=== PATIENT | female | born 1940 | race Caucasian/White ===

== ENCOUNTER 2020-10-09 11:19 | Inpatient (IN) | payer MEDICARE, OTHER, SELFPAY ==
[2020-10-09] VITALS (7 sets, daily range): BP systolic 102–141; BP diastolic 47–71; PULSE 70–104; RESP 16–19; TEMP 36.4–36.9; O2SAT 96–99; BMI 18.3
--- NOTE | ~2020-10-09 | CT_ITS ---
EXAMINATION: CT BRAIN AND CHEST X-RAY. CLINICAL INFORMATION: AMS. COMPARISON: Chest 01/24/2016 TECHNIQUE: Chest one view. 5 mm thin axial and reformatted 2 mm thin sagittal and coronal images of brain were obtained. DLP [id number] FINDINGS: Chest: The lungs are hyperinflated but clear of acute process. Heart size and pulmonary vascularity is normal. Is mild dextroscoliosis upper/mid dorsal spine. No lytic process. Brain: There is no acute intra-axial, extra-axial bleed, masses or midline shift. There is no acute infarct in evolution. The lateral ventricles are symmetrical in size and configuration with moderate enlargement. There is diffuse periventricular hypodensity in both cerebral hemispheres suggestive of chronic small vessel ischemic changes. Windows reveal no calvarial abnormality. Bilateral paranasal sinuses and mastoid air cells are well-aerated CT/CT head/brain wo con IMPRESSION: Unremarkable chest exam except for hyperinflation. No acute intracranial process seen. Age-related cerebral volume loss with diffuse chronic small vessel ischemic changes.
--- NOTE | ~2020-10-09 | CT_ITS ---
EXAMINATION: CT ABDOMEN AND PELVIS WITHOUT CONTRAST CLINICAL INFORMATION: 79-year-old female with abdominal pain COMPARISON: None TECHNIQUE: Multidetector volumetric imaging was performed from the superior aspect of the liver through the pubic symphysis. Sagittal and coronal reformatted images were obtained on the technologist's workstation. Evaluation of solid organs is limited given lack of IV contrast. This CT examination was performed using dose optimization techniques as appropriate, variously including the following: *Automated exposure control *Adjustment of mA and/or kV according to patient size (this includes techniques or standardized protocols for targeted exams where dose is matched to indication/reason for exam; i.e. extremities or head) *Use of iterative reconstruction technique DLP: 209 mGy-cm FINDINGS: Visualized lung bases demonstrate mild lingular atelectasis. The liver demonstrates normal size, contour and attenuation. The gallbladder is surgically absent. The pancreas and spleen are unremarkable. The adrenal glands are hypertrophied bilaterally, left greater than right. No renal calculi or hydronephrosis of either kidney. A few small parapelvic cysts are present. The stomach is decompressed. Normal caliber loops of small and large bowel. Mild to moderate colonic diverticulosis without CT evidence to suggest active diverticulitis. There is a mild stool burden throughout the colon. Nonaneurysmal abdominal aorta which demonstrates moderate atherosclerotic disease. The bladder is normal in appearance. The uterus is either atrophic or surgically absent. No gross free pelvic fluid. No inguinal lymphadenopathy. Diffuse osteopenia. Scoliotic and degenerative changes of the spine. CT/CT abdomen pelvis wo con IMPRESSION: -No CT evidence for acute abnormality within the abdomen or pelvis. -[id number] colonic diverticulosis without CT evidence to suggest active diverticulitis. -Mild stool burden throughout the colon.
--- NOTE | 2020-10-09 12:34 | PC.NURSE ---
pt is a/o x 2, pt did not know the year. pt states i am feeling so confusion . pt is aware of plan of care.
[2020-10-09 12:49] LABS: MANUAL DIFF FLAG NO
[2020-10-09 12:59] LABS: Basophils Absolute Auto 0.1 X10*3/uL (0.0-0.2); Basophils Percent Auto 0.7 % (0-2); Eosinophils Percent Auto 0.4 % (0-4); Hematocrit 40.9 % (37-47); Hemoglobin 13.5 g/dl (12.0-16.0); Imm Gran Abs Auto 0.02 X10*3/uL (0.00-0.03); Imm Gran Pct Auto 0.3 % (0.0-0.4); Lymphocytes Absolute Auto 1.6 X10*3/uL (1.2-4.9); Lymphocytes Percent Auto 22.8 % (20-40); Mean Corpuscular Hemoglobin 30.1 pg (27.0-33.0); Mean Corpuscular Volume 91.1 fL (80-98); Mean Platelet Volume 9.8 fL (9.4-12.3); Monocytes Absolute Auto 0.5 X10*3/uL (0.1-1.2); Monocytes Percent Auto 6.4 % (2-11); Neutrophils Absolute Auto 4.9 X10*3/uL (2.0-8.3); Neutrophils Percent Auto 69.4 % (45-73); Platelet Count 354 X10*3/uL (160-400); Red Blood Count 4.49 X10*6/uL (4.20-5.50); Red Cell Distribution Width 12.3 % (11.0-16.0); White Blood Count 7.1 X10*3/uL (4.8-10.8)
--- NOTE | 2020-10-09 13:07 | ED.GENADULT ---
HPI - General Adult General Chief complaint: General Medical <JESSY Valenzuela - Last Filed: 10/09/20 17:45> Stated complaint: AGITATION & CONFUSION PER ASSISTED LIVING STAFF <JESSY Valenzuela - Last Filed: 10/09/20 17:45> Time Seen by Provider: 10/09/20 12:04 <JESSY Valenzuela - Last Filed: 10/09/20 17:45> Source: patient and EMS <JESSY Valenzuela - Last Filed: 10/09/20 17:45> Mode of arrival: EMS <JESSY Valenzuela - Last Filed: 10/09/20 17:45> Limitations: other (dementia, poor historian, confused) <JESSY Valenzuela - Last Filed: 10/09/20 17:45> History of Present Illness HPI narrative: 79 y/o female with history of dementia, generalized anxiety disorder, depression who presents to the ED from Assisted Living with increased agitation and combative behavior. She was reportedly throwing items and destroying property at the facilty prompting ER evaluation. According to fruit pitter at the facility over the last 2 weeks patient has been increasing anxious, agitated and irritated. She was seen by her Psych [employer]CH[employer]IC and plan was to start Zyprexa, but unclear if this was started yet. Family reports a UTI 1 month ago that presented with similar behavioral changes. Her initial UA was negative at the time of behaviro onset and then a few days later was positive and she was treated. On arrival patient is confused and anxious. She states she is not having a good day. She does not know why she is here. She does admit to some abdominal discomfort over the last few days and burning on urination for the last 2 days. She currently denies all pain, no SOB, chest pain, N/V/D. <JESSY Valenzuela - Last Filed: 10/09/20 17:45> MD complaint: agitation <JESSY Valenzuela Last Filed: 10/09/20 17:45> Onset (ago): hour(s) <JESSY Valenzuela Last Filed: 10/09/20 17:45> Radiation: non-radiation <JESSY Valenzuela Last Filed: 10/09/20 17:45> Severity: moderate <JESSY Valenzuela - Last Filed: 10/09/20 17:45> Associated symptoms: confusion <JESSY Valenzuela - Last Filed: 10/09/20 17:45> Treatments prior to arrival: none <JESSY Valenzuela - Last Filed: 10/09/20 17:45> Related Data Home medications: Home Medications Medication Instructions Recorded Confirmed alprazolam 1 tab PO TID 10/09/20 10/09/20 aspirin [Aspir-81] 81 mg PO DAILY@0800 10/09/20 10/09/20 cholecalciferol (vitamin D3) 25 mcg PO DAILY@0800 10/09/20 10/09/20 cyanocobalamin (vitamin B-12) 2,500 mcg PO DAILY@0800 10/09/20 10/09/20 multivitamin 1 tab PO DAILY@0800 10/09/20 10/09/20 olanzapine 1 tab PO DAILY@199910/09/20 10/09/20 rivastigmine 1 patch TOPICAL DAILY 10/09/20 10/09/20 vitamin E 1,000 unit PO DAILY@0800 10/09/20 10/09/20 vortioxetine [Trintellix] 1 tab PO DAILY@0800 10/09/20 10/09/20 <JESSY Valenzuela - Last Filed: 10/09/20 17:45> Allergies/adverse reactions: Allergies Allergy/AdvReac Type Severity Reaction Status Date / Time memantine [MEMANTINE] Allergy Severe HIVES Unverified 03/07/20 15:18 Iodinated Contrast Media Allergy Unknown UNKNOWN Unverified 03/07/20 15:18 [IV CONTRAST] lactose Allergy Unknown DIARRHEA Unverified 03/07/20 15:18 sulfamethoxazole Allergy Unknown UNKNOWN Unverified 03/07/20 15:18 [From BACTRIM] trimethoprim [From BACTRIM] Allergy Unknown UNKNOWN Unverified 03/07/20 15:18 <JESSY Valenzuela - Last Filed: 10/09/20 17:45> Review of Systems Review of Systems: Constitutional: No Fever, No Chills ENT/Mouth: No sore throat, No Rhinorrhea, No Swallowing Difficulty Cardiovascular: No Chest Pain, No SOB, No Orthopnea, No Edema Respiratory: No Cough, No Sputum, No Wheezing, No dyspnea Gastrointestinal: No Nausea, No Vomiting, No Diarrhea, + abdominal Pain, No Hematochezia, No Melena Genitourinary: + Dysuria, No Urinary Frequency, No Hematuria Musculoskeletal: No joint pain, No Myalgias Skin: No Skin Lesions, No rash Neuro: No Weakness, No Numbness, No Dizziness, No Headache Psych: + Anxiety/Panic, No Depression Heme/Lymph: No Bruising, No Lymphadenopathy Endocrine: No Polyuria, No Polydipsia <JESSY Valenzuela - Last Filed: 10/09/20 17:45> [facility] Past Medical History Attestation statement: The following information was validated with the patient. <JESSY Valenzuela - Last Filed: 10/09/20 17:45> Medical History: Medical History Anxiety Dementia <JESSY Valenzuela - Last Filed: 10/09/20 17:45> Social History Social History: Social History Smoking Status: Never smoker Use of substances other than those prescribed or required for medical reasons: No Advance Directives: No Advance Directives Information Provided: Yes <JESSY Valenzuela - Last Filed: 10/09/20 17:45> Physical Exam Vital Signs: Vital Signs: Last Vital Signs Temp 98.6 F 10/10/20 05:03 Pulse 72 10/10/20 07:22 Resp 16 10/10/20 05:03 BP 116/67 10/10/20 07:22 Pulse Ox 98 10/10/20 07:22 Body Mass Index 18.3 Appearance: Alert elderly female laying in bed. Oriented X2. Anxious Eyes: Pupils equal, round and reactive to light. ENT: Pharynx normal. Neck: Normal inspection. Neck supple. CVS: Normal heart rate and rhythm. Pulses normal. Respiratory: No respiratory distress. Breath sounds normal. Abdomen: Soft and nontender. +BS x4 Skin: Skin warm and dry. Normal skin color. Normal skin turgor. No rashes. Extremities: No lower extremity edema. Thin and frail extremities Neuro: Oriented X 2. Tearful, anxious, confused, speaks in clear sentences, equal and symmetrical strength throughout <JESSY Valenzuela - Last Filed: 10/09/20 17:45> Vital Signs: Last Vital Signs Temp 98.6 F 10/10/20 05:03 Pulse 72 10/10/20 07:22 Resp 16 10/10/20 05:03 BP 116/67 10/10/20 07:22 Pulse Ox 98 10/10/20 07:22 Body Mass Index 18.3 <Gosia Millan DO - Last Filed: 10/10/20 08:26> Course Course Course Narrative: 79 y/o female with history of dementia, anxiety, and depression who presents from SNF with acute onset of agitation and worsening confusion. She was admitted to last Summer for extensive workup of organic causes and she was discharged on Xanax & Rivastigmine. Acute change today is Possibly due to UTI. Will get labs, UA & CT head for further assessment of mental status changes. <JESSY Valenzuela - Last Filed: 10/09/20 17:45> Reevaluation(s) Reevaluation #1: UA is weakly positive for UTI with trace leukocyte esterase, 0-2 WBC. Given her behavior change, history of the same and reports of dysuria will treat. Mild elevation in BUN with reports of poor PO intake so will also gently hydrate. Will also have Psych see her now as well as CARE team. Family at the bedside and agreeable with plan. <JESSY Valenzuela - Last Filed: 10/09/20 17:45> Reevaluation #2: CARE team assessed the patient. At this time she is not appropriate for geriatric psych. Recommending following up with Psych recs tomorrow and discussing additional support/services at assisted living. Will d/w case management. Physician observation started at 4:30pm. Patient placed in physician observation because patient is awaiting Psych evaluation for recommendations of worsening dementia, anxiety and agitation. At the time observation was started patient's vital signs were stable. Patient is alert and confused. Neuro exam is non-focal. CV: RRR and lungs are clear. Will continue to monitor. <JESSY Valenzuela - Last Filed: 10/09/20 17:45> Consultations Consultation #1: Psych <JESSY Valenzuela - Last Filed: 10/09/20 17:45> Consultation #2: CARE TEAM <JESSY Valenzuela - Last Filed: 10/09/20 17:45> Medical Decision Making Lab Data Result diagrams: : 10/09/20 12:44 10/09/20 12:45 <JESSY Valenzuela - Last Filed: 10/09/20 17:45> Labs: Lab Results 10/09/20 10/09/20 10/09/20 Range/Units 12:44 12:44 12:44 WBC 7.1 (4.8-10.8) X10*3/uL RBC 4.49 (4.20-5.50) X10*6/uL Hgb 13.5 (12.0-16.0) g/dl Hct 40.9 (37-47) % MCV 91.1 (80-98) fL MCH 30.1 (27.0-33.0) pg MCHC 33.0 (31.0-35.0) g/dl RDW 12.3 (11.0-16.0) % Plt Count 354 (160-400) X10*3/uL MPV 9.8 (9.4-12.3) fL Immature Gran % (Auto) 0.3 (0.0-0.4) % Neut % (Auto) 69.4 (45-73) % Lymph % (Auto) 22.8 (20-40) % [place] % (Auto) 6.4 (2-11) % Eos % (Auto) 0.4 (0-4) % Baso % (Auto) 0.7 (0-2) % Lymph # (Auto) 1.6 (1.2-4.9) X10*3/uL [place] # (Auto) 0.5 (0.1-1.2) X10*3/uL Eos # (Auto) 0.0 (0.0-0.4) X10*3/uL Baso # (Auto) 0.1 (0.0-0.2) X10*3/uL Abs Immat Gran (auto) 0.02 (0.00-0.03) X10*3/uL Absolute Neuts (auto) 4.9 (2.0-8.3) X10*3/uL Absolute Nucleated RBC 0.000 (0.0-0.012) X10*3/uL Nucleated RBC % (auto) 0.0 (0.0-0.2) /100WBC Hold Blue Top SEE NOTE Sodium (135-145) mmol/L Potassium (3.3-5.1) mmol/L Chloride (96-108) mmol/L Carbon Dioxide (22-29) mmol/L Anion Gap (12-20) BUN (9-16) mg/dL Creatinine (0.5-1.4) mg/dL Estim Creat Clear Calc Estimated GFR Random Glucose (60-115) mg/dL Calcium (8.4-10.2) mg/dL Magnesium (1.6-2.6) mg/dL Total Bilirubin (0.0-1.0) mg/dL Direct Bilirubin (0.0-0.5) mg/dL AST (5-31) U/L ALT (0-31) U/L Alkaline Phosphatase (39-117) U/L Troponin I High Sens 6.5 (<3.5-17.0) ng/L Total Protein (6.5-8.0) g/dL Albumin (3.5-5.0) g/dL Urine Color Urine Appearance Urine pH (5.0-8.0) Ur Specific [place] (1.005-1.025) Urine Protein (NEG-TRACE) MG/DL Urine Glucose (UA) (NEG) MG/DL Urine Ketones (NEG) MG/DL Urine Blood (NEG) Urine Nitrite (NEG) Ur Leukocyte Esterase (NEG) Urine RBC (0) /HPF Urine WBC (0-4) /HPF Ur Squamous Epith Cells /LPF Urine Bacteria /LPF Granular Casts /LPF Urine Mucus /LPF Coronavirus (PCR) (Negative) Influenza Type A (PCR) (Negative) Influenza Type B (PCR) (Negative) RSV RNA Qual (PCR) (Negative) 10/09/20 10/09/20 10/09/20 Range/Units 12:45 13:07 13:35 WBC (4.8-10.8) X10*3/uL RBC (4.20-5.50) X10*6/uL Hgb (12.0-16.0) g/dl Hct (37-47) % MCV (80-98) fL MCH (27.0-33.0) pg MCHC (31.0-35.0) g/dl RDW (11.0-16.0) % Plt Count (160-400) X10*3/uL MPV (9.4-12.3) fL Immature Gran % (Auto) (0.0-0.4) % Neut % (Auto) (45-73) % Lymph % (Auto) (20-40) % [place] % (Auto) (2-11) % Eos % (Auto) (0-4) % Baso % (Auto) (0-2) % Lymph # (Auto) (1.2-4.9) X10*3/uL [place] # (Auto) (0.1-1.2) X10*3/uL Eos # (Auto) (0.0-0.4) X10*3/uL Baso # (Auto) (0.0-0.2) X10*3/uL Abs Immat Gran (auto) (0.00-0.03) X10*3/uL Absolute Neuts (auto) (2.0-8.3) X10*3/uL Absolute Nucleated RBC (0.0-0.012) X10*3/uL Nucleated RBC % (auto) (0.0-0.2) /100WBC Hold Blue Top Sodium 141 (135-145) mmol/L Potassium 3.5 (3.3-5.1) mmol/L Chloride 104 (96-108) mmol/L Carbon Dioxide 26 (22-29) mmol/L Anion Gap 15 (12-20) BUN 24 H (9-16) mg/dL Creatinine 0.79 (0.5-1.4) mg/dL Estim Creat Clear Calc 46.2 Estimated GFR > 60 Random Glucose 103 (60-115) mg/dL Calcium 9.5 (8.4-10.2) mg/dL Magnesium 2.1 (1.6-2.6) mg/dL Total Bilirubin 0.7 (0.0-1.0) mg/dL Direct Bilirubin 0.2 (0.0-0.5) mg/dL AST 21 (5-31) U/L ALT 12 (0-31) U/L Alkaline Phosphatase 79 (39-117) U/L Troponin I High Sens (<3.5-17.0) ng/L Total Protein 6.7 (6.5-8.0) g/dL Albumin 4.2 (3.5-5.0) g/dL Urine Color YELLOW Urine Appearance CLEAR Urine pH 5.5 (5.0-8.0) Ur Specific [place] 1.025 (1.005-1.025) Urine Protein NEG (NEG-TRACE) MG/DL Urine Glucose (UA) NEG (NEG) MG/DL Urine Ketones 15 (NEG) MG/DL Urine Blood 3+ H (NEG) Urine Nitrite NEG (NEG) Ur Leukocyte Esterase TRACE H (NEG) Urine RBC 1-4 (0) /HPF Urine WBC 0-2 (0-4) /HPF Ur Squamous Epith Cells TRACE /LPF Urine Bacteria TRACE /LPF Granular Casts 0-2 /LPF Urine Mucus 1+ /LPF Coronavirus (PCR) NEGATIVE (Negative) Influenza Type A (PCR) NEGATIVE (Negative) Influenza Type B (PCR) NEGATIVE (Negative) RSV RNA Qual (PCR) NEGATIVE (Negative) <JESSY Valenzuela - Last Filed: 10/09/20 17:45> Lab Results 10/09/20 10/09/20 10/09/20 Range/Units 12:44 12:44 12:44 WBC 7.1 (4.8-10.8) X10*3/uL RBC 4.49 (4.20-5.50) X10*6/uL Hgb 13.5 (12.0-16.0) g/dl Hct 40.9 (37-47) % MCV 91.1 (80-98) fL MCH 30.1 (27.0-33.0) pg MCHC 33.0 (31.0-35.0) g/dl RDW 12.3 (11.0-16.0) % Plt Count 354 (160-400) X10*3/uL MPV 9.8 (9.4-12.3) fL Immature Gran % (Auto) 0.3 (0.0-0.4) % Neut % (Auto) 69.4 (45-73) % Lymph % (Auto) 22.8 (20-40) % [place] % (Auto) 6.4 (2-11) % Eos % (Auto) 0.4 (0-4) % Baso % (Auto) 0.7 (0-2) % Lymph # (Auto) 1.6 (1.2-4.9) X10*3/uL [place] # (Auto) 0.5 (0.1-1.2) X10*3/uL Eos # (Auto) 0.0 (0.0-0.4) X10*3/uL Baso # (Auto) 0.1 (0.0-0.2) X10*3/uL Abs Immat Gran (auto) 0.02 (0.00-0.03) X10*3/uL Absolute Neuts (auto) 4.9 (2.0-8.3) X10*3/uL Absolute Nucleated RBC 0.000 (0.0-0.012) X10*3/uL Nucleated RBC % (auto) 0.0 (0.0-0.2) /100WBC Hold Blue Top SEE NOTE Sodium (135-145) mmol/L Potassium (3.3-5.1) mmol/L Chloride (96-108) mmol/L Carbon Dioxide (22-29) mmol/L Anion Gap (12-20) BUN (9-16) mg/dL Creatinine (0.5-1.4) mg/dL Estim Creat Clear Calc Estimated GFR Random Glucose (60-115) mg/dL Calcium (8.4-10.2) mg/dL Magnesium (1.6-2.6) mg/dL Total Bilirubin (0.0-1.0) mg/dL Direct Bilirubin (0.0-0.5) mg/dL AST (5-31) U/L ALT (0-31) U/L Alkaline Phosphatase (39-117) U/L Troponin I High Sens 6.5 (<3.5-17.0) ng/L Total Protein (6.5-8.0) g/dL Albumin (3.5-5.0) g/dL Urine Color Urine Appearance Urine pH (5.0-8.0) Ur Specific [place] (1.005-1.025) Urine Protein (NEG-TRACE) MG/DL Urine Glucose (UA) (NEG) MG/DL Urine Ketones (NEG) MG/DL Urine Blood (NEG) Urine Nitrite (NEG) Ur Leukocyte Esterase (NEG) Urine RBC (0) /HPF Urine WBC (0-4) /HPF Ur Squamous Epith Cells /LPF Urine Bacteria /LPF Granular Casts /LPF Urine Mucus /LPF Coronavirus (PCR) (Negative) Influenza Type A (PCR) (Negative) Influenza Type B (PCR) (Negative) RSV RNA Qual (PCR) (Negative) 10/09/20 10/09/20 10/09/20 Range/Units 12:45 13:07 13:35 WBC (4.8-10.8) X10*3/uL RBC (4.20-5.50) X10*6/uL Hgb (12.0-16.0) g/dl Hct (37-47) % MCV (80-98) fL MCH (27.0-33.0) pg MCHC (31.0-35.0) g/dl RDW (11.0-16.0) % Plt Count (160-400) X10*3/uL MPV (9.4-12.3) fL Immature Gran % (Auto) (0.0-0.4) % Neut % (Auto) (45-73) % Lymph % (Auto) (20-40) % [place] % (Auto) (2-11) % Eos % (Auto) (0-4) % Baso % (Auto) (0-2) % Lymph # (Auto) (1.2-4.9) X10*3/uL [place] # (Auto) (0.1-1.2) X10*3/uL Eos # (Auto) (0.0-0.4) X10*3/uL Baso # (Auto) (0.0-0.2) X10*3/uL Abs Immat Gran (auto) (0.00-0.03) X10*3/uL Absolute Neuts (auto) (2.0-8.3) X10*3/uL Absolute Nucleated RBC (0.0-0.012) X10*3/uL Nucleated RBC % (auto) (0.0-0.2) /100WBC Hold Blue Top Sodium 141 (135-145) mmol/L Potassium 3.5 (3.3-5.1) mmol/L Chloride 104 (96-108) mmol/L Carbon Dioxide 26 (22-29) mmol/L Anion Gap 15 (12-20) BUN 24 H (9-16) mg/dL Creatinine 0.79 (0.5-1.4) mg/dL Estim Creat Clear Calc 46.2 Estimated GFR > 60 Random Glucose 103 (60-115) mg/dL Calcium 9.5 (8.4-10.2) mg/dL Magnesium 2.1 (1.6-2.6) mg/dL Total Bilirubin 0.7 (0.0-1.0) mg/dL Direct Bilirubin 0.2 (0.0-0.5) mg/dL AST 21 (5-31) U/L ALT 12 (0-31) U/L Alkaline Phosphatase 79 (39-117) U/L Troponin I High Sens (<3.5-17.0) ng/L Total Protein 6.7 (6.5-8.0) g/dL Albumin 4.2 (3.5-5.0) g/dL Urine Color YELLOW Urine Appearance CLEAR Urine pH 5.5 (5.0-8.0) Ur Specific [place] 1.025 (1.005-1.025) Urine Protein NEG (NEG-TRACE) MG/DL Urine Glucose (UA) NEG (NEG) MG/DL Urine Ketones 15 (NEG) MG/DL Urine Blood 3+ H (NEG) Urine Nitrite NEG (NEG) Ur Leukocyte Esterase TRACE H (NEG) Urine RBC 1-4 (0) /HPF Urine WBC 0-2 (0-4) /HPF Ur Squamous Epith Cells TRACE /LPF Urine Bacteria TRACE /LPF Granular Casts 0-2 /LPF Urine Mucus 1+ /LPF Coronavirus (PCR) NEGATIVE (Negative) Influenza Type A (PCR) NEGATIVE (Negative) Influenza Type B (PCR) NEGATIVE (Negative) RSV RNA Qual (PCR) NEGATIVE (Negative) <Gosia Millan DO - Last Filed: 10/10/20 08:26> Discharge Plan Discharge Clinical Impression: Dementia Qualifiers: Dementia type: unspecified type Dementia behavioral disturbance: with behavioral disturbance Qualified Code(s): F03.91 - Unspecified dementia with behavioral disturbance <JESSY Valenzuela - Last Filed: 10/09/20 17:45> Prescriptions: No Action multivitamin Tablet 1 tab PO DAILY@0800 RF: 0 vitamin E 1,000 unit Capsule 1,000 unit PO DAILY@0800 RF: 0 olanzapine 2.5 mg tablet 1 tab PO DAILY@2000 RF: 0 aspirin [Aspir-81] 81 mg Tablet,Delayed Release (Dr/Ec) 81 mg PO DAILY@0800 RF: 0 alprazolam 0.25 mg tablet 1 tab PO TID RF: 0 cholecalciferol (vitamin D3) 25 mcg (1,000 unit) Capsule 25 mcg PO DAILY@0800 RF: 0 rivastigmine 4.6 mg/24 hour patch 24 hour 1 patch topical DAILY RF: 0 Trintellix 20 mg tablet 1 tab PO DAILY@0800 RF: 0 cyanocobalamin (vitamin B-12) 2,500 mcg Tablet 2,500 mcg PO DAILY@0800 RF: 0 <JESSY Vaelnzuela - Last Filed: 10/09/20 17:45>
[2020-10-09 13:16] LABS: Alanine Aminotransferase 12 U/L (0-31); Albumin Level 4.2 g/dL (3.5-5.0); Alkaline Phosphatase 79 U/L (39-117); Anion Gap 15 (12-20); Aspartate Amino Transferase 21 U/L (5-31); Bilirubin Direct 0.2 mg/dL (0.0-0.5); Bilirubin Total 0.7 mg/dL (0.0-1.0); Blood Urea Nitrogen 24 mg/dL (9-16); Calcium 9.5 mg/dL (8.4-10.2); Carbon Dioxide 26 mmol/L (22-29); Chloride 104 mmol/L (96-108); Creatinine Clr Calc Pharmacy 46.2; Estimated Glomerular Filt Rate > 60; Glucose Random 103 mg/dL (60-115); Magnesium 2.1 mg/dL (1.6-2.6); Potassium 3.5 mmol/L (3.3-5.1); Sodium 141 mmol/L (135-145); Total Protein 6.7 g/dL (6.5-8.0)
[2020-10-09 13:22] LABS: Troponin-I High Sensitivity 6.5 ng/L (<3.5-17.0)
[2020-10-09 13:25] LABS: Glucose Urine UA NEG (NEG); Leukocyte Esterase Urine TRACE (NEG); Nitrite Urine NEG (NEG); PH 5.5 (5.0-8.0); Specific Gravity - Urine 1.025 (1.005-1.025); UACC Culture Trigger YES; Urine Blood 3+ (NEG); Urine Ketones 15 MG/DL (NEG); Urine Protein NEG (NEG-TRACE)
[2020-10-09 13:29] LABS: Appearance Urine CLEAR; Color Urine YELLOW
[2020-10-09 13:46] LABS: Bacteria Urine TRACE /LPF; Granular Casts Urine 0-2 /LPF; Mucus Urine 1+ /LPF; Squamous Epithelial Cell Urine TRACE /LPF; WBC Urine 0-2 /HPF (0-4)
[2020-10-09 14:23] LABS: Influenza A PCR NEGATIVE (Negative); Influenza B PCR NEGATIVE (Negative); Resp Syncy Virus RNA Qual PCR NEGATIVE (Negative); SARS COV2 PCR INHOUSE NEGATIVE (Negative)
--- NOTE | 2020-10-09 16:00 | PC.NURSE ---
Per daughter: pt has severe reactions to antipsychotics and other meds. Daughter warns staff and provider to medicate with caution.
[2020-10-09] MEDS: cefTRIAXone sodium 1 GM in 0.9 % Sodium Chloride 50 ML IV (16:15)
[2020-10-09] MEDS: 0.9 % Sodium Chloride 1,000 ML 999 ML IVCONT (16:15)
--- NOTE | 2020-10-09 18:08 | MHC.CARE ---
CARE Team meets with pt and her daughter. Pt states that she is confused and identifies feeling scared, anxious and overwhelmed as a result. She is oriented to self, but is otherwise disoriented. Daughter voices that the behavioral disturbances and increased confusion that resulted in pt coming to the ED have been observed before when pt has a UTI. Daughter reports that in the past when these behaviors start, pt will often be negative for UTI, but then will be positive in the following days. Daughter states that her mother has been chronically under nourished, dehydrated and has not been showering or changing clothing as often as she should. Pt resides at [facility]. Daughter states that she is looking to have additional help for her mother, such as a PERFORMANCE CONSULTANT. Daughter is interested in speaking with Case Management, and CARE Team communicates this to DELFINA Hess RN. Daughter reports that prior inpt psych admissions were problematic in some ways for pt, identifying feeling that pt was over medicated. Daughter is hopeful that radha-psych admission can be avoided. Pt is followed by Ivy Elena NP for outpatient psychiatry, and daughter plans on reaching out to Pat as well. Plan is discussed with JESSY Carroll. Pt will remain in the ED overnight for continued antibiotic treatment with plan for case management consult and psych consult tomorrow. Pt and daughter are agreeable with this plan.
--- NOTE | 2020-10-09 19:09 | MHC.CM.ED ---
Met with pt and daughter/HCP Jessica Morejon ([phone]). Pt has severe dementia and cannot answer any questions clearly. Pt lives in Assisted Living at [facility] in [place]. Locked memory care unit. Daughter feels pt need more assistance at [facility]. 3 meals, housekeeping and laundry are provided. Referrals placed to [facility] and [facility] vis allscripts to contact Jessica. CM card givenwith contact info for [facility], [facility], and [facility]. Also suggested Jessica check with social psychologist at facility for recommendations. Pt does not use any medical equipment at home. Daughters are very invoved in pt care. Jessica states that mother can be unsteady on her feet and feels that OT is needed also. Brittnee JIMÉNEZ aware and ordered PT/OT ordered for am. CM to follow for d/c needs.
[2020-10-09] MEDS: ALPRAZolam 0.25 MG TABLET PO (21:46)
[2020-10-09] MEDS: OLANZapine 2.5 MG TABLET PO ×2 (21:46→23:18)
--- NOTE | 2020-10-09 23:21 | PC.NURSE ---
pt awoke with acute confusion and anxiety. pt medicated with 2.5mg zyprexa by mlp with candy.
[2020-10-10] VITALS (14 sets, daily range): BP systolic 116–122; BP diastolic 59–67; PULSE 70–82; RESP 16–20; TEMP 36.6–37; O2SAT 97–99
--- NOTE | 2020-10-10 02:39 | PC.NURSE ---
pt ambualted back and forth to bathroom with moderately unsteady gait. Pt in bed now.
--- NOTE | 2020-10-10 02:59 | PC.NURSE ---
per kiln charger and mlp, patient to be medicated with seroquel for pt being awake. pt in behavioral control. Pt is calm and cooperative at this time and is easily redirected with sitter at bedside. this writer producer advised family concerns regarding medication.
[2020-10-10] MEDS: QUEtiapine Fumarate 25 MG TABLET PO (03:02)
--- NOTE | 2020-10-10 03:54 | PC.NURSE ---
Report received from previous RN. Pt out of bed with assistance, sitter remains present. Pt awake but not actively trying to leave bed at this time. Will continue to monitor.
[2020-10-10] MEDS: ALPRAZolam 0.25 MG TABLET PO ×2 (08:13→14:30)
--- NOTE | 2020-10-10 08:18 | PC.NURSE ---
PT REMAINS CONFUSED AND AGITATED AT TIMES. SHE IS WANDERING IN ED, SITTER IS PRESENT FOR SAFETY, SHE WAS MEDICATED BUT IS REFUSING OTHER AM MEDS AT THIS TIME.
[2020-10-10] MEDS: LORazepam 2 MG/ML VIAL 1 MG IVPUSH (09:08)
--- NOTE | 2020-10-10 09:14 | PC.NURSE ---
pt continues to wander, not redirectable, confused. attempting to hit staff, sts leave me alone! . pt moved back to stretcher, medicated per emar. 1:[address] for safety[address] baudilio[address]
--- NOTE | 2020-10-10 09:20 | MHC.CM.ED ---
Patient remains in ER. Copy of HCP obtained from Dr Triplett's office. Left voicemail for Neeru at [facility]. Waiting for return telephone call to see if patient can return to facility. Continue to monitor for d/c needs.
--- NOTE | 2020-10-10 09:59 | MHC.CM.ED ---
Received return telephone call from Neeru at [facility]. Patient was admitted to their facility on 12/06/2019. She was participating in activatiess until about a month ago. At that time patient started complaining on neck pain, had decreased PO intake and has lost significant weight. Psych consult is pending at this time. Continue to monitor for d/c needs.
--- NOTE | 2020-10-10 12:37 | PC.NURSE ---
Patient awake/confused, restless in bed, pt agreeable to now take po antibiotics with some coaching, unable to get vitals at this time due to restlessness, pt rr documented, will continue to monitor
--- NOTE | 2020-10-10 13:20 | MHC.CM.ED ---
Psych consult is pending. Dr Messina will be seeing patient today. Continue to monitor for d/c needs.
--- NOTE | 2020-10-10 15:25 | PM.PSYCN ---
History of Present Illness Date of Service: t Chief Complaint: AGITATION & CONFUSION PER ASSISTED LIVING STAFF Reason for Consult: Reassessment of psychotropics Requesting physician: Brittnee Groves Discussed with referring provider: Yes (Case discussed with CARE team) Sources of Information: patient interviewed, chart reviewed and crisis/core team assessment reviewed Additional Sources of Information: Talita Lopez [phone] [facility] Narrative: The patient is a 79 year old female, resident of an assisted living facility, retired, with good social support with a long history of anxiety and dementia. At baseline, as per daughter's report, she is able to take care of herself with help and she is cooperative but she has been more dysphoric since the patient is aware of her progressive cognitive deterioration. She was brought to the ED after episodes of agitation with destruction of property. Historically, she had a previous episode in context of UTI and it seems that she is prone to this infection. During the interview, the patient was pleasantly confused, unable to detail how come she ended in the ED and easily distracted. She was agitated in the morning and requiered PRN Ativan. Past Psychiatric History: She had a previous geriatric psychiatric admission. She was diagnosed with Dementia and currently, she is on Rivastigmine. She has outpatient providers. Medical Evaluation Reviewed: Yes Review of Systems Review of Systems Yes Unobtainable due to mental status PMFSH Medical History Anxiety Dementia Family History: No contributory Social History: Retired, living in [facility], with very good social support. Substance History: Denies Trauma History: Denies Diagnostics Vital Signs (24Hr): Vital Signs - 24 hr 10/09/20 16:53 10/09/20 18:33 10/09/20 20:39 Temperature 97.7 F 97.6 F 98.0 F Pulse Rate 84 74 73 Respiratory Rate 18 18 18 Blood Pressure 125/65 126/61 131/47 L Pulse Oximetry 99 96 99 10/09/20 22:06 10/10/20 02:51 10/10/20 05:03 Temperature 97.5 F 97.8 F 98.6 F Pulse Rate 70 70 72 Respiratory Rate 18 16 16 Blood Pressure 121/55 L 122/59 L 116/67 Pulse Oximetry 97 99 98 10/10/20 07:22 10/10/20 09:08 10/10/20 09:23 Temperature Pulse Rate 72 Respiratory Rate 20 20 Blood Pressure 116/67 Pulse Oximetry 98 10/10/20 09:38 10/10/20 09:53 10/10/20 10:08 Temperature Pulse Rate 80 78 Respiratory Rate 18 18 18 Blood Pressure Pulse Oximetry 97 97 97 10/10/20 12:00 Temperature Pulse Rate Respiratory Rate 17 Blood Pressure Pulse Oximetry Body Mass Index 18.3 Labs Results: 10/09/20 12:44 10/09/20 12:45 Labs: Laboratory Results - last 48 hr 10/09/20 10/09/20 10/09/20 12:44 12:44 12:44 WBC 7.1 RBC 4.49 Hgb 13.5 Hct 40.9 MCV 91.1 MCH 30.1 MCHC 33.0 RDW 12.3 Plt Count 354 MPV 9.8 Immature Gran % (Auto) 0.3 Neut % (Auto) 69.4 Lymph % (Auto) 22.8 [place] % (Auto) 6.4 Eos % (Auto) 0.4 Baso % (Auto) 0.7 Lymph # (Auto) 1.6 [place] # (Auto) 0.5 Eos # (Auto) 0.0 Baso # (Auto) 0.1 Abs Immat Gran (auto) 0.02 Absolute Neuts (auto) 4.9 Absolute Nucleated RBC 0.000 Nucleated RBC % (auto) 0.0 Hold Blue Top SEE NOTE Sodium Potassium Chloride Carbon Dioxide Anion Gap BUN Creatinine Estim Creat Clear Calc Estimated GFR Random Glucose Calcium Magnesium Total Bilirubin Direct Bilirubin AST ALT Alkaline Phosphatase Troponin I High Sens 6.5 Total Protein Albumin Urine Color Urine Appearance Urine pH Ur Specific [place] Urine Protein Urine Glucose (UA) Urine Ketones Urine Blood Urine Nitrite Ur Leukocyte Esterase Urine RBC Urine WBC Ur Squamous Epith Cells Urine Bacteria Granular Casts Urine Mucus Coronavirus (PCR) Influenza Type A (PCR) Influenza Type B (PCR) RSV RNA Qual (PCR) 10/09/20 10/09/20 10/09/20 12:45 13:07 13:35 WBC RBC Hgb Hct MCV MCH MCHC RDW Plt Count MPV Immature Gran % (Auto) Neut % (Auto) Lymph % (Auto) [place] % (Auto) Eos % (Auto) Baso % (Auto) Lymph # (Auto) [place] # (Auto) Eos # (Auto) Baso # (Auto) Abs Immat Gran (auto) Absolute Neuts (auto) Absolute Nucleated RBC Nucleated RBC % (auto) Hold Blue Top Sodium 141 Potassium 3.5 Chloride 104 Carbon Dioxide 26 Anion Gap 15 BUN 24 H Creatinine 0.79 Estim Creat Clear Calc 46.2 Estimated GFR > 60 Random Glucose 103 Calcium 9.5 Magnesium 2.1 Total Bilirubin 0.7 Direct Bilirubin 0.2 AST 21 ALT 12 Alkaline Phosphatase 79 Troponin I High Sens Total Protein 6.7 Albumin 4.2 Urine Color YELLOW Urine Appearance CLEAR Urine pH 5.5 Ur Specific [place] 1.025 Urine Protein NEG Urine Glucose (UA) NEG Urine Ketones 15 Urine Blood 3+ H Urine Nitrite NEG Ur Leukocyte Esterase TRACE H Urine RBC 1-4 Urine WBC 0-2 Ur Squamous Epith Cells TRACE Urine Bacteria TRACE Granular Casts 0-2 Urine Mucus 1+ Coronavirus (PCR) NEGATIVE Influenza Type A (PCR) NEGATIVE Influenza Type B (PCR) NEGATIVE RSV RNA Qual (PCR) NEGATIVE Imaging Radiology Impressions: ITS Impressions Chest X-Ray 10/09/20 12:04 IMPRESSION: Unremarkable chest exam except for hyperinflation. No acute intracranial process seen. Age-related cerebral volume loss with diffuse chronic small vessel ischemic changes. Head CT 10/09/20 12:05 IMPRESSION: Unremarkable chest exam except for hyperinflation. No acute intracranial process seen. Age-related cerebral volume loss with diffuse chronic small vessel ischemic changes. Mental Status Exam Mental Status Exam Patient Appearance: Appropriate (on hospital gowns) Patient Orientation: Person and Situation Level of Consciousness: Awake and Disoriented Patient Behavior: Guarded and Confused Mood Description: Withdrawn Affect Description: Constricted Patient Cognition Impaired: Yes Ability to Follow Directions: Fair Speech Pattern: Impoverished Memory Description: Recent Impaired Hallucinations: None Delusions: Not Present Thought Process: Disoriented Thought Content: positive for Poverty of Content Abnormal Motor Activity Signs and Symptoms: Agitation Judgement: Poor Judgement and Insight: Insight poor Medications Medications Current Medications Generic Name Dose Route Start Last Admin Trade Name [place] PRN Reason Stop Dose Admin Alprazolam 0.25 mg 10/09/20 21:15 10/10/20 14:30 Alprazolam 0.25 Mg Tablet PO 0.25 mg TID [facility] Administration Aspirin 81 mg 10/10/20 08:00 10/10/20 09:09 Aspirin Enteric Coated 81 Mg Tablet.Dr PO Not Given DAILY@0800 [facility] Cefuroxime Axetil 500 mg 10/10/20 09:00 10/10/20 12:36 Cefuroxime Axetil 500 Mg Tablet PO 500 mg BID [facility] Administration Cyanocobalamin 2,500 mcg 10/10/20 08:00 10/10/20 09:09 Cyanocobalamin (Vitamin B-12) 500 Mcg Tablet PO Not Given DAILY@0800 [facility] Multivitamins/Vitamin C 1 tab 10/10/20 08:00 10/10/20 09:09 Multivitamin Tablet PO Not Given DAILY@0800 [facility] Non-Formulary Medication 1 patch 10/10/20 09:00 Rivastigmine TOPICAL DAILY [facility] Non-Formulary Medication 1,000 unit 10/10/20 08:00 Vitamin E PO DAILY@0800 [facility] Olanzapine 2.5 mg 10/10/20 20:00 Olanzapine 2.5 Mg Tablet PO ONCE [facility] Pharmacy Consult 1 each 10/09/20 17:40 Consult Rx Perform Med Rec MISCELLANE ONCE PRN Consult order Vitamin D 25 mcg 10/10/20 08:00 10/10/20 09:09 Cholecalciferol (Vitamin D3) 25 Mcg Tablet PO Not Given DAILY@0800 [facility] Vortioxetine 20 mg 10/10/20 08:00 10/10/20 09:09 Vortioxetine Hydrobromide 20 Mg Tablet PO Not Given DAILY@0800 [facility] Allergies Allergies Allergy/AdvReac Type Severity Reaction Status Date / Time memantine [MEMANTINE] Allergy Severe HIVES Unverified 03/07/20 15:18 Iodinated Contrast Media Allergy Unknown UNKNOWN Unverified 03/07/20 15:18 [IV CONTRAST] lactose Allergy Unknown DIARRHEA Unverified 03/07/20 15:18 sulfamethoxazole Allergy Unknown UNKNOWN Unverified 03/07/20 15:18 [From BACTRIM] trimethoprim [From BACTRIM] Allergy Unknown UNKNOWN Unverified 03/07/20 15:18 Assessment & Plan Assessment & Plan (1) Dementia: Qualifiers: Dementia behavioral disturbance: with behavioral disturbance Dementia type: unspecified type Qualified Code(s): F03.91 - Unspecified dementia with behavioral disturbance Status: Acute Code(s): F03.90 - Unspecified dementia without behavioral disturbance Recommendations: 1. Change Xanax 0.25 mg po tid to tid PRN since Xanax could oversedated. 2. Increase Zyprexa: 1.25 mg po qam and 2.5 mg po qhs. Disposition: At this moment, the admission to geriatric psychiatry is a possible discharge outcome. Reassessment in 24 hours would be recommended if her mental status deteriorates. (2) Delirium: Status: Acute Code(s): R41.0 - Disorientation, unspecified Recommendations: 1. Continue medical work-out and treatment of the underlying medical cause. Greater than 50% of the session was spent on counseling and/or coordination of care
--- NOTE | 2020-10-10 16:44 | PC.NURSE ---
patient has had increased agitation and became combative, pt refusing po medication, provider has been notified and is consulting with psych as to what course to take
[2020-10-10] MEDS: OLANZapine 10 MG VIAL 5 MG IM (17:00)
--- NOTE | 2020-10-10 17:06 | PC.NURSE ---
patient medicated with zyprexa per order due to patients severe agitatin, daughter is at bedside attempting to assist, unable to obtain vitals at this time, see paper medication restraint flow sheet. will continue to monitor.
--- NOTE | 2020-10-10 17:11 | PC.NURSE ---
patient has been asssisted back into bed
--- NOTE | 2020-10-10 18:35 | PC.NURSE ---
pts agitation has increased and is uncooperative refusing PO, trying to climb oob
[2020-10-10] MEDS: LORazepam 2 MG/ML VIAL IM (18:45)
--- NOTE | 2020-10-10 18:53 | PC.NURSE ---
Patient medicated with im ativan per order, please see medication restraint care flow sheet, sitter at bedside, unable to get vitals at this time, pt rr 18, will continue to monitor.
--- NOTE | 2020-10-10 21:07 | PC.NURSE ---
patient currently sleeping, sitter at bedside, pulse, rr and o2 are within normal limits, due to previous agitation and refusal of taking po meds her scheduled po meds will be held until she wakes, will continue to monitor.
--- NOTE | 2020-10-10 22:51 | MHC.CM.ED ---
CM met with Dr. Cavazso, who provided psych consult at 1530. Pt to remain overnight for observation of medication changes and pt response. See consult for detailed medication changes. Will re-evaluate in am. Family notified by MD. OT/PT do not recommend therapy. See consults for details.
[2020-10-11] VITALS (9 sets, daily range): BP systolic 136; BP diastolic 68; PULSE 78–82; RESP 18–20; O2SAT 96–100
--- NOTE | 2020-10-11 07:09 | PC.NURSE ---
report taken from ev rn pt appears to be sleeping in stretcher att, rr even/unlabored. previous shift notes show yesterday pt required 2 medication restraints and had medication changes following psych consult. pt remains as case mgmt/observation into this am.
[2020-10-11] MEDS: OLANZapine 10 MG VIAL 5 MG IM ×2 (09:07→16:46)
--- NOTE | 2020-10-11 09:44 | PC.NURSE ---
THIS RN INTO MEDICATE PT FOR AGITATION, PT VERY COMBATIVE, BITING, SPITTING AND PINCHING STAFF. PT REFUSING ALL PO MEDICATIONS WELL PRN MEDICATIONS. FOLLOWING RESTRAINT ADMINISTRATION, PT CONTINUES TO REQUIRE PHYSICAL HOLD AND IS VERY COMBATIVE. WCTM. REFUSING VITAL SIGNS. RR EVEN UNLABORED. FAMILY NOW AT BEDSIDE.
--- NOTE | 2020-10-11 10:33 | MHC.CM.ED ---
Patient remains in ER. Will be seen by Dr Cavazos and Care team today. Continue to monitor for d/c needs.
--- NOTE | 2020-10-11 10:37 | PC.NURSE ---
PT DAUGHTER CONSULTING W THIS RN AND DR PETERSON ABOUT PLAN OF CARE, PT HAS REFUSED PO ABX SINCE INITIAL ORDER R/T PT UTI. UA CULTURE HAS RETURNED NEGATIVE, D/T PT REFUSING MEDICATIONS DAILY, PLAN FOR PT TO RECIEVE ABX BY OTHER ROUTE D/T PTS CURRENT PRESENTATION.
--- NOTE | 2020-10-11 10:53 | PC.NURSE ---
this rn presenting to pt room to administer im abx. pt daughter sts shes just started to calm down, can we wait a moment? also would you look at her left eye, it looks like there is some stuff on it maybe an infection . pt appears to have small amount of white exudate on lower eyelid, no noticeable swelling or redness, pt is eating at time of eval. will clean eye and monitor for any return of exudate or signs of infection. daughter asking if rn may return shortly for abx after pt has eaten.
[2020-10-11] MEDS: cefTRIAXone sodium 1 GM, Lidocaine HCl 1 % MPF 2.1 ML IM (11:07)
--- NOTE | 2020-10-11 11:13 | PC.NURSE ---
pt tolerating im abx w minimal staff need for hold. two injections placed in bl vastus lateralus. family at bedside at this time. 1:[address] for safety[address] see record for restraint flow sheet.
--- NOTE | 2020-10-11 11:22 | ED_ITS ---
HPI - General Adult General Chief complaint: General Medical Stated complaint: AGITATION & CONFUSION PER ASSISTED LIVING STAFF Time Seen by Provider: 10/09/20 12:04 Source: patient and EMS Mode of arrival: EMS Limitations: other (dementia, poor historian, confused) History of Present Illness Associated symptoms: confusion Treatments prior to arrival: none Related Data Home Medications Medication Instructions Recorded Confirmed alprazolam 1 tab PO TID 10/09/20 10/09/20 aspirin [Aspir-81] 81 mg PO DAILY@0800 10/09/20 10/09/20 cholecalciferol (vitamin D3) 25 mcg PO DAILY@0800 10/09/20 10/09/20 cyanocobalamin (vitamin B-12) 2,500 mcg PO DAILY@0800 10/09/20 10/09/20 multivitamin 1 tab PO DAILY@0800 10/09/20 10/09/20 olanzapine 1 tab PO DAILY@199910/09/20 10/09/20 rivastigmine 1 patch TOPICAL DAILY 10/09/20 10/09/20 vitamin E 1,000 unit PO DAILY@0800 10/09/20 10/09/20 vortioxetine [Trintellix] 1 tab PO DAILY@0800 10/09/20 10/09/20 Allergies Allergy/AdvReac Type Severity Reaction Status Date / Time memantine [MEMANTINE] Allergy Severe HIVES Verified 10/14/20 07:25 Iodinated Contrast Media Allergy Unknown UNKNOWN Verified 10/14/20 07:25 [IV CONTRAST] lactose Allergy Unknown DIARRHEA Verified 10/14/20 07:25 sulfamethoxazole Allergy Unknown UNKNOWN Verified 10/14/20 07:25 [From BACTRIM] trimethoprim [From BACTRIM] Allergy Unknown UNKNOWN Verified 10/14/20 07:25 [facility] Past Medical History Medical History Anxiety Chronic UTI Dementia Surgical History History of appendectomy Hx of cholecystectomy Hx of tonsillectomy S/P STEPHIE (total abdominal hysterectomy) Social History Social History Household Members: None Housing: Assisted Living Facility Do you presently have visiting nurse or other home services: No Smoking Status: Former smoker Use of substances other than those prescribed or required for medical reasons: No Currently Displaying Signs/Symptoms of Drug Intoxication Withdrawal: No Have you been hit, kicked, punched, or otherwise hurt by someone within the past year? If so, by whom?: No Do you feel safe in your current relationship?: No Current Relationship Is there a partner from a previous relationship who is making you feel unsafe now?: No Are you made to feel afraid or neglected: No Advance Directives: No Advance Directives Information Provided: Yes Healthcare Proxy: Yes Guardian: No Do you have thoughts of harming others: None Do you have a plan to hurt others: No Plan Recently lost weight without trying: Unsure How much weight loss: Unsure Eating poorly because of decreased appetite: Yes Nutrition screen score: 5 Nutrition Risks: Poor intake 0-25% >4 days Patient : No : No Poor oral hygiene: No service: No Sexual orientation: Straight/Heterosexual Physical Exam Vital Signs: Vital Signs: Last Vital Signs Temp 97.6 F 10/21/20 16:30 Pulse 95 10/21/20 16:30 Resp 14 10/21/20 09:47 BP 116/58 L 10/21/20 16:30 Pulse Ox 98 10/21/20 09:47 Body Mass Index 18.3 Medical Decision Making Lab Data Result diagrams: 10/20/20 17:32 10/20/20 17:32 Labs: Lab Results 10/09/20 10/09/20 10/09/20 Range/Units 12:44 12:44 12:44 WBC 7.1 (4.8-10.8) X10*3/uL RBC 4.49 (4.20-5.50) X10*6/uL Hgb 13.5 (12.0-16.0) g/dl Hct 40.9 (37-47) % MCV 91.1 (80-98) fL MCH 30.1 (27.0-33.0) pg MCHC 33.0 (31.0-35.0) g/dl RDW 12.3 (11.0-16.0) % Plt Count 354 (160-400) X10*3/uL MPV 9.8 (9.4-12.3) fL Immature Gran % (Auto) 0.3 (0.0-0.4) % Neut % (Auto) 69.4 (45-73) % Lymph % (Auto) 22.8 (20-40) % [place] % (Auto) 6.4 (2-11) % Eos % (Auto) 0.4 (0-4) % Baso % (Auto) 0.7 (0-2) % Lymph # (Auto) 1.6 (1.2-4.9) X10*3/uL [place] # (Auto) 0.5 (0.1-1.2) X10*3/uL Eos # (Auto) 0.0 (0.0-0.4) X10*3/uL Baso # (Auto) 0.1 (0.0-0.2) X10*3/uL Abs Immat Gran (auto) 0.02 (0.00-0.03) X10*3/uL Absolute Neuts (auto) 4.9 (2.0-8.3) X10*3/uL Absolute Nucleated RBC 0.000 (0.0-0.012) X10*3/uL Nucleated RBC % (auto) 0.0 (0.0-0.2) /100WBC Hold Blue Top SEE NOTE Sodium (135-145) mmol/L Potassium (3.3-5.1) mmol/L Chloride (96-108) mmol/L Carbon Dioxide (22-29) mmol/L Anion Gap (12-20) BUN (9-16) mg/dL Creatinine (0.5-1.4) mg/dL Estim Creat Clear Calc Estimated GFR Random Glucose (60-115) mg/dL Calcium (8.4-10.2) mg/dL Magnesium (1.6-2.6) mg/dL Total Bilirubin (0.0-1.0) mg/dL Direct Bilirubin (0.0-0.5) mg/dL AST (5-31) U/L ALT (0-31) U/L Alkaline Phosphatase (39-117) U/L Troponin I High Sens 6.5 (<3.5-17.0) ng/L Total Protein (6.5-8.0) g/dL Albumin (3.5-5.0) g/dL Urine Color Urine Appearance Urine pH (5.0-8.0) Ur Specific [place] (1.005-1.025) Urine Protein (NEG-TRACE) MG/DL Urine Glucose (UA) (NEG) MG/DL Urine Ketones (NEG) MG/DL Urine Blood (NEG) Urine Nitrite (NEG) Ur Leukocyte Esterase (NEG) Urine RBC (0) /HPF Urine WBC (0-4) /HPF Ur Squamous Epith Cells /LPF Urine Bacteria /LPF Granular Casts /LPF Urine Mucus /LPF Coronavirus (PCR) (Negative) Influenza Type A (PCR) (Negative) Influenza Type B (PCR) (Negative) RSV RNA Qual (PCR) (Negative) 10/09/20 10/09/20 10/09/20 Range/Units 12:45 13:07 13:35 WBC (4.8-10.8) X10*3/uL RBC (4.20-5.50) X10*6/uL Hgb (12.0-16.0) g/dl Hct (37-47) % MCV (80-98) fL MCH (27.0-33.0) pg MCHC (31.0-35.0) g/dl RDW (11.0-16.0) % Plt Count (160-400) X10*3/uL MPV (9.4-12.3) fL Immature Gran % (Auto) (0.0-0.4) % Neut % (Auto) (45-73) % Lymph % (Auto) (20-40) % [place] % (Auto) (2-11) % Eos % (Auto) (0-4) % Baso % (Auto) (0-2) % Lymph # (Auto) (1.2-4.9) X10*3/uL [place] # (Auto) (0.1-1.2) X10*3/uL Eos # (Auto) (0.0-0.4) X10*3/uL Baso # (Auto) (0.0-0.2) X10*3/uL Abs Immat Gran (auto) (0.00-0.03) X10*3/uL Absolute Neuts (auto) (2.0-8.3) X10*3/uL Absolute Nucleated RBC (0.0-0.012) X10*3/uL Nucleated RBC % (auto) (0.0-0.2) /100WBC Hold Blue Top Sodium 141 (135-145) mmol/L Potassium 3.5 (3.3-5.1) mmol/L Chloride 104 (96-108) mmol/L Carbon Dioxide 26 (22-29) mmol/L Anion Gap 15 (12-20) BUN 24 H (9-16) mg/dL Creatinine 0.79 (0.5-1.4) mg/dL Estim Creat Clear Calc 46.2 Estimated GFR > 60 Random Glucose 103 (60-115) mg/dL Calcium 9.5 (8.4-10.2) mg/dL Magnesium 2.1 (1.6-2.6) mg/dL Total Bilirubin 0.7 (0.0-1.0) mg/dL Direct Bilirubin 0.2 (0.0-0.5) mg/dL AST 21 (5-31) U/L ALT 12 (0-31) U/L Alkaline Phosphatase 79 (39-117) U/L Troponin I High Sens (<3.5-17.0) ng/L Total Protein 6.7 (6.5-8.0) g/dL Albumin 4.2 (3.5-5.0) g/dL Urine Color YELLOW Urine Appearance CLEAR Urine pH 5.5 (5.0-8.0) Ur Specific [place] 1.025 (1.005-1.025) Urine Protein NEG (NEG-TRACE) MG/DL Urine Glucose (UA) NEG (NEG) MG/DL Urine Ketones 15 (NEG) MG/DL Urine Blood 3+ H (NEG) Urine Nitrite NEG (NEG) Ur Leukocyte Esterase TRACE H (NEG) Urine RBC 1-4 (0) /HPF Urine WBC 0-2 (0-4) /HPF Ur Squamous Epith Cells TRACE /LPF Urine Bacteria TRACE /LPF Granular Casts 0-2 /LPF Urine Mucus 1+ /LPF Coronavirus (PCR) NEGATIVE (Negative) Influenza Type A (PCR) NEGATIVE (Negative) Influenza Type B (PCR) NEGATIVE (Negative) RSV RNA Qual (PCR) NEGATIVE (Negative) Discharge Plan Discharge Clinical Impression: Dementia Qualifiers: Dementia type: unspecified type Dementia behavioral disturbance: with behavioral disturbance Qualified Code(s): F03.91 - Unspecified dementia with behavioral disturbance Patient Disposition: Admitted As Inpatient Interventions: Admission Worksheet (ED) Last Done: 10/16/20 21:19 Discharge Date/Time: 10/16/20 21:20
--- NOTE | 2020-10-11 11:57 | PM.PSYCN ---
History of Present Illness Date of Service: t Chief Complaint: AGITATION & CONFUSION PER ASSISTED LIVING STAFF Reason for Consult: Agitation Discussed with referring provider: Yes Sources of Information: patient interviewed, chart reviewed and crisis/core team assessment reviewed Additional Sources of Information: Daughter Jessica and son-in-law HPI Narrative: The patient was reassessed at bedside and she is agitated and beligerant, confused and responding to internal stimuli. Since last evening, she requiered Zyprexa IM twice. Her urine culture is negative so there is no evidence of acute UTI but she received ATB either way. Since her psychotic symptoms continue and her mental status has not improved, she will requiere inpatient level of care at a geriatric psychiatry unit. Psychoeducation was provided to the family. Past Psychiatric History: She had a previous geriatric psychiatric admission. She was diagnosed with Dementia and currently, she is on Rivastigmine. She has outpatient providers. Medical Evaluation Reviewed: Yes Review of Systems Review of Systems Yes Unobtainable due to mental status PMFSH Medical History Anxiety Dementia Family History: No contributory Social History: Retired, living in [facility], with very good social support. Trauma History: Denies Diagnostics Vital Signs (24Hr): Vital Signs - 24 hr 10/10/20 12:00 10/10/20 14:00 10/10/20 16:00 Pulse Rate Respiratory Rate 17 18 20 Pulse Oximetry 10/10/20 18:00 10/10/20 20:00 10/10/20 21:09 Pulse Rate 81 82 Respiratory Rate 18 18 18 Pulse Oximetry 98 97 10/11/20 06:00 10/11/20 09:22 10/11/20 09:37 Pulse Rate Respiratory Rate 20 20 20 Pulse Oximetry 100 10/11/20 09:52 10/11/20 10:07 Pulse Rate 78 80 Respiratory Rate 18 18 Pulse Oximetry 96 97 Body Mass Index 18.3 Labs Results: 10/09/20 12:44 10/09/20 12:45 Labs: Laboratory Results - last 48 hr 10/09/20 10/09/20 10/09/20 12:44 12:44 12:44 WBC 7.1 RBC 4.49 Hgb 13.5 Hct 40.9 MCV 91.1 MCH 30.1 MCHC 33.0 RDW 12.3 Plt Count 354 MPV 9.8 Immature Gran % (Auto) 0.3 Neut % (Auto) 69.4 Lymph % (Auto) 22.8 [place] % (Auto) 6.4 Eos % (Auto) 0.4 Baso % (Auto) 0.7 Lymph # (Auto) 1.6 [place] # (Auto) 0.5 Eos # (Auto) 0.0 Baso # (Auto) 0.1 Abs Immat Gran (auto) 0.02 Absolute Neuts (auto) 4.9 Absolute Nucleated RBC 0.000 Nucleated RBC % (auto) 0.0 Hold Blue Top SEE NOTE Sodium Potassium Chloride Carbon Dioxide Anion Gap BUN Creatinine Estim Creat Clear Calc Estimated GFR Random Glucose Calcium Magnesium Total Bilirubin Direct Bilirubin AST ALT Alkaline Phosphatase Troponin I High Sens 6.5 Total Protein Albumin Urine Color Urine Appearance Urine pH Ur Specific [place] Urine Protein Urine Glucose (UA) Urine Ketones Urine Blood Urine Nitrite Ur Leukocyte Esterase Urine RBC Urine WBC Ur Squamous Epith Cells Urine Bacteria Granular Casts Urine Mucus Coronavirus (PCR) Influenza Type A (PCR) Influenza Type B (PCR) RSV RNA Qual (PCR) 10/09/20 10/09/20 10/09/20 12:45 13:07 13:35 WBC RBC Hgb Hct MCV MCH MCHC RDW Plt Count MPV Immature Gran % (Auto) Neut % (Auto) Lymph % (Auto) [place] % (Auto) Eos % (Auto) Baso % (Auto) Lymph # (Auto) [place] # (Auto) Eos # (Auto) Baso # (Auto) Abs Immat Gran (auto) Absolute Neuts (auto) Absolute Nucleated RBC Nucleated RBC % (auto) Hold Blue Top Sodium 141 Potassium 3.5 Chloride 104 Carbon Dioxide 26 Anion Gap 15 BUN 24 H Creatinine 0.79 Estim Creat Clear Calc 46.2 Estimated GFR > 60 Random Glucose 103 Calcium 9.5 Magnesium 2.1 Total Bilirubin 0.7 Direct Bilirubin 0.2 AST 21 ALT 12 Alkaline Phosphatase 79 Troponin I High Sens Total Protein 6.7 Albumin 4.2 Urine Color YELLOW Urine Appearance CLEAR Urine pH 5.5 Ur Specific [place] 1.025 Urine Protein NEG Urine Glucose (UA) NEG Urine Ketones 15 Urine Blood 3+ H Urine Nitrite NEG Ur Leukocyte Esterase TRACE H Urine RBC 1-4 Urine WBC 0-2 Ur Squamous Epith Cells TRACE Urine Bacteria TRACE Granular Casts 0-2 Urine Mucus 1+ Coronavirus (PCR) NEGATIVE Influenza Type A (PCR) NEGATIVE Influenza Type B (PCR) NEGATIVE RSV RNA Qual (PCR) NEGATIVE Imaging Radiology Impressions: ITS Impressions Chest X-Ray 10/09/20 12:04 IMPRESSION: Unremarkable chest exam except for hyperinflation. No acute intracranial process seen. Age-related cerebral volume loss with diffuse chronic small vessel ischemic changes. Head CT 10/09/20 12:05 IMPRESSION: Unremarkable chest exam except for hyperinflation. No acute intracranial process seen. Age-related cerebral volume loss with diffuse chronic small vessel ischemic changes. Mental Status Exam Mental Status Exam Patient Appearance: Well Grooomed (on hospital gowns) Patient Orientation: Person Level of Consciousness: Awake, Disoriented and Restless Patient Behavior: Aggressive, Restless, Belligerent and Resistive to Care Mood Description: Fearful and Labile Affect Description: Apprehensive Patient Cognition Impaired: Yes Ability to Follow Directions: Poor Speech Pattern: Clear, Difficulty Finding Words and Loud Hallucinations: Auditory and Visual Delusions: Present Perceptual Disturbances: Hallucinations Thought Process: Incoherent Thought Content: positive for Disorganized Abnormal Motor Activity Signs and Symptoms: Aggression and Restlessness Judgement: Poor Medications Medications Current Medications Generic Name Dose Route Start Last Admin Trade Name Freq PRN Reason Stop Dose Admin Alprazolam 0.25 mg 10/10/20 15:57 Alprazolam 0.25 Mg Tablet PO TID PRN anxiety/restlessness Aspirin 81 mg 10/10/20 08:00 10/11/20 09:29 Aspirin Enteric Coated 81 Mg Tablet. PO Not Given DAILY@0800 [facility] Cefuroxime Axetil 500 mg 10/10/20 09:00 10/11/20 09:29 Cefuroxime Axetil 500 Mg Tablet PO Not Given BID [facility] Cyanocobalamin 2,500 mcg 10/10/20 08:00 10/11/20 09:29 Cyanocobalamin (Vitamin B-12) 500 Mcg Tablet PO Not Given DAILY@0800 [facility] Multivitamins/Vitamin C 1 tab 10/10/20 08:00 10/11/20 09:29 Multivitamin Tablet PO Not Given DAILY@0800 [facility] Non-Formulary Medication 1 patch 10/10/20 09:00 Rivastigmine TOPICAL DAILY [facility] Non-Formulary Medication 1,000 unit 10/10/20 08:00 Vitamin E PO DAILY@0800 [facility] Olanzapine 1.25 mg 10/11/20 09:00 10/11/20 09:29 Olanzapine 2.5 Mg Tablet PO Not Given DAILY [facility] Olanzapine 2.5 mg 10/10/20 21:00 10/11/20 06:27 Olanzapine 2.5 Mg Tablet PO Not Given BEDTIME [facility] Pharmacy Consult 1 each 10/09/20 17:40 Consult Rx Perform Med Rec MISCELLANE ONCE PRN Consult order Vitamin D 25 mcg 10/10/20 08:00 10/11/20 09:29 Cholecalciferol (Vitamin D3) 25 Mcg Tablet PO Not Given DAILY@0800 [facility] Vortioxetine 20 mg 10/10/20 08:00 10/11/20 09:29 Vortioxetine Hydrobromide 20 Mg Tablet PO Not Given DAILY@0800 [facility] Allergies Allergies Allergy/AdvReac Type Severity Reaction Status Date / Time memantine [MEMANTINE] Allergy Severe HIVES Unverified 03/07/20 15:18 Iodinated Contrast Media Allergy Unknown UNKNOWN Unverified 03/07/20 15:18 [IV CONTRAST] lactose Allergy Unknown DIARRHEA Unverified 03/07/20 15:18 sulfamethoxazole Allergy Unknown UNKNOWN Unverified 03/07/20 15:18 [From BACTRIM] trimethoprim [From BACTRIM] Allergy Unknown UNKNOWN Unverified 03/07/20 15:18 Assessment & Plan Assessment & Plan (1) Delirium: Status: Acute Code(s): R41.0 - Disorientation, unspecified Recommendations: At this point, since the patient's behavior has not changed, inpatient level of care on a geriatric psychiatry unit would be suggested. Greater than 50% of the session was spent on counseling and/or coordination of care
--- NOTE | 2020-10-11 12:09 | MHC.CARE ---
10:20: Met with pt?s daughter, Ms. Jessica Morejon, at the request of Willie Samano and to gather information regarding the pt via collateral contact. Pt was, at the time of my arrival at bedside, in an agitated state and somewhat combative. Pt. observers were holding the pt?s hands and Security was on standby. Ms. Morejon stated that her Mother has dementia that began to spiral about 10 months ago shortly after the pandemic began. It is suspected that the isolation was a major contributor to her cognitive decline. Pt was isolated in her room for approximately 10 weeks and during that time saw none of the other residents or family. Ms. Morejon stated that pt was moved to a ?memory care facility?. The facility had expectations of pt?s maintaining their ADLs on their own and attending group functions. Pt did all these things up until approximately a month ago when she complained of neck pain and began to stop attending to such things. Ms. Morejon advised me that at present her Mother has a Urinary Tract Infection (UTI). Ms. Morejon further stated that pt is prone to UTIs and last time she had one, she returned to her baseline after the course of antibiotics was completed. Ms. Morejon wants to rule out the UTI as the cause for the behavior the pt is exhibiting before looking into a Geriatric Psych admission. Ms. Morejon was advised of who pt?s RN is and Dr. Guillermo Priest was contacted to see Ms. Morejon regarding questions she had.
--- NOTE | 2020-10-11 14:26 | PC.NURSE ---
pt continues to have safer behaviors than earlier in shift. pt restless, but more easily redirectable. 1:1 sitter maintained for safety. pt had eaten some of lunch. wctm for dc needs.
[2020-10-11] MEDS: ALPRAZolam 0.25 MG TABLET PO ×2 (16:02→21:52)
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
--- NOTE | 2020-10-11 18:05 | PC.NURSE ---
pt daughter present at bedside at this time, pt has calmed down, is no longer constantly attempting to get out of stretcher. case mgmt and this rn in to educate pt family about plan of care from this point. care team consult ordered d/t need for radha psych placement.
--- NOTE | 2020-10-11 18:10 | MHC.CM.ED ---
CM met with daughter, Jessica, at request of RN. Jessica understands that her mother needs another level of care and may not be able to return to assisted living. This typewriter assembly and parts inspector agreed with pt and explained that her mother needs to be stabilized on medication before she can move to a higher level of care. Daughter Jessica agrees that her mother needs a radha-psych admission. Jessica understands that this will not happen over the weekend, and can take a week or so. CM assured Jessica that the proper consults have been initiated and that CARE team will evaluate her mother and begin a bed search. Per Roman LEWIS, CARE team consult has been placed. Jessica is concerned about her mother's weight and her not eating. Will bring in snacks and protein drinks, and yogut that her mother may eat. RN encouraged Jessica to bring in any foods her mother may need. Jessica aware that her mother is very confused, may be hallucinating and can be combative with staff. Jessica understands that staff is doing all they can to re-direct her mother before they use medication. Jessica aware that her mother spit out medications this am. Care of this patient has been assumed by the CARE team. CM available to help when needed with family support.
[2020-10-11] MEDS: OLANZapine 2.5 MG TABLET PO (21:52)
[2020-10-11] MEDS: LORazepam 2 MG/ML VIAL IM (22:17)
[2020-10-12] VITALS (7 sets, daily range): BP systolic 106–129; BP diastolic 63–82; PULSE 66–103; RESP 16–18; TEMP 36.9–37.1; O2SAT 94–98
--- NOTE | 2020-10-12 06:59 | PC.NURSE ---
Report received from Rob RN. Patient asleep on stretcher, respirations regular and even with equal chest rise/fall. Skin PWD. Daughter at bedside at this time. Awaiting placement at this time. Will continue to monitor.
--- NOTE | 2020-10-12 08:54 | PC.NURSE ---
Patient remains asleep at this time with daughter at bedside. Respirations remain regular and even, no distress noted. Will allow patient to continue to sleep per daughters request. Awaiting radha psych placement.
--- NOTE | 2020-10-12 09:40 | PC.NURSE ---
Care team at bedside at this time speaking with patient's daughter.
--- NOTE | 2020-10-12 10:56 | MHC.CARE ---
CARE alerted ED at 8am that CARE is available to meet when pts daughter arrived. Around 9am ED stated pts daughter Jessica was in the room while pt was sleeping. T/w met w pts daughter Jessica who reported that she had been here since early this am in hopes of helping with her mother and possible help prompt her to eat. Pt was however was sleeping soundly which likely is result of 2 occasions of IM medications last night due to agitated behaviors. T/w reviewed current clinical with Jessica and highlighted the suggestion of Dr Gunter whom was the consulting Psychiatrist with the suggestion at this time of [facility]. Jessica did express a desire and hope that based on the impact of the IM meds perhaps pt was clearing ut also is aware that this might only be a temporary change in presentation. She indicated that she is aware that her mother needs acute care however [facility] is not my first choice while also quite aware that this may be the only option for her mother based on her acuity. Jessica explained how she is looking for other placements for her mother to live as she does not want her to return to [facility]. If pt was to have a resolution of acute psych needs or if further consultation deems pt to be cleared of psych, pt can be referred to CM for purposes of assist in placement options as family see's appropriate. Jessica planned to go home and can be reached via phone at any time. She planned to return later to be of help.
--- NOTE | 2020-10-12 11:02 | PC.NURSE ---
am vitamins/meds are being held at this time as the patients daughter wished to allow patient to continue to sleep.
[2020-10-12] MEDS: ALPRAZolam 0.25 MG TABLET PO ×2 (13:00→23:45)
[2020-10-12] MEDS: OLANZapine 2.5 MG TABLET 1.25 MG PO ×2 (13:01→17:17)
--- NOTE | 2020-10-12 13:04 | PC.NURSE ---
patient awake and restless, attempting to get oob and unable to follow directions well. pt stated she had to urinate, bed deleon used as patient was too unsteady when attempting to get oob, vitals obtained-unable to get bp due to patients increased restlessness while attempting to do so. pt given meds as ordered with applesauce and sips of ensure. pt stated she doesnt wish to eat lunch at this time, will continue to encourage patient to eat and take sips of her ensure and continue to monitor.
--- NOTE | 2020-10-12 18:13 | PC.NURSE ---
patient had increased of agitation, provider notified pt was medicated with additional meds, patient was then helped with 2 people oob to commode, pt has no c/o pain or discomfort, pt has been encouraged to eat and drink sips of her ensure which is at bedside, will continue to monitor.
--- NOTE | 2020-10-12 20:15 | PC.NURSE ---
pt daughter Jessica at bedside assisting pt with eating and PO intake (Ensure)
[2020-10-12] MEDS: OLANZapine 2.5 MG TABLET PO (22:31)
[2020-10-13 02:00] VITALS: RESP 16
[2020-10-13 02:28] VITALS: RESP 16
[2020-10-13 06:42] VITALS: RESP 16
--- NOTE | 2020-10-13 07:31 | PC.NURSE ---
Daughter at bedside, pt asleep at this time
--- NOTE | 2020-10-13 09:02 | MHC.CARE ---
CARE team met w pts daughter by request. Jessica stated that she is no longer willing to continue the GeriPsych referral process and would like to pursue placement options with C (CM) once re-evaluated and screened out of psych by another Psych consultation. Pt will also require referral to PT for assessment due to deconditioning that Jessica feels is the result of her most recent placement at [facility] and most recent days in the ED. Jessica made it clear that she is no longer in support of a [facility] placement and will be looking at options for placement on her own as well. ED provider (JESSY Beaulieu) present for this discussion and aware of Jessica's plan. Consults to be placed by Provider today being Wednesday- likely to be conducted tomorrow Wednesday.
--- NOTE | 2020-10-13 09:06 | PC.NURSE ---
Daughter spoke to Sulema from CARE team and updated, left bedside at this time. Pt remains asleep at this time
--- NOTE | 2020-10-13 11:44 | PC.NURSE ---
Daughter Jessica back to bedside side briefly. Pt still asleep. Per report pt up late last night until after 0300 and per daughter pt was up for three days. Plan to let pt sleep and will call daughter Jessica if pt awake and agitated, if not Jessica will return to visit at dinner time. Okay 0800 meds are held at this time per Brittnee JIMÉNEZ
--- NOTE | 2020-10-13 12:58 | MHC.CARE ---
CARE confirmed with ED PA that referral consults placed for pt to be seen by CM, PT and possible Psych consult for medications and follow up on behavioral changes (improvement) at family request. Pt has been observed to be asleep since CARE arrival at 8am and is still sleeping when CARE went to check in.
--- NOTE | 2020-10-13 13:16 | PC.NURSE ---
New orders for PT and Psych consult Pt remains asleep at this time. Resp even/unlabored.
[2020-10-13] MEDS: ALPRAZolam 0.25 MG TABLET PO ×2 (15:44→21:38)
[2020-10-13] MEDS: OLANZapine 2.5 MG TABLET 1.25 MG PO (15:44)
[2020-10-13] MEDS: Multivitamin TABLET 1 TAB PO (15:47)
[2020-10-13] MEDS: Aspirin Enteric Coated 81 MG TABLET.DR PO (15:47)
[2020-10-13] MEDS: Cholecalciferol (Vitamin D3) 25 MCG TABLET PO (15:47)
--- NOTE | 2020-10-13 15:49 | PC.NURSE ---
aleksandr rucker from pharmacy okay to give am meds now that patient is awake. pt can have night.
--- NOTE | 2020-10-13 15:52 | MHC.CM.PN ---
DP Female 79 Pt lives at an [facility]. She was brought to [facility] for Behavioral changes. I received a Call form [facility] this am. They have been trying to place Pt for GeriPsych. The Patient has now cleared. She no longer needs GeriPsych. Another Psych eval has been ordered. PT t eval Pt tomorrow. T/W spoke with the Pts Jessica Doyle. Jessica has an appointment tomorrow @ [facility] [place]. The facility specializes in memory care. If the Pt can not be placed tomorrow @ the [facility]. She will need to go to SNF/STR. Referrals have been sent to facilities chosen by Jessica. CM will follow.
--- NOTE | 2020-10-13 16:13 | PC.NURSE ---
ADLs preformed. when medicating this rn noticed that the patient has some issue with thin liquids. MLP to order swallow eval. This sign writer letterer or painter noticed marked weakness when attempting to shift and reposition self in bed. Pt is unable to stand, shift position, or ambulate without 2+assist. MLP aware. Pt toileted. had small bowel movement. Skin checked. No new breakdown noted.
[2020-10-13 19:51] VITALS: BP 141/68; PULSE 99; RESP 18; TEMP 36.6; O2SAT 98
--- NOTE | 2020-10-13 21:30 | PC.NURSE ---
pharmacy okayed to night meds due to the delay with am meds.
[2020-10-13] MEDS: OLANZapine 2.5 MG TABLET PO (21:37)
--- NOTE | 2020-10-13 21:38 | PC.NURSE ---
xanax adminstration okayed by kamran suttonp for night dose.
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
--- NOTE | 2020-10-13 21:53 | PC.NURSE ---
pt is now screaming get the fuck out of here. get me the fuck out of here. lights lowered, noise reduced. Monitoring of effect.
[2020-10-13 22:00] VITALS: RESP 18
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
[2020-10-14] VITALS (11 sets, daily range): BP systolic 119–139; BP diastolic 59–80; PULSE 88–107; RESP 15–22; TEMP 36.6–37.2; O2SAT 98
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
[2020-10-14] MEDS: LORazepam 2 MG/ML VIAL IM (00:50)
--- NOTE | 2020-10-14 00:53 | PC.NURSE ---
pt chemically restrained for safety with IM ativan 2mg.
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
--- NOTE | 2020-10-14 06:31 | PC.NURSE ---
PATIENT SITTING IN RECLINER NEXT TO THE NURSES STATION WITH STAFF. WAS CALM AND HAVING SNACKS AND LAUGHING. PATIENT CLOSING HER EYES FOR ABOUT 5 MINUTES AT 530. WHEN WAKING UP PATIENT STARTING TO HIT STAFF, YELLING FOR HELP, REFUSING TO BE TOUCHED OR ASSISTED. KICKING STAFF. SWEARING. RECLINING IN CHAIR, PRAYING THAT ALL OF YOU JUST ALREADY
[2020-10-14] MEDS: Multivitamin TABLET 1 TAB PO (08:31)
[2020-10-14] MEDS: Cholecalciferol (Vitamin D3) 25 MCG TABLET PO (08:31)
[2020-10-14] MEDS: Vortioxetine Hydrobromide 20 MG TABLET PO (08:31)
[2020-10-14] MEDS: Cyanocobalamin (Vitamin B-12) 500 MCG TABLET 2500 MCG PO (08:31)
--- NOTE | 2020-10-14 09:06 | PC.NURSE ---
patient has 1 to 1 sitter at bedside. patient is aggravated, tries to pull at things or hit staff. is not alert to place or time. occasionally able to re-direct. drank a few sips of ensure. ate a few scoops of applesauce. will continue to monitor.
--- NOTE | 2020-10-14 09:50 | MHC.CM.PN ---
Patient will be transferred to [facility] for higher level of care related to NSTEMI. Patient has not been seen by case management.
--- NOTE | 2020-10-14 10:19 | MHC.CM.ED ---
Patient remains in ER. Cleared by Care Team. Physical therapy eval completed. Patient is not a good rehab candidate due to inability to follow cues. [facility] is not able to offer a bed. Clinical updates sent to Jarett Rodriguez. Continue to monitor for d/c needs.
--- NOTE | 2020-10-14 11:17 | PC.NURSE ---
patient has daughter and son at bedside with psy physician. per patients daughter, they hope to have her evaluated for high level assisted living. at this moment patient is sleeping. sitter is at bedside.
--- NOTE | 2020-10-14 14:33 | MHC.SLORD ---
Speech Language Pathology Order Status: Order for bedside dysphagia evaluation received. PACKING HOUSE SUPERVISOR called and spoke with salon receptionist and ED RN x2. This morning and this afternoon, patient was sleeping. RN asked not to wake patient due to lack of sleep for 2 days. Per nursing notes, patient has been combative. PACKING HOUSE SUPERVISOR to attempt bedside dysphagia evaluation tomorrow morning if appropriate.
--- NOTE | 2020-10-14 15:34 | PM.PSYCN ---
History of Present Illness Date of Service: 10/14/2020 Chief Complaint: AGITATION & CONFUSION PER ASSISTED LIVING STAFF Reason for Consult: Agitation Discussed with referring provider: Yes Sources of Information: patient interviewed, chart reviewed and crisis/core team assessment reviewed HPI Narrative: The patient was doing fairly well over the weekend but today AM, she was agigtated, non-compliant with medications and needed to be medicated IM. I discussed at [facility] with the family that now, she will need inpatient level of care since the delirium and aggressive behavior has lasted several days and there is no evidence of improvement or clear mental status. Past Psychiatric History: She had a previous geriatric psychiatric admission. She was diagnosed with Dementia and currently, she is on Rivastigmine. She has outpatient providers. Medical Evaluation Reviewed: Yes Review of Systems Review of Systems Yes Unobtainable due to mental status PMFSH Medical History Anxiety Dementia Family History: No contributory Social History: Retired, living in [facility], with very good social support. Trauma History: Denies Diagnostics Vital Signs (24Hr): Vital Signs - 24 hr 10/13/20 19:51 10/13/20 22:00 10/14/20 00:15 Temperature 97.9 F Pulse Rate 99 Respiratory Rate 18 18 18 Blood Pressure 141/68 H Pulse Oximetry 98 10/14/20 00:55 10/14/20 01:10 10/14/20 01:25 Temperature Pulse Rate Respiratory Rate 22 H 22 H 20 Blood Pressure Pulse Oximetry 10/14/20 01:40 10/14/20 01:55 10/14/20 09:05 Temperature Pulse Rate Respiratory Rate 18 16 18 Blood Pressure Pulse Oximetry Body Mass Index 18.3 Labs Results: 10/09/20 12:44 10/09/20 12:45 Imaging Radiology Impressions: ITS Impressions Chest X-Ray 10/09/20 12:04 IMPRESSION: Unremarkable chest exam except for hyperinflation. No acute intracranial process seen. Age-related cerebral volume loss with diffuse chronic small vessel ischemic changes. Head CT 10/09/20 12:05 IMPRESSION: Unremarkable chest exam except for hyperinflation. No acute intracranial process seen. Age-related cerebral volume loss with diffuse chronic small vessel ischemic changes. Mental Status Exam Mental Status Exam Narrative: The patient is currently sedated after IM Ativan due to agitation Medications Medications Current Medications Generic Name Dose Route Start Last Admin Trade Name [place] PRN Reason Stop Dose Admin Alprazolam 0.25 mg 10/10/20 15:57 10/13/20 21:38 Alprazolam 0.25 Mg Tablet PO 0.25 mg TID PRN Administration anxiety/restlessness Aspirin 81 mg 10/10/20 08:00 10/14/20 12:38 Aspirin Enteric Coated 81 Mg Tablet.Dr PO Not Given DAILY@0800 [facility] Cyanocobalamin 2,500 mcg 10/10/20 08:00 10/14/20 08:31 Cyanocobalamin (Vitamin B-12) 500 Mcg Tablet PO 2,500 mcg DAILY@0800 [facility] Administration Multivitamins/Vitamin C 1 tab 10/10/20 08:00 10/14/20 08:31 Multivitamin Tablet PO 1 tab DAILY@0800 [facility] Administration Non-Formulary Medication 1 patch 10/10/20 09:00 Rivastigmine TOPICAL DAILY [facility] Non-Formulary Medication 1,000 unit 10/10/20 08:00 Vitamin E PO DAILY@0800 [facility] Olanzapine 1.25 mg 10/11/20 09:00 10/14/20 12:38 Olanzapine 2.5 Mg Tablet PO Not Given DAILY [facility] Olanzapine 2.5 mg 10/10/20 21:00 10/13/20 21:37 Olanzapine 2.5 Mg Tablet PO 2.5 mg BEDTIME [facility] Administration Pharmacy Consult 1 each 10/09/20 17:40 Consult Rx Perform Med Rec MISCELLANE ONCE PRN Consult order Vitamin D 25 mcg 10/10/20 08:00 10/14/20 08:31 Cholecalciferol (Vitamin D3) 25 Mcg Tablet PO 25 mcg DAILY@0800 [facility] Administration Vortioxetine 20 mg 10/10/20 08:00 10/14/20 08:31 Vortioxetine Hydrobromide 20 Mg Tablet PO 20 mg DAILY@0800 [facility] Administration Allergies Allergies Allergy/AdvReac Type Severity Reaction Status Date / Time memantine [MEMANTINE] Allergy Severe HIVES Verified 10/14/20 07:25 Iodinated Contrast Media Allergy Unknown UNKNOWN Verified 10/14/20 07:25 [IV CONTRAST] lactose Allergy Unknown DIARRHEA Verified 10/14/20 07:25 sulfamethoxazole Allergy Unknown UNKNOWN Verified 10/14/20 07:25 [From BACTRIM] trimethoprim [From BACTRIM] Allergy Unknown UNKNOWN Verified 10/14/20 07:25 Assessment & Plan Assessment & Plan (1) Delirium: Status: Acute Code(s): R41.0 - Disorientation, unspecified Recommendations: Elderly female with dementia, referred to the ED due to agitation and psychotic symptoms, mostl likely sequelae of UTI that cleared by herself but she remains grossly disorganized and agitated. Plan: The patient needs inpatient level of care at a geriatric psychiatry unit. (2) Dementia: Qualifiers: Dementia behavioral disturbance: with behavioral disturbance Dementia type: unspecified type Qualified Code(s): F03.91 - Unspecified dementia with behavioral disturbance Status: Acute Code(s): F03.90 - Unspecified dementia without behavioral disturbance Greater than 50% of the session was spent on counseling and/or coordination of care
--- NOTE | 2020-10-14 17:17 | PC.NURSE ---
patient has been sleeping for most of the day . 1 to 1 sitter at bedside. patients daughter at bedside as well. psych consult completed. looking at geriatric psych placement.
[2020-10-14] MEDS: OLANZapine 2.5 MG TABLET PO (20:00)
--- NOTE | 2020-10-14 20:06 | PC.NURSE ---
Pt aaox1, resting calmly on HB in NAD with daughter at bedside. Pt cooperative and compliant with pt care at this time. Daughter informs this RN that pt cannot be asked if she would like to eat as pt will repeatedly deny food. Daughter states hospital staff is to state You're going to eat now, and begin feeding patient. This RN expresses understanding. Daughter provided many varieties of snacks and drinks at bedside for hospital to use to feed patient. Pt daughter states pt does not need food at this time as daughter just fed patient. Pt medicated per AUG. Pt bed is in lowest locked position, rails raised, call ching within reach. Bedside commode at bedside.
--- NOTE | 2020-10-14 20:48 | PC.NURSE ---
Pt resting on bed in NAD, breathing with ease on RA. Pt offers no concerns/complaints. Pt expresses no needs at this time. Bed remains in lowest locked position rails rasied call ching within reach. bed alarm active and audible.
--- NOTE | 2020-10-14 23:42 | PC.NURSE ---
Pt requiring frequent redirection to remain calm and remain in safely in bed. CAMELIA Nino aware. Plan for this RN to medicate with xanax and seroquel per AUG.
[2020-10-14] MEDS: QUEtiapine Fumarate 25 MG TABLET PO (23:47)
[2020-10-14] MEDS: ALPRAZolam 0.25 MG TABLET PO (23:47)
[2020-10-15 00:44] VITALS: BP 141/65; PULSE 108; RESP 14; TEMP 36.6; O2SAT 97
--- NOTE | 2020-10-15 00:59 | PC.NURSE ---
Pt's need of redirection and restlessness improved s/p medication. Pt now resting with eyes closed on HB in NAD, breathing with ease on RA. Sitter continues to observe patient.
--- NOTE | 2020-10-15 07:36 | PC.NURSE ---
report taken from kamran goodwin pt reportedly had good night, less violent behaviors noted. pt continues to respond to internal stimuli, pt remains in hospital bed. pt has been coerced throughout morning to eat foods, has been fed bites of pancakes. pt has many nutritonal needs at bedside, options for snacks that are preferable to pt. 1:1 sitter maintained for safety. wctm for dc needs.
[2020-10-15] MEDS: Cyanocobalamin (Vitamin B-12) 500 MCG TABLET 2500 MCG PO (07:52)
[2020-10-15] MEDS: OLANZapine 2.5 MG TABLET 1.25 MG PO (07:52)
[2020-10-15] MEDS: Vortioxetine Hydrobromide 20 MG TABLET PO (07:52)
[2020-10-15] MEDS: Cholecalciferol (Vitamin D3) 25 MCG TABLET PO (07:54)
[2020-10-15] MEDS: Aspirin Enteric Coated 81 MG TABLET.DR PO (07:54)
[2020-10-15] MEDS: Multivitamin TABLET 1 TAB PO (07:54)
--- NOTE | 2020-10-15 08:02 | PC.NURSE ---
pt given morning meds w thickened orange juice, tolerating well. pt is pleasant, but confused. conversing nonsensically, you guys are really so wonderful, this is my mothers heirloom .
--- NOTE | 2020-10-15 09:03 | MHC.CM.ED ---
Late Entry from 10/14/2020: Patient seen by Dr Cavazos and found to be inpatient radha psych appropriate. Jomar from Care Team aware and will start bed search. Continue to monitor for d/c needs.
--- NOTE | 2020-10-15 09:37 | PC.NURSE ---
speech therapist at bedside, made recommendations for thin liquids and chopped diet.
--- NOTE | 2020-10-15 11:11 | PC.NURSE ---
pt daughter at bedside for visitation, pivoted to commode w heavy two assist for void.
--- NOTE | 2020-10-15 11:28 | PC.NURSE ---
pt resting comfortably, playing w stimulus blanket, calm, remaining in bed at this time. given 4-5 sips of ensure. pt room cleared of clutter.
--- NOTE | 2020-10-15 13:28 | MHC.SL.SWA ---
Speech Pathologist Impression: Risk of Aspiration Oral Phase Dysphagia Risk of Aspiration Due to: Reduced Cognition Dysphasia Diet Status: Downgrade Liquid Consistency and Strategies for Safe Swallow: Liquid Intake Recommendation: Thin Liquid Intake Strategies: Small Sips No Straws Solid Food Consistency: Dietary Recommendations: Chopped/Advanced (NDD3) Additional Modifications to Solid Foods: Pt may require additional cues to swallow due to AMS and poor attention skills. Oral Medication Intake: Whole with Puree Compensatory Strategies and Precautions to be Taken for Safe Swallow: Sitting Upright (90 deg) No Straw Liquids from Cup Small Bites and Sips Alternate Liquids/Solids Supervision While Eating and Drinking for Safe Swallow: Total Assistance Foods to Avoid: Swallowing Recommended Treatments: Recommendation for Speech: Inpatient Speech Therapy Comment: Frequency/Duration: Date Range for Service Req: Timeline to reassess: Softball Player Clinican/Clinical Fellow: Yes: Krista Alberts M.A., CF-MUSIC WRITER Supervisory Statement: I have reviewed and agree with the student/clinical fellow's documentation: Speech Language Pathologist:
--- NOTE | 2020-10-15 14:22 | MHC.CM.ED ---
Per Garrick, patient is still inpatient radha psych bed search. Jomar from Care Team is working on bed search. Continue to monitor for d/c needs.
--- NOTE | 2020-10-15 15:23 | PC.NURSE ---
pt sister has been at bedside, coaching pt to eat lunch. pt appears calm and cooperative.
--- NOTE | 2020-10-15 18:36 | PC.NURSE ---
pt has had sister at bedside visiting throughout afternoon, pivoted to commode one time. pt has had good day, no notable violent or high-risk behaviors. ate considerable portions of all meals today.
[2020-10-15 21:39] VITALS: BP 140/77; PULSE 90; RESP 16; TEMP 36.7; O2SAT 98
[2020-10-15] MEDS: OLANZapine 2.5 MG TABLET PO (21:48)
--- NOTE | 2020-10-16 | ECG_ITS ---
Test Reason : MED CLEARANCE Blood Pressure : / mmHG Vent. Rate : 074 BPM Atrial Rate : 074 BPM P-R Int : 140 ms QRS Dur : 086 ms QT Int : 386 ms P-R-T Axes : 067 -03 080 degrees QTc Int : 428 ms Normal sinus rhythm Minimal voltage criteria for LVH, may be normal variant Nonspecific ST and T wave abnormality Abnormal ECG When compared with ECG of 21-NOV-2019 16:43, T wave inversion now evident in Lateral leads Referred By: Mica Mayo Electronically Signed By:TIANA MONTGOMERY MD
--- NOTE | 2020-10-16 00:28 | PC.NURSE ---
Report received. PT is sleeping in bed. Respirations even and unlabored. PT is geriatric bed search.
[2020-10-16 04:16] VITALS: BP 123/84; PULSE 101; RESP 16; TEMP 37.1; O2SAT 98
[2020-10-16 06:14] VITALS: RESP 18
[2020-10-16] MEDS: OLANZapine 2.5 MG TABLET 1.25 MG PO (08:20)
[2020-10-16] MEDS: Multivitamin TABLET 1 TAB PO (08:20)
--- NOTE | 2020-10-16 11:11 | PC.NURSE ---
previous nurse- anne-marie attempted to give patient medications and was unable to do so
--- NOTE | 2020-10-16 11:21 | PC.NURSE ---
DAUGHTER SHERLY CALLED AND WOULD LIKE CALL BACK AT [phone].
--- NOTE | 2020-10-16 11:42 | PC.NURSE ---
patient currently sleeping, rr 17, willcontinue to monitor
[2020-10-16 15:41] VITALS: BP 132/76; PULSE 70; RESP 18; TEMP 36.9; O2SAT 99
--- NOTE | 2020-10-16 20:00 | PC.NURSE ---
report was given to floor, m5 will come to the ed to get patient
[2020-10-16 21:57] VITALS: BP 142/67; PULSE 90; RESP 18; TEMP 36.3; O2SAT 98
--- NOTE | 2020-10-16 22:14 | PC.ADMIT ---
Pt is a 79 year old Bengali speaking female, who presented to [facility] ED with increased anxiety and depression. Pt has a history of dementia. Pt resides in a assissted living facility and staff became concerned about pt's agitation and behavioral disturbances, throwing things and destroying property. On arrival to ED pt was treated with IV antibiotics for a UTI. Pt was chemically restrained multiple times in the ED. On arrival pt was ambulating fine at this time pt is
[2020-10-16] MEDS: OLANZapine 2.5 MG TABLET PO (22:22)
--- NOTE | 2020-10-16 22:25 | PC.ADMIT ---
pt is 79 year old female. Pt presented to ED with increased anxiety and depression. Pt presents to [facility] from [facility] ED on a 12 B status. Pt is covid negative. UTOX negative. Pt is known to care team. Pt came from an assissted living facility due to increased agitation and behavioral disturbances, throwing things and destroying property. On arrival to ED pt was treated for a UTI. Pt was ambulating when she first presented to ED, but now has an unsteady gait. Needs 2 assist, help with all ADL's and needs to be prompted and assisted to eat. Pt was chemicaled multiple times in the ED. Pt is confused and only alert to person. Pt has top dentures, bruise under left eye, bilateral eye puffiness and pressure ulcer on coccyx. Pt can swallow without issues. Pt at this time is accepting medication. Pt on 1:1, high fall risk. Pt denies SI/HI, AH/VH. Pt is at times reaching for objects that are not there. Pt contracts for safety, feels safe on unit. pt denies pain or discomfort. Doctor called for orders and notified of admission.
[2020-10-17 06:00] VITALS: BP 110/56; PULSE 95; RESP 18; TEMP 36.6; O2SAT 97
[2020-10-17] MEDS: OLANZapine 2.5 MG TABLET 1.25 MG PO (09:00)
[2020-10-17] MEDS: Cyanocobalamin (Vitamin B-12) 500 MCG TABLET 2500 MCG PO (09:01)
[2020-10-17] MEDS: Vortioxetine Hydrobromide 20 MG TABLET PO (09:02)
[2020-10-17] MEDS: Multivitamin TABLET 1 TAB PO (09:02)
[2020-10-17] MEDS: Aspirin Enteric Coated 81 MG TABLET.DR PO (09:02)
[2020-10-17] MEDS: Cholecalciferol (Vitamin D3) 25 MCG TABLET PO (09:02)
--- NOTE | 2020-10-17 11:02 | HO.PSYADMNOT ---
HPI Chief Complaint: Acute psycosis Sources of Information: patient interviewed and chart reviewed Additional Sources of Information: Son-in-Law HPI Subjective Notes: Conditional Voluntary Narrative: 79 yo female, hx of PTSD, anxiety, anorexia, dementia, delirium, residing in [facility] to ER after an episode of agitation in the context of UTI, which has occurred in the past. Pt spent several days in the ER, with agitation, beligerence, increase in confusion and response to internal stimuli requiring medication restraint. She had improved for several hours then had waxing/waning sx and admission was decided upon. Hx of psychiatric admission 2019. CAT shows age related cerebral volume loss with diffuse chronic small vessel ischemic changes. Past Psychiatric History: She had a previous geriatric psychiatric admission. She was diagnosed with Dementia and currently, she is on Rivastigmine. She has outpatient providers. Medical Evaluation Reviewed: Yes [facility] Medical History (Updated 10/17/20 @ 21:09 by Luma Greenberg, AGENT [employer]) Anxiety Chronic UTI Dementia Family History: Alcoholism Social History: Retired, living in [facility], with very good social support. Trauma History: Pt had a difficult upbringing as her father was alcoholic. 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 Diagnostics Vital Signs (24Hr): Vital Signs - 24 hr 10/16/20 15:41 10/16/20 21:57 10/17/20 06:00 Temperature 98.4 F 97.3 F 97.8 F Pulse Rate 70 90 95 Respiratory Rate 18 18 18 Blood Pressure 132/76 142/67 H 110/56 L Pulse Oximetry 99 98 97 Body Mass Index 18.3 Labs Results: 10/09/20 12:44 10/09/20 12:45 Imaging Radiology Impressions: ITS Impressions Chest X-Ray 10/09/20 12:04 IMPRESSION: Unremarkable chest exam except for hyperinflation. No acute intracranial process seen. Age-related cerebral volume loss with diffuse chronic small vessel ischemic changes. Head CT 10/09/20 12:05 IMPRESSION: Unremarkable chest exam except for hyperinflation. No acute intracranial process seen. Age-related cerebral volume loss with diffuse chronic small vessel ischemic changes. Meds/Allergies Meds Home Medications Acetaminophen (Acetaminophen 325 Mg Tablet) 650 mg PO Q6H PRN PRN Reason: Headache/Pain Mild Scale (1-3) Al Hydroxide/Mg Hydroxide (Magnesium Hydrox/Alum Hydrox 30 Ml Oral.Susp) 30 ml PO Q6H PRN PRN Reason: Heartburn/Nausea Aspirin (Aspirin Enteric Coated 81 Mg Tablet.) 81 mg PO DAILY@0800 [facility] Last Admin: 10/17/20 09:02 Dose: 81 mg Documented by: Cyanocobalamin (Cyanocobalamin (Vitamin B-12) 500 Mcg Tablet) 2,500 mcg PO DAILY@0800 [facility] Last Admin: 10/17/20 09:01 Dose: 2,500 mcg Documented by: Magnesium Hydroxide (Milk Of Magnesia 30 Ml Oral.Susp) 30 ml PO DAILY PRN PRN Reason: Constipation Multivitamins/Vitamin C (Multivitamin Tablet) 1 tab PO DAILY@0800 [facility] Last Admin: 10/17/20 09:02 Dose: 1 tab Documented by: Non-Formulary Medication (Rivastigmine) 1 patch TOPICAL DAILY [facility] Non-Formulary Medication (Vitamin E) 1,000 unit PO DAILY@0800 [facility] Olanzapine (Olanzapine 2.5 Mg Tablet) 1.25 mg PO DAILY [facility] Last Admin: 10/17/20 09:00 Dose: 1.25 mg Documented by: Olanzapine (Olanzapine 2.5 Mg Tablet) 2.5 mg PO BEDTIME [facility] Last Admin: 10/17/20 19:53 Dose: 2.5 mg Documented by: Pharmacy Consult (Consult Rx Perform Med Rec) 1 each MISCELLANE ONCE PRN PRN Reason: Consult order Vitamin D (Cholecalciferol (Vitamin D3) 25 Mcg Tablet) 25 mcg PO DAILY@0800 [facility] Last Admin: 10/17/20 09:02 Dose: 25 mcg Documented by: Vortioxetine (Vortioxetine Hydrobromide 20 Mg Tablet) 20 mg PO DAILY@0800 [facility] Last Admin: 10/17/20 09:02 Dose: 20 mg Documented by: Allergies Allergies Allergy/AdvReac Type Severity Reaction Status Date / Time memantine [MEMANTINE] Allergy Severe HIVES Verified 10/14/20 07:25 Iodinated Contrast Media Allergy Unknown UNKNOWN Verified 10/14/20 07:25 [IV CONTRAST] lactose Allergy Unknown DIARRHEA Verified 10/14/20 07:25 sulfamethoxazole Allergy Unknown UNKNOWN Verified 10/14/20 07:25 [From BACTRIM] trimethoprim [From BACTRIM] Allergy Unknown UNKNOWN Verified 10/14/20 07:25 Mental Status Exam Mental Status Exam Patient Appearance: Well Grooomed, Fatigued and Appropriate Patient Orientation: Person Level of Consciousness: Awake, Appropriate, Disoriented, Alert and Follows Commands Patient Behavior: Appropriate, Dependent, Talkative, Cooperative, Anxious, Fatigued, Distractible, Confused and Good Eye Contact Mood Description: Calm, Happy, Appropriate, Constricted, Cheerful, Anxious, Flat and Apprehensive Affect Description: Flat Patient Cognition Impaired: Yes Ability to Follow Directions: Good Speech Pattern: Difficulty Finding Words, Spontaneous Speech, Rambling, Soft-Spoken and Cofabulation Memory Description: Remote Impaired, Immediate Impaired, Halfway Impaired, Episodic Impaired, Recent Impaired, Working Impaired and Semantic Impaired Hallucinations: None Delusions: Not Present Thought Process: Disoriented, Illogical and Distracted Thought Content: positive for Flight of Ideas, positive for Disoriented, positive for Circumstantial, positive for Loose Associations, positive for Tangential and positive for Disorganized Depressive Symptoms: Increased Anxiety, Diff. Making Decisions, Changes in Appetite and Difficulty Concentrating Judgement: Poor Assessment & Plan Assessment & Plan (1) Delirium: Status: Acute Code(s): R41.0 - Disorientation, unspecified (2) Anxiety: Status: Acute Code(s): F41.9 - Anxiety disorder, unspecified (3) Dementia: Status: Acute Qualifiers: Dementia behavioral disturbance: with behavioral disturbance Dementia type: unspecified type Qualified Code(s): F03.91 - Unspecified dementia with behavioral disturbance Code(s): F03.90 - Unspecified dementia without behavioral disturbance Assessment and Plan: -Continue current regime -Olanzapine 2.5 mg daily po prn agitation -TSH, FT4, Ammonia -Nutrition Consult Informed Consent: does not understand Reason for continued inpatient stay Substantial Risk for: harm to self, harm to others, inability to function, rapid decompensation and med/psych decompensation
[2020-10-17 11:45] VITALS: BMI 14.4
[2020-10-17 17:28] VITALS: BP 140/76; PULSE 70; RESP 14; TEMP 37.1; O2SAT 98
[2020-10-17] MEDS: OLANZapine 2.5 MG TABLET PO (19:53)
[2020-10-18 06:00] VITALS: BP 115/71; PULSE 104; RESP 16; TEMP 36.8
[2020-10-18] MEDS: Cyanocobalamin (Vitamin B-12) 500 MCG TABLET 2500 MCG PO (08:23)
[2020-10-18] MEDS: Aspirin Enteric Coated 81 MG TABLET.DR PO (08:23)
[2020-10-18] MEDS: Cholecalciferol (Vitamin D3) 25 MCG TABLET PO (08:23)
[2020-10-18] MEDS: Vortioxetine Hydrobromide 20 MG TABLET PO (08:24)
[2020-10-18] MEDS: Multivitamin TABLET 1 TAB PO (08:24)
[2020-10-18] MEDS: OLANZapine 2.5 MG TABLET 1.25 MG PO (08:25)
[2020-10-18 08:27] LABS: Ammonia 24 umol/L (13-55)
[2020-10-18 08:57] LABS: Thyroid Stimulating Hormone 1.24 uIU/mL (0.32-4.0)
[2020-10-18 09:42] LABS: Folate 14.1 ng/mL (> or = 4.0); Vitamin B12 > 2000 pg/mL (200-900)
--- NOTE | 2020-10-18 12:49 | HO.PSYCHPN ---
Subjective Subjective Date of Service: 10/18/20 Reason For Visit: Delirium, Dementia Subjective Notes: Conditional Voluntary Interim History: Pt on 1:1. Awake,showered, dressed resting this a.m. and ambulating. Signed conditional voluntary form, HCP activated. Pt informed that signing of the conditional voluntary states she agrees to be on the unit and receive care along with activation of HCP to assist her in decision making regarding care. She verbalized agreement with this plan. Team reports poor sleep with restlessness last night. Labs completed-ammonia WNL 24; B12>2000 (pt taking cyanocobalamin 2500 mcg daily), Folate WNL 14.1, TSH WNL 1.24. Calm, engaging, confused and disoriented. No sx agitation noted. Appears comfortable, anxious at times with no acute distress. Medication Compliance: Yes Side effects from medications: No Attending Groups: No Review of Systems Review of Systems Yes all other systems are reviewed and are negative Constitutional: Reports anorexia and Reports fatigue Reports behavioral changes, Reports confusion and Reports memory loss Psychiatric: Reports abnormal sleep pattern (restless sleep reported by team last evening), Reports anxiety, Reports behavioral changes, Reports change in appetite (by history family reports appetite is low.), Reports confusion, Reports difficulty concentrating and Reports memory loss Endocrine: Reports fatigue Mental Status Exam Mental Status Exam Patient Appearance: Well Grooomed and Appropriate Patient Orientation: Person Level of Consciousness: Alert Patient Behavior: Appropriate, Dependent, Talkative, Cooperative, Anxious, Fatigued, Distractible, Confused and Good Eye Contact Mood Description: Calm, Happy, Withdrawn, Relaxed, Cheerful, Anxious, Flat, Nervous and Apprehensive Affect Description: Flat Patient Cognition Impaired: Yes Ability to Follow Directions: Good Speech Pattern: Spontaneous Speech, Soft-Spoken, Cofabulation and Long Pauses Memory Description: Remote Impaired, Immediate Impaired, Community Services Coordinator Impaired, Episodic Impaired, Recent Impaired, Working Impaired and Semantic Impaired Hallucinations: None (no overt evidence) Delusions: Not Present Thought Process: Disoriented, Illogical, Distracted, Slowed Thinking and Confusion Thought Content: positive for Flight of Ideas, positive for Disoriented, positive for Loose Associations, positive for Tangential and positive for Disorganized Depressive Symptoms: Increased Anxiety, Diff. Making Decisions, Difficulty Sleeping, Changes in Appetite, Significant Weight Loss, Increased Fatigue, Loss of Energy and Difficulty Concentrating Judgement: Poor Diagnostics Vital Signs (24Hr): Vital Signs - 24 hr 10/17/20 17:28 Temperature 98.8 F Pulse Rate 70 Respiratory Rate 14 Blood Pressure 140/76 H Pulse Oximetry 98 Body Mass Index 14.4 Labs Results: 10/09/20 12:44 10/09/20 12:45 Labs: Laboratory Results - last 48 hr 10/18/20 10/18/20 10/18/20 07:56 07:56 07:56 Ammonia 24 Vitamin B12 > 2000 H Folate 14.1 TSH 1.24 Imaging Radiology Impressions: ITS Impressions Chest X-Ray 10/09/20 12:04 IMPRESSION: Unremarkable chest exam except for hyperinflation. No acute intracranial process seen. Age-related cerebral volume loss with diffuse chronic small vessel ischemic changes. Head CT 10/09/20 12:05 IMPRESSION: Unremarkable chest exam except for hyperinflation. No acute intracranial process seen. Age-related cerebral volume loss with diffuse chronic small vessel ischemic changes. Medications Medications Current Medications Generic Name Dose Route Start Last Admin Trade Name Freq PRN Reason Stop Dose Admin Acetaminophen 650 mg 10/16/20 21:25 Acetaminophen 325 Mg Tablet PO Q6H PRN Headache/Pain Mild Scale (1-3) Al Hydroxide/Mg Hydroxide 30 ml 10/16/20 21:25 Magnesium Hydrox/Alum Hydrox 30 Ml Oral.Susp PO Q6H PRN Heartburn/Nausea Aspirin 81 mg 10/10/20 08:00 10/18/20 08:23 Aspirin Enteric Coated 81 Mg Tablet. PO 81 mg DAILY@0800 [facility] Administration Cyanocobalamin 2,500 mcg 10/10/20 08:00 10/18/20 08:23 Cyanocobalamin (Vitamin B-12) 500 Mcg Tablet PO 2,500 mcg DAILY@0800 [facility] Administration Magnesium Hydroxide 30 ml 10/16/20 21:25 Milk Of Magnesia 30 Ml Oral.Susp PO DAILY PRN Constipation Multivitamins/Vitamin C 1 tab 10/10/20 08:00 10/18/20 08:24 Multivitamin Tablet PO 1 tab DAILY@0800 [facility] Administration Non-Formulary Medication 1 patch 10/10/20 09:00 Rivastigmine TOPICAL DAILY [facility] Non-Formulary Medication 1,000 unit 10/10/20 08:00 Vitamin E PO DAILY@0800 [facility] Olanzapine 1.25 mg 10/11/20 09:00 10/18/20 08:25 Olanzapine 2.5 Mg Tablet PO 1.25 mg DAILY [facility] Administration Olanzapine 2.5 mg 10/10/20 21:00 10/17/20 19:53 Olanzapine 2.5 Mg Tablet PO 2.5 mg BEDTIME [facility] Administration Olanzapine 2.5 mg 10/17/20 21:23 Olanzapine 2.5 Mg Tablet PO DAILY PRN psychosis, agitation Pharmacy Consult 1 each 10/09/20 17:40 Consult Rx Perform Med Rec MISCELLANE ONCE PRN Consult order Vitamin D 25 mcg 10/10/20 08:00 10/18/20 08:23 Cholecalciferol (Vitamin D3) 25 Mcg Tablet PO 25 mcg DAILY@0800 [facility] Administration Vortioxetine 20 mg 10/10/20 08:00 10/18/20 08:24 Vortioxetine Hydrobromide 20 Mg Tablet PO 20 mg DAILY@0800 [facility] Administration Allergies Allergies Allergy/AdvReac Type Severity Reaction Status Date / Time memantine [MEMANTINE] Allergy Severe HIVES Verified 10/14/20 07:25 Iodinated Contrast Media Allergy Unknown UNKNOWN Verified 10/14/20 07:25 [IV CONTRAST] lactose Allergy Unknown DIARRHEA Verified 10/14/20 07:25 sulfamethoxazole Allergy Unknown UNKNOWN Verified 10/14/20 07:25 [From BACTRIM] trimethoprim [From BACTRIM] Allergy Unknown UNKNOWN Verified 10/14/20 07:25 Assessment & Plan Assessment & Plan (1) Delirium: Status: Acute Code(s): R41.0 - Disorientation, unspecified Assessment and Plan: On 1:1, calm, without agitation, confused and disoriented today. Continue current regime For sleeping difficulty, trial of Remeron 3.75 mg HS prn insomnia, may also assist with appetite stimulation as well. (2) Anxiety: Status: Acute Code(s): F41.9 - Anxiety disorder, unspecified (3) Dementia: Qualifiers: Dementia behavioral disturbance: with behavioral disturbance Dementia type: unspecified type Qualified Code(s): F03.91 - Unspecified dementia with behavioral disturbance Status: Acute Code(s): F03.90 - Unspecified dementia without behavioral disturbance Assessment and Plan: -Continue current regime -Olanzapine 2.5 mg daily po prn agitation -TSH, FT4, Ammonia are all WNL -Nutrition Consult Greater than 50% of the session was spent on counseling and/or coordination of care Reason for contiued inpatient stay Substantial Risk for: harm to self, harm to others, inability to function, rapid decompensation and med/psych decompensation
[2020-10-18 15:11] VITALS: BMI 14.4
--- NOTE | 2020-10-18 15:22 | MHC.CLN ---
RE: CONSULT PT IS MODERATELY MALNOURISHED PT WITH MILDLY DEPLETED SUBCUTANEOUS FAT AND MUSCLE MASS, BMI 14.4 WITH PROLONGED POOR PO INTAKE R/T HX ANOREXIA AND POOR PO INTAKE PER FAMILY. PT ALSO WITH NON SIGNIFICANT 9% WT LOSS X 10 MONTHS DIET RX: CHOPPED PER GOLD LEAF PRINTER SEE REC 10/15/20 RECOMMEND ADDING ENSURE BID TO INCREASE KCALS SUPPLEMENT TO PROVIDE 700KCALS, 40G PROTEIN MONITOR PO INTAKE DAILY AND WEIGH WEEKLY (BACKWARDS ON SCALE AND DO NOT REVEAL WT TO PT) SEE ALSO CLINICAL NUTRITION ASSESSMENT
[2020-10-18 18:00] VITALS: BP 130/82; PULSE 116; TEMP 36.5
[2020-10-18] MEDS: OLANZapine 2.5 MG TABLET PO (20:12)
[2020-10-19 06:00] VITALS: BP 114/66; PULSE 80; RESP 16; TEMP 37.1; O2SAT 97
[2020-10-19] MEDS: Cholecalciferol (Vitamin D3) 25 MCG TABLET PO (08:22)
[2020-10-19] MEDS: Vortioxetine Hydrobromide 20 MG TABLET PO (08:23)
[2020-10-19] MEDS: Cyanocobalamin (Vitamin B-12) 500 MCG TABLET 2500 MCG PO (08:23)
[2020-10-19] MEDS: Aspirin Enteric Coated 81 MG TABLET.DR PO (08:24)
[2020-10-19] MEDS: Multivitamin TABLET 1 TAB PO (08:24)
[2020-10-19] MEDS: OLANZapine 2.5 MG TABLET 1.25 MG PO (08:24)
--- NOTE | 2020-10-19 10:41 | HO.PSYCHPN ---
Subjective Subjective Date of Service: 10/19/20 Reason For Visit: Delirium, Dementia Interim History: Chart reviewed; case discussed with team. Vitals reviewed: WNL pt friendly, calm. Says he's good. Shares how frustrating it is to be told you just said that and she wishes people would have a kinder response to her memory issues. No other complaints staff reports pt continues to need help with all ADL's remains on 1:1 since fall risk Medication Compliance: Yes Mental Status Exam Mental Status Exam Narrative: Appearance: Well Grooomed and Appropriate Patient Orientation: Person Level of Consciousness: Alert Patient Behavior: calm and friendly; Talkative, Cooperative Good Eye Contact Mood Description: good but frustrated Affect Description: warm Patient Cognition Impaired: Yes Ability to Follow Directions: Good Speech Pattern: Spontaneous Speech, hx of Cofabulation and Long Pauses Memory Description: Remote Impaired, Immediate Impaired, Stationary Engineer Supervisor Impaired, Episodic Impaired, Recent Impaired, Working Impaired and Semantic Impaired Hallucinations: None (no overt evidence) Delusions: Not Present Thought Process: goal oriented; sometimes distracted and confused. Thought Content: frustrated with how people treat her dementia; thoughts hoping to various topics Judgement: Poor Diagnostics Vital Signs (24Hr): Vital Signs - 24 hr 10/18/20 18:00 10/19/20 06:00 Temperature 97.7 F 98.8 F Pulse Rate 116 H 80 Respiratory Rate 16 Blood Pressure 130/82 114/66 Pulse Oximetry 97 Body Mass Index 14.4 Labs Results: 10/09/20 12:44 10/09/20 12:45 Labs: Laboratory Results - last 48 hr 10/18/20 10/18/20 10/18/20 07:56 07:56 07:56 Ammonia 24 Vitamin B12 > 2000 H Folate 14.1 TSH 1.24 Imaging Radiology Impressions: ITS Impressions Chest X-Ray 10/09/20 12:04 IMPRESSION: Unremarkable chest exam except for hyperinflation. No acute intracranial process seen. Age-related cerebral volume loss with diffuse chronic small vessel ischemic changes. Head CT 10/09/20 12:05 IMPRESSION: Unremarkable chest exam except for hyperinflation. No acute intracranial process seen. Age-related cerebral volume loss with diffuse chronic small vessel ischemic changes. Medications Medications Current Medications Generic Name Dose Route Start Last Admin Trade Name Freq PRN Reason Stop Dose Admin Acetaminophen 650 mg 10/16/20 21:25 Acetaminophen 325 Mg Tablet PO Q6H PRN Headache/Pain Mild Scale (1-3) Al Hydroxide/Mg Hydroxide 30 ml 10/16/20 21:25 Magnesium Hydrox/Alum Hydrox 30 Ml Oral.Susp PO Q6H PRN Heartburn/Nausea Aspirin 81 mg 10/10/20 08:00 10/19/20 08:24 Aspirin Enteric Coated 81 Mg Tablet.Dr PO 81 mg DAILY@0800 [facility] Administration Cyanocobalamin 2,500 mcg 10/10/20 08:00 10/19/20 08:23 Cyanocobalamin (Vitamin B-12) 500 Mcg Tablet PO 2,500 mcg DAILY@0800 [facility] Administration Magnesium Hydroxide 30 ml 10/16/20 21:25 Milk Of Magnesia 30 Ml Oral.Susp PO DAILY PRN Constipation Mirtazapine 3.75 mg 10/18/20 14:03 Mirtazapine 7.5 Mg Tablet PO BEDTIME PRN Insomnia Multivitamins/Vitamin C 1 tab 10/10/20 08:00 10/19/20 08:24 Multivitamin Tablet PO 1 tab DAILY@0800 [facility] Administration Non-Formulary Medication 1 patch 10/10/20 09:00 Rivastigmine TOPICAL DAILY [facility] Non-Formulary Medication 1,000 unit 10/10/20 08:00 Vitamin E PO DAILY@0800 [facility] Olanzapine 1.25 mg 10/11/20 09:00 10/19/20 08:24 Olanzapine 2.5 Mg Tablet PO 1.25 mg DAILY [facility] Administration Olanzapine 2.5 mg 10/10/20 21:00 10/18/20 20:12 Olanzapine 2.5 Mg Tablet PO 2.5 mg BEDTIME [facility] Administration Olanzapine 2.5 mg 10/17/20 21:23 Olanzapine 2.5 Mg Tablet PO DAILY PRN psychosis, agitation Pharmacy Consult 1 each 10/09/20 17:40 Consult Rx Perform Med Rec MISCELLANE ONCE PRN Consult order Vitamin D 25 mcg 10/10/20 08:00 10/19/20 08:22 Cholecalciferol (Vitamin D3) 25 Mcg Tablet PO 25 mcg DAILY@0800 [facility] Administration Vortioxetine 20 mg 10/10/20 08:00 10/19/20 08:23 Vortioxetine Hydrobromide 20 Mg Tablet PO 20 mg DAILY@0800 [facility] Administration Allergies Allergies Allergy/AdvReac Type Severity Reaction Status Date / Time memantine [MEMANTINE] Allergy Severe HIVES Verified 10/14/20 07:25 Iodinated Contrast Media Allergy Unknown UNKNOWN Verified 10/14/20 07:25 [IV CONTRAST] lactose Allergy Unknown DIARRHEA Verified 10/14/20 07:25 sulfamethoxazole Allergy Unknown UNKNOWN Verified 10/14/20 07:25 [From BACTRIM] trimethoprim [From BACTRIM] Allergy Unknown UNKNOWN Verified 10/14/20 07:25 Assessment & Plan Assessment & Plan (1) Delirium: Status: Acute Code(s): R41.0 - Disorientation, unspecified Assessment and Plan: f/p pt seemingly at baseline no changes to current tx plan On 1:1 Continue current regime For sleeping difficulty, trial of Remeron 3.75 mg HS prn insomnia, may also assist with appetite stimulation as well. (2) Anxiety: Status: Acute Code(s): F41.9 - Anxiety disorder, unspecified (3) Dementia: Qualifiers: Dementia behavioral disturbance: with behavioral disturbance Dementia type: unspecified type Qualified Code(s): F03.91 - Unspecified dementia with behavioral disturbance Status: Acute Code(s): F03.90 - Unspecified dementia without behavioral disturbance Assessment and Plan: -Continue current regime -Olanzapine 2.5 mg daily po prn agitation -TSH, FT4, Ammonia are all WNL -Nutrition Consult Greater than 50% of the session was spent on counseling and/or coordination of care Reason for contiued inpatient stay Substantial Risk for: inability to function
--- NOTE | 2020-10-19 12:51 | PC.NURSE ---
spoke with pts daughter rhea who was in to see pt. rhea feels pt is back to baseline and is looking more like herself. her thoughts are discussing with her home what they will allow in for LINKING MACHINE OPERATOR care. she will discuss with maria l/roseline on wednesday.
[2020-10-19 18:25] VITALS: BP 124/60; PULSE 97; TEMP 36.9
[2020-10-19] MEDS: OLANZapine 2.5 MG TABLET PO (19:50)
[2020-10-20 06:00] VITALS: BP 120/80; PULSE 116; RESP 16; TEMP 36.6; O2SAT 97
[2020-10-20] MEDS: Multivitamin TABLET 1 TAB PO (07:56)
[2020-10-20] MEDS: Vortioxetine Hydrobromide 20 MG TABLET PO (07:56)
[2020-10-20] MEDS: OLANZapine 2.5 MG TABLET 1.25 MG PO (07:57)
[2020-10-20] MEDS: Aspirin Enteric Coated 81 MG TABLET.DR PO (07:58)
[2020-10-20] MEDS: Cholecalciferol (Vitamin D3) 25 MCG TABLET PO (07:59)
--- NOTE | 2020-10-20 08:50 | P.PNPSI_ITS ---
Subjective Subjective Date of Service: 10/20/20 Reason For Visit: Delirium, Dementia Interim History: Chart reviewed; case discussed with team. Vitals reviewed: WNL Pt resting in bed; health underwriter woke her up. She says she's good, does not need anything, but wants to sleep; health underwriter agrees. She thanks health underwriter for checking in. nursing staff reports daughter, on visit yesterday, says her mother is back to baseline. Daughter is looking for a personal injury paralegal to help with home care. Mental Status Exam Mental Status Exam Narrative: Appearance: Well Grooomed and Appropriate Patient Orientation: Person; intermittently place, situation Level of Consciousness: Alert Patient Behavior: drowsy Mood Description: good Affect Description: congruent Patient Cognition Impaired: Yes Ability to Follow Directions: Good Speech Pattern: Spontaneous Speech, hx of Cofabulation and Long Pauses Memory Description: Remote Impaired, Immediate Impaired, Lead Python Developer Impaired, Episodic Impaired, Recent Impaired, Working Impaired and Semantic Impaired Hallucinations: None (no overt evidence) Delusions: Not Present Thought Process: goal oriented; sometimes distracted and confused. Thought Content: frustrated with how people treat her dementia; thoughts hoping to various topics Judgement: Poor Diagnostics Vital Signs (24Hr): Vital Signs - 24 hr 10/19/20 18:25 Temperature 98.4 F Pulse Rate 97 Blood Pressure 124/60 Body Mass Index 14.4 Labs Results: 10/20/20 17:32 10/20/20 17:32 Labs: Laboratory Results - last 48 hr 10/18/20 10/18/20 07:56 07:56 Vitamin B12 > 2000 H Folate 14.1 TSH 1.24 Imaging Radiology Impressions: ITS Impressions Chest X-Ray 10/09/20 12:04 IMPRESSION: Unremarkable chest exam except for hyperinflation. No acute intracranial process seen. Age-related cerebral volume loss with diffuse chronic small vessel ischemic changes. Head CT 10/09/20 12:05 IMPRESSION: Unremarkable chest exam except for hyperinflation. No acute intracranial process seen. Age-related cerebral volume loss with diffuse chronic small vessel ischemic changes. Medications Medications Current Medications Generic Name Dose Route Start Last Admin Trade Name Freq PRN Reason Stop Dose Admin Acetaminophen 650 mg 10/16/20 21:25 Acetaminophen 325 Mg Tablet PO Q6H PRN Headache/Pain Mild Scale (1-3) Al Hydroxide/Mg Hydroxide 30 ml 10/16/20 21:25 Magnesium Hydrox/Alum Hydrox 30 Ml Oral.Susp PO Q6H PRN Heartburn/Nausea Aspirin 81 mg 10/10/20 08:00 10/20/20 07:58 Aspirin Enteric Coated 81 Mg Tablet.Dr PO 81 mg DAILY@0800 [facility] Administration Magnesium Hydroxide 30 ml 10/16/20 21:25 Milk Of Magnesia 30 Ml Oral.Susp PO DAILY PRN Constipation Mirtazapine 3.75 mg 10/18/20 14:03 Mirtazapine 7.5 Mg Tablet PO BEDTIME PRN Insomnia Multivitamins/Vitamin C 1 tab 10/10/20 08:00 10/20/20 07:56 Multivitamin Tablet PO 1 tab DAILY@0800 [facility] Administration Non-Formulary Medication 1 patch 10/10/20 09:00 Rivastigmine TOPICAL DAILY [facility] Non-Formulary Medication 1,000 unit 10/10/20 08:00 Vitamin E PO DAILY@0800 [facility] Olanzapine 1.25 mg 10/11/20 09:00 10/20/20 07:57 Olanzapine 2.5 Mg Tablet PO 1.25 mg DAILY [facility] Administration Olanzapine 2.5 mg 10/10/20 21:00 10/19/20 19:50 Olanzapine 2.5 Mg Tablet PO 2.5 mg BEDTIME [facility] Administration Olanzapine 2.5 mg 10/17/20 21:23 Olanzapine 2.5 Mg Tablet PO DAILY PRN psychosis, agitation Pharmacy Consult 1 each 10/09/20 17:40 Consult Rx Perform Med Rec MISCELLANE ONCE PRN Consult order Vitamin D 25 mcg 10/10/20 08:00 10/20/20 07:59 Cholecalciferol (Vitamin D3) 25 Mcg Tablet PO 25 mcg DAILY@0800 [facility] Administration Vortioxetine 20 mg 10/10/20 08:00 10/20/20 07:56 Vortioxetine Hydrobromide 20 Mg Tablet PO 20 mg DAILY@0800 [facility] Administration Allergies Allergies Allergy/AdvReac Type Severity Reaction Status Date / Time memantine [MEMANTINE] Allergy Severe HIVES Verified 10/14/20 07:25 Iodinated Contrast Media Allergy Unknown UNKNOWN Verified 10/14/20 07:25 [IV CONTRAST] lactose Allergy Unknown DIARRHEA Verified 10/14/20 07:25 sulfamethoxazole Allergy Unknown UNKNOWN Verified 10/14/20 07:25 [From BACTRIM] trimethoprim [From BACTRIM] Allergy Unknown UNKNOWN Verified 10/14/20 07:25 Assessment & Plan Assessment & Plan (1) Delirium: Status: Acute Code(s): R41.0 - Disorientation, unspecified Assessment and Plan: f/p Psychiatrically pt seemingly at baseline Later in day, pt c/o abdominal pain; consult placed and Abd CT showed divericulosis. Awaiting recommendations from medicine. On 1:1 Continue current regime For sleeping difficulty, trial of Remeron 3.75 mg HS prn insomnia, may also assist with appetite stimulation as well. (2) Anxiety: Status: Acute Code(s): F41.9 - Anxiety disorder, unspecified (3) Dementia: Qualifiers: Dementia behavioral disturbance: with behavioral disturbance Dementia type: unspecified type Qualified Code(s): F03.91 - Unspecified dementia with behavioral disturbance Status: Acute Code(s): F03.90 - Unspecified dementia without behavioral disturbance Assessment and Plan: -Continue current regime -Olanzapine 2.5 mg daily po prn agitation -TSH, FT4, Ammonia are all WNL -Nutrition Consult Greater than 50% of the session was spent on counseling and/or coordination of care Reason for contiued inpatient stay Substantial Risk for: inability to function
--- NOTE | 2020-10-20 16:19 | P.CONIM_ITS ---
History of Present Illness Data of Consult Service Date: 10/20/20 Primary Care Provider: Unknown Physician HPI Reason for consult: abd pain 79F admitted 10/17/20 to inpatient psychiatry for agitation and confusion. on 10/20/20, consult requested for abdominal pain. patient has dementia and is a poor historian, but her daughter is at bedside and states patient began to complain of sudden onset LLQ abdominal pain. she grabbed the area. RN brought warm compress and pain mostly subsided. by the time I was seeing her patinet was not complaiing, but when asked she did mention that her abdomen was hurting her. on exam LLQ is mildly tender. Review of Systems Review of Systems: Constitutional: Denies fever, denies Chills Eyes: denies blurry vision ENT: denies sore throat CVS: denies chest pain Respiratory: Denies dyspnea GI: abdominal pain : denies dysuria MSK: denies neck pain Skin: denies rash Neuro: denies specific motor weakness Psych: denies suicidal ideation Endocrine: denies heat/cold intoleratnce Hematologic: denies easy bleeding Allergy: denies hives PMFSH Medical History Anxiety Chronic UTI Dementia Family history: reviewed and not pertinent Surgical History History of appendectomy Hx of cholecystectomy Hx of tonsillectomy S/P STEPHIE (total abdominal hysterectomy) Social History Household Members: None Housing: Assisted Living Facility Do you presently have visiting nurse or other home services: No Smoking Status: Former smoker Use of substances other than those prescribed or required for medical reasons: No Currently Displaying Signs/Symptoms of Drug Intoxication Withdrawal: No Have you been hit, kicked, punched, or otherwise hurt by someone within the past year? If so, by whom?: No Do you feel safe in your current relationship?: No Current Relationship Is there a partner from a previous relationship who is making you feel unsafe now?: No Are you made to feel afraid or neglected: No Advance Directives: No Advance Directives Information Provided: Yes Do you have thoughts of harming others: None Do you have a plan to hurt others: No Plan Recently lost weight without trying: Unsure service: No Sexual orientation: Straight/Heterosexual Meds Allergies Allergy/AdvReac Type Severity Reaction Status Date / Time memantine [MEMANTINE] Allergy Severe HIVES Verified 10/14/20 07:25 Iodinated Contrast Media Allergy Unknown UNKNOWN Verified 10/14/20 07:25 [IV CONTRAST] lactose Allergy Unknown DIARRHEA Verified 10/14/20 07:25 sulfamethoxazole Allergy Unknown UNKNOWN Verified 10/14/20 07:25 [From BACTRIM] trimethoprim [From BACTRIM] Allergy Unknown UNKNOWN Verified 10/14/20 07:25 Active Medications: Current Medications Generic Name Dose Route Start Last Admin Trade Name Freq PRN Reason Stop Dose Admin Acetaminophen 650 mg 10/16/20 21:25 Acetaminophen 325 Mg Tablet PO Q6H PRN Headache/Pain Mild Scale (1-3) Al Hydroxide/Mg Hydroxide 30 ml 10/16/20 21:25 Magnesium Hydrox/Alum Hydrox 30 Ml Oral.Susp PO Q6H PRN Heartburn/Nausea Aspirin 81 mg 10/10/20 08:00 10/20/20 07:58 Aspirin Enteric Coated 81 Mg Tablet. PO 81 mg DAILY@0800 [facility] Administration Magnesium Hydroxide 30 ml 10/16/20 21:25 Milk Of Magnesia 30 Ml Oral.Susp PO DAILY PRN Constipation Mirtazapine 3.75 mg 10/18/20 14:03 Mirtazapine 7.5 Mg Tablet PO BEDTIME PRN Insomnia Multivitamins/Vitamin C 1 tab 10/10/20 08:00 10/20/20 07:56 Multivitamin Tablet PO 1 tab DAILY@0800 [facility] Administration Non-Formulary Medication 1 patch 10/10/20 09:00 Rivastigmine TOPICAL DAILY [facility] Non-Formulary Medication 1,000 unit 10/10/20 08:00 Vitamin E PO DAILY@0800 [facility] Olanzapine 1.25 mg 10/11/20 09:00 10/20/20 07:57 Olanzapine 2.5 Mg Tablet PO 1.25 mg DAILY [facility] Administration Olanzapine 2.5 mg 10/10/20 21:00 10/19/20 19:50 Olanzapine 2.5 Mg Tablet PO 2.5 mg BEDTIME [facility] Administration Olanzapine 2.5 mg 10/17/20 21:23 Olanzapine 2.5 Mg Tablet PO DAILY PRN psychosis, agitation Pharmacy Consult 1 each 10/09/20 17:40 Consult Rx Perform Med Rec MISCELLANE ONCE PRN Consult order Vitamin D 25 mcg 10/10/20 08:00 10/20/20 07:59 Cholecalciferol (Vitamin D3) 25 Mcg Tablet PO 25 mcg DAILY@0800 [facility] Administration Vortioxetine 20 mg 10/10/20 08:00 10/20/20 07:56 Vortioxetine Hydrobromide 20 Mg Tablet PO 20 mg DAILY@0800 [facility] Administration Home Medications Medication Instructions Recorded Confirmed Last Taken Type alprazolam 1 tab PO TID 10/09/20 10/09/20 10/09/20 History aspirin [Aspir-81] 81 mg PO DAILY@0800 10/09/20 10/09/20 10/09/20 History cholecalciferol (vitamin D3) 25 mcg PO DAILY@0800 10/09/20 10/09/20 10/09/20 History cyanocobalamin (vitamin B-12) 2,500 mcg PO DAILY@0800 10/09/20 10/09/20 10/09/20 History multivitamin 1 tab PO DAILY@0800 10/09/20 10/09/20 10/09/20 History olanzapine 1 tab PO DAILY@199910/09/20 10/09/20 10/08/20 History rivastigmine 1 patch TOPICAL DAILY 10/09/20 10/09/20 10/09/20 History vitamin E 1,000 unit PO DAILY@0800 10/09/20 10/09/20 10/09/20 History vortioxetine [Trintellix] 1 tab PO DAILY@0800 10/09/20 10/09/20 10/09/20 History Physical Exam Vital Signs and Narrative: Vital Signs: Last Vital Signs Temp 98 F 10/20/20 06:00 Pulse 116 H 10/20/20 06:00 Resp 16 10/20/20 06:00 BP 120/80 10/20/20 06:00 Pulse Ox 97 10/20/20 06:00 Body Mass Index 14.4 General: cachexic, poor memory, no acute distress HEENT: atraumatic Neck: normal to visual inspection CVS: S1, S2, RRR Resp: CTA bilateral Chest: non tender GI: soft, LLQ mild tenderness, non distended : no CVA tenderness Skin: no rashes Extremities: no edema Neuro: , grossly intact Psych: cooperative Results Labs CBC and Chem 7: 04/21/21 12:44 10/09/20 12:45 Assessment and Plan (1) Abdominal pain: Status: Acute 79F presented with abdominal pain abdominal pain mostly resolved no evidence of acute abdomen, not tense, no rebound or guarding will check CT abd routine labs
[2020-10-20 17:36] LABS: MANUAL DIFF FLAG NO
[2020-10-20 17:38] LABS: Basophils Absolute Auto 0.1 X10*3/uL (0.0-0.2); Basophils Percent Auto 0.4 % (0-2); Eosinophils Absolute Auto 0.1 X10*3/uL (0.0-0.4); Eosinophils Percent Auto 1.1 % (0-4); Hematocrit 43.7 % (37-47); Hemoglobin 14.5 g/dl (12.0-16.0); Imm Gran Abs Auto 0.06 X10*3/uL (0.00-0.03); Imm Gran Pct Auto 0.5 % (0.0-0.4); Lymphocytes Absolute Auto 2.3 X10*3/uL (1.2-4.9); Lymphocytes Percent Auto 18.3 % (20-40); Mean Corpuscular HGB Conc 33.2 g/dl (31.0-35.0); Mean Corpuscular Hemoglobin 30.5 pg (27.0-33.0); Mean Corpuscular Volume 91.8 fL (80-98); Mean Platelet Volume 10.1 fL (9.4-12.3); Monocytes Absolute Auto 0.9 X10*3/uL (0.1-1.2); Neutrophils Percent Auto 72.7 % (45-73); Platelet Count 472 X10*3/uL (160-400); Red Blood Count 4.76 X10*6/uL (4.20-5.50); Red Cell Distribution Width 11.9 % (11.0-16.0); White Blood Count 12.4 X10*3/uL (4.8-10.8)
[2020-10-20 18:00] VITALS: BP 120/64; PULSE 100; TEMP 37
[2020-10-20 18:07] LABS: Alanine Aminotransferase 24 U/L (0-31); Albumin Level 4.2 g/dL (3.5-5.0); Alkaline Phosphatase 94 U/L (39-117); Anion Gap 14 (12-20); Aspartate Amino Transferase 26 U/L (5-31); Bilirubin Total 0.4 mg/dL (0.0-1.0); Blood Urea Nitrogen 28 mg/dL (9-16); Calcium 9.6 mg/dL (8.4-10.2); Carbon Dioxide 31 mmol/L (22-29); Chloride 98 mmol/L (96-108); Creatinine Clr Calc Pharmacy 38.3; Estimated Glomerular Filt Rate > 60; Glucose Random 98 mg/dL (60-115); Potassium 3.6 mmol/L (3.3-5.1); Sodium 139 mmol/L (135-145); Total Protein 7.2 g/dL (6.5-8.0)
[2020-10-20] MEDS: polyethylene glycoL 3350 17 GM POWD.PACK PO (18:13)
[2020-10-20] MEDS: OLANZapine 2.5 MG TABLET PO (19:44)
[2020-10-20] MEDS: Docusate Sodium 100 MG CAPSULE PO (19:44)
[2020-10-21] MEDS: OLANZapine 2.5 MG TABLET 1.25 MG PO (09:12)
[2020-10-21] MEDS: polyethylene glycoL 3350 17 GM POWD.PACK PO (09:13)
[2020-10-21] MEDS: Aspirin Enteric Coated 81 MG TABLET.DR PO (09:13)
[2020-10-21] MEDS: Multivitamin TABLET 1 TAB PO (09:13)
[2020-10-21] MEDS: Vortioxetine Hydrobromide 20 MG TABLET PO (09:13)
[2020-10-21] MEDS: Cholecalciferol (Vitamin D3) 25 MCG TABLET PO (09:13)
[2020-10-21 09:47] VITALS: BP 118/68; PULSE 80; RESP 14; TEMP 36.7; O2SAT 98
--- NOTE | 2020-10-21 12:08 | MHC.SLORD ---
Speech Language Pathology Order Status: Patient is on CHOPPED/ADVANCED (NDD3) solids and THIN liquids, with pills WHOLE in PUREE. RN reports that patient is tolerating current diet textures. Further ST intervention is no longer warranted at this level of care. Please re-refer if there are any changes or further concerns.
--- NOTE | 2020-10-21 15:08 | MHC.CLN ---
F/U PO INTAKE POOR DIET RX: CHOPPED PER [employer] SEE REC 10/15/20 PT RECEIVING ENSURE BID TO INCREASE KCALS SUPPLEMENT TO PROVIDE 700KCALS, 40G PROTEIN PT REQUIRES TOTAL ASSIST WITH MEALS SNACKS AND DRINKS BROUGHT IN BY FAMILY MEMBER MONITOR PO INTAKE DAILY AND WEIGH WEEKLY (BACKWARDS ON SCALE AND DO NOT REVEAL WT TO PT)
[2020-10-21 16:30] VITALS: BP 116/58; PULSE 95; TEMP 36.4
--- NOTE | 2020-10-21 17:10 | P.PNPSI_ITS ---
Subjective Subjective Date of Service: 10/21/20 Reason For Visit: Delirium, Dementia Subjective Notes: Conditional Voluntary Interim History: Family tells team pt is back to baseline. Today she is alert, oriented to activity, ambulating with team, well engaged with staff. Responds well to support. Per social service team her GROUP [facility] will be in on 10/23/20 to re-evaluate her for a return to her living facility. Medication Compliance: Yes Side effects from medications: No Attending Groups: No Review of Systems Gastrointestinal: Reports other (diverticulosis on ABD CAT-had reported LLQ pain over the weekend.) Psychiatric: Reports anxiety Hematologic/Lymphatic: Reports other (WBC trending higher 12.4 on 10/20/20.) Mental Status Exam Mental Status Exam Patient Appearance: Appropriate Patient Orientation: Person, Place, Time and Situation Level of Consciousness: Awake and Alert Patient Behavior: Appropriate, Dependent, Talkative, Cooperative, Anxious, Distractible, Confused and Good Eye Contact Mood Description: Anxious Affect Description: Anxious Patient Cognition Impaired: Yes Ability to Follow Directions: Good Speech Pattern: Difficulty Finding Words (this appears improved since 10/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), Spontaneous Speech, Rambling, Soft-Spoken and Cofabulation Memory Description: Remote Impaired, Immediate Impaired, Registered Nurse Cardiac Impaired and Episodic Impaired Hallucinations: None Delusions: Not Present Thought Process: Disoriented and Distracted Thought Content: positive for Disoriented, positive for Tangential and positive for Disorganized Depressive Symptoms: Increased Anxiety Judgement: Poor Diagnostics Vital Signs (24Hr): Vital Signs - 24 hr 10/20/20 18:00 10/21/20 09:47 10/21/20 16:30 Temperature 98.6 F 98.0 F 97.6 F Pulse Rate 100 80 95 Respiratory Rate 14 Blood Pressure 120/64 118/68 116/58 L Pulse Oximetry 98 Body Mass Index 14.4 Labs Results: 10/20/20 17:32 10/20/20 17:32 Labs: Laboratory Results - last 48 hr 10/20/20 10/20/20 17:32 17:32 WBC 12.4 H RBC 4.76 Hgb 14.5 Hct 43.7 MCV 91.8 MCH 30.5 MCHC 33.2 RDW 11.9 Plt Count 472 H D MPV 10.1 Immature Gran % (Auto) 0.5 H Neut % (Auto) 72.7 Lymph % (Auto) 18.3 L [place] % (Auto) 7.0 Eos % (Auto) 1.1 Baso % (Auto) 0.4 Lymph # (Auto) 2.3 [place] # (Auto) 0.9 Eos # (Auto) 0.1 Baso # (Auto) 0.1 Abs Immat Gran (auto) 0.06 H Absolute Neuts (auto) 9.0 H Absolute Nucleated RBC 0.000 Nucleated RBC % (auto) 0.0 Sodium 139 Potassium 3.6 Chloride 98 Carbon Dioxide 31 H Anion Gap 14 BUN 28 H Creatinine 0.75 Estim Creat Clear Calc 38.3 Estimated GFR > 60 Random Glucose 98 Calcium 9.6 Total Bilirubin 0.4 AST 26 ALT 24 Alkaline Phosphatase 94 Total Protein 7.2 Albumin 4.2 Imaging Radiology Impressions: ITS Impressions Chest X-Ray 10/09/20 12:04 IMPRESSION: Unremarkable chest exam except for hyperinflation. No acute intracranial process seen. Age-related cerebral volume loss with diffuse chronic small vessel ischemic changes. Head CT 10/09/20 12:05 IMPRESSION: Unremarkable chest exam except for hyperinflation. No acute intracranial process seen. Age-related cerebral volume loss with diffuse chronic small vessel ischemic changes. Abdomen/Pelvis CT 10/20/20 16:55 IMPRESSION: -No CT evidence for acute abnormality within the abdomen or pelvis. -[id number] colonic diverticulosis without CT evidence to suggest active diverticulitis. -Mild stool burden throughout the colon. Medications Medications Current Medications Generic Name Dose Route Start Last Admin Trade Name Freq PRN Reason Stop Dose Admin Acetaminophen 650 mg 10/16/20 21:25 Acetaminophen 325 Mg Tablet PO Q6H PRN Headache/Pain Mild Scale (1-3) Al Hydroxide/Mg Hydroxide 30 ml 10/16/20 21:25 Magnesium Hydrox/Alum Hydrox 30 Ml Oral.Susp PO Q6H PRN Heartburn/Nausea Aspirin 81 mg 10/10/20 08:00 10/21/20 09:13 Aspirin Enteric Coated 81 Mg Tablet. PO 81 mg DAILY@0800 [facility] Administration Docusate Sodium 100 mg 10/20/20 21:00 10/21/20 09:27 Docusate Sodium 100 Mg Capsule PO Not Given BID [facility] Magnesium Hydroxide 30 ml 10/16/20 21:25 Milk Of Magnesia 30 Ml Oral.Susp PO DAILY PRN Constipation Mirtazapine 3.75 mg 10/18/20 14:03 Mirtazapine 7.5 Mg Tablet PO BEDTIME PRN Insomnia Multivitamins/Vitamin C 1 tab 10/10/20 08:00 10/21/20 09:13 Multivitamin Tablet PO 1 tab DAILY@0800 [facility] Administration Non-Formulary Medication 1 patch 10/10/20 09:00 Rivastigmine TOPICAL DAILY [facility] Non-Formulary Medication 1,000 unit 10/10/20 08:00 Vitamin E PO DAILY@0800 [facility] Olanzapine 1.25 mg 10/11/20 09:00 10/21/20 09:12 Olanzapine 2.5 Mg Tablet PO 1.25 mg DAILY [facility] Administration Olanzapine 2.5 mg 10/10/20 21:00 10/20/20 19:44 Olanzapine 2.5 Mg Tablet PO 2.5 mg BEDTIME [facility] Administration Olanzapine 2.5 mg 10/17/20 21:23 Olanzapine 2.5 Mg Tablet PO DAILY PRN psychosis, agitation Pharmacy Consult 1 each 10/09/20 17:40 Consult Rx Perform Med Rec MISCELLANE ONCE PRN Consult order Polyethylene Glycol 17 gm 10/20/20 17:55 10/21/20 09:13 Polyethylene Glycol 3350 17 Gm Powd.Pack PO 17 gm DAILY [facility] Administration Vitamin D 25 mcg 10/10/20 08:00 10/21/20 09:13 Cholecalciferol (Vitamin D3) 25 Mcg Tablet PO 25 mcg DAILY@0800 [facility] Administration Vortioxetine 20 mg 10/10/20 08:00 10/21/20 09:13 Vortioxetine Hydrobromide 20 Mg Tablet PO 20 mg DAILY@0800 [facility] Administration Allergies Allergies Allergy/AdvReac Type Severity Reaction Status Date / Time memantine [MEMANTINE] Allergy Severe HIVES Verified 10/14/20 07:25 Iodinated Contrast Media Allergy Unknown UNKNOWN Verified 10/14/20 07:25 [IV CONTRAST] lactose Allergy Unknown DIARRHEA Verified 10/14/20 07:25 sulfamethoxazole Allergy Unknown UNKNOWN Verified 10/14/20 07:25 [From BACTRIM] trimethoprim [From BACTRIM] Allergy Unknown UNKNOWN Verified 10/14/20 07:25 Assessment & Plan Assessment & Plan (1) Delirium: Status: Acute Code(s): R41.0 - Disorientation, unspecified (2) Anxiety: Status: Acute Code(s): F41.9 - Anxiety disorder, unspecified (3) Dementia: Qualifiers: Dementia behavioral disturbance: with behavioral disturbance Dementia type: unspecified type Qualified Code(s): F03.91 - Unspecified dementia with behavioral disturbance Status: Acute Code(s): F03.90 - Unspecified dementia without behavioral disturbance Assessment and Plan: Family reports pt has returned to baseline. ABD CAT indicates diverticulosis WBC trending up 12.4 Pt's [facility] team to visit her on 10/23 to assess for return. Greater than 50% of the session was spent on counseling and/or coordination of care Reason for contiued inpatient stay Substantial Risk for: inability to function and med/psych decompensation
[2020-10-21] MEDS: Docusate Sodium 100 MG CAPSULE PO (19:22)
[2020-10-21] MEDS: OLANZapine 2.5 MG TABLET PO (19:22)
[2020-10-22] MEDS: Vortioxetine Hydrobromide 20 MG TABLET PO (09:21)
[2020-10-22] MEDS: Multivitamin TABLET 1 TAB PO (09:21)
[2020-10-22] MEDS: Aspirin Enteric Coated 81 MG TABLET.DR PO (09:21)
[2020-10-22] MEDS: Docusate Sodium 100 MG CAPSULE PO ×2 (09:21→20:47)
[2020-10-22] MEDS: Cholecalciferol (Vitamin D3) 25 MCG TABLET PO (09:21)
[2020-10-22] MEDS: OLANZapine 2.5 MG TABLET 1.25 MG PO (09:21)
[2020-10-22] MEDS: polyethylene glycoL 3350 17 GM POWD.PACK PO (09:23)
[2020-10-22 09:59] VITALS: BP 130/64; PULSE 78; RESP 14; TEMP 36.8; O2SAT 94
--- NOTE | 2020-10-22 11:32 | HO.PSYCHPN ---
Subjective Subjective Date of Service: 10/22/20 Reason For Visit: Delirium, Dementia Subjective Notes: Conditional Voluntary Interim History: Calm, no evidence of distress, pain. Appears comfortable, relaxed, ambulating with assist, resting, eating, engaging with team, peers and her family. Medication Compliance: Yes Side effects from medications: No Attending Groups: No Review of Systems Review of Systems Yes all other systems are reviewed and are negative (denies) Reports confusion and Reports memory loss Psychiatric: Reports anxiety, Reports confusion, Reports difficulty concentrating and Reports memory loss Mental Status Exam Mental Status Exam Patient Appearance: Appropriate Patient Orientation: Person Level of Consciousness: Awake and Alert Patient Behavior: Appropriate, Dependent, Talkative, Cooperative, Anxious and Good Eye Contact Mood Description: Calm, Happy, Anxious, Nervous and Apprehensive Affect Description: Anxious and Flat Patient Cognition Impaired: Yes Ability to Follow Directions: Good Speech Pattern: Difficulty Finding Words, Spontaneous Speech, Soft-Spoken, Cofabulation and Long Pauses Memory Description: Remote Impaired, Immediate Impaired, Mcfp Impaired, Episodic Impaired, Recent Impaired, Working Impaired and Semantic Impaired Hallucinations: None Delusions: Not Present Thought Process: Disoriented, Distracted, Slowed Thinking and Confusion Thought Content: positive for Disoriented, positive for Tangential and positive for Disorganized Depressive Symptoms: Increased Anxiety, Changes in Appetite, Increased Fatigue and Loss of Energy Judgement: Poor Diagnostics Vital Signs (24Hr): Vital Signs - 24 hr 10/21/20 16:30 10/22/20 09:59 Temperature 97.6 F 98.3 F Pulse Rate 95 78 Respiratory Rate 14 Blood Pressure 116/58 L 130/64 Pulse Oximetry 94 Body Mass Index 14.4 Labs Results: 10/20/20 17:32 10/20/20 17:32 Labs: Laboratory Results - last 48 hr 10/20/20 10/20/20 17:32 17:32 WBC 12.4 H RBC 4.76 Hgb 14.5 Hct 43.7 MCV 91.8 MCH 30.5 MCHC 33.2 RDW 11.9 Plt Count 472 H D MPV 10.1 Immature Gran % (Auto) 0.5 H Neut % (Auto) 72.7 Lymph % (Auto) 18.3 L [place] % (Auto) 7.0 Eos % (Auto) 1.1 Baso % (Auto) 0.4 Lymph # (Auto) 2.3 [place] # (Auto) 0.9 Eos # (Auto) 0.1 Baso # (Auto) 0.1 Abs Immat Gran (auto) 0.06 H Absolute Neuts (auto) 9.0 H Absolute Nucleated RBC 0.000 Nucleated RBC % (auto) 0.0 Sodium 139 Potassium 3.6 Chloride 98 Carbon Dioxide 31 H Anion Gap 14 BUN 28 H Creatinine 0.75 Estim Creat Clear Calc 38.3 Estimated GFR > 60 Random Glucose 98 Calcium 9.6 Total Bilirubin 0.4 AST 26 ALT 24 Alkaline Phosphatase 94 Total Protein 7.2 Albumin 4.2 Imaging Radiology Impressions: ITS Impressions Chest X-Ray 10/09/20 12:04 IMPRESSION: Unremarkable chest exam except for hyperinflation. No acute intracranial process seen. Age-related cerebral volume loss with diffuse chronic small vessel ischemic changes. Head CT 10/09/20 12:05 IMPRESSION: Unremarkable chest exam except for hyperinflation. No acute intracranial process seen. Age-related cerebral volume loss with diffuse chronic small vessel ischemic changes. Abdomen/Pelvis CT 10/20/20 16:55 IMPRESSION: -No CT evidence for acute abnormality within the abdomen or pelvis. -[id number] colonic diverticulosis without CT evidence to suggest active diverticulitis. -Mild stool burden throughout the colon. Medications Medications Current Medications Generic Name Dose Route Start Last Admin Trade Name Freq PRN Reason Stop Dose Admin Acetaminophen 650 mg 10/16/20 21:25 Acetaminophen 325 Mg Tablet PO Q6H PRN Headache/Pain Mild Scale (1-3) Al Hydroxide/Mg Hydroxide 30 ml 10/16/20 21:25 Magnesium Hydrox/Alum Hydrox 30 Ml Oral.Susp PO Q6H PRN Heartburn/Nausea Aspirin 81 mg 10/10/20 08:00 10/22/20 09:21 Aspirin Enteric Coated 81 Mg Tablet. PO 81 mg DAILY@0800 [facility] Administration Docusate Sodium 100 mg 10/20/20 21:00 10/22/20 09:21 Docusate Sodium 100 Mg Capsule PO 100 mg BID [facility] Administration Magnesium Hydroxide 30 ml 10/16/20 21:25 Milk Of Magnesia 30 Ml Oral.Susp PO DAILY PRN Constipation Mirtazapine 3.75 mg 10/18/20 14:03 Mirtazapine 7.5 Mg Tablet PO BEDTIME PRN Insomnia Multivitamins/Vitamin C 1 tab 10/10/20 08:00 10/22/20 09:21 Multivitamin Tablet PO 1 tab DAILY@0800 [facility] Administration Non-Formulary Medication 1 patch 10/10/20 09:00 Rivastigmine TOPICAL DAILY [facility] Non-Formulary Medication 1,000 unit 10/10/20 08:00 Vitamin E PO DAILY@0800 [facility] Olanzapine 1.25 mg 10/11/20 09:00 10/22/20 09:21 Olanzapine 2.5 Mg Tablet PO 1.25 mg DAILY [facility] Administration Olanzapine 2.5 mg 10/10/20 21:00 10/21/20 19:22 Olanzapine 2.5 Mg Tablet PO 2.5 mg BEDTIME [facility] Administration Olanzapine 2.5 mg 10/17/20 21:23 Olanzapine 2.5 Mg Tablet PO DAILY PRN psychosis, agitation Pharmacy Consult 1 each 10/09/20 17:40 Consult Rx Perform Med Rec MISCELLANE ONCE PRN Consult order Polyethylene Glycol 17 gm 10/20/20 17:55 10/22/20 09:23 Polyethylene Glycol 3350 17 Gm Powd.Pack PO 17 gm DAILY [facility] Administration Vitamin D 25 mcg 10/10/20 08:00 10/22/20 09:21 Cholecalciferol (Vitamin D3) 25 Mcg Tablet PO 25 mcg DAILY@0800 [facility] Administration Vortioxetine 20 mg 10/10/20 08:00 10/22/20 09:21 Vortioxetine Hydrobromide 20 Mg Tablet PO 20 mg DAILY@0800 [facility] Administration Allergies Allergies Allergy/AdvReac Type Severity Reaction Status Date / Time memantine [MEMANTINE] Allergy Severe HIVES Verified 10/14/20 07:25 Iodinated Contrast Media Allergy Unknown UNKNOWN Verified 10/14/20 07:25 [IV CONTRAST] lactose Allergy Unknown DIARRHEA Verified 10/14/20 07:25 sulfamethoxazole Allergy Unknown UNKNOWN Verified 10/14/20 07:25 [From BACTRIM] trimethoprim [From BACTRIM] Allergy Unknown UNKNOWN Verified 10/14/20 07:25 Assessment & Plan Assessment & Plan (1) Delirium: Status: Acute Code(s): R41.0 - Disorientation, unspecified (2) Anxiety: Status: Acute Code(s): F41.9 - Anxiety disorder, unspecified (3) Dementia: Qualifiers: Dementia behavioral disturbance: with behavioral disturbance Dementia type: unspecified type Qualified Code(s): F03.91 - Unspecified dementia with behavioral disturbance Status: Acute Code(s): F03.90 - Unspecified dementia without behavioral disturbance Assessment and Plan: Family reports pt has returned to baseline. ABD CAT indicates diverticulosis WBC trending up 12.4 Pt's [facility] team to visit her on 10/23 to assess for return. Pt appears calm, comfortable, without agitation. Greater than 50% of the session was spent on counseling and/or coordination of care Reason for contiued inpatient stay Substantial Risk for: med/psych decompensation
[2020-10-22 18:00] VITALS: BP 132/68; PULSE 89; TEMP 36.9
[2020-10-22] MEDS: OLANZapine 2.5 MG TABLET PO (20:47)
[2020-10-23 06:00] VITALS: BP 115/57; PULSE 70; RESP 16; TEMP 36.1; O2SAT 98
[2020-10-23] MEDS: OLANZapine 2.5 MG TABLET 1.25 MG PO (08:52)
[2020-10-23] MEDS: Vortioxetine Hydrobromide 20 MG TABLET PO (08:55)
[2020-10-23] MEDS: Docusate Sodium 100 MG CAPSULE PO ×2 (08:55→20:42)
[2020-10-23] MEDS: Multivitamin TABLET 1 TAB PO (08:55)
[2020-10-23] MEDS: Cholecalciferol (Vitamin D3) 25 MCG TABLET PO (08:55)
[2020-10-23] MEDS: Aspirin Enteric Coated 81 MG TABLET.DR PO (08:55)
[2020-10-23] MEDS: Vitamin E (Dl,Tocopheryl Acet) 180 MG (400 UNIT) CAPSULE PO (08:55)
[2020-10-23] MEDS: polyethylene glycoL 3350 17 GM POWD.PACK PO (08:56)
--- NOTE | 2020-10-23 17:07 | P.PNPSI_ITS ---
Subjective Subjective Date of Service: 10/23/20 Reason For Visit: Delirium, Dementia Subjective Notes: Conditional Voluntary Interim History: Pt seen by her residential team today. Tentative discharge for 10/28/20. PT re-consulted to assist with pt using the walker. Discussion of mood stabilizers with pt's daughter and OP team Ivy Elena APRN. Discussed Depakote trial, however, 125 mg cannot be divided, liquid and sprinkles will not be allowed at the [facility]. Dosing will need to be low. Will trial Lamictal 12.5 mg bid and taper Trintellix to assist with anxiety mgt. 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 She is in a working frame of reference this afternoon. Able to be consoled by her daughter. Medication Compliance: Yes Side effects from medications: No Attending Groups: No Review of Systems Reports confusion and Reports memory loss Psychiatric: Reports anxiety, Reports confusion, Reports difficulty concentrating and Reports memory loss Mental Status Exam Mental Status Exam Patient Appearance: Appropriate Patient Orientation: Person, Place, Time and Situation Level of Consciousness: Awake and Alert Patient Behavior: Talkative, Cooperative, Anxious, Fearful, Confused and Good Eye Contact Mood Description: Anxious Affect Description: Anxious and Apprehensive Patient Cognition Impaired: Yes Ability to Follow Directions: Good Speech Pattern: Perseverating, Difficulty Finding Words, Spontaneous Speech and Soft-Spoken Memory Description: Remote Impaired, Immediate Impaired, Handle Assembler Impaired, Episodic Impaired, Recent Impaired, Working Impaired and Semantic Impaired Hallucinations: None Delusions: Not Present Thought Process: Disoriented and Confusion Thought Content: positive for Disoriented, positive for Perseveration and positive for Preoccupation Depressive Symptoms: Increased Anxiety, Diff. Making Decisions, Changes in Appetite and Significant Weight Loss Abnormal Motor Activity Signs and Symptoms: Restlessness (at times) Judgement: Poor Diagnostics Vital Signs (24Hr): Vital Signs - 24 hr 10/22/20 18:00 10/23/20 06:00 Temperature 98.5 F 96.9 F Pulse Rate 89 70 Respiratory Rate 16 Blood Pressure 132/68 115/57 L Pulse Oximetry 98 Body Mass Index 14.4 Labs Results: 10/20/20 17:32 10/20/20 17:32 Imaging Radiology Impressions: ITS Impressions Chest X-Ray 10/09/20 12:04 IMPRESSION: Unremarkable chest exam except for hyperinflation. No acute intracranial process seen. Age-related cerebral volume loss with diffuse chronic small vessel ischemic changes. Head CT 10/09/20 12:05 IMPRESSION: Unremarkable chest exam except for hyperinflation. No acute intracranial process seen. Age-related cerebral volume loss with diffuse chronic small vessel ischemic changes. Abdomen/Pelvis CT 10/20/20 16:55 IMPRESSION: -No CT evidence for acute abnormality within the abdomen or pelvis. -[id number] colonic diverticulosis without CT evidence to suggest active diverticulitis. -Mild stool burden throughout the colon. Medications Medications Current Medications Generic Name Dose Route Start Last Admin Trade Name Freq PRN Reason Stop Dose Admin Acetaminophen 650 mg 10/16/20 21:25 Acetaminophen 325 Mg Tablet PO Q6H PRN Headache/Pain Mild Scale (1-3) Al Hydroxide/Mg Hydroxide 30 ml 10/16/20 21:25 Magnesium Hydrox/Alum Hydrox 30 Ml Oral.Susp PO Q6H PRN Heartburn/Nausea Aspirin 81 mg 10/10/20 08:00 10/23/20 08:55 Aspirin Enteric Coated 81 Mg Tablet. PO 81 mg DAILY@0800 LATRICE Administration Docusate Sodium 100 mg 10/20/20 21:00 10/23/20 08:55 Docusate Sodium 100 Mg Capsule PO 100 mg BID LATRICE Administration Lamotrigine 12.5 mg 10/23/20 21:00 Lamotrigine 25 Mg Tablet PO BID LATRICE Magnesium Hydroxide 30 ml 10/16/20 21:25 Milk Of Magnesia 30 Ml Oral.Susp PO DAILY PRN Constipation Mirtazapine 3.75 mg 10/18/20 14:03 Mirtazapine 7.5 Mg Tablet PO BEDTIME PRN Insomnia Multivitamins/Vitamin C 1 tab 10/10/20 08:00 10/23/20 08:55 Multivitamin Tablet PO 1 tab DAILY@0800 LATRICE Administration Olanzapine 1.25 mg 10/11/20 09:00 10/23/20 08:52 Olanzapine 2.5 Mg Tablet PO 1.25 mg DAILY LATRICE Administration Olanzapine 2.5 mg 10/10/20 21:00 10/22/20 20:47 Olanzapine 2.5 Mg Tablet PO 2.5 mg BEDTIME LATRICE Administration Olanzapine 2.5 mg 10/17/20 21:23 Olanzapine 2.5 Mg Tablet PO DAILY PRN psychosis, agitation Pharmacy Consult 1 each 10/09/20 17:40 Consult Rx Perform Med Rec MISCELLANE ONCE PRN Consult order Polyethylene Glycol 17 gm 10/20/20 17:55 10/23/20 08:56 Polyethylene Glycol 3350 17 Gm Powd.Pack PO 17 gm DAILY LATRICE Administration Vitamin D 25 mcg 10/10/20 08:00 10/23/20 08:55 Cholecalciferol (Vitamin D3) 25 Mcg Tablet PO 25 mcg DAILY@0800 LATRICE Administration Vitamin E 180 mg 10/23/20 09:00 10/23/20 08:55 Vitamin E (Dl,Tocopheryl Acet) 180 Mg (400 Unit) Capsule PO 180 mg DAILY LATRICE Administration Vortioxetine 15 mg 10/24/20 09:00 Vortioxetine Hydrobromide 5 Mg Tablet PO DAILY LATRICE Allergies Allergies Allergy/AdvReac Type Severity Reaction Status Date / Time memantine [MEMANTINE] Allergy Severe HIVES Verified 10/14/20 07:25 Iodinated Contrast Media Allergy Unknown UNKNOWN Verified 10/14/20 07:25 [IV CONTRAST] lactose Allergy Unknown DIARRHEA Verified 10/14/20 07:25 sulfamethoxazole Allergy Unknown UNKNOWN Verified 10/14/20 07:25 [From BACTRIM] trimethoprim [From BACTRIM] Allergy Unknown UNKNOWN Verified 10/14/20 07:25 Assessment & Plan Assessment & Plan (1) Delirium: Status: Acute Code(s): R41.0 - Disorientation, unspecified (2) Anxiety: Status: Acute Code(s): F41.9 - Anxiety disorder, unspecified (3) Dementia: Qualifiers: Dementia behavioral disturbance: with behavioral disturbance Dementia type: unspecified type Qualified Code(s): F03.91 - Unspecified dementia with behavioral disturbance Status: Acute Code(s): F03.90 - Unspecified dementia without behavioral disturbance Assessment and Plan: Pt to tentatively return to her assisted living program on 10/28/20. PT re-consulted to assist pt with use of her walker. Trintellix taper to 15 mg daily Lamictal 12.5 mg bid-trial to assist with anxiety mgt. Greater than 50% of the session was spent on counseling and/or coordination of care Reason for contiued inpatient stay Substantial Risk for: inability to function, rapid decompensation and med/psych decompensation
[2020-10-23 18:00] VITALS: BP 127/57; PULSE 72; TEMP 36.7
[2020-10-23] MEDS: lamoTRIgine 25 MG TABLET 12.5 MG PO (20:41)
[2020-10-23] MEDS: OLANZapine 2.5 MG TABLET PO (20:42)
[2020-10-24] MEDS: OLANZapine 2.5 MG TABLET 1.25 MG PO (09:28)
[2020-10-24] MEDS: lamoTRIgine 25 MG TABLET 12.5 MG PO ×2 (09:29→20:13)
[2020-10-24] MEDS: Cholecalciferol (Vitamin D3) 25 MCG TABLET PO (09:30)
[2020-10-24] MEDS: Vitamin E (Dl,Tocopheryl Acet) 180 MG (400 UNIT) CAPSULE PO (09:30)
[2020-10-24] MEDS: Aspirin Enteric Coated 81 MG TABLET.DR PO (09:30)
[2020-10-24] MEDS: Multivitamin TABLET 1 TAB PO (09:30)
[2020-10-24] MEDS: Docusate Sodium 100 MG CAPSULE PO ×2 (09:30→20:14)
[2020-10-24] MEDS: Vortioxetine Hydrobromide 5 MG TABLET 15 MG PO (09:30)
[2020-10-24] MEDS: polyethylene glycoL 3350 17 GM POWD.PACK PO (09:31)
--- NOTE | 2020-10-24 11:45 | P.PNPSI_ITS ---
Subjective Subjective Date of Service: 10/24/20 Reason For Visit: Delirium, Dementia Subjective Notes: Conditional Voluntary Interim History: Anxiety and rumination with confusion. Lamictal inititaed 10/23 to assist with sx mgt. Depakote will not be able to be given in liquid form by pt's assisted living facility. Pt remains on 1:1. Medication Compliance: Yes Side effects from medications: No Attending Groups: No Review of Systems Reports behavioral changes, Reports confusion and Reports memory loss Psychiatric: Reports anxiety, Reports behavioral changes, Reports change in appetite, Reports confusion, Reports depression, Reports difficulty concentrating, Reports anhedonia and Reports memory loss Mental Status Exam Mental Status Exam Patient Appearance: Appropriate Patient Orientation: Person Level of Consciousness: Awake and Alert Patient Behavior: Dependent, Anxious, Distractible and Good Eye Contact Mood Description: Withdrawn, Anxious, Nervous and Apprehensive Affect Description: Anxious, Nervous and Apprehensive Patient Cognition Impaired: Yes Ability to Follow Directions: Good Speech Pattern: Perseverating, Spontaneous Speech, Soft-Spoken and Cofabulation Memory Description: Remote Impaired, Immediate Impaired, Jail Impaired, Episodic Impaired, Recent Impaired, Working Impaired and Semantic Impaired Hallucinations: None Delusions: Not Present Thought Process: Disoriented, Distracted and Confusion Thought Content: positive for Disoriented and positive for Perseveration Depressive Symptoms: Increased Anxiety and Difficulty Concentrating Abnormal Motor Activity Signs and Symptoms: Restlessness Judgement: Poor Diagnostics Vital Signs (24Hr): Vital Signs - 24 hr 10/23/20 18:00 Temperature 98.0 F Pulse Rate 72 Blood Pressure 127/57 L Body Mass Index 14.4 Labs Results: 10/20/20 17:32 10/20/20 17:32 Imaging Radiology Impressions: ITS Impressions Chest X-Ray 10/09/20 12:04 IMPRESSION: Unremarkable chest exam except for hyperinflation. No acute intracranial process seen. Age-related cerebral volume loss with diffuse chronic small vessel ischemic changes. Head CT 10/09/20 12:05 IMPRESSION: Unremarkable chest exam except for hyperinflation. No acute intracranial process seen. Age-related cerebral volume loss with diffuse chronic small vessel ischemic changes. Abdomen/Pelvis CT 10/20/20 16:55 IMPRESSION: -No CT evidence for acute abnormality within the abdomen or pelvis. -[id number] colonic diverticulosis without CT evidence to suggest active diverticulitis. -Mild stool burden throughout the colon. Medications Medications Current Medications Generic Name Dose Route Start Last Admin Trade Name Joeq PRN Reason Stop Dose Admin Acetaminophen 650 mg 10/16/20 21:25 Acetaminophen 325 Mg Tablet PO Q6H PRN Headache/Pain Mild Scale (1-3) Al Hydroxide/Mg Hydroxide 30 ml 10/16/20 21:25 Magnesium Hydrox/Alum Hydrox 30 Ml Oral.Susp PO Q6H PRN Heartburn/Nausea Aspirin 81 mg 10/10/20 08:00 10/24/20 09:30 Aspirin Enteric Coated 81 Mg Tablet. PO 81 mg DAILY@0800 LATRICE Administration Docusate Sodium 100 mg 10/20/20 21:00 10/24/20 09:30 Docusate Sodium 100 Mg Capsule PO 100 mg BID LATRICE Administration Lamotrigine 12.5 mg 10/23/20 21:00 10/24/20 09:29 Lamotrigine 25 Mg Tablet PO 12.5 mg BID LATRICE Administration Magnesium Hydroxide 30 ml 10/16/20 21:25 Milk Of Magnesia 30 Ml Oral.Susp PO DAILY PRN Constipation Mirtazapine 3.75 mg 10/18/20 14:03 Mirtazapine 7.5 Mg Tablet PO BEDTIME PRN Insomnia Multivitamins/Vitamin C 1 tab 10/10/20 08:00 10/24/20 09:30 Multivitamin Tablet PO 1 tab DAILY@0800 LATRICE Administration Olanzapine 1.25 mg 10/11/20 09:00 10/24/20 09:28 Olanzapine 2.5 Mg Tablet PO 1.25 mg DAILY LATRICE Administration Olanzapine 2.5 mg 10/10/20 21:00 10/23/20 20:42 Olanzapine 2.5 Mg Tablet PO 2.5 mg BEDTIME LATRICE Administration Olanzapine 2.5 mg 10/17/20 21:23 Olanzapine 2.5 Mg Tablet PO DAILY PRN psychosis, agitation Pharmacy Consult 1 each 10/09/20 17:40 Consult Rx Perform Med Rec MISCELLANE ONCE PRN Consult order Polyethylene Glycol 17 gm 10/20/20 17:55 10/24/20 09:31 Polyethylene Glycol 3350 17 Gm Powd.Pack PO 17 gm DAILY LATRICE Administration Vitamin D 25 mcg 10/10/20 08:00 10/24/20 09:30 Cholecalciferol (Vitamin D3) 25 Mcg Tablet PO 25 mcg DAILY@0800 LATRICE Administration Vitamin E 180 mg 10/23/20 09:00 10/24/20 09:30 Vitamin E (Dl,Tocopheryl Acet) 180 Mg (400 Unit) Capsule PO 180 mg DAILY LATRICE Administration Vortioxetine 15 mg 10/24/20 09:00 10/24/20 09:30 Vortioxetine Hydrobromide 5 Mg Tablet PO 15 mg DAILY LATRICE Administration Allergies Allergies Allergy/AdvReac Type Severity Reaction Status Date / Time memantine [MEMANTINE] Allergy Severe HIVES Verified 10/14/20 07:25 Iodinated Contrast Media Allergy Unknown UNKNOWN Verified 10/14/20 07:25 [IV CONTRAST] lactose Allergy Unknown DIARRHEA Verified 10/14/20 07:25 sulfamethoxazole Allergy Unknown UNKNOWN Verified 10/14/20 07:25 [From BACTRIM] trimethoprim [From BACTRIM] Allergy Unknown UNKNOWN Verified 10/14/20 07:25 Assessment & Plan Assessment & Plan (1) Delirium: Status: Acute Code(s): R41.0 - Disorientation, unspecified (2) Anxiety: Status: Acute Code(s): F41.9 - Anxiety disorder, unspecified (3) Dementia: Qualifiers: Dementia behavioral disturbance: with behavioral disturbance Dementia type: unspecified type Qualified Code(s): F03.91 - Unspecified dementia with behavioral disturbance Status: Acute Code(s): F03.90 - Unspecified dementia without behavioral disturbance Assessment and Plan: Pt to tentatively return to her assisted living program on 10/28/20. PT re-consulted to assist pt with use of her walker. Trintellix taper to 15 mg daily Lamictal 12.5 mg bid-trial to assist with anxiety mgt. Greater than 50% of the session was spent on counseling and/or coordination of c are Reason for contiued inpatient stay Substantial Risk for: harm to self, harm to others, inability to function, rapid decompensation and med/psych decompensation
[2020-10-24] MEDS: OLANZapine 2.5 MG TABLET PO ×2 (14:49→20:14)
[2020-10-24 18:00] VITALS: BP 118/57; PULSE 86; TEMP 36.8
[2020-10-25 06:05] VITALS: BP 115/62; PULSE 82; RESP 16; TEMP 36.8; O2SAT 99
[2020-10-25] MEDS: Docusate Sodium 100 MG CAPSULE PO ×2 (09:27→19:21)
[2020-10-25] MEDS: Cholecalciferol (Vitamin D3) 25 MCG TABLET PO (09:27)
[2020-10-25] MEDS: Vitamin E (Dl,Tocopheryl Acet) 180 MG (400 UNIT) CAPSULE PO (09:28)
[2020-10-25] MEDS: Vortioxetine Hydrobromide 5 MG TABLET 15 MG PO (09:28)
[2020-10-25] MEDS: Multivitamin TABLET 1 TAB PO (09:28)
[2020-10-25] MEDS: Aspirin Enteric Coated 81 MG TABLET.DR PO (09:30)
[2020-10-25] MEDS: OLANZapine 2.5 MG TABLET 1.25 MG PO (09:30)
[2020-10-25] MEDS: polyethylene glycoL 3350 17 GM POWD.PACK PO (09:31)
[2020-10-25] MEDS: lamoTRIgine 25 MG TABLET 12.5 MG PO ×2 (09:32→19:21)
--- NOTE | 2020-10-25 16:36 | HO.PSYCHPN ---
Subjective Subjective Date of Service: 10/25/20 Reason For Visit: Delirium, Dementia Subjective Notes: Conditional Voluntary Interim History: Alert, confused, interactive, social, with her 1:1 today. Team notes that at times her knees are weak. She is struggling with the walker-PT asked to reconsult. Per team, appetite is slightly improved. No distress noted today. Pt is in the common areas, attentive to activity and to others. Medication Compliance: Yes Side effects from medications: No Attending Groups: No Review of Systems Musculoskeletal: Reports abnormal gait, Reports atrophy and Reports limited range of motion (knee weakness noted by team.) Reports abnormal gait and Reports memory loss Psychiatric: Reports anxiety, Reports change in appetite, Reports difficulty concentrating and Reports memory loss Mental Status Exam Mental Status Exam Patient Appearance: Appropriate Patient Orientation: Person Level of Consciousness: Awake and Alert Patient Behavior: Appropriate, Talkative and Cooperative Mood Description: Cheerful Affect Description: Calm and Anxious Patient Cognition Impaired: Yes Ability to Follow Directions: Good Speech Pattern: Difficulty Finding Words, Spontaneous Speech, Soft-Spoken and Delayed Memory Description: Remote Impaired, Immediate Impaired, Medical Policy Specialist Impaired, Episodic Impaired, Recent Impaired, Working Impaired and Semantic Impaired Hallucinations: None Delusions: Not Present Thought Process: Disoriented, Distracted, Rumination and Confusion Thought Content: positive for Disoriented, positive for Perseveration, positive for Slowed Thinking and positive for Tangential Depressive Symptoms: Increased Anxiety, Changes in Appetite and Significant Weight Loss Judgement: Poor Diagnostics Vital Signs (24Hr): Vital Signs - 24 hr 10/24/20 18:00 10/25/20 06:05 Temperature 98.3 F 98.2 F Pulse Rate 86 82 Respiratory Rate 16 Blood Pressure 118/57 L 115/62 Pulse Oximetry 99 Body Mass Index 14.4 Labs Results: 10/20/20 17:32 10/20/20 17:32 Imaging Radiology Impressions: ITS Impressions Chest X-Ray 10/09/20 12:04 IMPRESSION: Unremarkable chest exam except for hyperinflation. No acute intracranial process seen. Age-related cerebral volume loss with diffuse chronic small vessel ischemic changes. Head CT 10/09/20 12:05 IMPRESSION: Unremarkable chest exam except for hyperinflation. No acute intracranial process seen. Age-related cerebral volume loss with diffuse chronic small vessel ischemic changes. Abdomen/Pelvis CT 10/20/20 16:55 IMPRESSION: -No CT evidence for acute abnormality within the abdomen or pelvis. -[id number] colonic diverticulosis without CT evidence to suggest active diverticulitis. -Mild stool burden throughout the colon. Medications Medications Current Medications Generic Name Dose Route Start Last Admin Trade Name Freq PRN Reason Stop Dose Admin Acetaminophen 650 mg 10/16/20 21:25 Acetaminophen 325 Mg Tablet PO Q6H PRN Headache/Pain Mild Scale (1-3) Al Hydroxide/Mg Hydroxide 30 ml 10/16/20 21:25 Magnesium Hydrox/Alum Hydrox 30 Ml Oral.Susp PO Q6H PRN Heartburn/Nausea Aspirin 81 mg 10/10/20 08:00 10/25/20 09:30 Aspirin Enteric Coated 81 Mg Tablet. PO 81 mg DAILY@0800 LATRICE Administration Docusate Sodium 100 mg 10/20/20 21:00 10/25/20 09:27 Docusate Sodium 100 Mg Capsule PO 100 mg BID LATRICE Administration Lamotrigine 12.5 mg 10/23/20 21:00 10/25/20 09:32 Lamotrigine 25 Mg Tablet PO 12.5 mg BID LATRICE Administration Magnesium Hydroxide 30 ml 10/16/20 21:25 Milk Of Magnesia 30 Ml Oral.Susp PO DAILY PRN Constipation Mirtazapine 3.75 mg 10/18/20 14:03 Mirtazapine 7.5 Mg Tablet PO BEDTIME PRN Insomnia Multivitamins/Vitamin C 1 tab 10/10/20 08:00 10/25/20 09:28 Multivitamin Tablet PO 1 tab DAILY@0800 LATRICE Administration Olanzapine 1.25 mg 10/11/20 09:00 10/25/20 09:30 Olanzapine 2.5 Mg Tablet PO 1.25 mg DAILY LATRICE Administration Olanzapine 2.5 mg 10/10/20 21:00 10/24/20 20:14 Olanzapine 2.5 Mg Tablet PO 2.5 mg BEDTIME LATRICE Administration Olanzapine 2.5 mg 10/17/20 21:23 10/24/20 14:49 Olanzapine 2.5 Mg Tablet PO 2.5 mg DAILY PRN Administration psychosis, agitation Pharmacy Consult 1 each 10/09/20 17:40 Consult Rx Perform Med Rec MISCELLANE ONCE PRN Consult order Polyethylene Glycol 17 gm 10/20/20 17:55 10/25/20 09:31 Polyethylene Glycol 3350 17 Gm Powd.Pack PO 17 gm DAILY LATRICE Administration Vitamin D 25 mcg 10/10/20 08:00 10/25/20 09:27 Cholecalciferol (Vitamin D3) 25 Mcg Tablet PO 25 mcg DAILY@0800 LATRICE Administration Vitamin E 180 mg 10/23/20 09:00 10/25/20 09:28 Vitamin E (Dl,Tocopheryl Acet) 180 Mg (400 Unit) Capsule PO 180 mg DAILY LATRICE Administration Vortioxetine 15 mg 10/24/20 09:00 10/25/20 09:28 Vortioxetine Hydrobromide 5 Mg Tablet PO 15 mg DAILY LATRICE Administration Allergies Allergies Allergy/AdvReac Type Severity Reaction Status Date / Time memantine [MEMANTINE] Allergy Severe HIVES Verified 10/14/20 07:25 Iodinated Contrast Media Allergy Unknown UNKNOWN Verified 10/14/20 07:25 [IV CONTRAST] lactose Allergy Unknown DIARRHEA Verified 10/14/20 07:25 sulfamethoxazole Allergy Unknown UNKNOWN Verified 10/14/20 07:25 [From BACTRIM] trimethoprim [From BACTRIM] Allergy Unknown UNKNOWN Verified 10/14/20 07:25 Assessment & Plan Assessment & Plan (1) Delirium: Status: Acute Code(s): R41.0 - Disorientation, unspecified (2) Anxiety: Status: Acute Code(s): F41.9 - Anxiety disorder, unspecified (3) Dementia: Qualifiers: Dementia behavioral disturbance: with behavioral disturbance Dementia type: unspecified type Qualified Code(s): F03.91 - Unspecified dementia with behavioral disturbance Status: Acute Code(s): F03.90 - Unspecified dementia without behavioral disturbance Assessment and Plan: Pt to tentatively return to her assisted living program on 10/28/20. PT re-consulted to assist pt with use of her walker. Trintellix taper to 10 mg daily Lamictal 12.5 mg bid-trial to assist with anxiety mgt. Greater than 50% of the session was spent on counseling and/or coordination of care Reason for contiued inpatient stay Substantial Risk for: harm to self, harm to others, inability to function, rapid decompensation and med/psych decompensation
[2020-10-25] MEDS: OLANZapine 2.5 MG TABLET PO (19:21)
[2020-10-25 19:30] VITALS: BP 123/78; PULSE 75; TEMP 36.9
[2020-10-26 06:00] VITALS: BP 107/51; PULSE 69; RESP 16; TEMP 36.4; O2SAT 98
[2020-10-26] MEDS: polyethylene glycoL 3350 17 GM POWD.PACK PO (08:19)
[2020-10-26] MEDS: OLANZapine 2.5 MG TABLET 1.25 MG PO (08:20)
[2020-10-26] MEDS: Multivitamin TABLET 1 TAB PO (08:21)
[2020-10-26] MEDS: Aspirin Enteric Coated 81 MG TABLET.DR PO (08:21)
[2020-10-26] MEDS: Vortioxetine Hydrobromide 10 MG TABLET PO (08:21)
[2020-10-26] MEDS: Vitamin E (Dl,Tocopheryl Acet) 180 MG (400 UNIT) CAPSULE PO (08:21)
--- NOTE | 2020-10-26 08:21 | P.PNPSI_ITS ---
Subjective Subjective Date of Service: 10/26/20 Reason For Visit: Delirium, Dementia Interim History: Chart reviewed; case discussed with team. Vitals reviewed: wnl (mildly low diastolic) Pt dressed and groomed well; pleasant, friendly and calm. 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 Pt walking estrella with staff assistance. Medication Compliance: Yes Side effects from medications: Yes Mental Status Exam Mental Status Exam Narrative: Appearance: Appropriate Patient Orientation: Person Level of Consciousness: Awake and Alert Patient Behavior: Appropriate, Talkative and Cooperative Mood Description: well Affect Description: Calm Patient Cognition Impaired: Yes Ability to Follow Directions: Good Speech Pattern: spontaneous speech, at times Difficulty Finding Words, Delayed Memory Description: Remote Impaired, Immediate Impaired, Economic Development Director Impaired, Episodic Impaired, Recent Impaired, Working Impaired and Semantic Impaired Hallucinations: None Delusions: Not Present Thought Process: Disoriented, Distracted, Rumination and Confusion Thought Content: during brief conversation able to be linear and goal oriented; can also be tangential Depressive Symptoms: (by hx) Increased Anxiety, Changes in Appetite and Significant Weight Loss Judgement: Impaired Diagnostics Vital Signs (24Hr): Vital Signs - 24 hr 10/25/20 19:30 10/26/20 06:00 Temperature 98.5 F 97.5 F Pulse Rate 75 69 Respiratory Rate 16 Blood Pressure 123/78 107/51 L Pulse Oximetry 98 Body Mass Index 14.4 Labs Results: 10/20/20 17:32 10/20/20 17:32 Imaging Radiology Impressions: ITS Impressions Chest X-Ray 10/09/20 12:04 IMPRESSION: Unremarkable chest exam except for hyperinflation. No acute intracranial process seen. Age-related cerebral volume loss with diffuse chronic small vessel ischemic changes. Head CT 10/09/20 12:05 IMPRESSION: Unremarkable chest exam except for hyperinflation. No acute intracranial process seen. Age-related cerebral volume loss with diffuse chronic small vessel ischemic changes. Abdomen/Pelvis CT 10/20/20 16:55 IMPRESSION: -No CT evidence for acute abnormality within the abdomen or pelvis. -[id number] colonic diverticulosis without CT evidence to suggest active diverticulitis. -Mild stool burden throughout the colon. Medications Medications Current Medications Generic Name Dose Route Start Last Admin Trade Name Freq PRN Reason Stop Dose Admin Acetaminophen 650 mg 10/16/20 21:25 Acetaminophen 325 Mg Tablet PO Q6H PRN Headache/Pain Mild Scale (1-3) Al Hydroxide/Mg Hydroxide 30 ml 10/16/20 21:25 Magnesium Hydrox/Alum Hydrox 30 Ml Oral.Susp PO Q6H PRN Heartburn/Nausea Aspirin 81 mg 10/10/20 08:00 10/25/20 09:30 Aspirin Enteric Coated 81 Mg Tablet.Dr PO 81 mg DAILY@0800 LATRICE Administration Docusate Sodium 100 mg 10/20/20 21:00 10/25/20 19:21 Docusate Sodium 100 Mg Capsule PO 100 mg BID LATRICE Administration Lamotrigine 12.5 mg 10/23/20 21:00 10/25/20 19:21 Lamotrigine 25 Mg Tablet PO 12.5 mg BID LATRICE Administration Magnesium Hydroxide 30 ml 10/16/20 21:25 Milk Of Magnesia 30 Ml Oral.Susp PO DAILY PRN Constipation Mirtazapine 3.75 mg 10/18/20 14:03 Mirtazapine 7.5 Mg Tablet PO BEDTIME PRN Insomnia Multivitamins/Vitamin C 1 tab 10/10/20 08:00 10/25/20 09:28 Multivitamin Tablet PO 1 tab DAILY@0800 LATRICE Administration Olanzapine 1.25 mg 10/11/20 09:00 10/25/20 09:30 Olanzapine 2.5 Mg Tablet PO 1.25 mg DAILY LATRICE Administration Olanzapine 2.5 mg 10/10/20 21:00 10/25/20 19:21 Olanzapine 2.5 Mg Tablet PO 2.5 mg BEDTIME LATRICE Administration Olanzapine 2.5 mg 10/17/20 21:23 10/24/20 14:49 Olanzapine 2.5 Mg Tablet PO 2.5 mg DAILY PRN Administration psychosis, agitation Pharmacy Consult 1 each 10/09/20 17:40 Consult Rx Perform Med Rec MISCELLANE ONCE PRN Consult order Polyethylene Glycol 17 gm 10/20/20 17:55 10/25/20 09:31 Polyethylene Glycol 3350 17 Gm Powd.Pack PO 17 gm DAILY LATRICE Administration Vitamin D 25 mcg 10/10/20 08:00 10/25/20 09:27 Cholecalciferol (Vitamin D3) 25 Mcg Tablet PO 25 mcg DAILY@0800 LATRICE Administration Vitamin E 180 mg 10/23/20 09:00 10/25/20 09:28 Vitamin E (Dl,Tocopheryl Acet) 180 Mg (400 Unit) Capsule PO 180 mg DAILY LATRICE Administration Vortioxetine 10 mg 10/26/20 09:00 Vortioxetine Hydrobromide 10 Mg Tablet PO DAILY LATRICE Allergies Allergies Allergy/AdvReac Type Severity Reaction Status Date / Time memantine [MEMANTINE] Allergy Severe HIVES Verified 10/14/20 07:25 Iodinated Contrast Media Allergy Unknown UNKNOWN Verified 10/14/20 07:25 [IV CONTRAST] lactose Allergy Unknown DIARRHEA Verified 10/14/20 07:25 sulfamethoxazole Allergy Unknown UNKNOWN Verified 10/14/20 07:25 [From BACTRIM] trimethoprim [From BACTRIM] Allergy Unknown UNKNOWN Verified 10/14/20 07:25 Assessment & Plan Assessment & Plan (1) Delirium: Status: Acute Code(s): R41.0 - Disorientation, unspecified (2) Anxiety: Status: Acute Code(s): F41.9 - Anxiety disorder, unspecified (3) Dementia: Qualifiers: Dementia behavioral disturbance: with behavioral disturbance Dementia type: unspecified type Qualified Code(s): F03.91 - Unspecified dementia with behavioral disturbance Status: Acute Code(s): F03.90 - Unspecified dementia without behavioral disturbance Assessment and Plan: Impression: pt with hx of dementia appears at baseline no change to primary team tx plan Pt to tentatively return to her assisted living program on 10/28/20. PT re-consulted to assist pt with use of her walker. Trintellix taper to 10 mg daily Lamictal 12.5 mg bid-trial to assist with anxiety mgt. Greater than 50% of the session was spent on counseling and/or coordination of care Reason for contiued inpatient stay Substantial Risk for: inability to function
[2020-10-26] MEDS: Cholecalciferol (Vitamin D3) 25 MCG TABLET PO (08:22)
[2020-10-26] MEDS: lamoTRIgine 25 MG TABLET 12.5 MG PO ×2 (08:22→21:27)
[2020-10-26] MEDS: Docusate Sodium 100 MG CAPSULE PO ×2 (08:23→21:27)
[2020-10-26 21:21] VITALS: BP 125/65; PULSE 93; TEMP 36.9; O2SAT 98
[2020-10-26] MEDS: OLANZapine 2.5 MG TABLET PO (21:27)
[2020-10-27 06:00] VITALS: BP 124/57; PULSE 85; RESP 16; TEMP 36.4; O2SAT 97
[2020-10-27] MEDS: polyethylene glycoL 3350 17 GM POWD.PACK PO (07:51)
[2020-10-27] MEDS: Aspirin Enteric Coated 81 MG TABLET.DR PO (07:52)
[2020-10-27] MEDS: lamoTRIgine 25 MG TABLET 12.5 MG PO ×2 (07:52→22:13)
[2020-10-27] MEDS: Vitamin E (Dl,Tocopheryl Acet) 180 MG (400 UNIT) CAPSULE PO (07:52)
[2020-10-27] MEDS: Cholecalciferol (Vitamin D3) 25 MCG TABLET PO (07:53)
[2020-10-27] MEDS: Vortioxetine Hydrobromide 10 MG TABLET PO (07:53)
[2020-10-27] MEDS: Docusate Sodium 100 MG CAPSULE PO ×2 (07:53→22:13)
[2020-10-27] MEDS: OLANZapine 2.5 MG TABLET 1.25 MG PO (07:53)
[2020-10-27] MEDS: Multivitamin TABLET 1 TAB PO (07:53)
--- NOTE | 2020-10-27 11:43 | P.PNPSI_ITS ---
Subjective Subjective Date of Service: 10/27/20 Reason For Visit: Delirium, Dementia Interim History: Chart reviewed; case discussed with team. Vitals reviewed: WNL pt quite confused today. She kept saying im not sure where i'm supposed to be... and what am i supposed to be doing? She does not know she's in hospital; redirection/explanation only lasts for a few seconds. Pt keeps getting up to look out the window to see a bus or certain people... pt cannot explain and knows she's confused if you ask her, but she quickly returns to delusional thought. Mental Status Exam Mental Status Exam Narrative: Appearance: Appropriate Patient Orientation: Person Level of Consciousness: Awake and Alert Patient Behavior: confused, disorganized Mood Description: confused Affect Description: anxious Patient Cognition Impaired: Yes Ability to Follow Directions: Good Speech Pattern: spontaneous speech, but Difficulty Finding Words, not finishing sentences Memory Description: Remote Impaired, Immediate Impaired, Residential Impaired, Episodic Impaired, Recent Impaired, Working Impaired and Semantic Impaired Hallucinations: None Delusions: currently thinking she's somewhere else Thought Process: Disoriented, Distracted, Rumination and Confusion Thought Content: during brief conversation able to be linear and goal oriented but quickly becomes disorganized Depressive Symptoms: (by hx) Increased Anxiety, Changes in Appetite and Significant Weight Loss Judgement: Impaired Diagnostics Vital Signs (24Hr): Vital Signs - 24 hr 10/26/20 21:21 10/27/20 06:00 Temperature 98.4 F 97.5 F Pulse Rate 93 85 Respiratory Rate 16 Blood Pressure 125/65 124/57 L Pulse Oximetry 98 97 Body Mass Index 14.4 Labs Results: 10/20/20 17:32 10/20/20 17:32 Imaging Radiology Impressions: ITS Impressions Chest X-Ray 10/09/20 12:04 IMPRESSION: Unremarkable chest exam except for hyperinflation. No acute intracranial process seen. Age-related cerebral volume loss with diffuse chronic small vessel ischemic changes. Head CT 10/09/20 12:05 IMPRESSION: Unremarkable chest exam except for hyperinflation. No acute intracranial process seen. Age-related cerebral volume loss with diffuse chronic small vessel ischemic changes. Abdomen/Pelvis CT 10/20/20 16:55 IMPRESSION: -No CT evidence for acute abnormality within the abdomen or pelvis. -[id number] colonic diverticulosis without CT evidence to suggest active diverticulitis. -Mild stool burden throughout the colon. Medications Medications Current Medications Generic Name Dose Route Start Last Admin Trade Name Freq PRN Reason Stop Dose Admin Acetaminophen 650 mg 10/16/20 21:25 Acetaminophen 325 Mg Tablet PO Q6H PRN Headache/Pain Mild Scale (1-3) Al Hydroxide/Mg Hydroxide 30 ml 10/16/20 21:25 Magnesium Hydrox/Alum Hydrox 30 Ml Oral.Susp PO Q6H PRN Heartburn/Nausea Aspirin 81 mg 10/10/20 08:00 10/27/20 07:52 Aspirin Enteric Coated 81 Mg Tablet.Dr PO 81 mg DAILY@0800 LATRICE Administration Docusate Sodium 100 mg 10/20/20 21:00 10/27/20 07:53 Docusate Sodium 100 Mg Capsule PO 100 mg BID LATRICE Administration Lamotrigine 12.5 mg 10/23/20 21:00 10/27/20 07:52 Lamotrigine 25 Mg Tablet PO 12.5 mg BID LATRICE Administration Magnesium Hydroxide 30 ml 10/16/20 21:25 Milk Of Magnesia 30 Ml Oral.Susp PO DAILY PRN Constipation Mirtazapine 3.75 mg 10/18/20 14:03 Mirtazapine 7.5 Mg Tablet PO BEDTIME PRN Insomnia Multivitamins/Vitamin C 1 tab 10/10/20 08:00 10/27/20 07:53 Multivitamin Tablet PO 1 tab DAILY@0800 LATRICE Administration Olanzapine 1.25 mg 10/11/20 09:00 10/27/20 07:53 Olanzapine 2.5 Mg Tablet PO 1.25 mg DAILY LATRICE Administration Olanzapine 2.5 mg 10/10/20 21:00 10/26/20 21:27 Olanzapine 2.5 Mg Tablet PO 2.5 mg BEDTIME LATRICE Administration Olanzapine 2.5 mg 10/17/20 21:23 10/24/20 14:49 Olanzapine 2.5 Mg Tablet PO 2.5 mg DAILY PRN Administration psychosis, agitation Pharmacy Consult 1 each 10/09/20 17:40 Consult Rx Perform Med Rec MISCELLANE ONCE PRN Consult order Polyethylene Glycol 17 gm 10/20/20 17:55 10/27/20 07:51 Polyethylene Glycol 3350 17 Gm Powd.Pack PO 17 gm DAILY LATRICE Administration Vitamin D 25 mcg 10/10/20 08:00 10/27/20 07:53 Cholecalciferol (Vitamin D3) 25 Mcg Tablet PO 25 mcg DAILY@0800 LATRICE Administration Vitamin E 180 mg 10/23/20 09:00 10/27/20 07:52 Vitamin E (Dl,Tocopheryl Acet) 180 Mg (400 Unit) Capsule PO 180 mg DAILY LATRICE Administration Vortioxetine 10 mg 10/26/20 09:00 10/27/20 07:53 Vortioxetine Hydrobromide 10 Mg Tablet PO 10 mg DAILY LATRICE Administration Allergies Allergies Allergy/AdvReac Type Severity Reaction Status Date / Time memantine [MEMANTINE] Allergy Severe HIVES Verified 10/14/20 07:25 Iodinated Contrast Media Allergy Unknown UNKNOWN Verified 10/14/20 07:25 [IV CONTRAST] lactose Allergy Unknown DIARRHEA Verified 10/14/20 07:25 sulfamethoxazole Allergy Unknown UNKNOWN Verified 10/14/20 07:25 [From BACTRIM] trimethoprim [From BACTRIM] Allergy Unknown UNKNOWN Verified 10/14/20 07:25 Assessment & Plan Assessment & Plan (1) Delirium: Status: Acute Code(s): R41.0 - Disorientation, unspecified (2) Anxiety: Status: Acute Code(s): F41.9 - Anxiety disorder, unspecified (3) Dementia: Qualifiers: Dementia behavioral disturbance: with behavioral disturbance Dementia type: unspecified type Qualified Code(s): F03.91 - Unspecified dementia with behavioral disturbance Status: Acute Code(s): F03.90 - Unspecified dementia without behavioral disturbance Assessment and Plan: Impression: pt with hx of dementia appears at baseline pt with some disorganized behavior but able to be redirected and does not require extra prn medication no change to primary team tx plan Pt to tentatively return to her assisted living program on 10/28/20. PT re-consulted to assist pt with use of her walker. Trintellix taper to 10 mg daily Lamictal 12.5 mg bid-trial to assist with anxiety mgt. Greater than 50% of the session was spent on counseling and/or coordination of care Reason for contiued inpatient stay Substantial Risk for: inability to function and med/psych decompensation
[2020-10-27 18:00] VITALS: BP 121/67; PULSE 90; TEMP 36.4; O2SAT 98
[2020-10-27] MEDS: OLANZapine 2.5 MG TABLET PO (22:13)
[2020-10-28] MEDS: Docusate Sodium 100 MG CAPSULE PO (08:46)
[2020-10-28] MEDS: OLANZapine 2.5 MG TABLET 1.25 MG PO (08:46)
[2020-10-28] MEDS: Multivitamin TABLET 1 TAB PO (08:47)
[2020-10-28] MEDS: Vortioxetine Hydrobromide 10 MG TABLET PO (08:47)
[2020-10-28] MEDS: Aspirin Enteric Coated 81 MG TABLET.DR PO (08:47)
[2020-10-28] MEDS: Cholecalciferol (Vitamin D3) 25 MCG TABLET PO (08:47)
[2020-10-28] MEDS: lamoTRIgine 25 MG TABLET 12.5 MG PO (08:47)
[2020-10-28] MEDS: Vitamin E (Dl,Tocopheryl Acet) 180 MG (400 UNIT) CAPSULE PO (08:47)
[2020-10-28] MEDS: polyethylene glycoL 3350 17 GM POWD.PACK PO (08:48)
[2020-10-28 13:02] LABS: COVID-19 Test Negative (Negative); IDNOW Serial# 9DD0AD1C
--- NOTE | 2020-10-28 16:31 | P.DS_ITS ---
DS: Providers Provider Date of Service: 10/28/20 Date of admission: 10/16/20 20:48 Date of discharge: 10/28/20 Primary care physician: Johanna Wheeler MD Admitting clinician: Luma Greenberg Attending physician on admission: Gerry Lord Consults: 10/20/20 15:46 Consult to Hospitalist Stat Consulting Provider: Hospitalist Reason For Exam: sudden onset abdomnal pain; tender to palpation Attending physician on discharge: Gerry Lord Discharging clinician: Luma Greenberg DS: Diagnosis Discharge Diagnosis (1) Delirium: Status: Acute Problem details: Pt presented with an increase in agitation due to UTI. IV antibiotics were initiated. (2) Anxiety: Status: Acute Problem details: Pt has a life long history of anxiety, which has always been a challenge to manage symptoms. This has had an effect upon her appetite, which has always been poor as well. She needs much encouragement to eat and drink. (3) Dementia: Status: Acute Problem details: 79 yo female, with increase in anxiety, delirium from UTI and treatment and a history of dementia. Pt iniitally presented with agitation, behavioral dyscontrol and property destruction. Pt was treated in the emergency department initially then transferred to for ongoing recovery. DS: Medications Discharge Medications Home Medications: Home Medications Medication Instructions Recorded Confirmed multivitamin 1 tab PO DAILY@0800 10/09/20 10/09/20 Previous Rx's Medication Instructions Recorded aspirin 81 mg PO DAILY@0800 #30 tab 10/28/20 cholecalciferol (vitamin D3) 25 mcg PO DAILY@0800 #30 cap 10/28/20 docusate sodium 100 mg PO BID #60 cap 10/28/20 lamotrigine 12.5 mg PO BID #30 tab 10/28/20 olanzapine 1 tab PO DAILY@2000 #30 tab 10/28/20 olanzapine 1.25 mg PO DAILY #15 tab 10/28/20 olanzapine 2.5 mg PO DAILY PRN #30 tab 10/28/20 polyethylene glycol 3350 17 g PO DAILY #30 ea 10/28/20 rivastigmine 1 patch TOPICAL DAILY #30 ea 10/28/20 vitamin E 1,000 unit PO DAILY@0800 #30 cap 10/28/20 Discharge Plan Discharge Anticipated Discharge Date/Time: 10/28/20 13:00 Patient Disposition: Xfer Other Discharge Diagnosis: Dementia Delirium-resolving Anxiety Referrals: [facility] [Other] - 10/29/20 (fax- [phone] for PT and OT) Caro Elena (psychiatrist) [Other] - 11/22/20 9:20 am () [facility] [Outside] - 2 days Johanna Wheeler MD [Physician] - 10/29/20 10:00 am (IN FACILITY) Discharge Medications: New polyethylene glycol 3350 17 gram Powder In Packet 17 g PO DAILY Qty: 30 RF: 0 olanzapine 2.5 mg Tablet 1.25 mg PO DAILY Qty: 15 RF: 0 olanzapine 2.5 mg Tablet 2.5 mg PO DAILY PRN (Reason: psychosis, agitation) Qty: 30 RF: 0 lamotrigine 25 mg Tablet 12.5 mg PO BID Qty: 30 RF: 0 docusate sodium 100 mg Capsule 100 mg PO BID Qty: 60 RF: 0 Continued multivitamin Tablet 1 tab PO DAILY@0800 RF: 0 vitamin E 1,000 unit Capsule 1,000 unit PO DAILY@0800 Qty: 30 RF: 0 olanzapine 2.5 mg tablet 1 tab PO DAILY@2000 Qty: 30 RF: 0 aspirin 81 mg Tablet,Delayed Release (Dr/Ec) 81 mg PO DAILY@0800 Qty: 30 RF: 0 cholecalciferol (vitamin D3) 25 mcg (1,000 unit) Capsule 25 mcg PO DAILY@0800 Qty: 30 RF: 0 rivastigmine 4.6 mg/24 hour patch 24 hour 1 patch topical DAILY Qty: 30 RF: 0 Discontinued alprazolam 0.25 mg tablet 1 tab PO TID RF: 0 Trintellix 20 mg tablet 1 tab PO DAILY@0800 RF: 0 cyanocobalamin (vitamin B-12) 2,500 mcg Tablet 2,500 mcg PO DAILY@0800 RF: 0 Discharge Orders: Discharge Order (Routine); Ordered 10/28/20 Ordered By: Luma Greenberg Diet: advance to usual diet Activity on Discharge: Use cane or walker Stand Alone Forms: Patient Portal Discharge page, Community Support Care Plan Goals: Mood Stabilization Health Maintenance Health Concerns: Anxiety Dementia Plan of Treatment: Take medications as directed Attend follow up appointments Assessment: Delirium resolved. Lamictal trial for anxiety mgt. Patient Instructions: Lamotrigine (By mouth), Olanzapine (By mouth) Discharge Date/Time: 10/28/20 14:25 Mental Status Exam Mental Status Exam Patient Appearance: Well Grooomed and Appropriate Patient Orientation: Person Level of Consciousness: Awake and Alert Patient Behavior: Appropriate, Dependent, Talkative, Cooperative, Anxious and Good Eye Contact Mood Description: Calm and Anxious Affect Description: Calm and Anxious Patient Cognition Impaired: Yes Ability to Follow Directions: Good Speech Pattern: Difficulty Finding Words, Spontaneous Speech, Soft-Spoken and Long Pauses Memory Description: Remote Impaired, Immediate Impaired, Skilled Nursing Impaired, Episodic Impaired, Recent Impaired, Working Impaired and Semantic Impaired Hallucinations: None Delusions: Not Present Thought Process: Disoriented, Distracted and Confusion Thought Content: positive for Disoriented and positive for Circumstantial Depressive Symptoms: Increased Anxiety, Diff. Making Decisions and Changes in Appetite Judgement: Poor Data Data Completed and Pending Completed studies during hospitalization [Text1]: 10/28/20 12:35 COVID-19 (NARINDER) Negative COVID-19 Clin Com See Note 10/09/20 13:00 Urine clean catch - Clean Catch Midstream Urine Culture - Final No growth. Imaging Diagnostic Imaging Impressions Chest X-Ray 10/09/20 12:04 IMPRESSION: Unremarkable chest exam except for hyperinflation. No acute intracranial process seen. Age-related cerebral volume loss with diffuse chronic small vessel ischemic changes. Head CT 10/09/20 12:05 IMPRESSION: Unremarkable chest exam except for hyperinflation. No acute intracranial process seen. Age-related cerebral volume loss with diffuse chronic small vessel ischemic changes. Abdomen/Pelvis CT 10/20/20 16:55 IMPRESSION: -No CT evidence for acute abnormality within the abdomen or pelvis. -[id number] colonic diverticulosis without CT evidence to suggest active diverticulitis. -Mild stool burden throughout the colon. DS: Summary Hospital Course Hospital Course: Pt admitted on conditional voluntary with health care proxy activated. She remained on 1:1 throughout her admission and was able to return to baseline with team support, nutritional and mobility support, rest and small doses of Olanzapine. Once at baseline, we attempted to address her symptoms of anxiety with low dose Lamictal, 12.5 mg bid, which she is tolerating upon discharge and will hopefully have improved response from. She will return to her assisted living facility and continue with family involvement in her ongoing care. Prior to her discharge, TW discussed with daughter Jessica a return to [employer]-which is not available at [facility], however will be ordered upon discharge for retrial-as family believes this had been helpful when used in the past. Time spent discussing smoking cessation with patient: 3 to 10 minutes Status at Discharge Cognitive/behavioral status at discharge: Calm, alert, confused, cheerful, interactive with team and peers. Functional status at discharge: wheelchair bound Overall status at discharge: patient is back to baseline Time Spent with Patient Time attestation: Total time spent providing and/or coordinating discharge services:30 Time spent: Less than 30 minutes
== END 2020-10-28 14:25 | disposition other institution (70) | DRG 884 ==
LOC: HO.ED 10-14 09:50 → HO.PM5 10-16 20:51
PROVIDERS: Internal Medicine; Physician Assistant; Social Worker; Admitting Provider Psychiatry & Neurology Psychiatry; Emergency Provider Emergency Medicine; Visit Provider Clinical Nurse Specialist Psychiatric/Mental Health, Adult
DX: F03.91 Unspecified dementia, unspecified severity, with behavioral disturbance (principal); F05 Delirium due to known physiological condition; N39.0 Urinary tract infection, site not specified; F43.10 Post-traumatic stress disorder, unspecified; F41.9 Anxiety disorder, unspecified; Z20.822 Contact with and (suspected) exposure to COVID-19; Z88.2 Allergy status to sulfonamides; Z79.82 Long term (current) use of aspirin; Z79.899 Other long term (current) drug therapy
CPT/HCPCS: 0241U; 36415; 70450; 71045; 74176; 80048; 80053; 80076; 81001; 81003; 82140; 82607; 82746; 83735; 84443; 84484; 85025; 87086; 87635; 93005; 96365; 96372; 96374; 97116; 97161; 97162; 97163; 97166; 99285; J0696; J2060

== ENCOUNTER 2020-12-27 13:08 | Inpatient (IN) | payer MEDICARE, OTHER, SELFPAY ==
--- NOTE | ~2020-12-27 | XR_ITS ---
EXAMINATION: XR ABDOMEN KUB CLINICAL INDICATION: Abdominal and back pain. COMPARISON: None TECHNIQUE: AP view of the abdomen. FINDINGS: The bowel gas pattern is nonspecific with scattered gas and stool in colon without distention. There is no organomegaly. No radiopaque calculi seen. There is evidence of previous cholecystectomy. There is mild dorsolumbar spine scoliosis question positional. No lytic process. XR/XR KUB IMPRESSION: Unremarkable KUB.
[2020-12-27 13:36] VITALS: BP 154/69; PULSE 100; RESP 16; TEMP 36.9; O2SAT 96
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
[2020-12-27 18:00] VITALS: BP 121/58; PULSE 94; RESP 16; TEMP 36.6; O2SAT 97
[2020-12-27 18:20] LABS: Glucose Urine UA NEG (NEG); Leukocyte Esterase Urine NEG (NEG); Nitrite Urine NEG (NEG); Specific Gravity - Urine 1.025 (1.005-1.025); Urine Blood 2+ (NEG); Urine Ketones NEG (NEG); Urine Protein NEG (NEG-TRACE)
[2020-12-27 18:26] LABS: Appearance Urine HAZY; Color Urine YELLOW
[2020-12-27 18:30] LABS: Bacteria Urine TRACE /LPF; Squamous Epithelial Cell Urine TRACE /LPF; WBC Urine 0 /HPF (0-4)
[2020-12-27] MEDS: lamoTRIgine 25 MG TABLET 12.5 MG PO (19:39)
[2020-12-27] MEDS: Docusate Sodium 100 MG CAPSULE PO (19:39)
--- NOTE | 2020-12-27 20:27 | PC.ADMIT ---
Patient arrives to unit on Section 12b via EMS on stretcher. Patient is calm and cooperative upon approach and greets staff warmly. Patient is alert to self only, asking several times where she is and why she is here. Patient is shown room and settled in. She is noted to be anxious, requesting staff stay with her and walk with her in the hallways. Patient takes brief 15 minute nap prior to dinner. Daughter, Julisa [phone] arrives to unit at approximately 5pm and sits with patient while she has dinner. Patient consumes 50% of dinner. Patient is noted to make adoring statements about Julisa and how aminah she is to have her as a daughter. Julisa provides Health Care Proxy paperwork for chart. Both Daughter, Julisa and Jessica share Proxy. Julisa provides information for intake assessment. Julisa reports: Patient just moved to [facility] Care unit on December 09, 2020. She reports family and patient both like the facility and feel patient receives good care there. Patient has new PCP - Johanna Wheeler - [phone], [address] [place] who travels to the facility to see Patient. Family is very happy with care provided by new PCP. Psych provider is Ivy Elena - [phone] of [facility], Email: [email or web address]. According to Julisa, Zyprexa and Lamictal doses were just increased on December 19, 2020. Julisa notes concerns include: Patient's anxiety level - reporting patient frequently states Why am I here? When can I go home? What am I doing here? Does my Mother know where I am? Julisa reports Patient requires constant reassurance stating patient has a hard time trying to relax. Julisa also notes patient does not sleep through the night, often awakening at 1am/ 2am believing its time to get up. Julisa is concerned patient may have a UTI at this time as she has experienced UTIs regularly throughout her life and in more recent years, exhibiting increased agitation and aggression when she has one. Julisa also notes, Rabia is struggling with spatial awareness, struggling to read books, an activity she once enjoyed. Patient is noted to take awkward/large steps at junctions where two different floor colors meet up. Patient noted to experience intermittent incontinence, Julisa to bring pads in for patient Patient continues to be calm and cooperative with staff, very tired. She is settled into bed by 8pm and rests comfortably
[2020-12-27] MEDS: traZODone HCL 50 MG TABLET PO ×2 (21:56→23:20)
[2020-12-27] MEDS: Acetaminophen 325 MG TABLET 650 MG PO (23:19)
[2020-12-28 06:00] VITALS: BP 112/75; PULSE 97; RESP 18; TEMP 36.2; O2SAT 95
[2020-12-28 06:35] LABS: MANUAL DIFF FLAG NO
[2020-12-28 07:11] LABS: Ammonia 24 umol/L (13-55)
[2020-12-28 07:36] LABS: Basophils Absolute Auto 0.1 X10*3/uL (0.0-0.2); Basophils Percent Auto 0.7 % (0-2); Eosinophils Absolute Auto 0.3 X10*3/uL (0.0-0.4); Eosinophils Percent Auto 4.3 % (0-4); Hematocrit 35.7 % (37-47); Hemoglobin 11.6 g/dl (12.0-16.0); Imm Gran Abs Auto 0.02 X10*3/uL (0.00-0.03); Imm Gran Pct Auto 0.3 % (0.0-0.4); Lymphocytes Absolute Auto 1.6 X10*3/uL (1.2-4.9); Lymphocytes Percent Auto 23.9 % (20-40); Mean Corpuscular HGB Conc 32.5 g/dl (31.0-35.0); Mean Corpuscular Hemoglobin 30.3 pg (27.0-33.0); Mean Corpuscular Volume 93.2 fL (80-98); Mean Platelet Volume 9.9 fL (9.4-12.3); Monocytes Absolute Auto 0.6 X10*3/uL (0.1-1.2); Monocytes Percent Auto 9.4 % (2-11); Neutrophils Absolute Auto 4.2 X10*3/uL (2.0-8.3); Neutrophils Percent Auto 61.4 % (45-73); Platelet Count 351 X10*3/uL (160-400); Red Blood Count 3.83 X10*6/uL (4.20-5.50); Red Cell Distribution Width 12.3 % (11.0-16.0); White Blood Count 6.8 X10*3/uL (4.8-10.8)
[2020-12-28 07:43] LABS: Anion Gap 9 (12-20); Blood Urea Nitrogen 17 mg/dL (9-16); Calcium 9.2 mg/dL (8.4-10.2); Carbon Dioxide 29 mmol/L (22-29); Chloride 106 mmol/L (96-108); Estimated Glomerular Filt Rate > 60; Glucose Fasting 97 mg/dL (60-99); Sodium 140 mmol/L (135-145)
[2020-12-28] MEDS: Vitamin E (Dl,Tocopheryl Acet) 180 MG (400 UNIT) CAPSULE 360 MG PO (08:18)
[2020-12-28] MEDS: Docusate Sodium 100 MG CAPSULE PO ×2 (08:19→20:35)
[2020-12-28] MEDS: Cholecalciferol (Vitamin D3) 25 MCG TABLET PO (08:19)
[2020-12-28] MEDS: OLANZapine 2.5 MG TABLET 1.25 MG PO ×2 (08:20→20:35)
[2020-12-28] MEDS: lamoTRIgine 25 MG TABLET 12.5 MG PO ×2 (08:22→20:36)
[2020-12-28] MEDS: polyethylene glycoL 3350 17 GM POWD.PACK PO (08:23)
[2020-12-28] MEDS: Aspirin 81 MG TAB.CHEW PO (08:23)
[2020-12-28] MEDS: Milk of Magnesia 30 ML ORAL.SUSP PO (10:30)
[2020-12-28] MEDS: Magnesium Hydrox/Alum Hydrox 30 ML ORAL.SUSP PO (13:10)
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
[2020-12-28 15:54] LABS: Iron 45 mcg/dL (30-160); Percent Iron Saturation 17 % (15-50); Total Iron Binding Capacity 267 mcg/dL (228-428); Unsaturated Iron Binding 222 ug/dL
[2020-12-28 16:13] LABS: Ferritin 83 ng/mL (10-250)
[2020-12-28 18:00] VITALS: BP 114/56; PULSE 97; RESP 16; TEMP 36.3; O2SAT 96
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
[2020-12-29] MEDS: traZODone HCL 50 MG TABLET PO (01:15)
--- NOTE | 2020-12-29 07:20 | HO.PSYCHPN ---
Subjective Subjective Date of Service: 12/29/20 Reason For Visit: F43.25 F02.81 Interim History: 12/28:Pt known to me. Certainly has progressed since her last visit with me. Today is confused, easily agitated. Had a difficult night. Fall risk and unsteady . Hospitalist consult pending. Will increase OLZ, 12/29:Drop in H and H noted. Appreciate hospitalist consul. Anemia W/U underway. Pt on 1:1. Redirectable and confused. Increased agitation at HS. I left VM for Daughter Jessica re increasing OLZ at HS. PO intake good. Had a shower today. Med compliant. Review of Systems Review of Systems Yes Unobtainable due to mental status Mental Status Exam Mental Status Exam Patient Appearance: Disheveled Patient Orientation: Person (Disoriented x 4) Level of Consciousness: Awake, Disoriented and Restless Patient Behavior: Cooperative, Distractible, Confused and Poor Eye Contact Mood Description: Withdrawn Affect Description: Constricted and Labile Patient Cognition Impaired: Yes Ability to Follow Directions: Fair Speech Pattern: Clear Memory Description: Remote Impaired, Immediate Impaired and Retirement Impaired Diagnostics Vital Signs (24Hr): Vital Signs - 24 hr 12/28/20 18:00 Temperature 97.4 F Pulse Rate 97 Respiratory Rate 16 Blood Pressure 114/56 L Pulse Oximetry 96 Labs Results: 12/28/20 06:29 12/28/20 06:29 Labs: Laboratory Results - last 48 hr 12/27/20 12/28/20 12/28/20 18:00 06:29 06:29 WBC 6.8 RBC 3.83 L Hgb 11.6 L Hct 35.7 L MCV 93.2 MCH 30.3 MCHC 32.5 RDW 12.3 Plt Count 351 D MPV 9.9 Immature Gran % (Auto) 0.3 Neut % (Auto) 61.4 Lymph % (Auto) 23.9 [place] % (Auto) 9.4 Eos % (Auto) 4.3 H Baso % (Auto) 0.7 Lymph # (Auto) 1.6 [place] # (Auto) 0.6 Eos # (Auto) 0.3 Baso # (Auto) 0.1 Abs Immat Gran (auto) 0.02 Absolute Neuts (auto) 4.2 Absolute Nucleated RBC 0.000 Nucleated RBC % (auto) 0.0 Sodium 140 Potassium 4.0 Chloride 106 Carbon Dioxide 29 Anion Gap 9 L BUN 17 H Creatinine 0.81 Estim Creat Clear Calc TNP Estimated GFR > 60 Fasting Glucose 97 Calcium 9.2 Iron 45 TIBC 267 % Saturation 17 Unsat Iron Binding 222 Ferritin 83 Ammonia Urine Color YELLOW Urine Appearance HAZY Urine pH 6.0 Ur Specific [place] 1.025 Urine Protein NEG Urine Glucose (UA) NEG Urine Ketones NEG Urine Blood 2+ H Urine Nitrite NEG Ur Leukocyte Esterase NEG Urine RBC 5-9 H Urine WBC 0 Ur Squamous Epith Cells TRACE Urine Bacteria TRACE 12/28/20 06:29 WBC RBC Hgb Hct MCV MCH MCHC RDW Plt Count MPV Immature Gran % (Auto) Neut % (Auto) Lymph % (Auto) [place] % (Auto) Eos % (Auto) Baso % (Auto) Lymph # (Auto) [place] # (Auto) Eos # (Auto) Baso # (Auto) Abs Immat Gran (auto) Absolute Neuts (auto) Absolute Nucleated RBC Nucleated RBC % (auto) Sodium Potassium Chloride Carbon Dioxide Anion Gap BUN Creatinine Estim Creat Clear Calc Estimated GFR Fasting Glucose Calcium Iron TIBC % Saturation Unsat Iron Binding Ferritin Ammonia 24 Urine Color Urine Appearance Urine pH Ur Specific [place] Urine Protein Urine Glucose (UA) Urine Ketones Urine Blood Urine Nitrite Ur Leukocyte Esterase Urine RBC Urine WBC Ur Squamous Epith Cells Urine Bacteria Medications Medications Current Medications Generic Name Dose Route Start Last Admin Trade Name Joeq PRN Reason Stop Dose Admin Acetaminophen 650 mg 12/27/20 14:14 12/27/20 23:19 Acetaminophen 325 Mg Tablet PO 650 mg Q6H PRN Administration Headache/Pain Mild Scale (1-3) Al Hydroxide/Mg Hydroxide 30 ml 12/27/20 14:14 12/28/20 13:10 Magnesium Hydrox/Alum Hydrox 30 Ml Oral.Susp PO 30 ml Q6H PRN Administration Heartburn/Nausea Aspirin 81 mg 12/28/20 09:00 12/28/20 08:23 Aspirin 81 Mg Tab.Chew PO 81 mg DAILY LATRICE Administration Docusate Sodium 100 mg 12/27/20 21:00 12/28/20 20:35 Docusate Sodium 100 Mg Capsule PO 100 mg BID LATRICE Administration Lamotrigine 12.5 mg 12/27/20 21:00 12/28/20 20:36 Lamotrigine 25 Mg Tablet PO 12.5 mg BID LATRICE Administration Magnesium Hydroxide 30 ml 12/27/20 14:14 12/28/20 10:30 Milk Of Magnesia 30 Ml Oral.Susp PO 30 ml DAILY PRN Administration Constipation Olanzapine 1.25 mg 12/28/20 21:00 12/28/20 20:35 Olanzapine 2.5 Mg Tablet PO 1.25 mg BID LATRICE Administration Polyethylene Glycol 17 gm 12/28/20 09:00 12/28/20 08:23 Polyethylene Glycol 3350 17 Gm Powd.Pack PO 17 gm DAILY LATRICE Administration Trazodone HCl 50 mg 12/27/20 14:14 12/29/20 01:15 Trazodone Hcl 50 Mg Tablet PO 50 mg BEDTIME PRN Administration Insomnia Vitamin D 25 mcg 12/28/20 09:00 12/28/20 08:19 Cholecalciferol (Vitamin D3) 25 Mcg Tablet PO 25 mcg DAILY LATRICE Administration Vitamin E 360 mg 12/28/20 09:00 12/28/20 08:18 Vitamin E (Dl,Tocopheryl Acet) 180 Mg (400 Unit) Capsule PO 360 mg DAILY LATRICE Administration Allergies Allergies Allergy/AdvReac Type Severity Reaction Status Date / Time memantine [MEMANTINE] Allergy Severe HIVES Verified 10/14/20 07:25 Iodinated Contrast Media Allergy Unknown UNKNOWN Verified 10/14/20 07:25 [IV CONTRAST] lactose Allergy Unknown DIARRHEA Verified 10/14/20 07:25 sulfamethoxazole Allergy Unknown UNKNOWN Verified 10/14/20 07:25 [From BACTRIM] trimethoprim [From BACTRIM] Allergy Unknown UNKNOWN Verified 10/14/20 07:25 Assessment & Plan Assessment & Plan (1) Dementia: Qualifiers: Dementia behavioral disturbance: with behavioral disturbance Dementia type: unspecified type Qualified Code(s): F03.91 - Unspecified dementia with behavioral disturbance Status: Acute Code(s): F03.90 - Unspecified dementia without behavioral disturbance (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 Anemia studies 2. ? increase HS OLZ. Greater than 50% of the session was spent on counseling and/or coordination of care Reason for contiued inpatient stay Substantial Risk for: med/psych decompensation
[2020-12-29] MEDS: OLANZapine 2.5 MG TABLET 1.25 MG PO ×2 (08:34→20:17)
[2020-12-29] MEDS: Aspirin 81 MG TAB.CHEW PO (08:35)
[2020-12-29] MEDS: lamoTRIgine 25 MG TABLET 12.5 MG PO ×2 (08:35→20:17)
[2020-12-29] MEDS: Vitamin E (Dl,Tocopheryl Acet) 180 MG (400 UNIT) CAPSULE 360 MG PO (08:35)
[2020-12-29] MEDS: Cholecalciferol (Vitamin D3) 25 MCG TABLET PO (08:36)
[2020-12-29] MEDS: Docusate Sodium 100 MG CAPSULE PO ×2 (08:37→20:17)
[2020-12-29 18:00] VITALS: BP 135/83; PULSE 91; RESP 16; TEMP 36.1; O2SAT 97
[2020-12-30 06:00] VITALS: BP 139/62; PULSE 76; RESP 16; TEMP 36.6; O2SAT 95
--- NOTE | 2020-12-30 07:31 | HO.PSYCHPN ---
Subjective Subjective Date of Service: 12/30/20 Reason For Visit: F43.25 F02.81 Interim History: The patient has been confused, VS have been stable. U/A came back with blood but no WBC. No episodes of violent agitation at this moment. Today, we had a meeting with her daughter and son in law and apparently, again she had another ITU and she was violent on her new NANI. Daughter reported that she gets more confused and anxious at night, so change of antipsychotics will be changed. We also discussed the possiblity of using Depakote for impulsivity. Review of Systems Acute medical concerns: No Medical Review of Systems: unchanged Mental Status Exam Mental Status Exam Patient Appearance: Well Grooomed (on hospital gowns) Patient Orientation: Person Level of Consciousness: Awake and Disoriented Patient Behavior: Confused Mood Description: Withdrawn Affect Description: Withdrawn and Constricted Patient Cognition Impaired: Yes Ability to Follow Directions: Good Speech Pattern: Clear Memory Description: Remote Impaired and Immediate Impaired Delusions: Paranoid Ideation Thought Process: Slowed Thinking Thought Content: positive for Circumstantial and positive for Poverty of Content Judgement: Fair Diagnostics Vital Signs (24Hr): Vital Signs - 24 hr 12/29/20 18:00 12/30/20 06:00 Temperature 96.9 F 97.8 F Pulse Rate 91 76 Respiratory Rate 16 16 Blood Pressure 135/83 139/62 Pulse Oximetry 97 95 Labs Results: 12/28/20 06:29 12/28/20 06:29 Labs: Laboratory Results - last 48 hr 12/28/20 12/28/20 06:29 06:29 WBC 6.8 RBC 3.83 L Hgb 11.6 L Hct 35.7 L MCV 93.2 MCH 30.3 MCHC 32.5 RDW 12.3 Plt Count 351 D MPV 9.9 Immature Gran % (Auto) 0.3 Neut % (Auto) 61.4 Lymph % (Auto) 23.9 [place] % (Auto) 9.4 Eos % (Auto) 4.3 H Baso % (Auto) 0.7 Lymph # (Auto) 1.6 [place] # (Auto) 0.6 Eos # (Auto) 0.3 Baso # (Auto) 0.1 Abs Immat Gran (auto) 0.02 Absolute Neuts (auto) 4.2 Absolute Nucleated RBC 0.000 Nucleated RBC % (auto) 0.0 Sodium 140 Potassium 4.0 Chloride 106 Carbon Dioxide 29 Anion Gap 9 L BUN 17 H Creatinine 0.81 Estim Creat Clear Calc TNP Estimated GFR > 60 Fasting Glucose 97 Calcium 9.2 Iron 45 TIBC 267 % Saturation 17 Unsat Iron Binding 222 Ferritin 83 Medications Medications Current Medications Generic Name Dose Route Start Last Admin Trade Name Freq PRN Reason Stop Dose Admin Acetaminophen 650 mg 12/27/20 14:14 12/27/20 23:19 Acetaminophen 325 Mg Tablet PO 650 mg Q6H PRN Administration Headache/Pain Mild Scale (1-3) Al Hydroxide/Mg Hydroxide 30 ml 12/27/20 14:14 12/28/20 13:10 Magnesium Hydrox/Alum Hydrox 30 Ml Oral.Susp PO 30 ml Q6H PRN Administration Heartburn/Nausea Aspirin 81 mg 12/28/20 09:00 12/29/20 08:35 Aspirin 81 Mg Tab.Chew PO 81 mg DAILY LATRICE Administration Docusate Sodium 100 mg 12/27/20 21:00 12/29/20 20:17 Docusate Sodium 100 Mg Capsule PO 100 mg BID LATRICE Administration Lamotrigine 12.5 mg 12/27/20 21:00 12/29/20 20:17 Lamotrigine 25 Mg Tablet PO 12.5 mg BID LATRICE Administration Magnesium Hydroxide 30 ml 12/27/20 14:14 12/28/20 10:30 Milk Of Magnesia 30 Ml Oral.Susp PO 30 ml DAILY PRN Administration Constipation Olanzapine 1.25 mg 12/28/20 21:00 12/29/20 20:17 Olanzapine 2.5 Mg Tablet PO 1.25 mg BID LATRICE Administration Polyethylene Glycol 17 gm 12/28/20 09:00 12/29/20 17:08 Polyethylene Glycol 3350 17 Gm Powd.Pack PO Not Given DAILY LATRICE Trazodone HCl 50 mg 12/27/20 14:14 12/29/20 01:15 Trazodone Hcl 50 Mg Tablet PO 50 mg BEDTIME PRN Administration Insomnia Vitamin D 25 mcg 12/28/20 09:00 12/29/20 08:36 Cholecalciferol (Vitamin D3) 25 Mcg Tablet PO 25 mcg DAILY LATRICE Administration Vitamin E 360 mg 12/28/20 09:00 12/29/20 08:35 Vitamin E (Dl,Tocopheryl Acet) 180 Mg (400 Unit) Capsule PO 360 mg DAILY LATRICE Administration Allergies Allergies Allergy/AdvReac Type Severity Reaction Status Date / Time memantine [MEMANTINE] Allergy Severe HIVES Verified 10/14/20 07:25 Iodinated Contrast Media Allergy Unknown UNKNOWN Verified 10/14/20 07:25 [IV CONTRAST] lactose Allergy Unknown DIARRHEA Verified 10/14/20 07:25 sulfamethoxazole Allergy Unknown UNKNOWN Verified 10/14/20 07:25 [From BACTRIM] trimethoprim [From BACTRIM] Allergy Unknown UNKNOWN Verified 10/14/20 07:25 Assessment & Plan Assessment & Plan (1) Dementia: Qualifiers: Dementia behavioral disturbance: with behavioral disturbance Dementia type: unspecified type Qualified Code(s): F03.91 - Unspecified dementia with behavioral disturbance Status: Acute Code(s): F03.90 - Unspecified dementia without behavioral disturbance Assessment and Plan: Plan: 1. Change Zyprexa to 2.5 mg po at 1700. 2. Start Depakote 125 mg po tid. 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 Anemia studies . Greater than 50% of the session was spent on counseling and/or coordination of care Reason for contiued inpatient stay Substantial Risk for: harm to others, inability to function, rapid decompensation and med/psych decompensation
[2020-12-30] MEDS: Aspirin 81 MG TAB.CHEW PO (08:16)
[2020-12-30] MEDS: lamoTRIgine 25 MG TABLET 12.5 MG PO ×2 (08:16→20:41)
[2020-12-30] MEDS: Cholecalciferol (Vitamin D3) 25 MCG TABLET PO (08:17)
[2020-12-30] MEDS: Vitamin E (Dl,Tocopheryl Acet) 180 MG (400 UNIT) CAPSULE 360 MG PO (08:17)
[2020-12-30] MEDS: OLANZapine 2.5 MG TABLET 1.25 MG PO (08:17)
[2020-12-30] MEDS: Docusate Sodium 100 MG CAPSULE PO ×2 (08:19→20:41)
[2020-12-30] MEDS: polyethylene glycoL 3350 17 GM POWD.PACK PO (08:20)
[2020-12-30] MEDS: Divalproex Sodium Sprinkles 125 MG CAP.DR.SPR PO ×2 (14:56→20:41)
[2020-12-30 16:15] VITALS: BMI 17.4
[2020-12-30] MEDS: OLANZapine 2.5 MG TABLET PO (17:27)
[2020-12-30 17:57] VITALS: BP 130/60; PULSE 95; TEMP 37; O2SAT 97
[2020-12-30 18:32] VITALS: BP 130/60
[2020-12-31] MEDS: traZODone HCL 50 MG TABLET PO ×2 (00:26→01:53)
[2020-12-31] MEDS: Acetaminophen 325 MG TABLET 650 MG PO ×2 (01:53→09:23)
[2020-12-31] MEDS: Cholecalciferol (Vitamin D3) 25 MCG TABLET PO (09:23)
[2020-12-31] MEDS: Vitamin E (Dl,Tocopheryl Acet) 180 MG (400 UNIT) CAPSULE 360 MG PO (09:23)
[2020-12-31] MEDS: Aspirin 81 MG TAB.CHEW PO (09:23)
[2020-12-31] MEDS: lamoTRIgine 25 MG TABLET 12.5 MG PO ×2 (09:23→19:51)
[2020-12-31] MEDS: Divalproex Sodium Sprinkles 125 MG CAP.DR.SPR PO ×3 (09:23→19:51)
[2020-12-31] MEDS: Docusate Sodium 100 MG CAPSULE PO ×2 (09:23→19:51)
[2020-12-31 09:25] VITALS: BP 126/60; PULSE 82; RESP 16; TEMP 37; O2SAT 98
--- NOTE | 2020-12-31 09:58 | HO.PSYCHPN ---
Subjective Subjective Date of Service: 12/31/20 Reason For Visit: F43.25 F02.81 Interim History: The patient remains confused and constantly asks why she is here. Easily redirectable. We discussed options and agreed on the change below Mental Status Exam Mental Status Exam Patient Appearance: Well Grooomed Patient Orientation: Person Level of Consciousness: Awake and Disoriented Patient Behavior: Appropriate, Cooperative and Confused Mood Description: Calm and Constricted Affect Description: Constricted and Anxious Patient Cognition Impaired: Yes Ability to Follow Directions: Good Speech Pattern: Clear Memory Description: Remote Impaired, Immediate Impaired and [employer] Developer Impaired Hallucinations: None Delusions: Not Present Thought Process: Slowed Thinking Thought Content: positive for Poverty of Content Judgement: Poor Diagnostics Vital Signs (24Hr): Vital Signs - 24 hr 12/30/20 17:57 12/30/20 18:32 Temperature 98.6 F Pulse Rate 95 Blood Pressure 130/60 130/60 Pulse Oximetry 97 Body Mass Index 17.4 Labs Results: 12/28/20 06:29 12/28/20 06:29 Medications Medications Current Medications Generic Name Dose Route Start Last Admin Trade Name Freq PRN Reason Stop Dose Admin Acetaminophen 650 mg 12/27/20 14:14 12/31/20 09:23 Acetaminophen 325 Mg Tablet PO 650 mg Q6H PRN Administration Headache/Pain Mild Scale (1-3) Al Hydroxide/Mg Hydroxide 30 ml 12/27/20 14:14 12/28/20 13:10 Magnesium Hydrox/Alum Hydrox 30 Ml Oral.Susp PO 30 ml Q6H PRN Administration Heartburn/Nausea Aspirin 81 mg 12/28/20 09:00 12/31/20 09:23 Aspirin 81 Mg Tab.Chew PO 81 mg DAILY LATRICE Administration Divalproex Sodium 125 mg 12/30/20 15:00 12/31/20 09:23 Divalproex Sodium Sprinkles 125 Mg Cap.DrAshlieSpr PO 125 mg TID LATRICE Administration Docusate Sodium 100 mg 12/27/20 21:00 12/31/20 09:23 Docusate Sodium 100 Mg Capsule PO 100 mg BID LATRICE Administration Lamotrigine 12.5 mg 12/27/20 21:00 12/31/20 09:23 Lamotrigine 25 Mg Tablet PO 12.5 mg BID LATRICE Administration Magnesium Hydroxide 30 ml 12/27/20 14:14 12/28/20 10:30 Milk Of Magnesia 30 Ml Oral.Susp PO 30 ml DAILY PRN Administration Constipation Olanzapine 2.5 mg 12/30/20 17:00 12/30/20 17:27 Olanzapine 2.5 Mg Tablet PO 2.5 mg DAILY@1700 LATRICE Administration Polyethylene Glycol 17 gm 12/28/20 09:00 12/30/20 08:20 Polyethylene Glycol 3350 17 Gm Powd.Pack PO 17 gm DAILY LATRICE Administration Trazodone HCl 50 mg 12/27/20 14:14 12/31/20 01:53 Trazodone Hcl 50 Mg Tablet PO 50 mg BEDTIME PRN Administration Insomnia Vitamin D 25 mcg 12/28/20 09:00 12/31/20 09:23 Cholecalciferol (Vitamin D3) 25 Mcg Tablet PO 25 mcg DAILY LATRICE Administration Vitamin E 360 mg 12/28/20 09:00 12/31/20 09:23 Vitamin E (Dl,Tocopheryl Acet) 180 Mg (400 Unit) Capsule PO 360 mg DAILY LATRICE Administration Allergies Allergies Allergy/AdvReac Type Severity Reaction Status Date / Time memantine [MEMANTINE] Allergy Severe HIVES Verified 10/14/20 07:25 Iodinated Contrast Media Allergy Unknown UNKNOWN Verified 10/14/20 07:25 [IV CONTRAST] lactose Allergy Unknown DIARRHEA Verified 10/14/20 07:25 sulfamethoxazole Allergy Unknown UNKNOWN Verified 10/14/20 07:25 [From BACTRIM] trimethoprim [From BACTRIM] Allergy Unknown UNKNOWN Verified 10/14/20 07:25 Assessment & Plan Assessment & Plan (1) Dementia: Qualifiers: Dementia behavioral disturbance: with behavioral disturbance Dementia type: unspecified type Qualified Code(s): F03.91 - Unspecified dementia with behavioral disturbance Status: Acute Code(s): F03.90 - Unspecified dementia without behavioral disturbance Assessment and Plan: Plan: 1. Change Zyprexa to 2.5 mg po at 1500. 2. Start Depakote 125 mg po tid. 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 Anemia studies . Greater than 50% of the session was spent on counseling and/or coordination of care Reason for contiued inpatient stay Substantial Risk for: inability to function, rapid decompensation and med/psych decompensation
[2020-12-31] MEDS: traZODone HCL 25 MG HALFTAB PO (14:09)
[2020-12-31] MEDS: OLANZapine 2.5 MG TABLET PO (15:58)
[2020-12-31 17:54] VITALS: BP 125/58; PULSE 92; RESP 16; TEMP 36.6; O2SAT 98
[2021-01-01] MEDS: Cholecalciferol (Vitamin D3) 25 MCG TABLET PO (09:06)
[2021-01-01] MEDS: Vitamin E (Dl,Tocopheryl Acet) 180 MG (400 UNIT) CAPSULE 360 MG PO (09:06)
[2021-01-01] MEDS: Docusate Sodium 100 MG CAPSULE PO ×2 (09:07→20:14)
[2021-01-01] MEDS: Divalproex Sodium Sprinkles 125 MG CAP.DR.SPR PO ×3 (09:07→20:15)
[2021-01-01] MEDS: Aspirin 81 MG TAB.CHEW PO (09:07)
[2021-01-01] MEDS: lamoTRIgine 25 MG TABLET 12.5 MG PO (09:07)
[2021-01-01] MEDS: traZODone HCL 25 MG HALFTAB PO ×2 (09:07→16:21)
[2021-01-01] MEDS: polyethylene glycoL 3350 17 GM POWD.PACK PO (09:08)
--- NOTE | 2021-01-01 10:55 | HO.PSYCHPN ---
Subjective Subjective Date of Service: 01/01/21 Reason For Visit: F43.25 F02.81 Interim History: The staff reported no agitation, she is frequently asking where she is and why she is here, unable to sign or understand due to cognitive impairment. At this moment, no evidence of psychosis but unable to perform her ADL's without supervision. Review of Systems Review of Systems Yes all other systems are reviewed and are negative Mental Status Exam Mental Status Exam Patient Appearance: Well Grooomed Patient Orientation: Person Level of Consciousness: Awake and Disoriented Patient Behavior: Appropriate, Cooperative and Confused Mood Description: Calm Affect Description: Constricted Patient Cognition Impaired: Yes Ability to Follow Directions: Good Speech Pattern: Clear Memory Description: Remote Impaired, Immediate Impaired, Prison Impaired and Recent Impaired Hallucinations: None Delusions: Not Present Thought Process: Slowed Thinking Thought Content: positive for Disoriented, positive for Circumstantial and positive for Poverty of Content Judgement: Poor Diagnostics Vital Signs (24Hr): Vital Signs - 24 hr 12/31/20 17:54 Temperature 97.8 F Pulse Rate 92 Respiratory Rate 16 Blood Pressure 125/58 L Pulse Oximetry 98 Body Mass Index 17.4 Labs Results: 12/28/20 06:29 12/28/20 06:29 Medications Medications Current Medications Generic Name Dose Route Start Last Admin Trade Name Freq PRN Reason Stop Dose Admin Acetaminophen 650 mg 12/27/20 14:14 12/31/20 09:23 Acetaminophen 325 Mg Tablet PO 650 mg Q6H PRN Administration Headache/Pain Mild Scale (1-3) Al Hydroxide/Mg Hydroxide 30 ml 12/27/20 14:14 12/28/20 13:10 Magnesium Hydrox/Alum Hydrox 30 Ml Oral.Susp PO 30 ml Q6H PRN Administration Heartburn/Nausea Aspirin 81 mg 12/28/20 09:00 01/01/21 09:07 Aspirin 81 Mg Tab.Chew PO 81 mg DAILY LATRICE Administration Divalproex Sodium 125 mg 12/30/20 15:00 01/01/21 09:07 Divalproex Sodium Sprinkles 125 Mg Cap.Spr PO 125 mg TID LATRICE Administration Docusate Sodium 100 mg 12/27/20 21:00 01/01/21 09:07 Docusate Sodium 100 Mg Capsule PO 100 mg BID LATRICE Administration Magnesium Hydroxide 30 ml 12/27/20 14:14 12/28/20 10:30 Milk Of Magnesia 30 Ml Oral.Susp PO 30 ml DAILY PRN Administration Constipation Olanzapine 2.5 mg 12/30/20 17:00 12/31/20 15:58 Olanzapine 2.5 Mg Tablet PO 2.5 mg DAILY@1700 LATRICE Administration Polyethylene Glycol 17 gm 12/28/20 09:00 01/01/21 09:08 Polyethylene Glycol 3350 17 Gm Powd.Pack PO 17 gm DAILY LATRICE Administration Trazodone HCl 50 mg 12/27/20 14:14 12/31/20 01:53 Trazodone Hcl 50 Mg Tablet PO 50 mg BEDTIME PRN Administration Insomnia Trazodone HCl 25 mg 01/01/21 14:00 Trazodone Hcl 25 Mg Halftab PO DAILY LATRICE Vitamin D 25 mcg 12/28/20 09:00 01/01/21 09:06 Cholecalciferol (Vitamin D3) 25 Mcg Tablet PO 25 mcg DAILY LATRICE Administration Vitamin E 360 mg 12/28/20 09:00 01/01/21 09:06 Vitamin E (Dl,Tocopheryl Acet) 180 Mg (400 Unit) Capsule PO 360 mg DAILY LATRICE Administration Allergies Allergies Allergy/AdvReac Type Severity Reaction Status Date / Time memantine [MEMANTINE] Allergy Severe HIVES Verified 10/14/20 07:25 Iodinated Contrast Media Allergy Unknown UNKNOWN Verified 10/14/20 07:25 [IV CONTRAST] lactose Allergy Unknown DIARRHEA Verified 10/14/20 07:25 sulfamethoxazole Allergy Unknown UNKNOWN Verified 10/14/20 07:25 [From BACTRIM] trimethoprim [From BACTRIM] Allergy Unknown UNKNOWN Verified 10/14/20 07:25 Assessment & Plan Assessment & Plan (1) Dementia: Qualifiers: Dementia behavioral disturbance: with behavioral disturbance Dementia type: unspecified type Qualified Code(s): F03.91 - Unspecified dementia with behavioral disturbance Status: Acute Code(s): F03.90 - Unspecified dementia without behavioral disturbance Assessment and Plan: Plan: 1. Change Zyprexa to 2.5 mg po at 1500. 2. Start Depakote 125 mg po tid. 3. D/C Lamictal. 4. 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 Anemia studies . Greater than 50% of the session was spent on counseling and/or coordination of care Reason for contiued inpatient stay Substantial Risk for: inability to function, rapid decompensation and med/psych decompensation
--- NOTE | 2021-01-01 11:37 | MHC.CLN ---
NUTRITION FOLLOW UP CALL FROM UNIT THAT DAUGHTER WANTED TO CONFIRM WITH KITCHEN THAT PATIENT IS LACTOSE INTOLERANT. THIS WRIER CALLED THE KITCHEN AND THEY WEE ALREADY AWARE. NO REPORTED CONCERNS WITH CURRENT DIET. FOLLOWING.
[2021-01-01] MEDS: OLANZapine 2.5 MG TABLET PO (16:21)
[2021-01-01 18:00] VITALS: BP 133/61; PULSE 91; RESP 17; TEMP 36.4; O2SAT 98
[2021-01-01] MEDS: Acetaminophen 325 MG TABLET 650 MG PO (20:47)
[2021-01-02 05:52] VITALS: BP 130/62; PULSE 83; RESP 16; TEMP 36.6; O2SAT 97
[2021-01-02 07:00] VITALS: BMI 17.3
[2021-01-02] MEDS: traZODone HCL 25 MG HALFTAB PO (08:46)
[2021-01-02] MEDS: Divalproex Sodium Sprinkles 125 MG CAP.DR.SPR PO ×3 (08:46→20:07)
[2021-01-02] MEDS: Docusate Sodium 100 MG CAPSULE PO ×2 (08:46→20:07)
[2021-01-02] MEDS: Cholecalciferol (Vitamin D3) 25 MCG TABLET PO (08:47)
[2021-01-02] MEDS: Vitamin E (Dl,Tocopheryl Acet) 180 MG (400 UNIT) CAPSULE 360 MG PO (08:47)
[2021-01-02] MEDS: Aspirin 81 MG TAB.CHEW PO (08:47)
[2021-01-02] MEDS: polyethylene glycoL 3350 17 GM POWD.PACK PO (08:50)
--- NOTE | 2021-01-02 13:31 | HO.PSYCHPN ---
Subjective Subjective Date of Service: 01/02/21 Reason For Visit: F43.25 F02.81 Interim History: Staff has reported that she is sundowning less with change of Zyprexa at 3 pm and Trazodone at 2 pm. Confused but pleasant, no acute distress, no evidence of psychosis at this moment. Apparently, her mood is still labile. Today at AM, she was sedated after Depakote AM Mental Status Exam Mental Status Exam Patient Appearance: Well Grooomed Patient Orientation: Person Level of Consciousness: Awake and Disoriented Patient Behavior: Appropriate and Cooperative Mood Description: Calm and Withdrawn Affect Description: Constricted Patient Cognition Impaired: Yes Ability to Follow Directions: Good Speech Pattern: Clear Memory Description: Intact Hallucinations: None Delusions: Not Present Thought Process: Slowed Thinking Thought Content: positive for Tangential Judgement: Poor Diagnostics Vital Signs (24Hr): Vital Signs - 24 hr 01/01/21 18:00 01/02/21 05:52 Temperature 97.6 F 98 F Pulse Rate 91 83 Respiratory Rate 17 16 Blood Pressure 133/61 130/62 Pulse Oximetry 98 97 Body Mass Index 17.3 Labs Results: 12/28/20 06:29 12/28/20 06:29 Medications Medications Current Medications Generic Name Dose Route Start Last Admin Trade Name Freq PRN Reason Stop Dose Admin Acetaminophen 650 mg 12/27/20 14:14 01/01/21 20:47 Acetaminophen 325 Mg Tablet PO 650 mg Q6H PRN Administration Headache/Pain Mild Scale (1-3) Al Hydroxide/Mg Hydroxide 30 ml 12/27/20 14:14 12/28/20 13:10 Magnesium Hydrox/Alum Hydrox 30 Ml Oral.Susp PO 30 ml Q6H PRN Administration Heartburn/Nausea Aspirin 81 mg 12/28/20 09:00 01/02/21 08:47 Aspirin 81 Mg Tab.Chew PO 81 mg DAILY LATRICE Administration Divalproex Sodium 125 mg 12/30/20 15:00 01/02/21 08:46 Divalproex Sodium Sprinkles 125 Mg Cap.DrAshlieSpr PO 125 mg TID LATRICE Administration Docusate Sodium 100 mg 12/27/20 21:00 01/02/21 08:46 Docusate Sodium 100 Mg Capsule PO 100 mg BID LATRICE Administration Magnesium Hydroxide 30 ml 12/27/20 14:14 12/28/20 10:30 Milk Of Magnesia 30 Ml Oral.Susp PO 30 ml DAILY PRN Administration Constipation Olanzapine 2.5 mg 12/30/20 17:00 01/01/21 16:21 Olanzapine 2.5 Mg Tablet PO 2.5 mg DAILY@1700 LATRICE Administration Polyethylene Glycol 17 gm 12/28/20 09:00 01/02/21 08:50 Polyethylene Glycol 3350 17 Gm Powd.Pack PO 17 gm DAILY LATRICE Administration Trazodone HCl 50 mg 12/27/20 14:14 12/31/20 01:53 Trazodone Hcl 50 Mg Tablet PO 50 mg BEDTIME PRN Administration Insomnia Trazodone HCl 25 mg 01/01/21 14:00 01/02/21 08:46 Trazodone Hcl 25 Mg Halftab PO 25 mg DAILY LATRICE Administration Vitamin D 25 mcg 12/28/20 09:00 01/02/21 08:47 Cholecalciferol (Vitamin D3) 25 Mcg Tablet PO 25 mcg DAILY LATRICE Administration Vitamin E 360 mg 12/28/20 09:00 01/02/21 08:47 Vitamin E (Dl,Tocopheryl Acet) 180 Mg (400 Unit) Capsule PO 360 mg DAILY LATRICE Administration Allergies Allergies Allergy/AdvReac Type Severity Reaction Status Date / Time memantine [MEMANTINE] Allergy Severe HIVES Verified 10/14/20 07:25 Iodinated Contrast Media Allergy Unknown UNKNOWN Verified 10/14/20 07:25 [IV CONTRAST] lactose Allergy Unknown DIARRHEA Verified 10/14/20 07:25 sulfamethoxazole Allergy Unknown UNKNOWN Verified 10/14/20 07:25 [From BACTRIM] trimethoprim [From BACTRIM] Allergy Unknown UNKNOWN Verified 10/14/20 07:25 Assessment & Plan Assessment & Plan (1) Dementia: Qualifiers: Dementia behavioral disturbance: with behavioral disturbance Dementia type: unspecified type Qualified Code(s): F03.91 - Unspecified dementia with behavioral disturbance Status: Acute Code(s): F03.90 - Unspecified dementia without behavioral disturbance Assessment and Plan: Plan: 1. Change Zyprexa to 2.5 mg po at 1500. 2. Start Depakote 125 mg po tid. 3. D/C Lamictal. 4. 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 Anemia studies . Greater than 50% of the session was spent on counseling and/or coordination of care Reason for contiued inpatient stay Substantial Risk for: harm to self, inability to function, rapid decompensation and med/psych decompensation
[2021-01-02] MEDS: OLANZapine 2.5 MG TABLET PO (17:00)
[2021-01-02 18:00] VITALS: BP 131/81; PULSE 96; RESP 16; TEMP 36.1; O2SAT 97
[2021-01-02] MEDS: Acetaminophen 325 MG TABLET 650 MG PO (22:27)
[2021-01-03 06:00] VITALS: BP 130/62; PULSE 87; RESP 14; TEMP 36.4; O2SAT 94
--- NOTE | 2021-01-03 10:16 | HO.PSYCHPN ---
Subjective Subjective Date of Service: 01/03/21 Reason For Visit: F43.25 F02.81 Interim History: Thel patient has resolved her psychotic symptoms. No changes on her cognition. Review of Systems Acute medical concerns: No Medical Review of Systems: unchanged Mental Status Exam Mental Status Exam Patient Appearance: Well Grooomed Patient Orientation: Person and Place Level of Consciousness: Awake Patient Behavior: Appropriate and Confused Mood Description: Calm Affect Description: Constricted Patient Cognition Impaired: Yes Ability to Follow Directions: Good Speech Pattern: Clear Memory Description: Remote Impaired, Immediate Impaired and Penitentiary Impaired Delusions: Not Present Thought Process: Slowed Thinking Thought Content: positive for Poverty of Content Judgement: Fair Diagnostics Vital Signs (24Hr): Vital Signs - 24 hr 01/02/21 18:00 01/03/21 06:00 Temperature 97.0 F 97.6 F Pulse Rate 96 87 Respiratory Rate 16 14 Blood Pressure 131/81 130/62 Pulse Oximetry 97 94 Body Mass Index 17.3 Labs Results: 12/28/20 06:29 12/28/20 06:29 Medications Medications Current Medications Generic Name Dose Route Start Last Admin Trade Name Freq PRN Reason Stop Dose Admin Acetaminophen 650 mg 12/27/20 14:14 01/02/21 22:27 Acetaminophen 325 Mg Tablet PO 650 mg Q6H PRN Administration Headache/Pain Mild Scale (1-3) Al Hydroxide/Mg Hydroxide 30 ml 12/27/20 14:14 12/28/20 13:10 Magnesium Hydrox/Alum Hydrox 30 Ml Oral.Susp PO 30 ml Q6H PRN Administration Heartburn/Nausea Aspirin 81 mg 12/28/20 09:00 01/02/21 08:47 Aspirin 81 Mg Tab.Chew PO 81 mg DAILY [facility] Administration Divalproex Sodium 125 mg 12/30/20 15:00 01/02/21 20:07 Divalproex Sodium Sprinkles 125 Mg Cap.Dr.Spr PO 125 mg TID [facility] Administration Docusate Sodium 100 mg 12/27/20 21:00 01/02/21 20:07 Docusate Sodium 100 Mg Capsule PO 100 mg BID [facility] Administration Magnesium Hydroxide 30 ml 12/27/20 14:14 12/28/20 10:30 Milk Of Magnesia 30 Ml Oral.Susp PO 30 ml DAILY PRN Administration Constipation Olanzapine 2.5 mg 12/30/20 17:00 01/02/21 17:00 Olanzapine 2.5 Mg Tablet PO 2.5 mg DAILY@1700 [facility] Administration Polyethylene Glycol 17 gm 12/28/20 09:00 01/02/21 08:50 Polyethylene Glycol 3350 17 Gm Powd.Pack PO 17 gm DAILY [facility] Administration Trazodone HCl 50 mg 12/27/20 14:14 12/31/20 01:53 Trazodone Hcl 50 Mg Tablet PO 50 mg BEDTIME PRN Administration Insomnia Trazodone HCl 25 mg 01/01/21 14:00 01/02/21 08:46 Trazodone Hcl 25 Mg Halftab PO 25 mg DAILY [facility] Administration Vitamin D 25 mcg 12/28/20 09:00 01/02/21 08:47 Cholecalciferol (Vitamin D3) 25 Mcg Tablet PO 25 mcg DAILY [facility] Administration Vitamin E 360 mg 12/28/20 09:00 01/02/21 08:47 Vitamin E (Dl,Tocopheryl Acet) 180 Mg (400 Unit) Capsule PO 360 mg DAILY [facility] Administration Allergies Allergies Allergy/AdvReac Type Severity Reaction Status Date / Time memantine [MEMANTINE] Allergy Severe HIVES Verified 10/14/20 07:25 Iodinated Contrast Media Allergy Unknown UNKNOWN Verified 10/14/20 07:25 [IV CONTRAST] lactose Allergy Unknown DIARRHEA Verified 10/14/20 07:25 sulfamethoxazole Allergy Unknown UNKNOWN Verified 10/14/20 07:25 [From BACTRIM] trimethoprim [From BACTRIM] Allergy Unknown UNKNOWN Verified 10/14/20 07:25 Assessment & Plan Assessment & Plan (1) Dementia: Qualifiers: Dementia behavioral disturbance: with behavioral disturbance Dementia type: unspecified type Qualified Code(s): F03.91 - Unspecified dementia with behavioral disturbance Status: Acute Code(s): F03.90 - Unspecified dementia without behavioral disturbance Assessment and Plan: Plan: 1. Change Zyprexa to 2.5 mg po at 1500. 2. Start Depakote 125 mg po tid. 3. D/C Lamictal. 4. 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 Anemia studies . Greater than 50% of the session was spent on counseling and/or coordination of care Reason for contiued inpatient stay Substantial Risk for: inability to function, rapid decompensation and med/psych decompensation
[2021-01-03] MEDS: Docusate Sodium 100 MG CAPSULE PO ×2 (11:49→21:30)
[2021-01-03] MEDS: Cholecalciferol (Vitamin D3) 25 MCG TABLET PO (11:49)
[2021-01-03] MEDS: traZODone HCL 25 MG HALFTAB PO (11:49)
[2021-01-03] MEDS: Divalproex Sodium Sprinkles 125 MG CAP.DR.SPR PO ×2 (11:49→21:31)
[2021-01-03] MEDS: Aspirin 81 MG TAB.CHEW PO (11:49)
[2021-01-03] MEDS: Acetaminophen 325 MG TABLET 650 MG PO ×2 (11:51→21:46)
[2021-01-03] MEDS: Vitamin E (Dl,Tocopheryl Acet) 180 MG (400 UNIT) CAPSULE 360 MG PO (11:51)
--- NOTE | 2021-01-03 16:08 | MHC.CLN ---
NUTRITION NO REPORTED CONCERNS WITH CURRENT DIET. CONTINUE REGULAR DIET WITH ENSURE 240 ML .2 X DAILY, TO PROVIDE ADDITIONAL 700 KCAL, 40 G PROTEIN.
[2021-01-03 18:00] VITALS: BP 130/68; PULSE 88; TEMP 36.7; O2SAT 97
[2021-01-03] MEDS: OLANZapine 2.5 MG TABLET PO (18:19)
[2021-01-04 06:00] VITALS: BP 136/71; PULSE 96; RESP 14; TEMP 36.8; O2SAT 96
[2021-01-04] MEDS: Milk of Magnesia 30 ML ORAL.SUSP PO ×2 (06:58→08:47)
[2021-01-04] MEDS: Acetaminophen 325 MG TABLET 650 MG PO ×2 (06:58→16:22)
[2021-01-04] MEDS: traZODone HCL 25 MG HALFTAB PO (08:44)
[2021-01-04] MEDS: Vitamin E (Dl,Tocopheryl Acet) 180 MG (400 UNIT) CAPSULE 360 MG PO (08:44)
[2021-01-04] MEDS: Aspirin 81 MG TAB.CHEW PO (08:45)
[2021-01-04] MEDS: Docusate Sodium 100 MG CAPSULE PO ×2 (08:46→21:11)
[2021-01-04] MEDS: Cholecalciferol (Vitamin D3) 25 MCG TABLET PO (08:46)
[2021-01-04] MEDS: polyethylene glycoL 3350 17 GM POWD.PACK PO (08:46)
[2021-01-04] MEDS: Divalproex Sodium Sprinkles 125 MG CAP.DR.SPR PO ×3 (08:46→21:11)
--- NOTE | 2021-01-04 10:57 | PM.GPSY.PN ---
Subjective/Objective Subjective Current Medications: Active Medications Generic Name Dose Route Start Last Admin Trade Name Freq PRN Reason Stop Dose Admin Acetaminophen 650 mg 12/27/20 14:14 01/04/21 06:58 Acetaminophen 325 Mg Tablet PO 650 mg Q6H PRN Administration Headache/Pain Mild Scale (1-3) Al Hydroxide/Mg Hydroxide 30 ml 12/27/20 14:14 12/28/20 13:10 Magnesium Hydrox/Alum Hydrox 30 Ml Oral.Susp PO 30 ml Q6H PRN Administration Heartburn/Nausea Aspirin 81 mg 12/28/20 09:00 01/04/21 08:45 Aspirin 81 Mg Tab.Chew PO 81 mg DAILY [facility] Administration Divalproex Sodium 125 mg 12/30/20 15:00 01/04/21 08:46 Divalproex Sodium Sprinkles 125 Mg Cap.Dr.Spr PO 125 mg TID [facility] Administration Docusate Sodium 100 mg 12/27/20 21:00 01/04/21 08:46 Docusate Sodium 100 Mg Capsule PO 100 mg BID [facility] Administration Magnesium Hydroxide 30 ml 12/27/20 14:14 01/04/21 08:47 Milk Of Magnesia 30 Ml Oral.Susp PO 30 ml DAILY PRN Administration Constipation Olanzapine 2.5 mg 12/30/20 17:00 01/03/21 18:19 Olanzapine 2.5 Mg Tablet PO 2.5 mg DAILY@1700 [facility] Administration Polyethylene Glycol 17 gm 12/28/20 09:00 01/04/21 08:46 Polyethylene Glycol 3350 17 Gm Powd.Pack PO 17 gm DAILY [facility] Administration Trazodone HCl 50 mg 12/27/20 14:14 12/31/20 01:53 Trazodone Hcl 50 Mg Tablet PO 50 mg BEDTIME PRN Administration Insomnia Trazodone HCl 25 mg 01/01/21 14:00 01/04/21 08:44 Trazodone Hcl 25 Mg Halftab PO 25 mg DAILY [facility] Administration Trazodone HCl 25 mg 01/03/21 10:25 Trazodone Hcl 25 Mg Halftab PO BID PRN Anxiety Vitamin D 25 mcg 12/28/20 09:00 01/04/21 08:46 Cholecalciferol (Vitamin D3) 25 Mcg Tablet PO 25 mcg DAILY [facility] Administration Vitamin E 360 mg 12/28/20 09:00 01/04/21 08:44 Vitamin E (Dl,Tocopheryl Acet) 180 Mg (400 Unit) Capsule PO 360 mg DAILY [facility] Administration Data Labs CBC & Chem 7: 12/28/20 06:29 12/28/20 06:29
--- NOTE | 2021-01-04 13:55 | PC.NURSE ---
Patient remains oriented only to self. She was complaining of stomach pain this morning after having had a large softly formed BM. Bowel sounds were positive throughout. Order was put in for KUB. Results showed gas and some stool in colon. Once she was up and walking she had lunch and participated in group. She remains very pleasantly confused.
[2021-01-04] MEDS: OLANZapine 2.5 MG TABLET PO (16:24)
[2021-01-04 18:21] VITALS: BP 140/95; PULSE 91; RESP 16; TEMP 36.8; O2SAT 98
--- NOTE | 2021-01-04 20:25 | P.PNPSI_ITS ---
Subjective Subjective Date of Service: 01/04/21 Reason For Visit: F43.25 F02.81 Subjective Notes: Conditional Voluntary Healthcare Proxy: Yes Guardianship: No Medical Problems Affecting Mental Status: Yes (dementia) Interim History: Patient with recurrent utis which worsen dementia/confusion also complicated by significant constipation and scoliosis causing back pain Medication Compliance: Yes Side effects from medications: Yes (constipation) Attending Groups: No Review of Systems Acute medical concerns: Yes had her have KUB due to back pain, showed ongoing mild constipation and curvature of spine, no obstruction - not sure she is taking full dose of her miralax daily (noted to not get it 01/03) Review of Systems Review of Systems as described above Mental Status Exam Mental Status Exam Narrative: curled up on side in bed- ok, eye contact, moaning answered questions allowed me to palpate gently her abdomen Patient Appearance: Fatigued Patient Orientation: Person Level of Consciousness: Awake Patient Behavior: Dependent Mood Description: Depressed and Anxious Affect Description: Anxious Patient Cognition Impaired: Yes Ability to Follow Directions: Poor Speech Pattern: Clear Memory Description: Immediate Impaired and Normal for Patient Hallucinations: None Delusions: Not Present Thought Process: Confusion Thought Content: positive for [place] Depressive Symptoms: Diff. Making Decisions, Muscle Tension, Increased Irritability, Crying Spells and Sleeping More Than Usual Abnormal Motor Activity Signs and Symptoms: Psychomotor Retardation Judgement: Poor Diagnostics Vital Signs (24Hr): Vital Signs - 24 hr 01/04/21 06:00 01/04/21 18:21 Temperature 98.2 F 98.3 F Pulse Rate 96 91 Respiratory Rate 14 16 Blood Pressure 136/71 140/95 H Pulse Oximetry 96 98 Body Mass Index 17.3 Labs Results: 12/28/20 06:29 12/28/20 06:29 Imaging Radiology Impressions: ITS Impressions KUB X-Ray 01/04/21 11:46 IMPRESSION: Unremarkable KUB. Medications Medications Current Medications Generic Name Dose Route Start Last Admin Trade Name Freq PRN Reason Stop Dose Admin Acetaminophen 650 mg 12/27/20 14:14 01/04/21 16:22 Acetaminophen 325 Mg Tablet PO 650 mg Q6H PRN Administration Headache/Pain Mild Scale (1-3) Al Hydroxide/Mg Hydroxide 30 ml 12/27/20 14:14 12/28/20 13:10 Magnesium Hydrox/Alum Hydrox 30 Ml Oral.Susp PO 30 ml Q6H PRN Administration Heartburn/Nausea Aspirin 81 mg 12/28/20 09:00 01/04/21 08:45 Aspirin 81 Mg Tab.Chew PO 81 mg DAILY [facility] Administration Divalproex Sodium 125 mg 12/30/20 15:00 01/04/21 16:24 Divalproex Sodium Sprinkles 125 Mg CapSpr PO 125 mg TID [facility] Administration Docusate Sodium 100 mg 12/27/20 21:00 01/04/21 08:46 Docusate Sodium 100 Mg Capsule PO 100 mg BID [facility] Administration Magnesium Hydroxide 30 ml 01/05/21 09:00 Milk Of Magnesia 30 Ml Oral.Susp PO DAILY [facility] Olanzapine 2.5 mg 12/30/20 17:00 01/04/21 16:24 Olanzapine 2.5 Mg Tablet PO 2.5 mg DAILY@1700 [facility] Administration Polyethylene Glycol 17 gm 12/28/20 09:00 01/04/21 08:46 Polyethylene Glycol 3350 17 Gm Powd.Pack PO 17 gm DAILY [facility] Administration Trazodone HCl 50 mg 12/27/20 14:14 12/31/20 01:53 Trazodone Hcl 50 Mg Tablet PO 50 mg BEDTIME PRN Administration Insomnia Trazodone HCl 25 mg 01/01/21 14:00 01/04/21 08:44 Trazodone Hcl 25 Mg Halftab PO 25 mg DAILY [facility] Administration Trazodone HCl 25 mg 01/03/21 10:25 Trazodone Hcl 25 Mg Halftab PO BID PRN Anxiety Vitamin D 25 mcg 12/28/20 09:00 01/04/21 08:46 Cholecalciferol (Vitamin D3) 25 Mcg Tablet PO 25 mcg DAILY [facility] Administration Vitamin E 360 mg 12/28/20 09:00 01/04/21 08:44 Vitamin E (Dl,Tocopheryl Acet) 180 Mg (400 Unit) Capsule PO 360 mg DAILY [facility] Administration Allergies Allergies Allergy/AdvReac Type Severity Reaction Status Date / Time memantine [MEMANTINE] Allergy Severe HIVES Verified 10/14/20 07:25 Iodinated Contrast Media Allergy Unknown UNKNOWN Verified 10/14/20 07:25 [IV CONTRAST] lactose Allergy Unknown DIARRHEA Verified 10/14/20 07:25 sulfamethoxazole Allergy Unknown UNKNOWN Verified 10/14/20 07:25 [From BACTRIM] trimethoprim [From BACTRIM] Allergy Unknown UNKNOWN Verified 10/14/20 07:25 Assessment & Plan Assessment & Plan (1) Dementia: Qualifiers: Dementia behavioral disturbance: with behavioral disturbance Dementia type: unspecified type Qualified Code(s): F03.91 - Unspecified dementia with behavioral disturbance Status: Acute Code(s): F03.90 - Unspecified dementia without behavioral disturbance Assessment and Plan: nursing concerned pt less agitated in pm but more sedated dealing with some complaint of back pain- got MOM and had some bm which temporarily relieved pain LLQ mildly sensitive to palpation olanzapine was given at 1700 not 1500, no 12.5mg trazodone given as it was prn (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 valproic acid level ammonia level ok . Greater than 50% of the session was spent on counseling and/or coordination of care Reason for contiued inpatient stay Substantial Risk for: inability to function and med/psych decompensation
[2021-01-05 06:00] VITALS: BP 107/58; PULSE 99; RESP 16; TEMP 36.8; O2SAT 94
[2021-01-05] MEDS: Acetaminophen 325 MG TABLET 650 MG PO (08:58)
[2021-01-05] MEDS: traZODone HCL 25 MG HALFTAB PO (08:59)
[2021-01-05] MEDS: Docusate Sodium 100 MG CAPSULE PO ×2 (08:59→20:06)
[2021-01-05] MEDS: Vitamin E (Dl,Tocopheryl Acet) 180 MG (400 UNIT) CAPSULE 360 MG PO (08:59)
[2021-01-05] MEDS: Aspirin 81 MG TAB.CHEW PO (08:59)
[2021-01-05] MEDS: Cholecalciferol (Vitamin D3) 25 MCG TABLET PO (09:00)
[2021-01-05] MEDS: Milk of Magnesia 30 ML ORAL.SUSP PO (09:00)
[2021-01-05] MEDS: polyethylene glycoL 3350 17 GM POWD.PACK PO (09:00)
[2021-01-05] MEDS: Divalproex Sodium Sprinkles 125 MG CAP.DR.SPR PO ×3 (09:21→20:06)
--- NOTE | 2021-01-05 11:09 | HO.PSYCHPN ---
Subjective Subjective Date of Service: 01/05/21 Reason For Visit: F43.25 F02.81 Subjective Notes: Conditional Voluntary Healthcare Proxy: Yes Guardianship: No Medical Problems Affecting Mental Status: Yes (recurrent utis, dementia) Interim History: Patient up this am and dressed, waiting for lunch drinking her cheryl morelia with miralax Medication Compliance: Yes Side effects from medications: No Attending Groups: Intermittent Review of Systems Review of Systems denies back pain today says she was unaware of hx of scoliosis, thinks she doesn't get chronic pain from back Mental Status Exam Mental Status Exam Narrative: Dressed, groomed, looking brighter can't say where she is but says if she could be somewhere wishes it was the [place] Patient Appearance: Well Grooomed Patient Orientation: Person Level of Consciousness: Awake Patient Behavior: Appropriate and Dependent Mood Description: Calm Affect Description: Calm Patient Cognition Impaired: Yes Ability to Follow Directions: Fair Speech Pattern: Clear and Impoverished Memory Description: Immediate Impaired and Normal for Patient Hallucinations: None Thought Process: Disoriented Thought Content: positive for [place] and positive for Poverty of Content Judgement: Poor Diagnostics Vital Signs (24Hr): Vital Signs - 24 hr 01/04/21 18:21 01/05/21 06:00 Temperature 98.3 F 98.2 F Pulse Rate 91 99 Respiratory Rate 16 16 Blood Pressure 140/95 H 107/58 L Pulse Oximetry 98 94 Body Mass Index 17.3 Labs Results: 12/28/20 06:29 12/28/20 06:29 Imaging Radiology Impressions: ITS Impressions KUB X-Ray 01/04/21 11:46 IMPRESSION: Unremarkable KUB. Medications Medications Current Medications Generic Name Dose Route Start Last Admin Trade Name Freq PRN Reason Stop Dose Admin Acetaminophen 650 mg 12/27/20 14:14 01/05/21 08:58 Acetaminophen 325 Mg Tablet PO 650 mg Q6H PRN Administration Headache/Pain Mild Scale (1-3) Al Hydroxide/Mg Hydroxide 30 ml 12/27/20 14:14 12/28/20 13:10 Magnesium Hydrox/Alum Hydrox 30 Ml Oral.Susp PO 30 ml Q6H PRN Administration Heartburn/Nausea Aspirin 81 mg 12/28/20 09:00 01/05/21 08:59 Aspirin 81 Mg Tab.Chew PO 81 mg DAILY [facility] Administration Divalproex Sodium 125 mg 12/30/20 15:00 07/18/21 09:21 Divalproex Sodium Sprinkles 125 Mg Spr PO 125 mg TID [facility] Administration Docusate Sodium 100 mg 12/27/20 21:00 01/05/21 08:59 Docusate Sodium 100 Mg Capsule PO 100 mg BID [facility] Administration Magnesium Hydroxide 30 ml 01/05/21 09:00 01/05/21 09:00 Milk Of Magnesia 30 Ml Oral.Susp PO 30 ml DAILY [facility] Administration Olanzapine 2.5 mg 12/30/20 17:00 01/04/21 16:24 Olanzapine 2.5 Mg Tablet PO 2.5 mg DAILY@1700 [facility] Administration Polyethylene Glycol 17 gm 12/28/20 09:00 01/05/21 09:00 Polyethylene Glycol 3350 17 Gm Powd.Pack PO 17 gm DAILY [facility] Administration Trazodone HCl 50 mg 12/27/20 14:14 12/31/20 01:53 Trazodone Hcl 50 Mg Tablet PO 50 mg BEDTIME PRN Administration Insomnia Trazodone HCl 25 mg 01/01/21 14:00 01/05/21 08:59 Trazodone Hcl 25 Mg Halftab PO 25 mg DAILY [facility] Administration Trazodone HCl 25 mg 01/03/21 10:25 Trazodone Hcl 25 Mg Halftab PO BID PRN Anxiety Vitamin D 25 mcg 12/28/20 09:00 01/05/21 09:00 Cholecalciferol (Vitamin D3) 25 Mcg Tablet PO 25 mcg DAILY [facility] Administration Vitamin E 360 mg 12/28/20 09:00 01/05/21 08:59 Vitamin E (Dl,Tocopheryl Acet) 180 Mg (400 Unit) Capsule PO 360 mg DAILY [facility] Administration Allergies Allergies Allergy/AdvReac Type Severity Reaction Status Date / Time memantine [MEMANTINE] Allergy Severe HIVES Verified 10/14/20 07:25 Iodinated Contrast Media Allergy Unknown UNKNOWN Verified 10/14/20 07:25 [IV CONTRAST] lactose Allergy Unknown DIARRHEA Verified 10/14/20 07:25 sulfamethoxazole Allergy Unknown UNKNOWN Verified 10/14/20 07:25 [From BACTRIM] trimethoprim [From BACTRIM] Allergy Unknown UNKNOWN Verified 10/14/20 07:25 Assessment & Plan Assessment & Plan (1) Dementia: Qualifiers: Dementia behavioral disturbance: with behavioral disturbance Dementia type: unspecified type Qualified Code(s): F03.91 - Unspecified dementia with behavioral disturbance Status: Acute Code(s): F03.90 - Unspecified dementia without behavioral disturbance Assessment and Plan: clearly no further back pain, had bm, and further on in treatment from uti will change olanzapine to 3pm as per dr CARTER intent and lower trazodone to 12.5mg prn so less sedated (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 depakote anemia mild- and no abn iron issues on lab order depakote lvl . Greater than 50% of the session was spent on counseling and/or coordination of care Reason for contiued inpatient stay Substantial Risk for: inability to function, rapid decompensation and med/psych decompensation
[2021-01-05] MEDS: OLANZapine 2.5 MG TABLET PO (15:15)
[2021-01-05 18:00] VITALS: BP 118/60; PULSE 88; RESP 16; TEMP 36.4; O2SAT 95
[2021-01-06 08:01] LABS: Valproate 42.8 mcg/mL (50.0-100.0)
[2021-01-06] MEDS: Vitamin E (Dl,Tocopheryl Acet) 180 MG (400 UNIT) CAPSULE 360 MG PO (08:17)
[2021-01-06] MEDS: Aspirin 81 MG TAB.CHEW PO (08:17)
[2021-01-06] MEDS: Docusate Sodium 100 MG CAPSULE PO ×2 (08:17→19:43)
[2021-01-06] MEDS: polyethylene glycoL 3350 17 GM POWD.PACK PO (08:18)
[2021-01-06] MEDS: Divalproex Sodium Sprinkles 125 MG CAP.DR.SPR PO ×2 (08:18→19:43)
[2021-01-06] MEDS: Cholecalciferol (Vitamin D3) 25 MCG TABLET PO (08:18)
[2021-01-06] MEDS: Milk of Magnesia 30 ML ORAL.SUSP PO (08:18)
[2021-01-06] MEDS: traZODone HCL 25 MG HALFTAB PO (08:18)
--- NOTE | 2021-01-06 09:29 | HO.PSYCHPN ---
Subjective Subjective Date of Service: 01/06/21 Reason For Visit: F43.25 F02.81 Subjective Notes: Conditional Voluntary Interim History: The patient was unable to remember me during the assessment of today. Staff has reported no psychotic symptoms. Pleasant on interview but slightly anxious Review of Systems Acute medical concerns: Yes Medical Review of Systems: unchanged Mental Status Exam Mental Status Exam Patient Appearance: Well Grooomed Patient Orientation: Person Level of Consciousness: Awake and Disoriented Patient Behavior: Cooperative and Timid Mood Description: Calm Affect Description: Constricted Patient Cognition Impaired: Yes Ability to Follow Directions: Good Speech Pattern: Clear Memory Description: Intact Hallucinations: None Delusions: Not Present Thought Process: Slowed Thinking Thought Content: positive for [place] and positive for Poverty of Content Judgement: Poor Diagnostics Vital Signs (24Hr): Vital Signs - 24 hr 01/05/21 18:00 Temperature 97.6 F Pulse Rate 88 Respiratory Rate 16 Blood Pressure 118/60 Pulse Oximetry 95 Body Mass Index 17.3 Labs Results: 12/28/20 06:29 12/28/20 06:29 Labs: Laboratory Results - last 48 hr 01/06/21 07:08 Valproic Acid 42.8 L Imaging Radiology Impressions: ITS Impressions KUB X-Ray 01/04/21 11:46 IMPRESSION: Unremarkable KUB. Medications Medications Current Medications Generic Name Dose Route Start Last Admin Trade Name Freq PRN Reason Stop Dose Admin Acetaminophen 650 mg 12/27/20 14:14 01/05/21 08:58 Acetaminophen 325 Mg Tablet PO 650 mg Q6H PRN Administration Headache/Pain Mild Scale (1-3) Al Hydroxide/Mg Hydroxide 30 ml 12/27/20 14:14 12/28/20 13:10 Magnesium Hydrox/Alum Hydrox 30 Ml Oral.Susp PO 30 ml Q6H PRN Administration Heartburn/Nausea Aspirin 81 mg 12/28/20 09:00 01/06/21 08:17 Aspirin 81 Mg Tab.Chew PO 81 mg DAILY [facility] Administration Divalproex Sodium 125 mg 12/30/20 15:00 01/06/21 08:18 Divalproex Sodium Sprinkles 125 Mg Cap.Spr PO 125 mg TID [facility] Administration Docusate Sodium 100 mg 12/27/20 21:00 01/06/21 08:17 Docusate Sodium 100 Mg Capsule PO 100 mg BID [facility] Administration Magnesium Hydroxide 30 ml 01/05/21 09:00 01/06/21 08:18 Milk Of Magnesia 30 Ml Oral.Susp PO 30 ml DAILY [facility] Administration Olanzapine 2.5 mg 01/05/21 15:00 01/05/21 15:15 Olanzapine 2.5 Mg Tablet PO 2.5 mg DAILY@1500 [facility] Administration Polyethylene Glycol 17 gm 12/28/20 09:00 01/06/21 08:18 Polyethylene Glycol 3350 17 Gm Powd.Pack PO 17 gm DAILY [facility] Administration Trazodone HCl 50 mg 12/27/20 14:14 12/31/20 01:53 Trazodone Hcl 50 Mg Tablet PO 50 mg BEDTIME PRN Administration Insomnia Trazodone HCl 25 mg 01/01/21 14:00 01/06/21 08:18 Trazodone Hcl 25 Mg Halftab PO 25 mg DAILY [facility] Administration Trazodone HCl 12.5 mg 01/05/21 14:50 Trazodone Hcl 25 Mg Halftab PO BID PRN Anxiety Vitamin D 25 mcg 12/28/20 09:00 01/06/21 08:18 Cholecalciferol (Vitamin D3) 25 Mcg Tablet PO 25 mcg DAILY [facility] Administration Vitamin E 360 mg 12/28/20 09:00 01/06/21 08:17 Vitamin E (Dl,Tocopheryl Acet) 180 Mg (400 Unit) Capsule PO 360 mg DAILY [facility] Administration Allergies Allergies Allergy/AdvReac Type Severity Reaction Status Date / Time memantine [MEMANTINE] Allergy Severe HIVES Verified 10/14/20 07:25 Iodinated Contrast Media Allergy Unknown UNKNOWN Verified 10/14/20 07:25 [IV CONTRAST] lactose Allergy Unknown DIARRHEA Verified 10/14/20 07:25 sulfamethoxazole Allergy Unknown UNKNOWN Verified 10/14/20 07:25 [From BACTRIM] trimethoprim [From BACTRIM] Allergy Unknown UNKNOWN Verified 10/14/20 07:25 Assessment & Plan Assessment & Plan (1) Dementia: Qualifiers: Dementia behavioral disturbance: with behavioral disturbance Dementia type: unspecified type Qualified Code(s): F03.91 - Unspecified dementia with behavioral disturbance Status: Acute Code(s): F03.90 - Unspecified dementia without behavioral disturbance Assessment and Plan: clearly no further back pain, had bm, and further on in treatment from uti will change olanzapine to 3pm as per dr CARTER intent and lower trazodone to 12.5mg prn so less sedated (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 depakote anemia mild- and no abn iron issues on lab order depakote lvl, today at 43 . Greater than 50% of the session was spent on counseling and/or coordination of care Reason for contiued inpatient stay Substantial Risk for: inability to function, rapid decompensation and med/psych decompensation
--- NOTE | 2021-01-06 11:01 | MHC.CLN ---
FOLLOW UP PATIENT WITH UNREMARKABLE KUB 01/04. NO REPORTED CONCERNS WITH INTAKE. FOLLOW UP EVERY 7 DAYS.
[2021-01-06 19:40] VITALS: BP 131/60; PULSE 90; RESP 17; TEMP 36.8; O2SAT 99
[2021-01-06] MEDS: Acetaminophen 325 MG TABLET 650 MG PO (19:43)
[2021-01-06] MEDS: traZODone HCL 50 MG TABLET PO (23:53)
[2021-01-07 06:00] VITALS: BP 122/58; PULSE 80; RESP 16; TEMP 36.2; O2SAT 97
[2021-01-07] MEDS: traZODone HCL 25 MG HALFTAB PO (08:24)
[2021-01-07] MEDS: Milk of Magnesia 30 ML ORAL.SUSP PO (08:24)
[2021-01-07] MEDS: Vitamin E (Dl,Tocopheryl Acet) 180 MG (400 UNIT) CAPSULE 360 MG PO (08:24)
[2021-01-07] MEDS: Cholecalciferol (Vitamin D3) 25 MCG TABLET PO (08:24)
[2021-01-07] MEDS: Docusate Sodium 100 MG CAPSULE PO ×2 (08:25→20:03)
[2021-01-07] MEDS: polyethylene glycoL 3350 17 GM POWD.PACK PO (08:25)
[2021-01-07] MEDS: Acetaminophen 325 MG TABLET 650 MG PO (08:26)
[2021-01-07] MEDS: Aspirin 81 MG TAB.CHEW PO (08:29)
[2021-01-07] MEDS: Divalproex Sodium Sprinkles 125 MG CAP.DR.SPR PO ×3 (08:29→20:03)
--- NOTE | 2021-01-07 11:55 | HO.PSYCHPN ---
Subjective Subjective Date of Service: 01/07/21 Reason For Visit: F43.25 F02.81 Interim History: The patient denies psychotic symptoms, pleasantly confused, less episodes of sundowning with the change of medications. Mental Status Exam Mental Status Exam Patient Appearance: Well Grooomed Patient Orientation: Person Level of Consciousness: Awake and Disoriented Patient Behavior: Appropriate Mood Description: Appropriate Affect Description: Calm and Constricted Patient Cognition Impaired: Yes Ability to Follow Directions: Good Speech Pattern: Clear Hallucinations: None Delusions: Not Present Thought Process: Distracted Thought Content: positive for Circumstantial Judgement: Fair Diagnostics Vital Signs (24Hr): Vital Signs - 24 hr 01/06/21 19:40 01/07/21 06:00 Temperature 98.2 F 97.2 F Pulse Rate 90 80 Respiratory Rate 17 16 Blood Pressure 131/60 122/58 L Pulse Oximetry 99 97 Body Mass Index 17.3 Labs Results: 12/28/20 06:29 12/28/20 06:29 Labs: Laboratory Results - last 48 hr 01/06/21 07:08 Valproic Acid 42.8 L Imaging Radiology Impressions: ITS Impressions KUB X-Ray 01/04/21 11:46 IMPRESSION: Unremarkable KUB. Medications Medications Current Medications Generic Name Dose Route Start Last Admin Trade Name Freq PRN Reason Stop Dose Admin Acetaminophen 650 mg 12/27/20 14:14 01/07/21 08:26 Acetaminophen 325 Mg Tablet PO 650 mg Q6H PRN Administration Headache/Pain Mild Scale (1-3) Al Hydroxide/Mg Hydroxide 30 ml 12/27/20 14:14 12/28/20 13:10 Magnesium Hydrox/Alum Hydrox 30 Ml Oral.Susp PO 30 ml Q6H PRN Administration Heartburn/Nausea Aspirin 81 mg 12/28/20 09:00 01/07/21 08:29 Aspirin 81 Mg Tab.Chew PO 81 mg DAILY LATRICE Administration Divalproex Sodium 125 mg 12/30/20 15:00 01/07/21 08:29 Divalproex Sodium Sprinkles 125 Mg Cap.Dr.Spr PO 125 mg TID LATRICE Administration Docusate Sodium 100 mg 12/27/20 21:00 01/07/21 08:25 Docusate Sodium 100 Mg Capsule PO 100 mg BID LATRICE Administration Magnesium Hydroxide 30 ml 01/05/21 09:00 01/07/21 08:24 Milk Of Magnesia 30 Ml Oral.Susp PO 30 ml DAILY LATRICE Administration Olanzapine 2.5 mg 01/05/21 15:00 01/06/21 16:19 Olanzapine 2.5 Mg Tablet PO Not Given DAILY@1500 LATRICE Polyethylene Glycol 17 gm 12/28/20 09:00 01/07/21 08:25 Polyethylene Glycol 3350 17 Gm Powd.Pack PO 17 gm DAILY LATRICE Administration Trazodone HCl 50 mg 12/27/20 14:14 01/06/21 23:53 Trazodone Hcl 50 Mg Tablet PO 50 mg BEDTIME PRN Administration Insomnia Trazodone HCl 25 mg 01/01/21 14:00 01/07/21 08:24 Trazodone Hcl 25 Mg Halftab PO 25 mg DAILY LATRICE Administration Trazodone HCl 12.5 mg 01/05/21 14:50 Trazodone Hcl 25 Mg Halftab PO BID PRN Anxiety Vitamin D 25 mcg 12/28/20 09:00 01/07/21 08:24 Cholecalciferol (Vitamin D3) 25 Mcg Tablet PO 25 mcg DAILY LATRICE Administration Vitamin E 360 mg 12/28/20 09:00 01/07/21 08:24 Vitamin E (Dl,Tocopheryl Acet) 180 Mg (400 Unit) Capsule PO 360 mg DAILY LATRICE Administration Allergies Allergies Allergy/AdvReac Type Severity Reaction Status Date / Time memantine [MEMANTINE] Allergy Severe HIVES Verified 10/14/20 07:25 Iodinated Contrast Media Allergy Unknown UNKNOWN Verified 10/14/20 07:25 [IV CONTRAST] lactose Allergy Unknown DIARRHEA Verified 10/14/20 07:25 sulfamethoxazole Allergy Unknown UNKNOWN Verified 10/14/20 07:25 [From BACTRIM] trimethoprim [From BACTRIM] Allergy Unknown UNKNOWN Verified 10/14/20 07:25 Assessment & Plan Assessment & Plan (1) Dementia: Qualifiers: Dementia behavioral disturbance: with behavioral disturbance Dementia type: unspecified type Qualified Code(s): F03.91 - Unspecified dementia with behavioral disturbance Status: Acute Code(s): F03.90 - Unspecified dementia without behavioral disturbance Assessment and Plan: clearly no further back pain, had bm, and further on in treatment from [facility] will change olanzapine to 3pm as per dr EMMA diaz and lower trazodone to 12.5mg prn so less sedated (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 depakote anemia mild- and no abn iron issues on lab order depakote lvl, today at 43 . Greater than 50% of the session was spent on counseling and/or coordination of care Reason for contiued inpatient stay Substantial Risk for: inability to function, rapid decompensation and med/psych decompensation
[2021-01-07] MEDS: OLANZapine 2.5 MG TABLET PO (14:36)
--- NOTE | 2021-01-07 17:05 | PC.NURSE ---
Patient taken off 1:1 today for preparation to return to return to [facility]. Without constant supervision patient is safe however requires frequent redirection. She walks in hallway with walker and will ask , What am I supposed to do now . She is cooperative and compliant. Able to toilet herself. Needs assistance dressing. No agitation this shift. Patient has not napped and is very tired.
[2021-01-07 18:00] VITALS: RESP 12
[2021-01-08 06:00] VITALS: BP 138/64; PULSE 91; RESP 14; TEMP 36.6; O2SAT 98
[2021-01-08] MEDS: Aspirin 81 MG TAB.CHEW PO (08:18)
[2021-01-08] MEDS: Vitamin E (Dl,Tocopheryl Acet) 180 MG (400 UNIT) CAPSULE 360 MG PO (08:18)
[2021-01-08] MEDS: Divalproex Sodium Sprinkles 125 MG CAP.DR.SPR PO ×3 (08:18→21:29)
[2021-01-08] MEDS: Docusate Sodium 100 MG CAPSULE PO ×2 (08:18→21:29)
[2021-01-08] MEDS: Cholecalciferol (Vitamin D3) 25 MCG TABLET PO (08:19)
[2021-01-08] MEDS: Milk of Magnesia 30 ML ORAL.SUSP PO (08:21)
[2021-01-08] MEDS: traZODone HCL 25 MG HALFTAB PO (11:00)
[2021-01-08] MEDS: polyethylene glycoL 3350 17 GM POWD.PACK PO (11:00)
--- NOTE | 2021-01-08 12:07 | HO.PSYCHPN ---
Subjective Subjective Date of Service: 01/08/21 Reason For Visit: F43.25 F02.81 Interim History: The patient has not showed psychotic symptoms but she is confused and pleasant. Review of Systems Acute medical concerns: No Medical Review of Systems: unchanged Mental Status Exam Mental Status Exam Patient Appearance: Well Grooomed Patient Orientation: Person Level of Consciousness: Awake Patient Behavior: Appropriate Mood Description: Calm Affect Description: Calm Patient Cognition Impaired: Yes Ability to Follow Directions: Good Speech Pattern: Clear Memory Description: Intact Hallucinations: None Delusions: Not Present Thought Process: Disoriented Thought Content: positive for Circumstantial Judgement: Fair Diagnostics Vital Signs (24Hr): Vital Signs - 24 hr 01/07/21 18:00 01/08/21 06:00 Temperature 97.8 F Pulse Rate 91 Respiratory Rate 12 14 Blood Pressure 138/64 Pulse Oximetry 98 Body Mass Index 17.3 Labs Results: 12/28/20 06:29 12/28/20 06:29 Imaging Radiology Impressions: ITS Impressions KUB X-Ray 01/04/21 11:46 IMPRESSION: Unremarkable KUB. Medications Medications Current Medications Generic Name Dose Route Start Last Admin Trade Name Freq PRN Reason Stop Dose Admin Aspirin 81 mg 12/28/20 09:00 01/08/21 08:18 Aspirin 81 Mg Tab.Chew PO 81 mg DAILY LATRICE Administration Divalproex Sodium 125 mg 12/30/20 15:00 01/08/21 08:18 Divalproex Sodium Sprinkles 125 Mg Cap.Dr.Spr PO 125 mg TID LATRICE Administration Docusate Sodium 100 mg 12/27/20 21:00 01/08/21 08:18 Docusate Sodium 100 Mg Capsule PO 100 mg BID LATRICE Administration Magnesium Hydroxide 30 ml 01/05/21 09:00 01/08/21 08:21 Milk Of Magnesia 30 Ml Oral.Susp PO 30 ml DAILY LATRICE Administration Olanzapine 2.5 mg 01/05/21 15:00 01/07/21 14:36 Olanzapine 2.5 Mg Tablet PO 2.5 mg DAILY@1500 LATRICE Administration Polyethylene Glycol 17 gm 12/28/20 09:00 01/08/21 11:00 Polyethylene Glycol 3350 17 Gm Powd.Pack PO 17 gm DAILY LATRICE Administration Trazodone HCl 25 mg 01/01/21 14:00 01/08/21 11:00 Trazodone Hcl 25 Mg Halftab PO 25 mg DAILY LATRICE Administration Vitamin D 25 mcg 12/28/20 09:00 01/08/21 08:19 Cholecalciferol (Vitamin D3) 25 Mcg Tablet PO 25 mcg DAILY LATRICE Administration Vitamin E 360 mg 12/28/20 09:00 01/08/21 08:18 Vitamin E (Dl,Tocopheryl Acet) 180 Mg (400 Unit) Capsule PO 360 mg DAILY LATRICE Administration Allergies Allergies Allergy/AdvReac Type Severity Reaction Status Date / Time memantine [MEMANTINE] Allergy Severe HIVES Verified 10/14/20 07:25 Iodinated Contrast Media Allergy Unknown UNKNOWN Verified 10/14/20 07:25 [IV CONTRAST] lactose Allergy Unknown DIARRHEA Verified 10/14/20 07:25 sulfamethoxazole Allergy Unknown UNKNOWN Verified 10/14/20 07:25 [From BACTRIM] trimethoprim [From BACTRIM] Allergy Unknown UNKNOWN Verified 10/14/20 07:25 Assessment & Plan Assessment & Plan (1) Dementia: Qualifiers: Dementia behavioral disturbance: with behavioral disturbance Dementia type: unspecified type Qualified Code(s): F03.91 - Unspecified dementia with behavioral disturbance Status: Acute Code(s): F03.90 - Unspecified dementia without behavioral disturbance Assessment and Plan: clearly no further back pain, had bm, and further on in treatment from [facility] will change olanzapine to 3pm as per dr CARTER intent and lower trazodone to 12.5mg prn so less sedated (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 depakote anemia mild- and no abn iron issues on lab order depakote lvl, today at 43 . Greater than 50% of the session was spent on counseling and/or coordination of care Reason for contiued inpatient stay Substantial Risk for: inability to function and med/psych decompensation
[2021-01-08] MEDS: OLANZapine 2.5 MG TABLET PO (14:55)
[2021-01-08 17:51] VITALS: BP 124/58; PULSE 103; RESP 16; TEMP 35.6; O2SAT 95
[2021-01-09 06:00] VITALS: BP 99/50; PULSE 84; RESP 16; TEMP 36; O2SAT 96
[2021-01-09 07:00] VITALS: BMI 17.2
[2021-01-09] MEDS: Milk of Magnesia 30 ML ORAL.SUSP PO (08:31)
[2021-01-09] MEDS: polyethylene glycoL 3350 17 GM POWD.PACK PO (08:31)
[2021-01-09] MEDS: Divalproex Sodium Sprinkles 125 MG CAP.DR.SPR PO (08:32)
[2021-01-09] MEDS: Aspirin 81 MG TAB.CHEW PO (08:32)
[2021-01-09] MEDS: Vitamin E (Dl,Tocopheryl Acet) 180 MG (400 UNIT) CAPSULE 360 MG PO (08:32)
[2021-01-09] MEDS: traZODone HCL 25 MG HALFTAB PO (08:32)
[2021-01-09] MEDS: Cholecalciferol (Vitamin D3) 25 MCG TABLET PO (09:59)
[2021-01-09] MEDS: Docusate Sodium 100 MG CAPSULE PO (10:00)
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
--- NOTE | 2021-01-09 11:55 | PC.NURSE ---
Patient is alert to self only. She is pleasantly confused, mildly social with staff and peers. Patient reported to morning nurse, I am not happy. Nurse replied, Well you're being discharged. Patient replies, Ok, I am happy now. Patient voices readiness for discharge. Patient is free from behavioral disturbances and notes low levels of anxiety as compared to presentation at admission. Patient is ambulating independently and enjoying meals with Set-Up assistance only. Patient requires assistance with ADLs; dressing, bathing, toileting. Patient is sleeping well through the night. Discharge instructions reviewed with family members. Discharge documentation faxed to providers.
== END 2021-01-09 13:50 | disposition skilled nursing facility (03) | DRG 884 ==
PROVIDERS: Hospitalist; Psychiatry & Neurology Psychiatry; Admitting Provider Psychiatry & Neurology Psychiatry; Visit Provider Psychiatry & Neurology Psychiatry
DX: F03.91 Unspecified dementia, unspecified severity, with behavioral disturbance (principal); N39.0 Urinary tract infection, site not specified; Z87.891 Personal history of nicotine dependence; Z79.82 Long term (current) use of aspirin; Z79.899 Other long term (current) drug therapy
CPT/HCPCS: 36415; 74018; 80048; 80164; 81001; 82140; 82728; 83540; 85025

== ENCOUNTER 2021-01-16 21:38 | Inpatient (IN) | payer MEDICARE, OTHER, SELFPAY ==
--- NOTE | ~2021-01-16 | CT_ITS ---
EXAMINATION CT CHEST, ABDOMEN AND PELVIS WITH CONTRAST CLINICAL INFORMATION: Fall. Shortness breath. Abdominal pain. COMPARISON: CT abdomen/pelvis dated 11/07/2020 TECHNIQUE: Multidetector volumetric CT imaging of the chest, abdomen and pelvis was obtained after the administration of 100 mL of intravenous Omnipaque 300 without immediate adverse reactions. Coronal and sagittal reformats were reviewed. This CT examination was performed using dose optimization techniques as appropriate, variously including the following: *Automated exposure control *Adjustment of mA and/or kV according to patient size (this includes techniques or standardized protocols for targeted exams where dose is matched to indication/reason for exam; i.e. extremities or head) *Use of iterative reconstruction technique DLP: 586 mGy-cm. FINDINGS: CHEST LUNGS/PLEURA: No parenchymal consolidation or pneumothorax. No pneumonitis. Platelike atelectasis, middle lobe and lateral segment left lower lobe. Minimal interstitial edema evidence. There is no pleural effusion. No pleural mass or thickening. MEDIASTINUM/ROION: Cardiomegaly. Great vessels normal caliber. Triple vessel coronary calcifications. No mediastinal or hilar adenopathy. CHEST WALL/AXILLA: Unremarkable. ABDOMEN/PELVIS HEPATOBILIARY: Liver normal in size, contour and morphology. No suspicious lesions. No intra or extrahepatic biliary dilation. Cholecystectomy. PANCREAS: Unremarkable. SPLEEN: Unremarkable. ADRENAL GLANDS: Stable smooth low-density thickening of the bilateral adrenal glands, likely related to hyperplasia. No discrete adrenal nodule or mass. KIDNEYS, URETERS AND BLADDER: There is mild right hydronephrosis, pelviectasis and hydroureter, which extends to the bladder. No urinary calculi or other mechanically obstructive etiology for this finding. Mild right perinephric stranding. Left kidney and ureter unremarkable. GASTROINTESTINAL TRACT: Sigmoid colonic diverticulosis without evidence of diverticulitis. Remainder of the gastrointestinal tract unremarkable. Normal stomach and small bowel. PELVIC VISCERA: Hysterectomy. No adnexal abnormalities. Pelvic floor descent. LYMPH NODES: No lymphadenopathy. PERITONEUM/BODY WALL: Unremarkable. VASCULAR STRUCTURES: Aorta is atherosclerotic. OSSEOUS STRUCTURES No acute or suspicious osseous abnormalities. Bones are demineralized.Chronic inferior endplate compression fracture at T5. Mild S-shaped thoracolumbar scoliosis. CT/CT abdomen pelvis wo con IMPRESSION: * No evidence of acute traumatic injury within the chest, abdomen or pelvis. * Minimal interstitial edema evident within the upper lungs. * Cardiomegaly. * Mild right hydroureteronephrosis, and perinephric stranding. No urinary calculi. Consider recently passed stone. Also consider pyelonephritis. * Sigmoid colonic diverticulosis without evidence of diverticulitis.
--- NOTE | ~2021-01-16 | CT_ITS ---
EXAMINATION CT CHEST, ABDOMEN AND PELVIS WITH CONTRAST CLINICAL INFORMATION: Fall. Shortness breath. Abdominal pain. COMPARISON: CT abdomen/pelvis dated 11/07/2020 TECHNIQUE: Multidetector volumetric CT imaging of the chest, abdomen and pelvis was obtained after the administration of 100 mL of intravenous Omnipaque 300 without immediate adverse reactions. Coronal and sagittal reformats were reviewed. This CT examination was performed using dose optimization techniques as appropriate, variously including the following: *Automated exposure control *Adjustment of mA and/or kV according to patient size (this includes techniques or standardized protocols for targeted exams where dose is matched to indication/reason for exam; i.e. extremities or head) *Use of iterative reconstruction technique DLP: 586 mGy-cm. FINDINGS: CHEST LUNGS/PLEURA: No parenchymal consolidation or pneumothorax. No pneumonitis. Platelike atelectasis, middle lobe and lateral segment left lower lobe. Minimal interstitial edema evidence. There is no pleural effusion. No pleural mass or thickening. MEDIASTINUM/ORION: Cardiomegaly. Great vessels normal caliber. Triple vessel coronary calcifications. No mediastinal or hilar adenopathy. CHEST WALL/AXILLA: Unremarkable. ABDOMEN/PELVIS HEPATOBILIARY: Liver normal in size, contour and morphology. No suspicious lesions. No intra or extrahepatic biliary dilation. Cholecystectomy. PANCREAS: Unremarkable. SPLEEN: Unremarkable. ADRENAL GLANDS: Stable smooth low-density thickening of the bilateral adrenal glands, likely related to hyperplasia. No discrete adrenal nodule or mass. KIDNEYS, URETERS AND BLADDER: There is mild right hydronephrosis, pelviectasis and hydroureter, which extends to the bladder. No urinary calculi or other mechanically obstructive etiology for this finding. Mild right perinephric stranding. Left kidney and ureter unremarkable. GASTROINTESTINAL TRACT: Sigmoid colonic diverticulosis without evidence of diverticulitis. Remainder of the gastrointestinal tract unremarkable. Normal stomach and small bowel. PELVIC VISCERA: Hysterectomy. No adnexal abnormalities. Pelvic floor descent. LYMPH NODES: No lymphadenopathy. PERITONEUM/BODY WALL: Unremarkable. VASCULAR STRUCTURES: Aorta is atherosclerotic. OSSEOUS STRUCTURES No acute or suspicious osseous abnormalities. Bones are demineralized.Chronic inferior endplate compression fracture at T5. Mild S-shaped thoracolumbar scoliosis. CT/CT chest wo con IMPRESSION: * No evidence of acute traumatic injury within the chest, abdomen or pelvis. * Minimal interstitial edema evident within the upper lungs. * Cardiomegaly. * Mild right hydroureteronephrosis, and perinephric stranding. No urinary calculi. Consider recently passed stone. Also consider pyelonephritis. * Sigmoid colonic diverticulosis without evidence of diverticulitis.
--- NOTE | ~2021-01-16 | CT_ITS ---
EXAMINATION: CT HEAD WITHOUT CONTRAST CLINICAL INFORMATION: Fall. COMPARISON: 10/09/2020 TECHNIQUE: Contiguous axial imaging was performed from the skull base to vertex without intravenous administration of contrast. This CT examination was performed using dose optimization techniques as appropriate, variously including the following: *Automated exposure control *Adjustment of mA and/or kV according to patient size (this includes techniques or standardized protocols for targeted exams where dose is matched to indication/reason for exam; i.e. extremities or head) *Use of iterative reconstruction technique DLP: 674 mGy-cm FINDINGS: There is no evidence of acute intracranial hemorrhage or territorial infarction. No abnormal mass effect or midline shift is seen. [place] to white matter differentiation is well preserved. No extra-axial fluid collections are identified. The ventricles are normal in size. Mild chronic white matter small vessel ischemic changes. Cavernous carotid calcifications. The osseous structures and soft tissues are normal. The mastoid air cells and visualized portions of the paranasal sinuses are well aerated. CT/CT head/brain wo con IMPRESSION: No acute intracranial pathology.
[2021-01-16 21:43] VITALS: BP 138/76; PULSE 100; O2SAT 96
--- NOTE | 2021-01-16 21:49 | ECG_ITS ---
Test Reason : GENERAL MEDICAL Blood Pressure : / mmHG Vent. Rate : 095 BPM Atrial Rate : 095 BPM P-R Int : 144 ms QRS Dur : 078 ms QT Int : 362 ms P-R-T Axes : 066 -08 062 degrees QTc Int : 454 ms Normal sinus rhythm Possible Left atrial enlargement Borderline ECG When compared with ECG of 16-OCT-2020 19:40, T wave inversion no longer evident in Lateral leads Referred By: Iman Shukla Electronically Signed By:RONALDO BALDWIN
[2021-01-16 21:53] VITALS: BP 119/95; PULSE 99; RESP 20; TEMP 37.4; O2SAT 96
[2021-01-16 22:27] LABS: Basophils Absolute Auto 0.1 X10*3/uL (0.0-0.2); Basophils Percent Auto 0.3 % (0-2); Hematocrit 36.7 % (37-47); Imm Gran Abs Auto 0.12 X10*3/uL (0.00-0.03); Imm Gran Pct Auto 0.6 % (0.0-0.4); Lymphocytes Absolute Auto 0.6 X10*3/uL (1.2-4.9); Lymphocytes Percent Auto 3.4 % (20-40); MANUAL DIFF FLAG NO; Mean Corpuscular HGB Conc 32.7 g/dl (31.0-35.0); Mean Corpuscular Hemoglobin 30.5 pg (27.0-33.0); Mean Corpuscular Volume 93.4 fL (80-98); Mean Platelet Volume 9.7 fL (9.4-12.3); Monocytes Absolute Auto 0.9 X10*3/uL (0.1-1.2); Monocytes Percent Auto 4.7 % (2-11); Neutrophils Absolute Auto 17.1 X10*3/uL (2.0-8.3); Platelet Count 332 X10*3/uL (160-400); Red Blood Count 3.93 X10*6/uL (4.20-5.50); Red Cell Distribution Width 12.3 % (11.0-16.0); SCAN SMEAR FLAG 1; White Blood Count 18.8 X10*3/uL (4.8-10.8)
[2021-01-16 22:33] LABS: INTERNATIONAL NORM RATIO 1.4 (0.9-1.1); Prothrombin Time 15.7 SEC (9.9-13.0)
[2021-01-16 22:42] LABS: COVID-19 Test Negative (Negative)
[2021-01-16 22:53] LABS: Alanine Aminotransferase 10 U/L (0-31); Albumin Level 4.1 g/dL (3.5-5.0); Alkaline Phosphatase 95 U/L (39-117); Anion Gap 18 (12-20); Aspartate Amino Transferase 16 U/L (5-31); Bilirubin Total 0.5 mg/dL (0.0-1.0); Blood Urea Nitrogen 28 mg/dL (9-16); Calcium 9.3 mg/dL (8.4-10.2); Carbon Dioxide 24 mmol/L (22-29); Chloride 102 mmol/L (96-108); Creatinine Clr Calc Pharmacy 10.5; Estimated Glomerular Filt Rate 42; Glucose Random 142 mg/dL (60-115); Potassium 4.1 mmol/L (3.3-5.1); Sodium 140 mmol/L (135-145); Total Protein 6.9 g/dL (6.5-8.0)
[2021-01-16 23:04] VITALS: BP 141/66; PULSE 99; RESP 22; TEMP 37.6; O2SAT 95
[2021-01-16 23:06] VITALS: BP 141/66; PULSE 95; RESP 33; O2SAT 91
[2021-01-16 23:30] LABS: Glucose Urine UA NEG (NEG); Leukocyte Esterase Urine NEG (NEG); Nitrite Urine NEG (NEG); PH 5.5 (5.0-8.0); Specific Gravity - Urine 1.025 (1.005-1.025); UACC Culture Trigger NO; Urine Blood 3+ (NEG); Urine Ketones 40 MG/DL (NEG); Urine Protein 1+ MG/DL (NEG-TRACE)
[2021-01-16] MEDS: Piperacillin Sodium/Tazobactam 3.375 GM in 0.9 % Sodium Chloride 50 ML IV (23:36)
[2021-01-16 23:52] LABS: Appearance Urine HAZY; Color Urine YELLOW
[2021-01-16 23:53] LABS: Amorphous Sediment Urine TRACE /LPF; Bacteria Urine TRACE /LPF; Granular Casts Urine 0-2 /LPF; Mucus Urine 2+ /LPF; RBC Urine 30-49 /HPF (0); Squamous Epithelial Cell Urine TRACE /LPF
--- NOTE | 2021-01-16 23:54 | ED.GENADULT ---
HPI - General Adult General Chief complaint: General Medical Stated complaint: Fall Time Seen by Provider: 01/16/21 21:48 Source: patient, EMS and other Mode of arrival: EMS History of Present Illness HPI narrative: 80-year-old female brought in via EMS from assisted living where she resides for baseline dementia and is brought in after patient was found sitting on the floor and questionable fall, patient complaints of abdominal discomfort but denies shortness of breath, chest pain/palpitations, nausea, vomiting. At this time patient is C collared and she denies any neck pain. Related Data Previous Rx's Medication Instructions Recorded aspirin 81 mg tablet,delayed 81 mg PO DAILY@0800 30 Days #30 tab 01/08/21 release cholecalciferol (vitamin D3) 25 25 mcg PO DAILY@0800 30 Days #30 01/08/21 mcg (1,000 unit) capsule cap cholecalciferol (vitamin D3) 25 25 mcg PO DAILY 30 Days #30 tab 01/08/21 mcg (1,000 unit) tablet divalproex 125 mg capsule,delayed 125 mg PO TID 30 Days #90 cap 01/08/21 release sprinkle docusate sodium 100 mg capsule 100 mg PO BID 30 Days #60 cap 01/08/21 docusate sodium 100 mg capsule 100 mg PO BID 30 Days #60 cap 01/08/21 multivitamin 1 tab PO DAILY@0800 30 Days #30 tab 01/08/21 olanzapine 2.5 mg tablet 2.5 mg PO DAILY #30 tab 01/08/21 polyethylene glycol 3350 17 gram 17 g PO DAILY 30 Days #30 ea 01/08/21 oral powder packet polyethylene glycol 3350 17 gram 17 g PO DAILY 30 Days #30 ea 01/08/21 oral powder packet trazodone 50 mg tablet 25 mg PO DAILY #14 tab 01/08/21 vitamin E (dl, acetate) 400 unit 360 mg PO DAILY 30 Days #30 cap 01/08/21 capsule vitamin E 1,000 unit capsule 1,000 unit PO DAILY@0800 30 Days 01/08/21 #30 cap Allergies Allergy/AdvReac Type Severity Reaction Status Date / Time memantine [MEMANTINE] Allergy Severe HIVES Verified 10/14/20 07:25 Iodinated Contrast Media Allergy Unknown UNKNOWN Verified 10/14/20 07:25 [IV CONTRAST] lactose Allergy Unknown DIARRHEA Verified 10/14/20 07:25 sulfamethoxazole Allergy Unknown UNKNOWN Verified 10/14/20 07:25 [From BACTRIM] trimethoprim [From BACTRIM] Allergy Unknown UNKNOWN Verified 10/14/20 07:25 Review of Systems Review of Systems: Pertinent positives and negatives as stated in HPI 10 point review of systems is otherwise negative. [facility] Past Medical History Source: nursing notes reviewed Medical History Anxiety Chronic UTI Dementia Surgical History History of appendectomy Hx of cholecystectomy Hx of tonsillectomy S/P STEPHIE (total abdominal hysterectomy) Social History Social History Household Members: Other Housing: Assisted Living Facility Do you presently have visiting nurse or other home services: No Unable to assess alcohol history related to: Unknown Patient Tobacco Use Status: Former Tobacco user Tobacco use type: Cigarette e-Cigarette/Vaping Use: Never Used Second Hand Smoke Exposure: No Advance Directives: No Advance Directives Date on File: 10/10/20 service: No Sexual orientation: Straight/Heterosexual Physical Exam Vital Signs: Vital Signs: Last Vital Signs Temp 98.5 F 01/17/21 01:11 Pulse 84 01/17/21 01:11 Resp 20 01/17/21 01:11 BP 129/59 L 01/17/21 01:11 Pulse Ox 98 01/17/21 01:11 Body Mass Index 7.8 VITAL SIGNS: Reviewed. GENERAL: Well developed, well nourished, in no acute distress. HEAD: Normocephalic/atraumatic, EYES: PERRLA, EOMI EARS: Ext canals without abnormality NOSE: Nares patent bilateral OROPHARYNX: no oral lesions noted, posterior pharynx clear, dry mucosa NECK: C-collar, no cervical midline tenderness LUNGS: Normal breath sounds. No adventitious sounds or accessory muscle use. SpO2<98> CARDIOVASCULAR: Regular rate and rhythm without noted murmurs, no JVD or lower extremity edema. ABDOMEN: Soft, tenderness noted at lower abdomen right greater than left without rebound, non-distended with bowel sounds, no CVA tenderness MUSCULOSKELETAL: No tenderness, deformities, or effusions noted on gross inspection. EXTREMITIES: No cyanosis, clubbing or edema. SKIN: Inspection of the skin reveals no rashes NEUROLOGIC: Alert and oriented x 4. Strength and sensation to light touch were grossly intact x 4. Course Course Course Narrative: 2345: 80-year-old female with questionable fall and has baseline dementia with history and clinical exam consistent with abdominal pain will rule out diverticulitis, UTI, renal colic, less likely SBO and CT head/cervical spine for fall. Review of all investigations consistent with sepsis, suspected etiology is pyelonephritis, patient received antibiotics and does not meet criteria for sepsis fluids. All results and findings were discussed with the inpatient hospitalist team who is agreeable for admission. Medical Decision Making Lab Data Result diagrams: 01/16/21 22:21 01/16/21 22:21 Labs: Lab Results 01/16/21 01/16/21 01/16/21 Range/Units 22:15 22:21 22:21 WBC 18.8 H (4.8-10.8) X10*3/uL RBC 3.93 L (4.20-5.50) X10*6/uL Hgb 12.0 (12.0-16.0) g/dl Hct 36.7 L (37-47) % MCV 93.4 (80-98) fL MCH 30.5 (27.0-33.0) pg MCHC 32.7 (31.0-35.0) g/dl RDW 12.3 (11.0-16.0) % Plt Count 332 (160-400) X10*3/uL MPV 9.7 (9.4-12.3) fL Immature Gran % (Auto) 0.6 H (0.0-0.4) % Neut % (Auto) 91.0 H (45-73) % Lymph % (Auto) 3.4 L (20-40) % Elbert % (Auto) 4.7 (2-11) % Eos % (Auto) 0.0 (0-4) % Baso % (Auto) 0.3 (0-2) % Lymph # (Auto) 0.6 L (1.2-4.9) X10*3/uL Elbert # (Auto) 0.9 (0.1-1.2) X10*3/uL Eos # (Auto) 0.0 (0.0-0.4) X10*3/uL Baso # (Auto) 0.1 (0.0-0.2) X10*3/uL Abs Immat Gran (auto) 0.12 H (0.00-0.03) X10*3/uL Absolute Neuts (auto) 17.1 H (2.0-8.3) X10*3/uL Absolute Nucleated RBC 0.000 (0.0-0.012) X10*3/uL Nucleated RBC % (auto) 0.0 (0.0-0.2) /100WBC PT (9.9-13.0) SEC INR (0.9-1.1) Sodium 140 (135-145) mmol/L Potassium 4.1 (3.3-5.1) mmol/L Chloride 102 (96-108) mmol/L Carbon Dioxide 24 (22-29) mmol/L Anion Gap 18 (12-20) BUN 28 H D (9-16) mg/dL Creatinine 1.24 (0.5-1.4) mg/dL Estim Creat Clear Calc 10.5 Estimated GFR 42 Random Glucose 142 H D (60-115) mg/dL Lactic Acid (0.5-2.0) mmol/L Calcium 9.3 (8.4-10.2) mg/dL Total Bilirubin 0.5 (0.0-1.0) mg/dL AST 16 (5-31) U/L ALT 10 (0-31) U/L Alkaline Phosphatase 95 (39-117) U/L Total Protein 6.9 (6.5-8.0) g/dL Albumin 4.1 (3.5-5.0) g/dL Urine Color Urine Appearance Urine pH (5.0-8.0) Ur Specific [place] (1.005-1.025) Urine Protein (NEG-TRACE) MG/DL Urine Glucose (UA) (NEG) MG/DL Urine Ketones (NEG) MG/DL Urine Blood (NEG) Urine Nitrite (NEG) Ur Leukocyte Esterase (NEG) Urine RBC (0) /HPF Urine WBC (0-4) /HPF Ur Squamous Epith Cells /LPF Amorphous Sediment /LPF Urine Bacteria /LPF Granular Casts /LPF Urine Mucus /LPF Urine Yeast /HPF COVID-19 (NARINDER) Negative (Negative) COVID-19 Clin Com See Note 01/16/21 01/16/21 01/16/21 Range/Units 22:21 23:13 23:21 WBC (4.8-10.8) X10*3/uL RBC (4.20-5.50) X10*6/uL Hgb (12.0-16.0) g/dl Hct (37-47) % MCV (80-98) fL MCH (27.0-33.0) pg MCHC (31.0-35.0) g/dl RDW (11.0-16.0) % Plt Count (160-400) X10*3/uL MPV (9.4-12.3) fL Immature Gran % (Auto) (0.0-0.4) % Neut % (Auto) (45-73) % Lymph % (Auto) (20-40) % Elbert % (Auto) (2-11) % Eos % (Auto) (0-4) % Baso % (Auto) (0-2) % Lymph # (Auto) (1.2-4.9) X10*3/uL Elbert # (Auto) (0.1-1.2) X10*3/uL Eos # (Auto) (0.0-0.4) X10*3/uL Baso # (Auto) (0.0-0.2) X10*3/uL Abs Immat Gran (auto) (0.00-0.03) X10*3/uL Absolute Neuts (auto) (2.0-8.3) X10*3/uL Absolute Nucleated RBC (0.0-0.012) X10*3/uL Nucleated RBC % (auto) (0.0-0.2) /100WBC PT 15.7 H (9.9-13.0) SEC INR 1.4 H (0.9-1.1) Sodium (135-145) mmol/L Potassium (3.3-5.1) mmol/L Chloride (96-108) mmol/L Carbon Dioxide (22-29) mmol/L Anion Gap (12-20) BUN (9-16) mg/dL Creatinine (0.5-1.4) mg/dL Estim Creat Clear Calc Estimated GFR Random Glucose (60-115) mg/dL Lactic Acid 1.0 (0.5-2.0) mmol/L Calcium (8.4-10.2) mg/dL Total Bilirubin (0.0-1.0) mg/dL AST (5-31) U/L ALT (0-31) U/L Alkaline Phosphatase (39-117) U/L Total Protein (6.5-8.0) g/dL Albumin (3.5-5.0) g/dL Urine Color YELLOW Urine Appearance HAZY Urine pH 5.5 (5.0-8.0) Ur Specific [place] 1.025 (1.005-1.025) Urine Protein 1+ H (NEG-TRACE) MG/DL Urine Glucose (UA) NEG (NEG) MG/DL Urine Ketones 40 (NEG) MG/DL Urine Blood 3+ H (NEG) Urine Nitrite NEG (NEG) Ur Leukocyte Esterase NEG (NEG) Urine RBC 30-49 H (0) /HPF Urine WBC 1-4 (0-4) /HPF Ur Squamous Epith Cells TRACE /LPF Amorphous Sediment TRACE /LPF Urine Bacteria TRACE /LPF Granular Casts 0-2 /LPF Urine Mucus 2+ /LPF Urine Yeast TRACE /HPF COVID-19 (NARINDER) (Negative) COVID-19 Clin Com Discharge Plan Discharge Clinical Impression: Pyelonephritis, Sepsis Patient Disposition: Admitted As Inpatient
[2021-01-17] VITALS (8 sets, daily range): BP systolic 102–132; BP diastolic 47–72; PULSE 79–97; RESP 15–22; TEMP 36.2–37.4; O2SAT 92–98; BMI 17.0; BMI 16.3
[2021-01-17] MEDS: Acetaminophen 325 MG TABLET 975 MG PO (02:35)
[2021-01-17] MEDS: Ketorolac Tromethamine 15 MG/ML VIAL IVPUSH (02:36)
--- NOTE | 2021-01-17 04:01 | PC.NURSE ---
RN called hospitalist as RN unable to successfully complete med rec at this time. no documentation can be found in the ER regarding the pt's medications and only 1 medication listed on the external med list.
[2021-01-17] MEDS: cefTRIAXone sodium 1 GM in 0.9 % Sodium Chloride 50 ML IV (05:12)
[2021-01-17] MEDS: Heparin Sodium,Porcine 5,000 UNIT/ML VIAL 5000 UNIT SUBCUT ×2 (05:13→17:09)
[2021-01-17] MEDS: Lactated Ringers 1,000 ML 100 ML IVCONT ×2 (05:13→14:39)
--- NOTE | 2021-01-17 05:26 | P.HPHOSP_ITS ---
History of Present Illness Date of Service: 01/17/21 Chief Complaint: On the floor 80-year-old female with past medical history of dementia and anxiety who presents from long-term care after being found on the floor. Patient has dementia, on my interview she is sleeping, hard to arouse, therefore history was obtained from ED physician. Unclear if patient had any head injury. On arrival patient hemodynamically stable with no significant abnormal vitals Spoke to her daughter Jessica who is her healthcare proxy over the phone. Digital reports that patient was found on the floor and also acting strange according to the retirement staff. She usually converses at baseline but 2nd dementia. She reports that about a month ago she was treated for UTI but currently has not been on antibiotics. Labs were significant for WBC count of 18.8, PTT of 50 to his having, INR of 1.4, BUN of 28, creatinine of 1.24 with a baseline of 0.8, UA positive for blood and RBC, Abdominal pelvic CT showed no evidence of acute injury, minimal interstitial edema evident within the upper lungs, mild right hydroureteronephrosis, perinephric stranding. No urinary calculi, consider recently passed stone versus pyelonephritis per Given patient's leukocytosis which she will be admitted for management of pyelonephritis Review of Systems Review of Systems: Yes all other systems are reviewed and are negative [facility] Medical History Anxiety Chronic UTI Dementia Surgical History History of appendectomy Hx of cholecystectomy Hx of tonsillectomy S/P STEPHIE (total abdominal hysterectomy) Social History Household Members: Other Housing: Assisted Living Facility Do you presently have visiting nurse or other home services: No Unable to assess alcohol history related to: Unknown Patient Tobacco Use Status: Former Tobacco user Tobacco use type: Cigarette e-Cigarette/Vaping Use: Never Used Second Hand Smoke Exposure: No Advance Directives: No Advance Directives Date on File: 10/10/20 service: No Sexual orientation: Straight/Heterosexual Meds Allergies Allergy/AdvReac Type Severity Reaction Status Date / Time memantine [MEMANTINE] Allergy Severe HIVES Verified 10/14/20 07:25 Iodinated Contrast Media Allergy Unknown UNKNOWN Verified 10/14/20 07:25 [IV CONTRAST] lactose Allergy Unknown DIARRHEA Verified 10/14/20 07:25 sulfamethoxazole Allergy Unknown UNKNOWN Verified 10/14/20 07:25 [From BACTRIM] trimethoprim [From BACTRIM] Allergy Unknown UNKNOWN Verified 10/14/20 07:25 Active Medications: Current Medications Generic Name Dose Route Start Last Admin Trade Name Freq PRN Reason Stop Dose Admin Acetaminophen 650 mg 01/17/21 04:12 Acetaminophen 325 Mg Tablet PO Q6H PRN Pain, Mild (Pain Scale 1-3) Docusate Sodium 100 mg 01/17/21 04:12 Docusate Sodium 100 Mg Capsule PO DAILY PRN Constipation Heparin Sodium (Porcine) 5,000 unit 01/17/21 04:12 01/17/21 05:13 Heparin Sodium,Porcine 5,000 Unit/Ml Vial SUBCUT 5,000 unit Q12H LATRICE Administration Ceftriaxone Sodium 1 gm/ 50 mls @ 100 mls/hr 01/17/21 04:12 01/17/21 05:12 Sodium Chloride IV 100 mls/hr Q24H LATRICE Administration Lactated Ringer's 1,000 mls @ 100 mls/hr 01/17/21 04:12 01/17/21 05:13 Lr IVCONT 100 mls/hr .Q10H LATRICE Administration Ondansetron HCl 4 mg 01/17/21 04:12 Ondansetron Hcl 4 Mg/2 Ml Vial IVPUSH Q8H PRN Nausea and Vomiting Sodium Chloride 3 ml 01/17/21 08:00 0.9 % Sodium Chloride Flush 3 Ml Syringe IVFLUSH QSHIFT [facility] Physical Exam Vital Signs and Narrative: Vital Signs: Last Vital Signs Temp 98.5 F 01/17/21 01:11 Pulse 79 01/17/21 05:20 Resp 22 H 01/17/21 05:20 BP 103/47 L 01/17/21 05:20 Pulse Ox 96 01/17/21 05:20 Body Mass Index 7.8 Const: Other: sleeping General: no acute distress Eyes: General: appearance normal, both eyes and all related structures Resp: Effort & Inspection: normal respiratory effort Cardio: Rate: regular rate Rhythm: regular rhythm GI: Palpation (GI): Soft to palpation Auscultation: normal bowel sounds Skin: General skin exam: no rashes or lesions noted Neuro: Other: sleeping Extrem: General: Yes normal to inspection and Yes no pedal edema Results Labs CBC and Chem 7: 01/16/21 22:21 01/16/21 22:21 Labs: Laboratory Results - last 24 hr 01/16/21 01/16/21 01/16/21 22:15 22:21 22:21 MCV 93.4 MCH 30.5 MCHC 32.7 RDW 12.3 Plt Count 332 MPV 9.7 Immature Gran % (Auto) 0.6 H Neut % (Auto) 91.0 H Lymph % (Auto) 3.4 L Lamar % (Auto) 4.7 Eos % (Auto) 0.0 Baso % (Auto) 0.3 Lymph # (Auto) 0.6 L Lamar # (Auto) 0.9 Eos # (Auto) 0.0 Baso # (Auto) 0.1 Abs Immat Gran (auto) 0.12 H Absolute Neuts (auto) 17.1 H Absolute Nucleated RBC 0.000 Nucleated RBC % (auto) 0.0 PT INR Anion Gap 18 Estim Creat Clear Calc 10.5 Estimated GFR 42 Random Glucose 142 H D Lactic Acid Calcium 9.3 Total Bilirubin 0.5 AST 16 ALT 10 Alkaline Phosphatase 95 Total Protein 6.9 Albumin 4.1 Urine Color Urine Appearance Urine pH Ur Specific [place] Urine Protein Urine Glucose (UA) Urine Ketones Urine Blood Urine Nitrite Ur Leukocyte Esterase Urine RBC Urine WBC Ur Squamous Epith Cells Amorphous Sediment Urine Bacteria Granular Casts Urine Mucus Urine Yeast COVID-19 (NARINDER) Negative COVID-19 Clin Com See Note 01/16/21 01/16/21 01/16/21 22:21 23:13 23:21 MCV MCH MCHC RDW Plt Count MPV Immature Gran % (Auto) Neut % (Auto) Lymph % (Auto) Lamar % (Auto) Eos % (Auto) Baso % (Auto) Lymph # (Auto) Lamar # (Auto) Eos # (Auto) Baso # (Auto) Abs Immat Gran (auto) Absolute Neuts (auto) Absolute Nucleated RBC Nucleated RBC % (auto) PT 15.7 H INR 1.4 H Anion Gap Estim Creat Clear Calc Estimated GFR Random Glucose Lactic Acid 1.0 Calcium Total Bilirubin AST ALT Alkaline Phosphatase Total Protein Albumin Urine Color YELLOW Urine Appearance HAZY Urine pH 5.5 Ur Specific [place] 1.025 Urine Protein 1+ H Urine Glucose (UA) NEG Urine Ketones 40 Urine Blood 3+ H Urine Nitrite NEG Ur Leukocyte Esterase NEG Urine RBC 30-49 H Urine WBC 1-4 Ur Squamous Epith Cells TRACE Amorphous Sediment TRACE Urine Bacteria TRACE Granular Casts 0-2 Urine Mucus 2+ Urine Yeast TRACE COVID-19 (NARINDER) COVID-19 Clin Com Imaging Radiologist's Impressions: Impressions Abdomen/Pelvis CT 01/17/21 00:06 IMPRESSION: * No evidence of acute traumatic injury within the chest, abdomen or pelvis. * Minimal interstitial edema evident within the upper lungs. * Cardiomegaly. * Mild right hydroureteronephrosis, and perinephric stranding. No urinary calculi. Consider recently passed stone. Also consider pyelonephritis. * Sigmoid colonic diverticulosis without evidence of diverticulitis. Chest CT 01/17/21 00:06 IMPRESSION: * No evidence of acute traumatic injury within the chest, abdomen or pelvis. * Minimal interstitial edema evident within the upper lungs. * Cardiomegaly. * Mild right hydroureteronephrosis, and perinephric stranding. No urinary calculi. Consider recently passed stone. Also consider pyelonephritis. * Sigmoid colonic diverticulosis without evidence of diverticulitis. Head CT 01/17/21 00:06 IMPRESSION: No acute intracranial pathology. Assessment and Plan (1) Pyelonephritis: Status: Acute (2) Encephalopathy: Status: Acute (3) Leukocytosis: Status: Acute (4) Sepsis: Status: Acute 80-year-old female with past medical history of dementia presents to the hospital after being found on the at the retirement with on clear surrounding events. According to the daughter who is a healthcare proxy patient was also acting strange as reported by staff. # encephalopathy - most likely secondary to acute infection - patient has leukocytosis, as well as tachypnea - patient does meet sepsis criteria was source most likely being urine although her UA is negative for any acute infection - normal lactic acid - will start on IV antibiotic - follow cultures # meets sepsis criteria - has leukocytosis, tachypnea - will start her with IV antibiotic - follow culture # leukocytosis - most likely secondary to acute affect - source possibly urine - chest CT negative for pneumonia - will start on IV antibiotic - follow culture # possible pyelonephritis versus nephrolithiasis - currently no evidence of stone on CT of the abdomen but shows mild right hydroureteronephrosis with perinephric stranding suggestive of a passed stone versus pyelonephritis - start on antibiotics as above DVT prophylaxis: Heparin subQ Quality Stroke Does the patient have a stroke diagnosis?: No VTE Prior VTE?: No VTE Risk Level:: Medical - moderate - high VTE Device Contraindication: Treatment Not Indicated VTE Drug Contraindication: N/A - Med Ordered
[2021-01-17] MEDS: Lactated Ringers 500 ML 999 ML IV (07:08)
--- NOTE | 2021-01-17 08:14 | PC.NURSE ---
Pt arrived to unit 0800, oriented to self only, LR bolus infusing, no pain, lungs clear RA, VSS MAP 69, NSR 80s, skin intact. States has to void, purewick in place. Bed locked and in lowest position, call ching in reach,bed alarm on, high fall risk.
--- NOTE | 2021-01-17 10:13 | MHC.CM.PN ---
IMM 01/17/21 Female 79 DX Encephalopathy Pyelonephritis. She is a return patient/30days. Prior admit was to [facility]. Visits are not related. She lives at the [facility] in [place]. She is new to that [facility]. Family reported Patient own early afternoon start, 1pm. 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 She is scheduled to start Wednesday. Nursing notified of needs r/t . A camera has been placed in the room for safety. DP is return to [facility]. PT has been ordered to prevent deconditioning while in hospital. Family may provide transportation at discharge. BLS will be arranged if needed. CM will follow.
--- NOTE | 2021-01-17 10:33 | PC.NURSE ---
Skin assessment completed today. On admission, patient has blanchable redness to coccyx, EPC cream applied, turn and reposition. Bilateral heels intact no redness, elevated on pillow. No other skin issues noted.
[2021-01-17] MEDS: Divalproex Sodium Sprinkles 125 MG CAP.DR.SPR PO ×3 (10:34→21:47)
[2021-01-17] MEDS: traZODone HCL 25 MG HALFTAB PO (12:22)
--- NOTE | 2021-01-17 14:06 | MHC.CLN ---
RE: CONSULT PT IS MODERATELY MALNOURISHED HT 5'5 CORRECTED FOR ASSESSMENT; WT USED FOR ASSESSMENT 46.4KG DONE AT BEDSIDE WITH NURSE PT WITH MILDLY DEPLETED SUBCUTANEOUS FAT AND MUSCLE MASS, BMI 17 WITH PROLONGED POOR PO INTAKE R/T HX ANOREXIA AND POOR PO INTAKE PER FAMILY. DIET RX: REGULAR-APPROPRIATE RECOMMEND ADDING ENSURE BID TO INCREASE KCALS SUPPLEMENT TO PROVIDE 700KCALS, 40G PROTEIN MONITOR PO INTAKE SEE ALSO CLINICAL NUTRITION ASSESSMENT
[2021-01-17] MEDS: OLANZapine 2.5 MG TABLET PO (17:09)
[2021-01-17] MEDS: 0.9 % Sodium Chloride Flush 3 ML SYRINGE IVFLUSH (21:47)
[2021-01-18 03:19] VITALS: BP 128/72; PULSE 68; RESP 20; TEMP 37; O2SAT 96
[2021-01-18] MEDS: cefTRIAXone sodium 1 GM in 0.9 % Sodium Chloride 50 ML IV (03:59)
[2021-01-18] MEDS: Heparin Sodium,Porcine 5,000 UNIT/ML VIAL 5000 UNIT SUBCUT ×2 (03:59→16:46)
[2021-01-18 07:01] LABS: MANUAL DIFF FLAG NO
[2021-01-18 07:23] LABS: Basophils Percent Auto 0.3 % (0-2); Eosinophils Absolute Auto 0.1 X10*3/uL (0.0-0.4); Eosinophils Percent Auto 1.1 % (0-4); Hematocrit 34.1 % (37-47); Hemoglobin 10.9 g/dl (12.0-16.0); Imm Gran Abs Auto 0.05 X10*3/uL (0.00-0.03); Imm Gran Pct Auto 0.6 % (0.0-0.4); Lymphocytes Percent Auto 11.6 % (20-40); Mean Corpuscular Hemoglobin 29.8 pg (27.0-33.0); Mean Corpuscular Volume 93.2 fL (80-98); Mean Platelet Volume 10.6 fL (9.4-12.3); Monocytes Absolute Auto 0.7 X10*3/uL (0.1-1.2); Monocytes Percent Auto 8.1 % (2-11); Neutrophils Absolute Auto 6.9 X10*3/uL (2.0-8.3); Neutrophils Percent Auto 78.3 % (45-73); Platelet Count 336 X10*3/uL (160-400); Red Blood Count 3.66 X10*6/uL (4.20-5.50); Red Cell Distribution Width 12.1 % (11.0-16.0); White Blood Count 8.8 X10*3/uL (4.8-10.8)
[2021-01-18 07:36] LABS: Anion Gap 15 (12-20); Blood Urea Nitrogen 25 mg/dL (9-16); Calcium 8.6 mg/dL (8.4-10.2); Carbon Dioxide 26 mmol/L (22-29); Chloride 105 mmol/L (96-108); Creatinine Clr Calc Pharmacy 40.6; Estimated Glomerular Filt Rate > 60; Glucose Random 75 mg/dL (60-115); Potassium 3.8 mmol/L (3.3-5.1); Sodium 142 mmol/L (135-145)
[2021-01-18 07:48] VITALS: BP 135/57; PULSE 84; RESP 18; TEMP 36.8; O2SAT 96
[2021-01-18] MEDS: 0.9 % Sodium Chloride Flush 3 ML SYRINGE IVFLUSH ×3 (09:42→20:47)
[2021-01-18] MEDS: Aspirin Enteric Coated 81 MG TABLET.DR PO (09:43)
[2021-01-18] MEDS: Cholecalciferol (Vitamin D3) 25 MCG TABLET PO (09:43)
[2021-01-18] MEDS: Docusate Sodium 100 MG CAPSULE PO ×2 (09:43→20:47)
[2021-01-18] MEDS: Divalproex Sodium Sprinkles 125 MG CAP.DR.SPR PO ×3 (09:43→20:47)
[2021-01-18] MEDS: Multivitamin TABLET 1 TAB PO (09:43)
[2021-01-18] MEDS: QUEtiapine Fumarate 25 MG TABLET PO ×2 (09:43→22:20)
[2021-01-18 11:33] VITALS: BP 117/55; PULSE 78; RESP 19; TEMP 36.8; O2SAT 99
[2021-01-18] MEDS: traZODone HCL 25 MG HALFTAB PO (12:39)
--- NOTE | 2021-01-18 13:58 | HO.PM.IMPN ---
Subjective Subjective Date of Service: 01/18/21 Interval History: the patient was seen and evaluated this morning Laying in bed, feels comfortable overall, family at the bedside Had difficult time overnight with increased confusion and aggressiveness Denies any fever, chills or shortness of breath No reported other overnight events. Systemic review: No fever, chills or weakness No chest pain, palpitation No shortness of breath or coughing No abdominal pain, nausea or vomiting No urinary symptoms No any rash or wounds Physical Exam Vital Signs: Vital Signs: Last Vital Signs Temp 98.2 F 01/18/21 11:33 Pulse 78 01/18/21 11:33 Resp 19 01/18/21 11:33 BP 117/55 L 01/18/21 11:33 Pulse Ox 99 01/18/21 11:33 Body Mass Index 16.3 Const: Other: Constitutional : Alert, disoriented, not in distress Neck : Normal inspection, Supple Cardiovascular : RRR, S1 S2, no lower extremity edema Respiratory : Good bilateral air entry, no crackles, wheezes or rhonchi Gastrointestinal: soft, lax, Normal bowel sounds, Non tender Skin : Warm/Dry Neurological : Alert & disoriented, No focal deficit Objective Data Current Medications Generic Name Dose Route Start Last Admin Trade Name Freq PRN Reason Stop Dose Admin Acetaminophen 650 mg 01/17/21 04:12 Acetaminophen 325 Mg Tablet PO Q6H PRN Pain, Mild (Pain Scale 1-3) Aspirin 81 mg 01/18/21 08:00 01/18/21 09:43 Aspirin Enteric Coated 81 Mg Tablet.Dr JEAN BAPTISTE 81 mg DAILY@0800 [facility] Administration Divalproex Sodium 125 mg 01/17/21 10:10 01/18/21 09:43 Divalproex Sodium Sprinkles 125 Mg Cap. PO 125 mg TID LATRICE Administration Docusate Sodium 100 mg 01/17/21 04:12 Docusate Sodium 100 Mg Capsule PO DAILY PRN Constipation Docusate Sodium 100 mg 01/17/21 10:10 01/18/21 09:43 Docusate Sodium 100 Mg Capsule PO 100 mg BID LATRICE Administration Heparin Sodium (Porcine) 5,000 unit 01/17/21 04:12 01/18/21 03:59 Heparin Sodium,Porcine 5,000 Unit/Ml Vial SUBCUT 5,000 unit Q12H LATRICE Administration Ceftriaxone Sodium 1 gm/ 50 mls @ 100 mls/hr 01/17/21 04:12 01/18/21 04:32 Sodium Chloride IV Infused Q24H LATRICE Infusion Lactated Ringer's 1,000 mls @ 100 mls/hr 01/17/21 04:12 01/18/21 07:42 Lr IVCONT 100 mls/hr .Q10H LATRICE Infusion Multivitamins/Vitamin C 1 tab 01/18/21 08:00 01/18/21 09:43 Multivitamin Tablet PO 1 tab DAILY@0800 LATRICE Administration Olanzapine 2.5 mg 01/17/21 17:00 01/17/21 17:09 Olanzapine 2.5 Mg Tablet PO 2.5 mg DAILY@1700 LATRICE Administration Ondansetron HCl 4 mg 01/17/21 04:12 Ondansetron Hcl 4 Mg/2 Ml Vial IVPUSH Q8H PRN Nausea and Vomiting Polyethylene Glycol 17 gm 01/18/21 09:00 01/18/21 09:42 Polyethylene Glycol 3350 17 Gm Powd.Pack PO 17 gm DAILY LATRICE Administration Quetiapine Fumarate 25 mg 01/17/21 10:06 Quetiapine Fumarate 25 Mg Tablet PO BEDTIME PRN anxiety/restlessness Sodium Chloride 3 ml 01/17/21 08:00 01/18/21 09:42 0.9 % Sodium Chloride Flush 3 Ml Syringe IVFLUSH 3 ml QSHIFT LATRICE Administration Trazodone HCl 25 mg 01/17/21 13:00 01/18/21 12:39 Trazodone Hcl 25 Mg Halftab PO 25 mg DAILY@1300 LATRICE Administration Vitamin D 25 mcg 01/18/21 09:00 01/18/21 09:43 Cholecalciferol (Vitamin D3) 25 Mcg Tablet PO 25 mcg DAILY LATRICE Administration Labs CBC & Chem 7: 01/18/21 06:20 01/18/21 06:20 Labs: Laboratory Results - last 24 hr 01/18/21 01/18/21 06:20 06:20 MCV 93.2 MCH 29.8 MCHC 32.0 RDW 12.1 Plt Count 336 MPV 10.6 Immature Gran % (Auto) 0.6 H Neut % (Auto) 78.3 H Lymph % (Auto) 11.6 L Ness % (Auto) 8.1 Eos % (Auto) 1.1 Baso % (Auto) 0.3 Lymph # (Auto) 1.0 L Ness # (Auto) 0.7 Eos # (Auto) 0.1 Baso # (Auto) 0.0 Abs Immat Gran (auto) 0.05 H Absolute Neuts (auto) 6.9 Absolute Nucleated RBC 0.000 Nucleated RBC % (auto) 0.0 Anion Gap 15 Estim Creat Clear Calc 40.6 Estimated GFR > 60 Random Glucose 75 D Calcium 8.6 D Microbiology Microbiology Results: Microbiology 01/16/21 23:22 Blood Culture - Preliminary Blood - Venous Gram negative shubham 01/16/21 23:22 Blood Culture - Preliminary Blood - Venous No growth after 24 hours. Assessment and Plan (1) Leukocytosis: Status: Acute (2) Encephalopathy: Status: Acute (3) Pyelonephritis: Status: Acute (4) Sepsis: Status: Acute (5) Gram-negative bacteremia: Status: Acute Assessment and Plan: 80-year-old female with past medical history of dementia presents to the hospital after being found on the at the senior living with on clear surrounding events. According to the daughter who is a healthcare proxy patient was also acting strange as reported by staff. # metabolic encephalopathy secondary to acute infection Improving Recurrent reorientation To use Seroquel as needed # sepsis secondary to UTI # gram-negative bacteremia no evidence of stone on CT of the abdomen but shows mild right hydroureteronephrosis with perinephric stranding suggestive of a passed stone versus pyelonephritis Blood cultures growing GNR in 1 bottle Pending urine culture Continue IV antibiotic Discontinue IV fluids # leukocytosis Resolved DVT prophylaxis: Heparin subQ Quality Stroke Does the patient have a stroke diagnosis?: No VTE Prior VTE?: No VTE Risk Level:: Medical - moderate - high VTE Device Contraindication: Treatment Not Indicated VTE Drug Contraindication: N/A - Med Ordered
[2021-01-18] MEDS: Lactated Ringers 1,000 ML 100 ML IVCONT (14:05)
[2021-01-18 15:13] VITALS: BP 105/55; PULSE 83; RESP 16; TEMP 37.1; O2SAT 95
[2021-01-18] MEDS: OLANZapine 2.5 MG TABLET PO (16:46)
[2021-01-18] MEDS: Acetaminophen 325 MG TABLET 650 MG PO (16:46)
--- NOTE | 2021-01-18 18:49 | PC.NURSE ---
Behavior and need for 1:1 sitter Pt has been impulsive and getting out of bed, was notified of her restlessness and was given a one time dose seroquel, however it lasted for only a few minutes. She constantly climbed out of bed and required a 1:1 sitter eventually.
[2021-01-18 19:13] VITALS: BP 110/57; PULSE 81; RESP 20; TEMP 36.9; O2SAT 94
[2021-01-18 23:15] VITALS: BP 100/57; PULSE 70; RESP 18; TEMP 36.6; O2SAT 93
--- NOTE | 2021-01-19 03:36 | PC.NURSE ---
patient continues to be very confused and hyper-focused on using the bathroom. Requires frequent redirection. When she does use commode she pees <5ml each time. pt still has 1:1 sitter, and this RN suggests patient should continue to have the sitter while in hospital. Frequently tries to get out of bed, and is very confused.
[2021-01-19] MEDS: Acetaminophen 325 MG TABLET 650 MG PO (03:46)
[2021-01-19] MEDS: cefTRIAXone sodium 1 GM in 0.9 % Sodium Chloride 50 ML IV (03:46)
[2021-01-19] MEDS: Heparin Sodium,Porcine 5,000 UNIT/ML VIAL 5000 UNIT SUBCUT ×2 (03:46→15:14)
[2021-01-19 04:00] VITALS: BP 98/41; PULSE 83; RESP 18; TEMP 36.2; O2SAT 95
[2021-01-19 07:45] VITALS: BP 111/53; PULSE 68; RESP 20; TEMP 36.7; O2SAT 95
[2021-01-19] MEDS: 0.9 % Sodium Chloride Flush 3 ML SYRINGE IVFLUSH ×2 (08:22→20:36)
[2021-01-19] MEDS: Docusate Sodium 100 MG CAPSULE PO ×2 (08:23→20:36)
[2021-01-19] MEDS: Aspirin Enteric Coated 81 MG TABLET.DR PO (08:23)
[2021-01-19] MEDS: Divalproex Sodium Sprinkles 125 MG CAP.DR.SPR PO ×3 (08:23→20:36)
[2021-01-19] MEDS: Cholecalciferol (Vitamin D3) 25 MCG TABLET PO (08:24)
[2021-01-19] MEDS: Multivitamin TABLET 1 TAB PO (08:24)
[2021-01-19 11:04] VITALS: BP 120/58; PULSE 71; RESP 18; TEMP 36.6; O2SAT 96
[2021-01-19] MEDS: traZODone HCL 25 MG HALFTAB PO (12:10)
--- NOTE | 2021-01-19 13:21 | HO.PM.IMPN ---
Subjective Subjective Date of Service: 01/19/21 Interval History: the patient was seen and evaluated this morning Laying in bed, feels comfortable overall, family at the bedside Less confusion overnight, slept well Denies any fever, chills or shortness of breath No reported other overnight events. Systemic review: No fever, chills or weakness No chest pain, palpitation No shortness of breath or coughing No abdominal pain, nausea or vomiting No urinary symptoms No any rash or wounds Physical Exam Vital Signs: Vital Signs: Last Vital Signs Temp 97.8 F 01/19/21 11:04 Pulse 71 01/19/21 11:04 Resp 18 01/19/21 11:04 BP 120/58 L 01/19/21 11:04 Pulse Ox 96 01/19/21 11:04 Body Mass Index 16.3 Const: Other: Constitutional : Alert, disoriented, not in distress Neck : Normal inspection, Supple Cardiovascular : RRR, S1 S2, no lower extremity edema Respiratory : Good bilateral air entry, no crackles, wheezes or rhonchi Gastrointestinal: soft, lax, Normal bowel sounds, Non tender Skin : Warm/Dry Neurological : Alert & disoriented, No focal deficit Objective Data Current Medications Generic Name Dose Route Start Last Admin Trade Name Freq PRN Reason Stop Dose Admin Acetaminophen 650 mg 01/17/21 04:12 01/19/21 03:46 Acetaminophen 325 Mg Tablet PO 650 mg Q6H PRN Administration Pain, Mild (Pain Scale 1-3) Aspirin 81 mg 01/18/21 08:00 01/19/21 08:23 Aspirin Enteric Coated 81 Mg Tablet. PO 81 mg DAILY@0800 [facility] Administration Divalproex Sodium 125 mg 01/17/21 10:10 01/19/21 08:23 Divalproex Sodium Sprinkles 125 Mg Cap. PO 125 mg TID LATRICE Administration Docusate Sodium 100 mg 01/17/21 04:12 Docusate Sodium 100 Mg Capsule PO DAILY PRN Constipation Docusate Sodium 100 mg 01/17/21 10:10 01/19/21 08:23 Docusate Sodium 100 Mg Capsule PO 100 mg BID LATRICE Administration Heparin Sodium (Porcine) 5,000 unit 01/17/21 04:12 01/19/21 03:46 Heparin Sodium,Porcine 5,000 Unit/Ml Vial SUBCUT 5,000 unit Q12H LATRICE Administration Ceftriaxone Sodium 1 gm/ 50 mls @ 100 mls/hr 01/17/21 04:12 01/19/21 04:25 Sodium Chloride IV Infused Q24H LATRICE Infusion Multivitamins/Vitamin C 1 tab 01/18/21 08:00 01/19/21 08:24 Multivitamin Tablet PO 1 tab DAILY@0800 LATRICE Administration Olanzapine 2.5 mg 01/17/21 17:00 01/18/21 16:46 Olanzapine 2.5 Mg Tablet PO 2.5 mg DAILY@1700 LATRICE Administration Ondansetron HCl 4 mg 01/17/21 04:12 01/18/21 14:05 Ondansetron Hcl 4 Mg/2 Ml Vial IVPUSH 4 mg Q8H PRN Administration Nausea and Vomiting Polyethylene Glycol 17 gm 01/18/21 09:00 01/19/21 08:24 Polyethylene Glycol 3350 17 Gm Powd.Pack PO 17 gm DAILY LATRICE Administration Quetiapine Fumarate 25 mg 01/17/21 10:06 01/18/21 22:20 Quetiapine Fumarate 25 Mg Tablet PO 25 mg BEDTIME PRN Administration anxiety/restlessness Sodium Chloride 3 ml 01/17/21 08:00 01/19/21 08:22 0.9 % Sodium Chloride Flush 3 Ml Syringe IVFLUSH 3 ml QSHIFT LATRICE Administration Trazodone HCl 25 mg 01/17/21 13:00 01/19/21 12:10 Trazodone Hcl 25 Mg Halftab PO 25 mg DAILY@1300 LATRICE Administration Vitamin D 25 mcg 01/18/21 09:00 01/19/21 08:24 Cholecalciferol (Vitamin D3) 25 Mcg Tablet PO 25 mcg DAILY LATRICE Administration Labs CBC & Chem 7: 01/18/21 06:20 01/18/21 06:20 Microbiology Microbiology Results: Microbiology 01/16/21 23:22 Blood Culture - Preliminary Blood - Venous Gram negative shubham 01/16/21 23:22 Blood Culture - Preliminary Blood - Venous No growth after 48 hours. Assessment and Plan (1) Gram-negative bacteremia: Status: Acute (2) Encephalopathy: Status: Acute (3) Sepsis: Status: Acute Assessment and Plan: 80-year-old female with past medical history of dementia presents to the hospital after being found on the at the care home with on clear surrounding events. According to the daughter who is a healthcare proxy patient was also acting strange as reported by staff. # metabolic encephalopathy secondary to acute infection, underlying dementia Fluctuating, improved overall Recurrent reorientation To use Seroquel as needed # sepsis secondary to UTI # gram-negative bacteremia no evidence of stone on CT of the abdomen but shows mild right hydroureteronephrosis with perinephric stranding suggestive of a passed stone versus pyelonephritis Blood cultures growing GNR in 1 bottle Negative urine culture Continue IV antibiotic Discontinue IV fluids # leukocytosis Resolved DVT prophylaxis: Heparin subQ Quality Stroke Does the patient have a stroke diagnosis?: No VTE Prior VTE?: No VTE Risk Level:: Medical - moderate - high VTE Device Contraindication: Treatment Not Indicated VTE Drug Contraindication: N/A - Med Ordered
[2021-01-19 15:17] VITALS: BP 136/63; PULSE 82; RESP 18; TEMP 36.9; O2SAT 95
[2021-01-19] MEDS: OLANZapine 2.5 MG TABLET PO (16:26)
[2021-01-19 19:12] VITALS: BP 137/64; PULSE 80; RESP 18; TEMP 37.1; O2SAT 99
[2021-01-19] MEDS: QUEtiapine Fumarate 25 MG TABLET PO (20:36)
[2021-01-20] VITALS: RESP 18
[2021-01-20] MEDS: Heparin Sodium,Porcine 5,000 UNIT/ML VIAL 5000 UNIT SUBCUT (03:38)
[2021-01-20] MEDS: cefTRIAXone sodium 1 GM in 0.9 % Sodium Chloride 50 ML IV (03:38)
[2021-01-20 04:00] VITALS: BP 127/61; PULSE 82; RESP 18; TEMP 36.9; O2SAT 98
[2021-01-20 07:29] VITALS: BP 131/60; PULSE 78; RESP 18; TEMP 37.2; O2SAT 95
[2021-01-20 08:00] VITALS: TEMP 37.2
[2021-01-20] MEDS: Cholecalciferol (Vitamin D3) 25 MCG TABLET PO (08:20)
[2021-01-20] MEDS: Divalproex Sodium Sprinkles 125 MG CAP.DR.SPR PO (08:20)
[2021-01-20] MEDS: Aspirin Enteric Coated 81 MG TABLET.DR PO (08:20)
[2021-01-20] MEDS: Docusate Sodium 100 MG CAPSULE PO (08:20)
[2021-01-20] MEDS: Multivitamin TABLET 1 TAB PO (08:20)
[2021-01-20] MEDS: 0.9 % Sodium Chloride Flush 3 ML SYRINGE IVFLUSH (08:20)
--- NOTE | 2021-01-20 09:42 | P.CDIC_ITS ---
CDI Concurrent Query Service Date: 01/20/21 Documentation Clarification: Please clarify if you are treating a proba ble/suspected/likely or confirmed: ASPEN Criteria (2012) Acute Illness Chronic Illness Clinical Characteristic Non-Severe (2 or more criteria present) Severe (2 or more criteria present) Non-Severe (2 or more criteria present) Severe (2 or more criteria present) Energy Intake <75% for >7 days <=50% for >=5 days <75% for >=1 month <=75% for >=1 month Weight Loss ? 1 week 1 ? 2% >2% N/A N/A 1 month 5% >5% 5% >5% 3 months 7.5 % >7.5% 7.5% >7.5% 6 months N/A N/A 10% >10% 1 year N/A N/A 20% >20% Body Fat Mild Moderate Mild Severe Muscle Mass Mild Moderate Mild Severe Fluid Accumulation Mild Moderate to Severe Mild Severe Reduced Dairy Feed Sales Consultant Strength N/A Measurably Reduced N/A Measurably Reduced ? If possible, please provide in your progress notes, additional specificity regarding the severity of the malnutrition using the above information: ? Mild ? Moderate ? Severe ? Other (please specify) ? Unable to determine Provider Response: Mild Protein-Calorie Malnutrition PLEASE DO NOT DELETE/MODIFY EXISTING CONTENT Additional information is needed in order to code to the highest accuracy and appropriate Severity of Illness (SOI). Please clarify the information noted below in your progress notes and discharge summary. Risk Factors/Clinical Indicators/Treatments HT 5'5 WT 44.6 kg BMI 16.4 Nutrition note 01/17/21: moderate malnutrition, mildly depleted subcutaneous fat and muscle mass with prolonged poor po intake related to history anorexia and poor po intake per family Recommend Ensure BiD CDS: Olivia Linn RN Contact Number: [phone] Please Review the information above and exercise your independent professional judgment in responding to the query. If you concur, pleas document in the PROGRESS NOTES and DISCHARGE SUMMARY. If you do not agree with the query, please document in the query above. THIS QUERY IS PART OF THE PERMANENT MEDICAL RECORD
--- NOTE | 2021-01-20 11:08 | MHC.CM.PN ---
IMM 01/20/21 Female 80 DX Encephalopathy/Pyelo She is discharged today to [facility] Locked dementia unit. Her Dtr Julisa with provide transportation to the [facility]. [facility] notified of discharge today.
--- NOTE | 2021-01-20 11:32 | PM.DS ---
DS: Providers Provider Date of Service: 01/20/21 Date of admission: 01/17/21 03:42 Primary care physician: Johanna Wheeler MD DS: Diagnosis Discharge Diagnosis (1) Gram-negative bacteremia: Status: Acute (2) Encephalopathy: Status: Acute (3) Sepsis: Status: Acute (4) UTI (urinary tract infection): Status: Acute DS: Medications Discharge Medications Home Medications: Home Medications Medication Instructions Recorded Confirmed cholecalciferol (vitamin D3) 25 25 mcg PO DAILY 01/17/21 01/17/21 mcg (1,000 unit) capsule (Vitamin D3) methenamine hippurate 1 gram tablet 1 g PO BID 01/17/21 01/17/21 olanzapine 2.5 mg tablet 2.5 mg PO DAILY@1700 01/17/21 01/17/21 trazodone 50 mg tablet 25 mg PO DAILY@1300 01/17/21 01/17/21 vitamin E (dl, acetate) 450 mg 450 mg PO DAILY 01/17/21 01/17/21 (1,000 unit) capsule Previous Rx's Medication Instructions Recorded aspirin 81 mg tablet,delayed 81 mg PO DAILY@0800 30 Days #30 tab 01/08/21 release divalproex 125 mg capsule,delayed 125 mg PO TID 30 Days #90 cap 01/08/21 release sprinkle docusate sodium 100 mg capsule 100 mg PO BID 30 Days #60 cap 01/08/21 multivitamin 1 tab PO DAILY@0800 30 Days #30 tab 01/08/21 polyethylene glycol 3350 17 gram 17 g PO DAILY 30 Days #30 ea 01/08/21 oral powder packet cefuroxime axetil 250 mg tablet 250 mg PO BID #20 tab 01/20/21 DS: Summary Hospital Course Hospital Course: Admission note HPI 80-year-old female with past medical history of dementia and anxiety who presents from long-term care after being found on the floor.? Patient has dementia, on my interview she is sleeping, hard to arouse, therefore history was obtained from ED physician. ?Unclear if patient had any head injury.? On arrival patient hemodynamically stable with no significant abnormal vitals Spoke to her daughter Jessica who is her healthcare proxy over the phone.? Digital reports that patient was found on the floor and also acting strange according to the intermediate staff.? She usually converses at baseline but 2nd dementia.? She reports that about a month ago she was treated for UTI but currently has not been on antibiotics. Labs were significant for WBC count of 18.8, PTT of 50 to his having, INR of 1.4, BUN of 28, creatinine of 1.24 with a baseline of 0.8, UA positive for blood and RBC, Abdominal pelvic CT showed no evidence of acute injury, minimal interstitial edema evident within the upper lungs, mild right hydroureteronephrosis, perinephric stranding.? No urinary calculi, consider recently passed stone versus pyelonephritis per Given patient's leukocytosis which she will be admitted for management of pyelonephritis Hospital course The patient was admitted to the hospital for IV antibiotic of ceftriaxone as she has been treated for sepsis secondary to UTI. Urine culture remained negative blood blood cultures grew Citrobacter in 1 bottle responsive to ceftriaxone. Patient mentation fluctuated during the hospital stay with mainly owning noticed responded well to small dose of Seroquel at bedtime. Mentation improved back to her baseline. To to be discharged back to facility to finish 10 more days of Ceftin for total of 14 days for bacteremia treatment. Time Spent with Patient Time attestation: Total time spent providing and/or coordinating discharge services: Discharge coordination time: Greater than 30 minutes Quality: Stroke Does the patient have a stroke diagnosis?: No Physical Exam Vital Signs: Vital Signs: Last Vital Signs Temp 99 F 01/20/21 08:00 Pulse 78 01/20/21 07:29 Resp 18 01/20/21 07:29 BP 131/60 01/20/21 07:29 Pulse Ox 95 01/20/21 07:29 Body Mass Index 16.3 Const: Other: Constitutional : Alert, disoriented, not in distress Neck : Normal inspection, Supple Cardiovascular : RRR, S1 S2, no lower extremity edema Respiratory : Good bilateral air entry, no crackles, wheezes or rhonchi Gastrointestinal: soft, lax, Normal bowel sounds, Non tender Skin : Warm/Dry Neurological : Alert & disoriented, No focal deficit DS: Data Data Completed and Pending Labs on day of discharge: Preliminary micro results at discharge 01/16/21 23:22 Blood Culture - Preliminary Blood - Venous No growth after 48 hours. Discharge Plan Discharge Patient Disposition: [facility] Discharge Diagnosis: Gram-negative bacteremia Urinary tract infection Referrals: Johanna Wheeler MD [Primary Care Provider] - 1 Week Discharge Medications: New cefuroxime axetil 250 mg tablet 250 mg PO BID Qty: 20 RF: 0 Continued divalproex 125 mg Capsule, Delayed Rel Sprinkle 125 mg PO TID 30 Days Qty: 90 RF: 0 docusate sodium 100 mg Capsule 100 mg PO BID 30 Days Qty: 60 RF: 0 multivitamin Tablet 1 tab PO DAILY@0800 30 Days Qty: 30 RF: 0 polyethylene glycol 3350 17 gram Powder In Packet 17 g PO DAILY 30 Days Qty: 30 RF: 0 aspirin 81 mg Tablet,Delayed Release (Dr/Ec) 81 mg PO DAILY@0800 30 Days Qty: 30 RF: 0 olanzapine 2.5 mg tablet 2.5 mg PO DAILY@1700 RF: 0 cholecalciferol (vitamin D3) [Vitamin D3] 25 mcg (1,000 unit) Capsule 25 mcg PO DAILY RF: 0 vitamin E (dl, acetate) 450 mg (1,000 unit) Capsule 450 mg PO DAILY RF: 0 trazodone 50 mg tablet 25 mg PO DAILY@1300 RF: 0 methenamine hippurate 1 gram Tablet 1 g PO BID RF: 0 Discharge Orders: Discharge Order (Routine); Ordered 01/20/21 Ordered By: Anita Dotson Diet: advance to usual diet Activity on Discharge: As tolerated Stand Alone Forms: Patient Portal Discharge page Care Plan Goals: Read below Health Concerns: Read below Plan of Treatment: Admitted for altered mentation. found to have urine infection and bacteremia from Citrobacter. responded well to IV antibiotics. Assessment: Continue Ceftin for 10 more days
[2021-01-20] MEDS: traZODone HCL 25 MG HALFTAB PO (12:36)
[2021-01-20 13:21] LABS: COVID-19 Test Negative (Negative)
[2021-01-20 15:41] VITALS: BP 140/63; PULSE 78; RESP 19; TEMP 37.1; O2SAT 100
== END 2021-01-20 16:28 | disposition skilled nursing facility (03) | DRG 871 ==
LOC: HO.ED 01-17 03:36 → HO.EDOVER 01-17 04:14 → HO.IMC 01-17 06:05
PROVIDERS: Admitting Provider Internal Medicine; Emergency Provider Student in an Organized Health Care Education/Training Program; PCP Internal Medicine; Visit Provider Student in an Organized Health Care Education/Training Program
DX: A41.50 Gram-negative sepsis, unspecified (principal); G93.41 Metabolic encephalopathy; N13.6 Pyonephrosis; F03.90 Unspecified dementia, unspecified severity, without behavioral disturbance, psychotic disturbance, mood disturbance, and anxiety; F41.9 Anxiety disorder, unspecified; D72.829 Elevated white blood cell count, unspecified; Z20.822 Contact with and (suspected) exposure to COVID-19; Z87.891 Personal history of nicotine dependence; Z88.2 Allergy status to sulfonamides; Z79.82 Long term (current) use of aspirin; Z79.899 Other long term (current) drug therapy
CPT/HCPCS: 36415; 70450; 71250; 74176; 80048; 80053; 81001; 83605; 85025; 85610; 87040; 87077; 87186; 87205; 87635; 93005; 99285; J0696; J1885; J2405; J2543

== ENCOUNTER 2021-01-28 12:37 | Inpatient (IN) | payer MEDICARE, OTHER, SELFPAY ==
--- NOTE | ~2021-01-28 | CT_ITS ---
EXAMINATION: CT HEAD WITHOUT CONTRAST CLINICAL INFORMATION: Change in mental status. COMPARISON: January 17, 2021 TECHNIQUE: Contiguous axial imaging was performed from the skull base to vertex without intravenous administration of contrast. This CT examination was performed using dose optimization techniques as appropriate, variously including the following: *Automated exposure control *Adjustment of mA and/or kV according to patient size (this includes techniques or standardized protocols for targeted exams where dose is matched to indication/reason for exam; i.e. extremities or head) *Use of iterative reconstruction technique DLP: 770 mGy-cm FINDINGS: There is no evidence of acute intracranial hemorrhage or territorial infarction. No abnormal mass effect or midline shift is seen. Grayson to white matter differentiation is well preserved. No extra-axial fluid collections are identified. Ventricle sulci and cisterns are enlarged consistent with generalized atrophy. There is a large amount of periventricular white matter low density present consistent with microangiopathy. The osseous structures and soft tissues are normal. The mastoid air cells and visualized portions of the paranasal sinuses are well aerated. CT/CT head/brain wo con IMPRESSION: No acute intracranial pathology. Generalized atrophy with microangiopathy.
--- NOTE | ~2021-01-28 | CT_ITS ---
EXAMINATION: CT ABDOMEN AND PELVIS WITHOUT CONTRAST CLINICAL INFORMATION: ? pyelo, right flank pain, abd pain . COMPARISON: 01/17/2021. TECHNIQUE: Multidetector volumetric imaging was performed from the superior aspect of the liver through the pubic symphysis without contrast per renal stone protocol. Sagittal and coronal reformatted images were obtained on the technologist workstation. This CT examination was performed using dose optimization techniques as appropriate, variously including the following: *Automated exposure control *Adjustment of mA and/or kV according to patient size (this includes techniques or standardized protocols for targeted exams where dose is matched to indication/reason for exam; i.e. extremities or head) *Use of iterative reconstruction technique DLP: 413 mGy-cm. FINDINGS: LUNG BASES: The visualized lung bases are unremarkable. LIVER, GALLBLADDER, BILIARY TREE: The non-contrast liver is normal in size, shape, and attenuation. No focal hepatic lesion or biliary ductal dilatation is present. The gallbladder surgically absent. PANCREAS: Unremarkable. SPLEEN: Unremarkable. ADRENAL GLANDS: Fullness to both adrenal glands again noted. KIDNEYS AND URETERS: The kidneys are normal in size, shape, and attenuation. No hydronephrosis, hydroureter, or calculi seen. No perinephric stranding. BLADDER: Bladder is decompressed with Moody catheter GASTROINTESTINAL TRACT: Scattered colonic diverticulosis but no evidence for diverticulitis. No obstructive changes to the small bowel ABDOMINAL WALL: No significant hernia is appreciated. LYMPHOVASCULAR STRUCTURES: Prominent vascular calcification.. PELVIC VISCERA: Surgically absent OSSEUS STRUCTURES: Degenerative changes but no acute bony abnormality. CT/CT abdomen pelvis wo con IMPRESSION: Chronic appearing changes similar to the prior study. I do not appreciate any acute superimposed process..
[2021-01-28 12:50] VITALS: BP 120/69; PULSE 95; RESP 22; TEMP 36.8; O2SAT 99; BMI 17.9
[2021-01-28 13:04] LABS: MANUAL DIFF FLAG NO
[2021-01-28 13:07] LABS: Basophils Absolute Auto 0.1 X10*3/uL (0.0-0.2); Basophils Percent Auto 0.7 % (0-2); Eosinophils Absolute Auto 0.3 X10*3/uL (0.0-0.4); Eosinophils Percent Auto 3.2 % (0-4); Hematocrit 39.2 % (37-47); Hemoglobin 12.4 g/dl (12.0-16.0); Imm Gran Abs Auto 0.05 X10*3/uL (0.00-0.03); Imm Gran Pct Auto 0.6 % (0.0-0.4); Lymphocytes Absolute Auto 1.5 X10*3/uL (1.2-4.9); Lymphocytes Percent Auto 16.5 % (20-40); Mean Corpuscular HGB Conc 31.6 g/dl (31.0-35.0); Mean Corpuscular Hemoglobin 29.8 pg (27.0-33.0); Mean Corpuscular Volume 94.2 fL (80-98); Mean Platelet Volume 9.6 fL (9.4-12.3); Monocytes Absolute Auto 0.7 X10*3/uL (0.1-1.2); Monocytes Percent Auto 7.2 % (2-11); Neutrophils Absolute Auto 6.5 X10*3/uL (2.0-8.3); Neutrophils Percent Auto 71.8 % (45-73); Platelet Count 487 X10*3/uL (160-400); Red Blood Count 4.16 X10*6/uL (4.20-5.50); Red Cell Distribution Width 12.4 % (11.0-16.0)
--- NOTE | 2021-01-28 13:08 | ECG_ITS ---
Test Reason : AMS Blood Pressure : / mmHG Vent. Rate : 088 BPM Atrial Rate : 088 BPM P-R Int : 136 ms QRS Dur : 078 ms QT Int : 368 ms P-R-T Axes : 068 -10 072 degrees QTc Int : 445 ms Normal sinus rhythm with sinus arrhythmia Possible Left atrial enlargement Borderline ECG When compared with ECG of 16-JAN-2021 21:59, No significant change was found Referred By: Ron Sanabria Electronically Signed By:TIANA MONTGOMERY MD
--- NOTE | 2021-01-28 13:14 | ED_ITS ---
HPI - Altered Mental Status General Chief Complaint: Altered Mental Status Stated Complaint: AMS/ Abdominal Pain Time Seen by Provider: 01/28/21 13:04 Source: other (ED nursing male) Mode of arrival: EMS Limitations: no limitations History of Present Illness HPI narrative: 80-year-old female with history of dementia to the emergency department from her assisted living dementia unit for evaluation of increased confusion. Patient is currently being treated for urinary tract infection. Patient knows name and date of but not sure where she is with the situation. Patient repeatedly asks ?what are we doing on ?. The patient had no complaints. She appears to be awake and alert and slightly agitated. Patient was seen in the emergency department on 01/16/2021 for patient found on the floor and question of fall. ED diagnosis wassepsis with possible urinary source/pyelonephritis. The patient was admitted. The patient grew Gram-negative bacteria Citrobacter in 1 set of blood cultures. She was treated with ceftriaxone and discharged on cefuroxime 250 mg twice a day for 10 days (to be completed on 01/30/2021) There was no urine culture from this visit. I did obtain more information from the patient's PCP, . She is concerned that the patient has had increased urinary frequency, has been more confused and has not been able to sleep. Also the patient has been complaining of back pain. Patient has also had a decreased ability to do her ADLs. Dr. Marie was concerned that the patient has been getting recurrent urinary tract infection and she felt that the patient's change in mental status could be caused by another urinary tract infection and possible bacteremia similar to her previous admission. Dr. Wheeler also felt that the patient would benefit from going to short-stay rehab or long-term care facility if the patient is hospitalized. Related Data Home Medications Medication Instructions Recorded Confirmed cholecalciferol (vitamin D3) 25 25 mcg PO DAILY 01/17/21 01/17/21 mcg (1,000 unit) capsule (Vitamin D3) methenamine hippurate 1 gram tablet 1 g PO BID 01/17/21 01/17/21 olanzapine 2.5 mg tablet 2.5 mg PO DAILY@1700 01/17/21 01/17/21 trazodone 50 mg tablet 25 mg PO DAILY@1300 01/17/21 01/17/21 vitamin E (dl, acetate) 450 mg 450 mg PO DAILY 01/17/21 01/17/21 (1,000 unit) capsule Previous Rx's Medication Instructions Recorded aspirin 81 mg tablet,delayed 81 mg PO DAILY@0800 30 Days #30 tab 01/08/21 release divalproex 125 mg capsule,delayed 125 mg PO TID 30 Days #90 cap 01/08/21 release sprinkle docusate sodium 100 mg capsule 100 mg PO BID 30 Days #60 cap 01/08/21 multivitamin 1 tab PO DAILY@0800 30 Days #30 tab 01/08/21 polyethylene glycol 3350 17 gram 17 g PO DAILY 30 Days #30 ea 01/08/21 oral powder packet cefuroxime axetil 250 mg tablet 250 mg PO BID #20 tab 01/20/21 Allergies Allergy/AdvReac Type Severity Reaction Status Date / Time memantine [MEMANTINE] Allergy Severe HIVES Verified 10/14/20 07:25 Iodinated Contrast Media Allergy Unknown UNKNOWN Verified 10/14/20 07:25 [IV CONTRAST] lactose Allergy Unknown DIARRHEA Verified 10/14/20 07:25 sulfamethoxazole Allergy Unknown UNKNOWN Verified 10/14/20 07:25 [From BACTRIM] trimethoprim [From BACTRIM] Allergy Unknown UNKNOWN Verified 10/14/20 07:25 Review of Systems Review of Systems: Yes Other (Unobtainable secondary to dementia) [facility] Past Medical History [facility] Narrative: Social history: The patient is a resident of the [facility]. The patient does not drink alcohol, smoke cigarettes or use drugs. Medical History Anxiety Chronic UTI Dementia Surgical History History of appendectomy Hx of cholecystectomy Hx of tonsillectomy S/P STEPHIE (total abdominal hysterectomy) Social History Social History Household Members: Other Housing: Assisted Living Facility Do you presently have visiting nurse or other home services: No Unable to assess alcohol history related to: Unknown Alcohol intake: unknown Patient Tobacco Use Status: Former Tobacco user Tobacco use type: Cigarette e-Cigarette/Vaping Use: Never Used Second Hand Smoke Exposure: No Use of substances other than those prescribed or required for medical reasons: Unknown Advance Directives: Yes Advance Directives on File: Yes Advance Directives Date on File: 10/10/20 service: No Current occupational status: retired Sexual orientation: Straight/Heterosexual Physical Exam Vital Signs: Vital Signs: Last Vital Signs Temp 98.2 F 01/28/21 15:44 Pulse 119 H 01/28/21 15:44 Resp 16 01/28/21 15:44 BP 142/82 H 01/28/21 15:44 Pulse Ox 99 01/28/21 15:44 Body Mass Index 17.9 Const: Other: Elderly female, sitting in the stretcher, complaining that her hospital gown is too tight and she wants to take it off, she is oriented to person only, she lacks insight as to why she is here. Orientation/consciousness: oriented to person Limitations: other limitations (Dementia) HENMT: Head: Yes normal to inspection, Yes normocephalic and Yes atraumatic Ears: external ears normal General nose exam: Normal external nose present Face and sinus: Yes normal facial exam Mouth: Normal oral and palatal mucosa present Throat: Yes posterior oropharynx normal Eyes: General: appearance normal, both eyes and all related structures Pupils: Equal, round and reactive pupils present Neck: Neck: Yes normal visual inspection, Yes no lymphadenopathy, Yes trachea midline and Yes supple Chest: Chest palpation & inspection: normal inspection of the chest and normal palpation of entire chest wall Resp: Effort & Inspection: normal respiratory effort and able to speak in complete sentences Auscultation: clear to auscultation bilaterally Cardio: Rate: regular rate Rhythm: regular rhythm Heart sounds: S1 normal heart sound present, S2 normal heart sound present and no murmurs GI: Inspection: Yes normal to inspection Palpation (GI): Soft to palpation, nontender and no guarding Auscultation: normal bowel sounds : General: Yes no CVA tenderness Back/Spine/Pelvis: Back: no CVA tenderness Skin: General skin exam: no rashes or lesions noted Neuro: General: oriented to person Cranial nerves: Yes CN's II-XII intact bilaterally and Yes Equal, round and reactive pupils present Cognition (Neuro): normal cognition Motor exam (neuro): 5/5 motor strength present throughout Extrem: General: Yes normal to inspection Psych: Appearance: grossly normal Speech and movement: Normal speech and movement present Affect: normal affect Course Course Course Narrative: 80-year-old female who presents emergency department for altered mentation from her baseline dementia. The patient was hospitalized a pproximately 10 days prior for Citrobacter koseri (Gram-negative shubham) bacteremia sensitive to cephalosporins, treated with cefuroxime. Patient's vital signs did reveal elevated respiratory rate of 22 otherwise were unremarkable. I did order laboratory evaluation, straight cath urine and CT scan of the head. 1554: The patient's laboratory evaluation revealed an elevated platelet count of 114395. Patient's lactic acid was elevated at 2.1. Urinalysis revealed 2+ blood, negative nitrates and negative leukocyte esterase. The patient's microscopic revealed 15-29 RBCs in 15-29 WBCs with no bacteria. The patient is still on cefuroxime and concerned the patient may have recurrence of her urinary tract infection or bacteremia. Patient was ordered to get a 30 cc/kilogram fluid bolus. She is also ordered to get Rocephin 1 g IV. I will discuss the patient's presentation with the covering hospitalist. 1614: I did discuss the patient's presentation with the covering hospitalist, Jimena Farrell the patient will be admitted to the medical floor for further treatment. MDM - Altered Mental Status Lab Data Result diagrams: 01/28/21 12:59 01/28/21 12:59 Labs: Lab Results 01/28/21 01/28/21 01/28/21 Range/Units 12:59 12:59 12:59 WBC 9.0 (4.8-10.8) X10*3/uL RBC 4.16 L (4.20-5.50) X10*6/uL Hgb 12.4 (12.0-16.0) g/dl Hct 39.2 (37-47) % MCV 94.2 (80-98) fL MCH 29.8 (27.0-33.0) pg MCHC 31.6 (31.0-35.0) g/dl RDW 12.4 (11.0-16.0) % Plt Count 487 H D (160-400) X10*3/uL MPV 9.6 (9.4-12.3) fL Immature Gran % (Auto) 0.6 H (0.0-0.4) % Neut % (Auto) 71.8 (45-73) % Lymph % (Auto) 16.5 L (20-40) % [place] % (Auto) 7.2 (2-11) % Eos % (Auto) 3.2 (0-4) % Baso % (Auto) 0.7 (0-2) % Lymph # (Auto) 1.5 (1.2-4.9) X10*3/uL [place] # (Auto) 0.7 (0.1-1.2) X10*3/uL Eos # (Auto) 0.3 (0.0-0.4) X10*3/uL Baso # (Auto) 0.1 (0.0-0.2) X10*3/uL Abs Immat Gran (auto) 0.05 H (0.00-0.03) X10*3/uL Absolute Neuts (auto) 6.5 (2.0-8.3) X10*3/uL Absolute Nucleated RBC 0.000 (0.0-0.012) X10*3/uL Nucleated RBC % (auto) 0.0 (0.0-0.2) /100WBC Sodium 140 (135-145) mmol/L Potassium 4.4 (3.3-5.1) mmol/L Chloride 102 (96-108) mmol/L Carbon Dioxide 26 (22-29) mmol/L Anion Gap 16 (12-20) BUN 15 (9-16) mg/dL Creatinine 0.87 (0.5-1.4) mg/dL Estim Creat Clear Calc 40.5 Estimated GFR > 60 Random Glucose 129 H D (60-115) mg/dL Lactic Acid 2.1 H* (0.5-2.0) mmol/L Lactic Acid Fup @ 2Hr (0.5-2.0) mmol/L Calcium 9.2 D (8.4-10.2) mg/dL Total Bilirubin < 0.2 (0.0-1.0) mg/dL AST 14 (5-31) U/L ALT 12 (0-31) U/L Alkaline Phosphatase 80 (39-117) U/L Troponin I High Sens (<3.5-17.0) ng/L Total Protein 6.9 (6.5-8.0) g/dL Albumin 4.0 (3.5-5.0) g/dL Lipase 26 (8-78) U/L Urine Color Urine Appearance Urine pH (5.0-8.0) Ur Specific [place] (1.005-1.025) Urine Protein (NEG-TRACE) MG/DL Urine Glucose (UA) (NEG) MG/DL Urine Ketones (NEG) MG/DL Urine Blood (NEG) Urine Nitrite (NEG) Ur Leukocyte Esterase (NEG) Urine RBC (0) /HPF Urine WBC (0-4) /HPF Ur Squamous Epith Cells /LPF Urine Bacteria /LPF Urine Opiates Screen (Not Detect) Ur Barbiturates Screen (Not Detect) Ur Phencyclidine Scrn (Not Detect) Ur Amphetamines Screen (Not Detect) U Benzodiazepines Scrn (Not Detect) Urine Cocaine Screen (Not Detect) U Marijuana (THC) Screen (Not Detect) 01/28/21 01/28/21 01/28/21 Range/Units 12:59 13:58 14:41 WBC (4.8-10.8) X10*3/uL RBC (4.20-5.50) X10*6/uL Hgb (12.0-16.0) g/dl Hct (37-47) % MCV (80-98) fL MCH (27.0-33.0) pg MCHC (31.0-35.0) g/dl RDW (11.0-16.0) % Plt Count (160-400) X10*3/uL MPV (9.4-12.3) fL Immature Gran % (Auto) (0.0-0.4) % Neut % (Auto) (45-73) % Lymph % (Auto) (20-40) % [place] % (Auto) (2-11) % Eos % (Auto) (0-4) % Baso % (Auto) (0-2) % Lymph # (Auto) (1.2-4.9) X10*3/uL [place] # (Auto) (0.1-1.2) X10*3/uL Eos # (Auto) (0.0-0.4) X10*3/uL Baso # (Auto) (0.0-0.2) X10*3/uL Abs Immat Gran (auto) (0.00-0.03) X10*3/uL Absolute Neuts (auto) (2.0-8.3) X10*3/uL Absolute Nucleated RBC (0.0-0.012) X10*3/uL Nucleated RBC % (auto) (0.0-0.2) /100WBC Sodium (135-145) mmol/L Potassium (3.3-5.1) mmol/L Chloride (96-108) mmol/L Carbon Dioxide (22-29) mmol/L Anion Gap (12-20) BUN (9-16) mg/dL Creatinine (0.5-1.4) mg/dL Estim Creat Clear Calc Estimated GFR Random Glucose (60-115) mg/dL Lactic Acid (0.5-2.0) mmol/L Lactic Acid Fup @ 2Hr (0.5-2.0) mmol/L Calcium (8.4-10.2) mg/dL Total Bilirubin (0.0-1.0) mg/dL AST (5-31) U/L ALT (0-31) U/L Alkaline Phosphatase (39-117) U/L Troponin I High Sens 3.6 (<3.5-17.0) ng/L Total Protein (6.5-8.0) g/dL Albumin (3.5-5.0) g/dL Lipase Cancelled (8-78) U/L Urine Color YELLOW Urine Appearance CLEAR Urine pH 6.0 (5.0-8.0) Ur Specific [place] 1.015 (1.005-1.025) Urine Protein NEG (NEG-TRACE) MG/DL Urine Glucose (UA) NEG (NEG) MG/DL Urine Ketones NEG (NEG) MG/DL Urine Blood 2+ H (NEG) Urine Nitrite NEG (NEG) Ur Leukocyte Esterase NEG (NEG) Urine RBC 15-29 H (0) /HPF Urine WBC 15-29 H (0-4) /HPF Ur Squamous Epith Cells NONE /LPF Urine Bacteria NONE /LPF Urine Opiates Screen (Not Detect) Ur Barbiturates Screen (Not Detect) Ur Phencyclidine Scrn (Not Detect) Ur Amphetamines Screen (Not Detect) U Benzodiazepines Scrn (Not Detect) Urine Cocaine Screen (Not Detect) U Marijuana (THC) Screen (Not Detect) 01/28/21 01/28/21 Range/Units 14:41 15:28 WBC (4.8-10.8) X10*3/uL RBC (4.20-5.50) X10*6/uL Hgb (12.0-16.0) g/dl Hct (37-47) % MCV (80-98) fL MCH (27.0-33.0) pg MCHC (31.0-35.0) g/dl RDW (11.0-16.0) % Plt Count (160-400) X10*3/uL MPV (9.4-12.3) fL Immature Gran % (Auto) (0.0-0.4) % Neut % (Auto) (45-73) % Lymph % (Auto) (20-40) % [place] % (Auto) (2-11) % Eos % (Auto) (0-4) % Baso % (Auto) (0-2) % Lymph # (Auto) (1.2-4.9) X10*3/uL [place] # (Auto) (0.1-1.2) X10*3/uL Eos # (Auto) (0.0-0.4) X10*3/uL Baso # (Auto) (0.0-0.2) X10*3/uL Abs Immat Gran (auto) (0.00-0.03) X10*3/uL Absolute Neuts (auto) (2.0-8.3) X10*3/uL Absolute Nucleated RBC (0.0-0.012) X10*3/uL Nucleated RBC % (auto) (0.0-0.2) /100WBC Sodium (135-145) mmol/L Potassium (3.3-5.1) mmol/L Chloride (96-108) mmol/L Carbon Dioxide (22-29) mmol/L Anion Gap (12-20) BUN (9-16) mg/dL Creatinine (0.5-1.4) mg/dL Estim Creat Clear Calc Estimated GFR Random Glucose (60-115) mg/dL Lactic Acid (0.5-2.0) mmol/L Lactic Acid Fup @ 2Hr 1.0 (0.5-2.0) mmol/L Calcium (8.4-10.2) mg/dL Total Bilirubin (0.0-1.0) mg/dL AST (5-31) U/L ALT (0-31) U/L Alkaline Phosphatase (39-117) U/L Troponin I High Sens (<3.5-17.0) ng/L Total Protein (6.5-8.0) g/dL Albumin (3.5-5.0) g/dL Lipase (8-78) U/L Urine Color Urine Appearance Urine pH (5.0-8.0) Ur Specific [place] (1.005-1.025) Urine Protein (NEG-TRACE) MG/DL Urine Glucose (UA) (NEG) MG/DL Urine Ketones (NEG) MG/DL Urine Blood (NEG) Urine Nitrite (NEG) Ur Leukocyte Esterase (NEG) Urine RBC (0) /HPF Urine WBC (0-4) /HPF Ur Squamous Epith Cells /LPF Urine Bacteria /LPF Urine Opiates Screen Not Detected (Not Detect) Ur Barbiturates Screen Not Detected (Not Detect) Ur Phencyclidine Scrn Not Detected (Not Detect) Ur Amphetamines Screen Not Detected (Not Detect) U Benzodiazepines Scrn Not Detected (Not Detect) Urine Cocaine Screen Not Detected (Not Detect) U Marijuana (THC) Screen Not Detected (Not Detect) Discharge Plan Discharge Prescriptions: No Action divalproex 125 mg Capsule, Delayed Rel Sprinkle 125 mg PO TID 30 Days Qty: 90 RF: 0 docusate sodium 100 mg Capsule 100 mg PO BID 30 Days Qty: 60 RF: 0 multivitamin Tablet 1 tab PO DAILY@0800 30 Days Qty: 30 RF: 0 polyethylene glycol 3350 17 gram Powder In Packet 17 g PO DAILY 30 Days Qty: 30 RF: 0 aspirin 81 mg Tablet,Delayed Release (Dr/Ec) 81 mg PO DAILY@0800 30 Days Qty: 30 RF: 0 olanzapine 2.5 mg tablet 2.5 mg PO DAILY@1700 RF: 0 cholecalciferol (vitamin D3) [Vitamin D3] 25 mcg (1,000 unit) Capsule 25 mcg PO DAILY RF: 0 vitamin E (dl, acetate) 450 mg (1,000 unit) Capsule 450 mg PO DAILY RF: 0 trazodone 50 mg tablet 25 mg PO DAILY@1300 RF: 0 methenamine hippurate 1 gram Tablet 1 g PO BID RF: 0 cefuroxime axetil 250 mg tablet 250 mg PO BID Qty: 20 RF: 0
[2021-01-28 13:52] LABS: Lactic Acid 2.1 mmol/L (0.5-2.0)
[2021-01-28 13:56] LABS: Alanine Aminotransferase 12 U/L (0-31); Alkaline Phosphatase 80 U/L (39-117); Anion Gap 16 (12-20); Aspartate Amino Transferase 14 U/L (5-31); Bilirubin Total < 0.2 mg/dL (0.0-1.0); Blood Urea Nitrogen 15 mg/dL (9-16); Calcium 9.2 mg/dL (8.4-10.2); Carbon Dioxide 26 mmol/L (22-29); Chloride 102 mmol/L (96-108); Creatinine Clr Calc Pharmacy 40.5; Estimated Glomerular Filt Rate > 60; Glucose Random 129 mg/dL (60-115); Lipase 26 U/L (8-78); Potassium 4.4 mmol/L (3.3-5.1); Sodium 140 mmol/L (135-145); Total Protein 6.9 g/dL (6.5-8.0)
[2021-01-28 14:17] VITALS: BP 115/67; PULSE 88; RESP 16; O2SAT 97
--- NOTE | 2021-01-28 14:18 | PC.NURSE ---
Pt pulled peripheral iv out of rt forearm that was placed on arrival. Peripheral iv restarted in right ac with a 20 gauge insyte. Site secured and flushed with ns
[2021-01-28 14:49] LABS: Glucose Urine UA NEG (NEG); Leukocyte Esterase Urine NEG (NEG); Nitrite Urine NEG (NEG); Specific Gravity - Urine 1.015 (1.005-1.025); UACC Culture Trigger NO; Urine Blood 2+ (NEG); Urine Ketones NEG (NEG); Urine Protein NEG (NEG-TRACE)
[2021-01-28 14:50] LABS: Appearance Urine CLEAR; Color Urine YELLOW
[2021-01-28 15:01] LABS: Troponin-I High Sensitivity 3.6 ng/L (<3.5-17.0)
[2021-01-28 15:02] LABS: UACC CULT YES
[2021-01-28 15:16] LABS: Reflex Lactate? Lactic Acid Added
[2021-01-28 15:20] LABS: Amphetamine Screen Urine Not Detected (Not Detect); Barbiturates, Urine Not Detected (Not Detect); Benzodiazepines Screen Urine Not Detected (Not Detect); Cannabinoid Screen Urine Not Detected (Not Detect); Cocaine Screen Urine Not Detected (Not Detect); Opiate Screen Urine Not Detected (Not Detect); Phencyclidine Screen Urine Not Detected (Not Detect)
[2021-01-28] MEDS: cefTRIAXone sodium 1 GM in 0.9 % Sodium Chloride 50 ML IV (15:33)
[2021-01-28 15:44] VITALS: BP 142/82; PULSE 119; RESP 16; TEMP 36.8; O2SAT 99
--- NOTE | 2021-01-28 16:13 | PM.IMHP ---
History of Present Illness Date of Service: 01/28/21 <Jimena Farrell NP - Last Filed: 01/28/21 17:27> Chief Complaint: Altered mental status <Jimena Farrell NP - Last Filed: 01/28/21 17:27> 80 year old women with a history of dementia presenting from assisted living facility with increased confusion. She is currently being treated for UTI with ceftin. She has a hx of Chronic UTI. She was recently admitted on 01/16/21 after a fall. She grew Gram-negative bacteria, Citrobacter in 1 set of blood cultures and was treated with rocephin while inpatient. in the ER she is quite confused combative and every several minutes saying that she needs to use the bathroom. When a bed pannus placed under her she is able to produce a small amount a urine each time. It was decided that placing a Moody catheter would likely be better for the patient as she does have confusion and she continues to attempt to get up and may be at higher risk for a fall in the ER she does have a sitter with her. She is not noted to have any fever or leukocytosis. Lactic acid is 2.1. Urinalysis is not impressive however she has been treated with antibiotics recently. she was given IV fluids and ceftriaxone in the ER. She will be admitted for further management treatment of acute encephalopathy possibly related to failed outpatient treatment of urinary tract infection. <Jimena Farrell NP - Last Filed: 01/28/21 17:27> Review of Systems Review of Systems: Yes Unobtainable due to mental status (difficult to assess, says only that she has pain to left lower back ) <Jimena Farrell NP - Last Filed: 01/28/21 17:27> [facility] Medical History: Medical History Anxiety Chronic UTI Dementia <Jimena Farrell NP - Last Filed: 01/28/21 17:27> Surgical History: Surgical History History of appendectomy Hx of cholecystectomy Hx of tonsillectomy S/P STEPHIE (total abdominal hysterectomy) <Jimena Farrell NP - Last Filed: 01/28/21 17:27> Social History: Social History Household Members: Unknown / Unable to assess Housing: Assisted Living Facility Do you presently have visiting nurse or other home services: No Unable to assess alcohol history related to: Unknown Alcohol intake: unknown Patient Tobacco Use Status: Former Tobacco user Tobacco use type: Cigarette e-Cigarette/Vaping Use: Never Used Second Hand Smoke Exposure: No Use of substances other than those prescribed or required for medical reasons: Unknown Currently Displaying Signs/Symptoms of Drug Intoxication Withdrawal: No Advance Directives: Yes Advance Directives on File: Yes Advance Directives Date on File: 10/10/20 Do you have thoughts of harming others: None Do you have a plan to hurt others: No Plan Nutrition Risks: No Nutritional Risk service: No Current occupational status: retired Sexual orientation: Straight/Heterosexual <Jimena Farrell NP - Last Filed: 01/28/21 17:27> Meds Allergies/Adverse reactions: Allergies Allergy/AdvReac Type Severity Reaction Status Date / Time memantine [MEMANTINE] Allergy Severe HIVES Verified 10/14/20 07:25 Iodinated Contrast Media Allergy Unknown UNKNOWN Verified 10/14/20 07:25 [IV CONTRAST] lactose Allergy Unknown DIARRHEA Verified 10/14/20 07:25 sulfamethoxazole Allergy Unknown UNKNOWN Verified 10/14/20 07:25 [From BACTRIM] trimethoprim [From BACTRIM] Allergy Unknown UNKNOWN Verified 10/14/20 07:25 <Jimena Farrell NP - Last Filed: 01/28/21 17:27> Active Medications: Current Medications Generic Name Dose Route Start Last Admin Trade Name Freq PRN Reason Stop Dose Admin Sodium Chloride 1,470 mls @ 1,470 mls/hr 01/28/21 15:22 01/28/21 15:20 Ns 30 ml/kg infuse over 1 hr (1470 ml) 01/28/21 16:21 1,470 mls/hr IV Administration .Q1H ONE <Jimena Farrell NP - Last Filed: 01/28/21 17:27> Home medications: Home Medications Medication Instructions Recorded Confirmed Last Taken Type cholecalciferol (vitamin D3) 25 25 mcg PO DAILY 01/17/21 01/28/21 Unknown History mcg (1,000 unit) capsule (Vitamin D3) methenamine hippurate 1 gram tablet 1 g PO BID 01/17/21 01/28/21 Unknown History olanzapine 2.5 mg tablet 2.5 mg PO DAILY@1700 01/17/21 01/28/21 Unknown History trazodone 50 mg tablet 25 mg PO DAILY@1300 01/17/21 01/28/21 Unknown History vitamin E (dl, acetate) 450 mg 450 mg PO DAILY 01/17/21 01/28/21 Unknown History (1,000 unit) capsule cefuroxime axetil 250 mg tablet 1 tab PO BID 01/28/21 01/28/21 Unknown History olanzapine 5 mg tablet 1 tab PO BEDTIME 01/28/21 01/28/21 Unknown History polyethylene glycol 3350 17 17 g PO DAILY PRN 01/28/21 01/28/21 Unknown History gram/dose oral powder (Miralax) <Jimena Farrell NP - Last Filed: 01/28/21 17:27> Physical Exam Vital Signs and Narrative: Vital Signs: Last Vital Signs Temp 98.2 F 01/28/21 15:44 Pulse 119 H 01/28/21 15:44 Resp 16 01/28/21 15:44 BP 142/82 H 01/28/21 15:44 Pulse Ox 99 01/28/21 15:44 Body Mass Index 17.9 <Jimena Farrell NP - Last Filed: 01/28/21 17:27> Appearing agitated trying to get oob, asking for to use the bathroom every 5 minutes head is normocephalic atraumatic eyes pupils are PERRLA sclera is anicteric mouth throat mucous membranes are intact and dry neck is supple no lymphadenopathy, no JVD noted lung sounds are clear to auscultation heart regular rate rhythm, clear S1, S2 positive bowel sounds, abdomen is soft, nontender neuro patient is alert, confused <Jimena Farrell NP - Last Filed: 01/28/21 17:27> Results Labs CBC and Chem 7: : 01/29/21 06:10 01/29/21 06:10 <Jimena Farrell NP - Last Filed: 01/28/21 17:27> Labs: Laboratory Results - last 24 hr 01/28/21 01/28/21 01/28/21 12:59 12:59 12:59 MCV 94.2 MCH 29.8 MCHC 31.6 RDW 12.4 Plt Count 487 H D MPV 9.6 Immature Gran % (Auto) 0.6 H Neut % (Auto) 71.8 Lymph % (Auto) 16.5 L Harris % (Auto) 7.2 Eos % (Auto) 3.2 Baso % (Auto) 0.7 Lymph # (Auto) 1.5 Harris # (Auto) 0.7 Eos # (Auto) 0.3 Baso # (Auto) 0.1 Abs Immat Gran (auto) 0.05 H Absolute Neuts (auto) 6.5 Absolute Nucleated RBC 0.000 Nucleated RBC % (auto) 0.0 Anion Gap 16 Estim Creat Clear Calc 40.5 Estimated GFR > 60 Random Glucose 129 H D Lactic Acid 2.1 H* Lactic Acid Fup @ 2Hr Calcium 9.2 D Total Bilirubin < 0.2 AST 14 ALT 12 Alkaline Phosphatase 80 Troponin I High Sens Total Protein 6.9 Albumin 4.0 Lipase 26 Urine Color Urine Appearance Urine pH Ur Specific [place] Urine Protein Urine Glucose (UA) Urine Ketones Urine Blood Urine Nitrite Ur Leukocyte Esterase Urine RBC Urine WBC Ur Squamous Epith Cells Urine Bacteria Urine Opiates Screen Ur Barbiturates Screen Ur Phencyclidine Scrn Ur Amphetamines Screen U Benzodiazepines Scrn Urine Cocaine Screen U Marijuana (THC) Screen 01/28/21 01/28/21 01/28/21 12:59 13:58 14:41 MCV MCH MCHC RDW Plt Count MPV Immature Gran % (Auto) Neut % (Auto) Lymph % (Auto) Harris % (Auto) Eos % (Auto) Baso % (Auto) Lymph # (Auto) Harris # (Auto) Eos # (Auto) Baso # (Auto) Abs Immat Gran (auto) Absolute Neuts (auto) Absolute Nucleated RBC Nucleated RBC % (auto) Anion Gap Estim Creat Clear Calc Estimated GFR Random Glucose Lactic Acid Lactic Acid Fup @ 2Hr Calcium Total Bilirubin AST ALT Alkaline Phosphatase Troponin I High Sens 3.6 Total Protein Albumin Lipase Cancelled Urine Color YELLOW Urine Appearance CLEAR Urine pH 6.0 Ur Specific [place] 1.015 Urine Protein NEG Urine Glucose (UA) NEG Urine Ketones NEG Urine Blood 2+ H Urine Nitrite NEG Ur Leukocyte Esterase NEG Urine RBC 15-29 H Urine WBC 15-29 H Ur Squamous Epith Cells NONE Urine Bacteria NONE Urine Opiates Screen Ur Barbiturates Screen Ur Phencyclidine Scrn Ur Amphetamines Screen U Benzodiazepines Scrn Urine Cocaine Screen U Marijuana (THC) Screen 01/28/21 01/28/21 14:41 15:28 MCV MCH MCHC RDW Plt Count MPV Immature Gran % (Auto) Neut % (Auto) Lymph % (Auto) Harris % (Auto) Eos % (Auto) Baso % (Auto) Lymph # (Auto) Harris # (Auto) Eos # (Auto) Baso # (Auto) Abs Immat Gran (auto) Absolute Neuts (auto) Absolute Nucleated RBC Nucleated RBC % (auto) Anion Gap Estim Creat Clear Calc Estimated GFR Random Glucose Lactic Acid Lactic Acid Fup @ 2Hr 1.0 Calcium Total Bilirubin AST ALT Alkaline Phosphatase Troponin I High Sens Total Protein Albumin Lipase Urine Color Urine Appearance Urine pH Ur Specific [place] Urine Protein Urine Glucose (UA) Urine Ketones Urine Blood Urine Nitrite Ur Leukocyte Esterase Urine RBC Urine WBC Ur Squamous Epith Cells Urine Bacteria Urine Opiates Screen Not Detected Ur Barbiturates Screen Not Detected Ur Phencyclidine Scrn Not Detected Ur Amphetamines Screen Not Detected U Benzodiazepines Scrn Not Detected Urine Cocaine Screen Not Detected U Marijuana (THC) Screen Not Detected <Jimena Farrell NP - Last Filed: 01/28/21 17:27> Imaging Radiologist's Impressions: Impressions Head CT 01/28/21 13:08 IMPRESSION: No acute intracranial pathology. Generalized atrophy with microangiopathy. <Jimena Farrell NP - Last Filed: 01/28/21 17:27> Assessment and Plan (1) Altered mental status: Status: Acute <Jimena Farrell NP - Last Filed: 01/28/21 17:27> 80 year old women admitted with acute encephalopathy, recent UTI and was on ceftin at [facility]. She has chronic UTI's and has frequency and urgency which may be contributing to encephalopathy. Last urine cx in september was negative, no cx from last admission several days ago. Encephalopathy. Unknown etiology at this time. very agitated and trying to get OOB May be secondary to recent UTI UTI. Hx of chronic UTI. recent UTI and was on ceftin at home Will start Rocephin for now Follow urine cx Abdominal CT 01/17/2021 showed mild right hydronephrosis questioning recently passed stone or pyelonephritis Due to pain to right lower back will obtain abdominal CT Lactic acidosis. She received IV fluids in the ER Likely secondary to infection Trend Dementia continue home medications DVT prophylaxis with Lovenox Attending Dr. Alberto Full code <Jimena Farrell NP - Last Filed: 01/28/21 17:27> Quality Stroke Does the patient have a stroke diagnosis?: No <Jimena Farrell NP - Last Filed: 01/28/21 17:27> VTE Prior VTE?: No <Jimena Farrell NP - Last Filed: 01/28/21 17:27> VTE Risk Level:: Medical - moderate - high <Jimena Farrell NP - Last Filed: 01/28/21 17:27> VTE Device Contraindication: Treatment Not Indicated <Jimena Farrell NP - Last Filed: 01/28/21 17:27> VTE Drug Contraindication: N/A - Med Ordered <Jimena Farrell NP - Last Filed: 01/28/21 17:27>
[2021-01-28 17:17] VITALS: BP 126/95; PULSE 98; RESP 24; O2SAT 96
[2021-01-28 18:08] LABS: Influenza A PCR NEGATIVE (Negative); Influenza B PCR NEGATIVE (Negative); Resp Syncy Virus RNA Qual PCR NEGATIVE (Negative); SARS COV2 PCR INHOUSE NEGATIVE (Negative)
--- NOTE | 2021-01-28 18:13 | PHA.MEDREC ---
Pharmacy Consult ? Medication Reconciliation Pharmacy has completed the medication reconciliation.
[2021-01-28] MEDS: OLANZapine 5 MG TABLET PO (20:11)
[2021-01-28] MEDS: Docusate Sodium 100 MG CAPSULE PO (20:12)
[2021-01-28] MEDS: Acetaminophen 325 MG TABLET 650 MG PO (20:12)
[2021-01-28] MEDS: Enoxaparin Sodium 40 MG/0.4 ML SYRINGE SUBCUT (20:12)
[2021-01-28 20:51] VITALS: BP 127/68; PULSE 87; RESP 18; TEMP 36.3; O2SAT 96
[2021-01-28 23:01] VITALS: BP 139/92; PULSE 106; RESP 18; TEMP 36.8; O2SAT 96
[2021-01-29] MEDS: 0.9 % Sodium Chloride Flush 3 ML SYRINGE IVFLUSH ×3 (00:04→17:54)
[2021-01-29] MEDS: Acetaminophen 325 MG TABLET 650 MG PO (04:49)
[2021-01-29 05:57] VITALS: RESP 20
[2021-01-29 06:26] LABS: MANUAL DIFF FLAG NO
[2021-01-29 06:50] LABS: Basophils Absolute Auto 0.1 X10*3/uL (0.0-0.2); Basophils Percent Auto 0.7 % (0-2); Eosinophils Absolute Auto 0.3 X10*3/uL (0.0-0.4); Eosinophils Percent Auto 2.8 % (0-4); Hematocrit 39.8 % (37-47); Hemoglobin 12.9 g/dl (12.0-16.0); Imm Gran Abs Auto 0.05 X10*3/uL (0.00-0.03); Imm Gran Pct Auto 0.5 % (0.0-0.4); Lymphocytes Absolute Auto 1.7 X10*3/uL (1.2-4.9); Lymphocytes Percent Auto 15.7 % (20-40); Mean Corpuscular HGB Conc 32.4 g/dl (31.0-35.0); Mean Corpuscular Volume 92.6 fL (80-98); Mean Platelet Volume 9.6 fL (9.4-12.3); Monocytes Absolute Auto 0.8 X10*3/uL (0.1-1.2); Monocytes Percent Auto 7.2 % (2-11); Neutrophils Absolute Auto 7.8 X10*3/uL (2.0-8.3); Neutrophils Percent Auto 73.1 % (45-73); Platelet Count 513 X10*3/uL (160-400); Red Cell Distribution Width 12.4 % (11.0-16.0); White Blood Count 10.7 X10*3/uL (4.8-10.8)
[2021-01-29 07:07] LABS: Anion Gap 14 (12-20); Blood Urea Nitrogen 11 mg/dL (9-16); Calcium 9.2 mg/dL (8.4-10.2); Carbon Dioxide 24 mmol/L (22-29); Chloride 106 mmol/L (96-108); Estimated Glomerular Filt Rate > 60; Glucose Random 115 mg/dL (60-115); Potassium 3.9 mmol/L (3.3-5.1); Sodium 140 mmol/L (135-145)
--- NOTE | 2021-01-29 09:23 | MHC.CM.PN ---
DELFINA LEFT A MESSAGE FOR [facility] NURSE, MAYRA ([phone]) TO OBTAIN INFORMATION ABOUT PTS BASELINE FUNCTIONING. AWAITING RETURN CALL. DELFINA SPOKE TO PTS DAUGHTER, SHERLY LUNA ([phone]) WHO REPORTS THEY MOVED THE PT TO THE [facility] ABOUT TWO MONTHS AGO BECAUSE HER PREVIOUS PLACEMENT DID NOT HAVE ENOUGH PROGRAMMING. SHE REPORTS THE PT ENJOYS GOING FOR WALKS AND GOING TO ACTIVITIES. SHERLY REPORTS THE PT HAS BEEN IN AND OUT OF THE HOSPITAL FOUR TIMES SINCE SEPTEMBER AND BECAUSE OF THE TRANSITIONING HER DEMENTIA HAS PROGRESSED RAPIDLY. RECENTLY, SHE REPORTS THE [facility] HAS BEEN REQUIRING THEM TO PAY FOR 24/7 [employer] OFFBEARER SERVICES WHICH IS UNSUSTAINABLE. SHERLY REPORTS THE PT ALSO EXHIBITS BEHAVIORS RELATED TO HER ANXIETY AND WILL NEED TO GO TO A LOCKED BEHAVIORAL UNIT AT DISCHARGE. SHE IS AWARE THAT THE PT WILL NEED TO DO A SPEND DOWN IN ORDER TO EVENTUALLY OBTAIN LTC INSURANCE COVERAGE. SHERLY REPORTS WHEN THE PT IS LUCID SHE DOES TELL THEM THAT SHE WANTS TO LIVE WITH ONE OF HER DAUGHTERS HOWEVER THIS IS NOT A VIABLE OPTION. SHERLY STATES THE PTS OUTPATIENT PRESCRIBER FOR PSYCH MEDS IS SONY CARRERA. PT DID RECEIVE THE XINTEC VACCINE. SHERLY DOES NOT HAVE THE EXACT DATES BUT KNOWS IT WAS AUGUST AND SEPTEMBER. SHE REPORTS SHE DOES HAVE THE CARD AT HOME BUT SHE IS CAMPING UNTIL WEDNESDAY. SHERLY REPORTS THE PT USUALLY GETS VERY WEAK AFTER A COUPLE DAYS IN THE HOSPITAL AND MAY NEED STR TO TRANSITION TO LTC. SHE REPORTS THE PT USUALLY CAN FOLLOW CUES FOR A PT EVAL HOWEVER IT MUST BE EARLY IN THE DAY BECAUSE SHE BEGINS TO RIGHT AFTER LUNCH. DELFINA WILL MAKE REFERRALS TO LOCAL SNFS PER STANISLAV REQUEST. SHERLY LIVES IN [place] AND HOPES THAT PT CAN STAY IN THE AREA. CURRENT DC PLAN IS PLACEMENT IN A LOCKED DEMENTIA UNIT [place]REFERABLY IN THE [place] OF [place]. PT WILL NEED BLS TRANSPORT PTS IMM WAS DELIVERED VIA T/C TO SHERLY LUNA. COPY AT BEDSIDE PER DISCUSSION.
[2021-01-29 10:07] VITALS: BMI 17.9
--- NOTE | 2021-01-29 10:40 | P.CDIC_ITS ---
CDI Concurrent Query Service Date: 01/29/21 PLEASE DO NOT DELETE/MODIFY EXISTING CONTENT Additional information is needed in order to code to the highest accuracy and appropriate Severity of Illness (SOI). Please clarify the information noted below in your progress notes and discharge summary. Risk Factors/Clinical Indicators/Treatments CDS: Balbina Wilson Contact Number: Please Review the information above and exercise your independent professional judgment in responding to the query. If you concur, pleas document in the PROGRESS NOTES and DISCHARGE SUMMARY. If you do not agree with the query, please document in the query above. THIS QUERY IS PART OF THE PERMANENT MEDICAL RECORD
--- NOTE | 2021-01-29 10:42 | P.CDIC_ITS ---
CDI Concurrent Query Service Date: 02/04/21 Documentation Clarification: Please clarify if you are treating a proba ble/suspected/likely or confirmed: Underweight Malnutrition, mild, moderate or severe Other, please specify if known Provider Response: Other Other Diagnosis: wrong provider PLEASE DO NOT DELETE/MODIFY EXISTING CONTENT Additional information is needed in order to code to the highest accuracy and appropriate Severity of Illness (SOI). Please clarify the information noted below in your progress notes and discharge summary. Risk Factors/Clinical Indicators/Treatments Nutrition assessment notes underweight with last diagnosis of moderate malnutrition with improvement in nutritional status. BMI 17.9 Adding Ensure CDS: Balbina Wilson CCS, CDIS Contact Number: [phone] Please Review the information above and exercise your independent professional judgment in responding to the query. If you concur, pleas document in the PROGRESS NOTES and DISCHARGE SUMMARY. If you do not agree with the query, please document in the query above. THIS QUERY IS PART OF THE PERMANENT MEDICAL RECORD
--- NOTE | 2021-01-29 11:24 | PM.IMPN ---
Progress Note: A&P (1) Altered mental status: Status: Acute <Jimena Farrell NP - Last Filed: 01/29/21 11:35> Assessment and Plan: 80 year old women admitted with acute encephalopathy, recent UTI and was on ceftin at [facility]. She has chronic UTI's and has frequency and urgency which may be contributing to encephalopathy. Last urine cx in september was negative, no cx from last admission several days ago. Encephalopathy. Unknown etiology at this time. very agitated and trying to get OOB initially less agitated today has a sitter May be secondary to recent UTI Urine cx negative recent radha psych admission will have psych re-eval ? UTI. Hx of chronic UTI. recent UTI and was on ceftin at home urine cx neg stop rocephin Abdominal CT 01/17/2021 showed mild right hydronephrosis questioning recently passed stone or pyelonephritis Due to pain to right lower back will obtain abdominal CT obtained this admission with no acute abnormalities Lactic acidosis. Resolved She received IV fluids in the ER Likely secondary to infection Trend Dementia continue home medications DISPO plan for tx back to [facility] vs STR vs LTC. Medically cleared DVT prophylaxis with Lovenox Attending Dr. Alberto Full code? <Jimena Farrell NP - Last Filed: 01/29/21 11:35> Subjective Subjective Date of Service: 01/29/21 <Jimena Farrell NP - Last Filed: 01/29/21 11:35> 01/29/21 <Polo Alberto MD - Last Filed: 01/29/21 16:13> Interval History: Follow-up encephalopathy No infection noted History of dementia less agitated today <Jimena Farrell NP - Last Filed: 01/29/21 11:35> Physical Exam Vital Signs: Vital Signs: Last Vital Signs Temp 98.2 F 01/28/21 23:01 Pulse 106 H 01/28/21 23:01 Resp 20 01/29/21 05:57 BP 139/92 H 01/28/21 23:01 Pulse Ox 96 01/28/21 23:01 Body Mass Index 17.9 <Jimena Farrell NP - Last Filed: 01/29/21 11:35> Appearing in no acute distress, sleeping lung sounds normal expansion heart regular rate rhythm, clear S1, S2 positive bowel sounds, abdomen is soft, nontender neuro patient is sleeping <Jimena Farrell NP - Last Filed: 01/29/21 11:35> Objective Data Current Medications Generic Name Dose Route Start Last Admin Trade Name [place] PRN Reason Stop Dose Admin Acetaminophen 650 mg 01/28/21 17:36 01/29/21 04:49 Acetaminophen 325 Mg Tablet PO 650 mg Q6H PRN Administration Pain, Mild (Pain Scale 1-3) Docusate Sodium 100 mg 01/28/21 21:00 01/29/21 07:26 Docusate Sodium 100 Mg Capsule PO Not Given BID LATRICE Enoxaparin Sodium 40 mg 01/28/21 22:00 01/28/21 20:12 Enoxaparin Sodium 40 Mg/0.4 Ml Syringe SUBCUT 40 mg Q24H LATRICE Administration Ceftriaxone Sodium 1 gm/ 50 mls @ 100 mls/hr 01/29/21 15:00 Sodium Chloride IV Q24H LATRICE Multivitamins/Vitamin C 1 tab 01/29/21 08:00 01/29/21 07:26 Multivitamin Tablet PO Not Given DAILY@0800 LATRICE Olanzapine 2.5 mg 01/29/21 17:00 Olanzapine 2.5 Mg Tablet PO DAILY@1700 LATRICE Olanzapine 5 mg 01/28/21 21:00 01/28/21 20:11 Olanzapine 5 Mg Tablet PO 5 mg BEDTIME [facility] Administration Ondansetron HCl 4 mg 01/28/21 17:36 Ondansetron Hcl 4 Mg/2 Ml Vial IVPUSH Q8H PRN Nausea and Vomiting Pharmacy Consult 1 each 01/28/21 17:13 Consult Rx Perform Med Rec MISCELLANE ONCE PRN Consult order Polyethylene Glycol 17 gm 01/29/21 09:00 Polyethylene Glycol 3350 17 Gm Powd.Pack PO DAILY PRN Constipation Sodium Chloride 3 ml 01/29/21 00:00 01/29/21 07:26 0.9 % Sodium Chloride Flush 3 Ml Syringe IVFLUSH 3 ml QSHIFT [facility] Administration Trazodone HCl 25 mg 01/29/21 13:00 Trazodone Hcl 25 Mg Halftab PO DAILY@1300 LATRICE <Jimena Farrell HAND BOOKED FOLDER AND STITCHER - Last Filed: 01/29/21 11:35> Labs CBC & Chem 7: : 01/29/21 06:10 01/29/21 06:10 <Jimena Farrell NP - Last Filed: 01/29/21 11:35> Labs: Laboratory Results - last 24 hr 01/28/21 01/28/21 01/28/21 12:59 12:59 12:59 MCV 94.2 MCH 29.8 MCHC 31.6 RDW 12.4 Plt Count 487 H D MPV 9.6 Immature Gran % (Auto) 0.6 H Neut % (Auto) 71.8 Lymph % (Auto) 16.5 L [place] % (Auto) 7.2 Eos % (Auto) 3.2 Baso % (Auto) 0.7 Lymph # (Auto) 1.5 [place] # (Auto) 0.7 Eos # (Auto) 0.3 Baso # (Auto) 0.1 Abs Immat Gran (auto) 0.05 H Absolute Neuts (auto) 6.5 Absolute Nucleated RBC 0.000 Nucleated RBC % (auto) 0.0 Anion Gap 16 Estim Creat Clear Calc 40.5 Estimated GFR > 60 Random Glucose 129 H D Lactic Acid 2.1 H* Lactic Acid Fup @ 2Hr Calcium 9.2 D Total Bilirubin < 0.2 AST 14 ALT 12 Alkaline Phosphatase 80 Troponin I High Sens Total Protein 6.9 Albumin 4.0 Lipase 26 Urine Color Urine Appearance Urine pH Ur Specific [place] Urine Protein Urine Glucose (UA) Urine Ketones Urine Blood Urine Nitrite Ur Leukocyte Esterase Urine RBC Urine WBC Ur Squamous Epith Cells Urine Bacteria Urine Opiates Screen Ur Barbiturates Screen Ur Phencyclidine Scrn Ur Amphetamines Screen U Benzodiazepines Scrn Urine Cocaine Screen U Marijuana (THC) Screen Coronavirus (PCR) Influenza Type A (PCR) Influenza Type B (PCR) RSV RNA Qual (PCR) 01/28/21 01/28/21 01/28/21 12:59 13:58 14:41 MCV MCH MCHC RDW Plt Count MPV Immature Gran % (Auto) Neut % (Auto) Lymph % (Auto) [place] % (Auto) Eos % (Auto) Baso % (Auto) Lymph # (Auto) [place] # (Auto) Eos # (Auto) Baso # (Auto) Abs Immat Gran (auto) Absolute Neuts (auto) Absolute Nucleated RBC Nucleated RBC % (auto) Anion Gap Estim Creat Clear Calc Estimated GFR Random Glucose Lactic Acid Lactic Acid Fup @ 2Hr Calcium Total Bilirubin AST ALT Alkaline Phosphatase Troponin I High Sens 3.6 Total Protein Albumin Lipase Cancelled Urine Color YELLOW Urine Appearance CLEAR Urine pH 6.0 Ur Specific [place] 1.015 Urine Protein NEG Urine Glucose (UA) NEG Urine Ketones NEG Urine Blood 2+ H Urine Nitrite NEG Ur Leukocyte Esterase NEG Urine RBC 15-29 H Urine WBC 15-29 H Ur Squamous Epith Cells NONE Urine Bacteria NONE Urine Opiates Screen Ur Barbiturates Screen Ur Phencyclidine Scrn Ur Amphetamines Screen U Benzodiazepines Scrn Urine Cocaine Screen U Marijuana (THC) Screen Coronavirus (PCR) Influenza Type A (PCR) Influenza Type B (PCR) RSV RNA Qual (PCR) 01/28/21 01/28/21 01/28/21 14:41 15:28 17:06 MCV MCH MCHC RDW Plt Count MPV Immature Gran % (Auto) Neut % (Auto) Lymph % (Auto) [place] % (Auto) Eos % (Auto) Baso % (Auto) Lymph # (Auto) [place] # (Auto) Eos # (Auto) Baso # (Auto) Abs Immat Gran (auto) Absolute Neuts (auto) Absolute Nucleated RBC Nucleated RBC % (auto) Anion Gap Estim Creat Clear Calc Estimated GFR Random Glucose Lactic Acid Lactic Acid Fup @ 2Hr 1.0 Calcium Total Bilirubin AST ALT Alkaline Phosphatase Troponin I High Sens Total Protein Albumin Lipase Urine Color Urine Appearance Urine pH Ur Specific [place] Urine Protein Urine Glucose (UA) Urine Ketones Urine Blood Urine Nitrite Ur Leukocyte Esterase Urine RBC Urine WBC Ur Squamous Epith Cells Urine Bacteria Urine Opiates Screen Not Detected Ur Barbiturates Screen Not Detected Ur Phencyclidine Scrn Not Detected Ur Amphetamines Screen Not Detected U Benzodiazepines Scrn Not Detected Urine Cocaine Screen Not Detected U Marijuana (THC) Screen Not Detected Coronavirus (PCR) NEGATIVE Influenza Type A (PCR) NEGATIVE Influenza Type B (PCR) NEGATIVE RSV RNA Qual (PCR) NEGATIVE 01/29/21 01/29/21 06:10 06:10 MCV 92.6 MCH 30.0 MCHC 32.4 RDW 12.4 Plt Count 513 H MPV 9.6 Immature Gran % (Auto) 0.5 H Neut % (Auto) 73.1 H Lymph % (Auto) 15.7 L [place] % (Auto) 7.2 Eos % (Auto) 2.8 Baso % (Auto) 0.7 Lymph # (Auto) 1.7 [place] # (Auto) 0.8 Eos # (Auto) 0.3 Baso # (Auto) 0.1 Abs Immat Gran (auto) 0.05 H Absolute Neuts (auto) 7.8 Absolute Nucleated RBC 0.000 Nucleated RBC % (auto) 0.0 Anion Gap 14 Estim Creat Clear Calc 47.0 Estimated GFR > 60 Random Glucose 115 Lactic Acid Lactic Acid Fup @ 2Hr Calcium 9.2 Total Bilirubin AST ALT Alkaline Phosphatase Troponin I High Sens Total Protein Albumin Lipase Urine Color Urine Appearance Urine pH Ur Specific [place] Urine Protein Urine Glucose (UA) Urine Ketones Urine Blood Urine Nitrite Ur Leukocyte Esterase Urine RBC Urine WBC Ur Squamous Epith Cells Urine Bacteria Urine Opiates Screen Ur Barbiturates Screen Ur Phencyclidine Scrn Ur Amphetamines Screen U Benzodiazepines Scrn Urine Cocaine Screen U Marijuana (THC) Screen Coronavirus (PCR) Influenza Type A (PCR) Influenza Type B (PCR) RSV RNA Qual (PCR) <Jimena Farrell NP - Last Filed: 01/29/21 11:35> Microbiology Microbiology Results: Microbiology 01/28/21 Unknown Urine clean catch - Urine beckwith top Urine Culture - Final No growth. <Jimena Farrell NP - Last Filed: 01/29/21 11:35> Quality Stroke Does the patient have a stroke diagnosis?: No <Jimena Farrell NP - Last Filed: 01/29/21 11:35> VTE Prior VTE?: No <Jimena Farrlel NP - Last Filed: 01/29/21 11:35> VTE Risk Level:: Medical - moderate - high <Jimena Farrell NP - Last Filed: 01/29/21 11:35> VTE Device Contraindication: Treatment Not Indicated <Jimena Farrell NP - Last Filed: 01/29/21 11:35> VTE Drug Contraindication: N/A - Med Ordered <Jimena Farrell NP - Last Filed: 01/29/21 11:35>
[2021-01-29] MEDS: traZODone HCL 25 MG HALFTAB PO (13:36)
--- NOTE | 2021-01-29 14:29 | MHC.CM.PN ---
pt has two dc plan options at this time . one is to return to [facility] if she has her behaviors under control and is AL appropriate. the AL advocated for radha-psych admission for med management then to return if behaviors are approp. if behaviors are approp. 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 the AL said they felt in her current state the the [facility] was not a good fit for the patient . a psych eval was conducted today and i was told patient is not approp. for radha-psych admission. the AL also requested that our hospitalist conference c dr. Spencer at [phone] who sees patient at the [facility], this has been conveyed to hospitalist. the second option is for patient to go to [facility] on a locked unit that can manage her dementia and behaviors. refs. have been made with the caveat that she will be mcnamara pay. [facility] has shown interest... they are requesting some minimal paper work before extending a bed offer, but this is in process. customer contact representative at [facility] is yamilet etienne, ph: [phone] at this time i have a call to patient's HCP, daughter - rhea at [phone]. i am waiting for her call to update her and discuss on how she would like to proceed. cm to cont. to follow.
--- NOTE | 2021-01-29 15:06 | MHC.CM.PN ---
pt has two dc plan options at this time . one is to return to [facility] if she has her behaviors under control and is AL appropriate. the AL advocated for radha-psych admission for med management then to return if behaviors are approp. if behaviors are approp. then a 24/7 tar boiler would not be necessary. the AL said they felt in her current state the the [facility] was not a good fit for the patient . a psych eval was conducted today and i was told patient is not approp. for radha-psych admission. the AL also requested that our hospitalist conference c dr. Spencer at [phone] who sees patient at the [facility], this has been conveyed to hospitalist. the second option is for patient to go to snf - assisted resident on a locked unit that can manage her dementia and behaviors. refs. have been made with the caveat that she will be mcnamara pay. [facility] has shown interest... they are requesting some minimal paper work before extending a bed offer, but this is in process. field contact technician at [facility] is yamilet etienne, ph: [phone] i did call to patient's HCP, daughter - rhea at [phone]. and updated her on all of the above, she requested me put refs in to [facility] [place] and [facility] - both known to have dementia units, this was done. also [facility] was asked when they thought they might have an approp. bed. rhea is thinking about [facility] while these new refs are answered. cm to cont. to follow.
[2021-01-29 15:07] VITALS: BP 115/63; PULSE 120; RESP 20; TEMP 36.4; O2SAT 98
--- NOTE | 2021-01-29 15:51 | PM.PSYCN ---
History of Present Illness Date of Service: 01/29/21 Chief Complaint: Encephalopathy UTI Reason for Consult: dementia, increased anxiety, agitated behaviors, recent geriatric psych admit. Requesting physician: Jimena Farrell Discussed with referring provider: Yes Sources of Information: patient interviewed and chart reviewed Additional Sources of Information: Discussed case with patient's RN and constant salsa dance instructor that was present in room. HPI Narrative: Patient is a 80 year old female with a history of dementia presenting from assisted living facility with increased confusion. She is currently being treated for UTI with ceftin. She has a hx of Chronic UTI. She was recently admitted on 01/16/21 after a fall. In the ED she was quite confused, combative, and requested to use bathroom multiple times. Patient has been admitted for further management treatment of acute encephalopathy possibly related to failed outpatient treatment of urinary tract infection. Psychiatry was called due to reports of increased anxiety and agitated behaviors. Upon most recent discharge from hospital on 01/20/2021, patient had been provided divalproex 125 mg capsules delayed release wrinkles, 125 mg p.o. t.i.d.. She had also been sent with olanzapine 2.5 mg daily at 17:00, and trazodone 25 mg p.o. daily at 13:00. Past Psychiatric History: She was recently in this facility with a geriatric psychiatric admission. She has had multiple presentations to this hospital over the past few months, and has been trialed on several medications, including lamictal, depakote, olanzapine, trazodone. She was diagnosed with Dementia and currently, she is on Rivastigmine. She has outpatient providers. Medical Evaluation Reviewed: Yes Personal & Social History: Patient currently resides in assisted living facility. Patient has healthcare proxy, daughter Jessica. Review of Systems Review of Systems A full review of systems was completed and was negative wiht the exception of pertinent positives noted in history of the presenting illness. Constitutional: Reports no additional constitutional complaints [facility] Medical History Anxiety Chronic UTI Dementia Surgical History History of appendectomy Hx of cholecystectomy Hx of tonsillectomy S/P STEPHIE (total abdominal hysterectomy) Family History: Alcoholism Social History: Retired, living in [facility], with very good social support. Substance History: unknown Trauma History: Pt had a difficult upbringing as her father was alcoholic. 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 Diagnostics Vital Signs (24Hr): Vital Signs - 24 hr 01/28/21 17:17 01/28/21 20:51 01/28/21 23:01 Temperature 97.3 F 98.2 F Pulse Rate 98 87 106 H Respiratory Rate 24 H 18 18 Blood Pressure 126/95 H 127/68 139/92 H Pulse Oximetry 96 96 96 01/29/21 05:57 01/29/21 15:07 Temperature 97.5 F Pulse Rate 120 H Respiratory Rate 20 20 Blood Pressure 115/63 Pulse Oximetry 98 Body Mass Index 17.9 Labs Results: 01/29/21 06:10 01/29/21 06:10 Labs: Laboratory Results - last 48 hr 01/28/21 01/28/21 01/28/21 12:59 12:59 12:59 WBC 9.0 RBC 4.16 L Hgb 12.4 Hct 39.2 MCV 94.2 MCH 29.8 MCHC 31.6 RDW 12.4 Plt Count 487 H D MPV 9.6 Immature Gran % (Auto) 0.6 H Neut % (Auto) 71.8 Lymph % (Auto) 16.5 L [place] % (Auto) 7.2 Eos % (Auto) 3.2 Baso % (Auto) 0.7 Lymph # (Auto) 1.5 [place] # (Auto) 0.7 Eos # (Auto) 0.3 Baso # (Auto) 0.1 Abs Immat Gran (auto) 0.05 H Absolute Neuts (auto) 6.5 Absolute Nucleated RBC 0.000 Nucleated RBC % (auto) 0.0 Sodium 140 Potassium 4.4 Chloride 102 Carbon Dioxide 26 Anion Gap 16 BUN 15 Creatinine 0.87 Estim Creat Clear Calc 40.5 Estimated GFR > 60 Random Glucose 129 H D Lactic Acid 2.1 H* Lactic Acid Fup @ 2Hr Calcium 9.2 D Total Bilirubin < 0.2 AST 14 ALT 12 Alkaline Phosphatase 80 Troponin I High Sens Total Protein 6.9 Albumin 4.0 Lipase 26 Urine Color Urine Appearance Urine pH Ur Specific [place] Urine Protein Urine Glucose (UA) Urine Ketones Urine Blood Urine Nitrite Ur Leukocyte Esterase Urine RBC Urine WBC Ur Squamous Epith Cells Urine Bacteria Urine Opiates Screen Ur Barbiturates Screen Ur Phencyclidine Scrn Ur Amphetamines Screen U Benzodiazepines Scrn Urine Cocaine Screen U Marijuana (THC) Screen Coronavirus (PCR) Influenza Type A (PCR) Influenza Type B (PCR) RSV RNA Qual (PCR) 01/28/21 01/28/21 01/28/21 12:59 13:58 14:41 WBC RBC Hgb Hct MCV MCH MCHC RDW Plt Count MPV Immature Gran % (Auto) Neut % (Auto) Lymph % (Auto) [place] % (Auto) Eos % (Auto) Baso % (Auto) Lymph # (Auto) [place] # (Auto) Eos # (Auto) Baso # (Auto) Abs Immat Gran (auto) Absolute Neuts (auto) Absolute Nucleated RBC Nucleated RBC % (auto) Sodium Potassium Chloride Carbon Dioxide Anion Gap BUN Creatinine Estim Creat Clear Calc Estimated GFR Random Glucose Lactic Acid Lactic Acid Fup @ 2Hr Calcium Total Bilirubin AST ALT Alkaline Phosphatase Troponin I High Sens 3.6 Total Protein Albumin Lipase Cancelled Urine Color YELLOW Urine Appearance CLEAR Urine pH 6.0 Ur Specific [place] 1.015 Urine Protein NEG Urine Glucose (UA) NEG Urine Ketones NEG Urine Blood 2+ H Urine Nitrite NEG Ur Leukocyte Esterase NEG Urine RBC 15-29 H Urine WBC 15-29 H Ur Squamous Epith Cells NONE Urine Bacteria NONE Urine Opiates Screen Ur Barbiturates Screen Ur Phencyclidine Scrn Ur Amphetamines Screen U Benzodiazepines Scrn Urine Cocaine Screen U Marijuana (THC) Screen Coronavirus (PCR) Influenza Type A (PCR) Influenza Type B (PCR) RSV RNA Qual (PCR) 01/28/21 01/28/21 01/28/21 14:41 15:28 17:06 WBC RBC Hgb Hct MCV MCH MCHC RDW Plt Count MPV Immature Gran % (Auto) Neut % (Auto) Lymph % (Auto) [place] % (Auto) Eos % (Auto) Baso % (Auto) Lymph # (Auto) [place] # (Auto) Eos # (Auto) Baso # (Auto) Abs Immat Gran (auto) Absolute Neuts (auto) Absolute Nucleated RBC Nucleated RBC % (auto) Sodium Potassium Chloride Carbon Dioxide Anion Gap BUN Creatinine Estim Creat Clear Calc Estimated GFR Random Glucose Lactic Acid Lactic Acid Fup @ 2Hr 1.0 Calcium Total Bilirubin AST ALT Alkaline Phosphatase Troponin I High Sens Total Protein Albumin Lipase Urine Color Urine Appearance Urine pH Ur Specific [place] Urine Protein Urine Glucose (UA) Urine Ketones Urine Blood Urine Nitrite Ur Leukocyte Esterase Urine RBC Urine WBC Ur Squamous Epith Cells Urine Bacteria Urine Opiates Screen Not Detected Ur Barbiturates Screen Not Detected Ur Phencyclidine Scrn Not Detected Ur Amphetamines Screen Not Detected U Benzodiazepines Scrn Not Detected Urine Cocaine Screen Not Detected U Marijuana (THC) Screen Not Detected Coronavirus (PCR) NEGATIVE Influenza Type A (PCR) NEGATIVE Influenza Type B (PCR) NEGATIVE RSV RNA Qual (PCR) NEGATIVE 01/29/21 01/29/21 06:10 06:10 WBC 10.7 RBC 4.30 Hgb 12.9 Hct 39.8 MCV 92.6 MCH 30.0 MCHC 32.4 RDW 12.4 Plt Count 513 H MPV 9.6 Immature Gran % (Auto) 0.5 H Neut % (Auto) 73.1 H Lymph % (Auto) 15.7 L [place] % (Auto) 7.2 Eos % (Auto) 2.8 Baso % (Auto) 0.7 Lymph # (Auto) 1.7 [place] # (Auto) 0.8 Eos # (Auto) 0.3 Baso # (Auto) 0.1 Abs Immat Gran (auto) 0.05 H Absolute Neuts (auto) 7.8 Absolute Nucleated RBC 0.000 Nucleated RBC % (auto) 0.0 Sodium 140 Potassium 3.9 Chloride 106 Carbon Dioxide 24 Anion Gap 14 BUN 11 Creatinine 0.75 Estim Creat Clear Calc 47.0 Estimated GFR > 60 Random Glucose 115 Lactic Acid Lactic Acid Fup @ 2Hr Calcium 9.2 Total Bilirubin AST ALT Alkaline Phosphatase Troponin I High Sens Total Protein Albumin Lipase Urine Color Urine Appearance Urine pH Ur Specific [place] Urine Protein Urine Glucose (UA) Urine Ketones Urine Blood Urine Nitrite Ur Leukocyte Esterase Urine RBC Urine WBC Ur Squamous Epith Cells Urine Bacteria Urine Opiates Screen Ur Barbiturates Screen Ur Phencyclidine Scrn Ur Amphetamines Screen U Benzodiazepines Scrn Urine Cocaine Screen U Marijuana (THC) Screen Coronavirus (PCR) Influenza Type A (PCR) Influenza Type B (PCR) RSV RNA Qual (PCR) Imaging Radiology Impressions: ITS Impressions Head CT 01/28/21 13:08 IMPRESSION: No acute intracranial pathology. Generalized atrophy with microangiopathy. Abdomen/Pelvis CT 01/28/21 18:22 IMPRESSION: Chronic appearing changes similar to the prior study. I do not appreciate any acute superimposed process.. Mental Status Exam Mental Status Exam Narrative: Well-developed, well-nourished female, in no apparent distress. Resting with eyes closed, easily arousable. States ?I am okay, I am really tired ?. Unable to assess further. No involuntary movements were noted, motor activity appeared Calm. Ambulation was not observed. Sitter present in room. Patient Appearance: Well Grooomed and Fatigued Level of Consciousness: Drowsy Speech Pattern: Clear Medications Medications Current Medications Generic Name Dose Route Start Last Admin Trade Name Freq PRN Reason Stop Dose Admin Acetaminophen 650 mg 01/28/21 17:36 01/29/21 04:49 Acetaminophen 325 Mg Tablet PO 650 mg Q6H PRN Administration Pain, Mild (Pain Scale 1-3) Docusate Sodium 100 mg 01/28/21 21:00 01/29/21 07:26 Docusate Sodium 100 Mg Capsule PO Not Given BID LATRICE Enoxaparin Sodium 40 mg 01/28/21 22:00 01/28/21 20:12 Enoxaparin Sodium 40 Mg/0.4 Ml Syringe SUBCUT 40 mg Q24H LATRICE Administration Multivitamins/Vitamin C 1 tab 01/29/21 08:00 01/29/21 07:26 Multivitamin Tablet PO Not Given DAILY@0800 LATRICE Olanzapine 2.5 mg 01/29/21 17:00 Olanzapine 2.5 Mg Tablet PO DAILY@1700 [facility] Olanzapine 5 mg 01/28/21 21:00 01/28/21 20:11 Olanzapine 5 Mg Tablet PO 5 mg BEDTIME LATRICE Administration Ondansetron HCl 4 mg 01/28/21 17:36 Ondansetron Hcl 4 Mg/2 Ml Vial IVPUSH Q8H PRN Nausea and Vomiting Pharmacy Consult 1 each 01/28/21 17:13 Consult Rx Perform Med Rec MISCELLANE ONCE PRN Consult order Polyethylene Glycol 17 gm 01/29/21 09:00 Polyethylene Glycol 3350 17 Gm Powd.Pack PO DAILY PRN Constipation Sodium Chloride 3 ml 01/29/21 00:00 01/29/21 07:26 0.9 % Sodium Chloride Flush 3 Ml Syringe IVFLUSH 3 ml QSHIFT [facility] Administration Trazodone HCl 25 mg 01/29/21 13:00 01/29/21 13:36 Trazodone Hcl 25 Mg Halftab PO 25 mg DAILY@1300 LATRICE Administration Allergies Allergies Allergy/AdvReac Type Severity Reaction Status Date / Time memantine [MEMANTINE] Allergy Severe HIVES Verified 10/14/20 07:25 Iodinated Contrast Media Allergy Unknown UNKNOWN Verified 10/14/20 07:25 [IV CONTRAST] lactose Allergy Unknown DIARRHEA Verified 10/14/20 07:25 sulfamethoxazole Allergy Unknown UNKNOWN Verified 10/14/20 07:25 [From BACTRIM] trimethoprim [From BACTRIM] Allergy Unknown UNKNOWN Verified 10/14/20 07:25 Assessment & Plan Assessment & Plan (1) Dementia: Qualifiers: Dementia behavioral disturbance: with behavioral disturbance Dementia type: unspecified type Qualified Code(s): F03.91 - Unspecified dementia with behavioral disturbance Status: Acute Code(s): F03.90 - Unspecified dementia without behavioral disturbance Assessment and Plan: Patient has dementia, and has been been treated with rivastigmine in the past. However, it appears that there may have been recent medication changes since last hospitalization, as depakote or rivastigmine is not listed as current medications. I did call daughter Jessica (HCP), and she stated that her mother has not taken rivastigmine in many months, as it has been discontinued. This creative writer contacted outpatient provider Caro Elena, who had recently sent script to pharmacy to increase depakote sprinkles to 4 times daily. (2) Anxiety: Status: Acute Code(s): F41.9 - Anxiety disorder, unspecified Assessment and Plan: Recommend change psychiatric medications to meds ordered upon most recent discharge, as follows: 1. Olanzapine 2.5mg daily at 1700. 2. Add divalproex 125mg capsule, delayed release sprinkles, po 4 times daily. 3. Trazodone 25mg at 1300. Greater than 50% of the session was spent on counseling and/or coordination of care Guardian/Caregiver educated on: medication risk/benefits Informed Consent: understands
--- NOTE | 2021-01-29 17:45 | PC.NURSE ---
Moody removed at 1030, pt with no void as of 1630. Pt bladder scanned and result 250cc. Dr. Alberto made aware, order to continue to monitor and straight cath for greater than 350cc.
[2021-01-29] MEDS: OLANZapine 2.5 MG TABLET PO (17:54)
--- NOTE | 2021-01-29 18:28 | PC.NURSE ---
Pt voided 200mL at 1800.
[2021-01-29 18:52] VITALS: BP 121/63; PULSE 100; RESP 20; TEMP 36.9; O2SAT 96
[2021-01-29] MEDS: OLANZapine 5 MG TABLET PO (21:02)
[2021-01-29] MEDS: Docusate Sodium 100 MG CAPSULE PO (21:02)
[2021-01-29] MEDS: Divalproex Sodium Sprinkles 125 MG CAP.DR.SPR PO (21:02)
[2021-01-29] MEDS: Enoxaparin Sodium 40 MG/0.4 ML SYRINGE SUBCUT (21:03)
[2021-01-29 23:57] VITALS: BP 106/46; PULSE 72; RESP 16; TEMP 36.7; O2SAT 96
[2021-01-30] MEDS: 0.9 % Sodium Chloride Flush 3 ML SYRINGE IVFLUSH ×3 (01:08→16:49)
--- NOTE | 2021-01-30 07:32 | PM.IMPN ---
Progress Note: A&P (1) Altered mental status: Status: Acute <Jimena Farrell NP - Last Filed: 01/30/21 09:42> Assessment and Plan: 80 year old women admitted with acute encephalopathy, recent UTI and was on ceftin at [facility]. She has chronic UTI's and has frequency and urgency which may be contributing to encephalopathy. Last urine cx in september was negative, no cx from last admission several days ago. Encephalopathy. Unknown etiology at this time. very agitated and trying to get OOB initially less agitated today has a sitter May be secondary to recent UTI Urine cx negative, abx stopped Dementia recent radha psych admission, seen and evaluated by psych, no indication for radha psych admission medications adjusted Trazodone should be 12.5 mg at 13:00. Olanzapine 2.5 at 17:00, along with olanzapine 5 mg at bedtime. Depakote Sprinkles 125 mg 4 times daily UTI. Hx of chronic UTI. recent UTI and was on ceftin at home urine cx neg stop rocephin Abdominal CT 01/17/2021 showed mild right hydronephrosis questioning recently passed stone or pyelonephritis Due to pain to right lower back will obtain abdominal CT obtained this admission with no acute abnormalities Lactic acidosis. Resolved She received IV fluids in the ER Likely secondary to infection Trend DISPO plan for STR. DVT prophylaxis with Lovenox Attending Dr. Alberto Full code <Jimena Farrell NP - Last Filed: 01/30/21 09:42> Subjective Subjective Date of Service: 01/30/21 <Jimena Farrell NP - Last Filed: 01/30/21 09:42> 01/30/21 <Polo Alberto MD - Last Filed: 01/30/21 17:48> Interval History: Follow up encephalopathy calmer today confused <Jimena Farrell NP - Last Filed: 01/30/21 09:42> Physical Exam Vital Signs: Vital Signs: Last Vital Signs Temp 98.0 F 01/29/21 23:57 Pulse 72 01/29/21 23:57 Resp 16 01/29/21 23:57 BP 106/46 L 01/29/21 23:57 Pulse Ox 96 01/29/21 23:57 Body Mass Index 17.9 <Jimena Farrell NP - Last Filed: 01/30/21 09:42> Appearing in no acute distress lung sounds are clear to auscultation heart regular rate rhythm, clear S1, S2 positive bowel sounds, abdomen is soft, nontender neuro patient is alert, confused, no focal deficits <Jimena Farrell NP - Last Filed: 01/30/21 09:42> Objective Data Current Medications Generic Name Dose Route Start Last Admin Trade Name Joeq PRN Reason Stop Dose Admin Acetaminophen 650 mg 01/28/21 17:36 01/29/21 04:49 Acetaminophen 325 Mg Tablet PO 650 mg Q6H PRN Administration Pain, Mild (Pain Scale 1-3) Divalproex Sodium 125 mg 01/29/21 21:00 01/29/21 21:02 Divalproex Sodium Sprinkles 125 Mg Cap.Spr PO 125 mg QID LATRICE Administration Docusate Sodium 100 mg 01/28/21 21:00 01/29/21 21:02 Docusate Sodium 100 Mg Capsule PO 100 mg BID LATRICE Administration Enoxaparin Sodium 40 mg 01/28/21 22:00 01/29/21 21:03 Enoxaparin Sodium 40 Mg/0.4 Ml Syringe SUBCUT 40 mg Q24H LATRICE Administration Multivitamins/Vitamin C 1 tab 01/29/21 08:00 01/29/21 07:26 Multivitamin Tablet PO Not Given DAILY@0800 LATRICE Olanzapine 2.5 mg 01/29/21 17:00 01/29/21 17:54 Olanzapine 2.5 Mg Tablet PO 2.5 mg DAILY@1700 LATRICE Administration Olanzapine 5 mg 01/28/21 21:00 01/29/21 21:02 Olanzapine 5 Mg Tablet PO 5 mg BEDTIME LATRICE Administration Ondansetron HCl 4 mg 01/28/21 17:36 Ondansetron Hcl 4 Mg/2 Ml Vial IVPUSH Q8H PRN Nausea and Vomiting Pharmacy Consult 1 each 01/28/21 17:13 Consult Rx Perform Med Rec MISCELLANE ONCE PRN Consult order Polyethylene Glycol 17 gm 01/29/21 09:00 Polyethylene Glycol 3350 17 Gm Powd.Pack PO DAILY PRN Constipation Sodium Chloride 3 ml 01/29/21 00:00 01/30/21 01:08 0.9 % Sodium Chloride Flush 3 Ml Syringe IVFLUSH 3 ml QSHIFT LATRICE Administration Trazodone HCl 12.5 mg 01/30/21 13:00 Trazodone Hcl 25 Mg Halftab PO DAILY@1300 LATRICE <Jimena Farrell NP - Last Filed: 01/30/21 09:42> Labs CBC & Chem 7: : 01/29/21 06:10 01/29/21 06:10 <Jimena Farrell NP - Last Filed: 01/30/21 09:42> Microbiology Microbiology Results: Microbiology 01/28/21 13:58 Blood - Venous Blood Culture - Preliminary No growth after 24 hours. 01/28/21 14:11 Blood - Venous Blood Culture - Preliminary No growth after 24 hours. 01/28/21 Unknown Urine clean catch - Urine beckwith top Urine Culture - Final No growth. <Jimena Farrell NP - Last Filed: 01/30/21 09:42> Quality Stroke Does the patient have a stroke diagnosis?: No <Jimena Farrell NP - Last Filed: 01/30/21 09:42> VTE Prior VTE?: No <Jimena Farrell NP - Last Filed: 01/30/21 09:42> VTE Risk Level:: Medical - moderate - high <Jimena Farrell NP - Last Filed: 01/30/21 09:42> VTE Device Contraindication: Treatment Not Indicated <Jimena Farrell NP - Last Filed: 01/30/21 09:42> VTE Drug Contraindication: N/A - Med Ordered <Jimena Farrell NP - Last Filed: 01/30/21 09:42>
[2021-01-30 07:57] VITALS: BP 133/58; PULSE 88; RESP 16; TEMP 36.4; O2SAT 97
[2021-01-30] MEDS: Docusate Sodium 100 MG CAPSULE PO ×2 (08:20→20:49)
[2021-01-30] MEDS: Divalproex Sodium Sprinkles 125 MG CAP.DR.SPR PO ×4 (08:20→20:49)
[2021-01-30] MEDS: Multivitamin TABLET 1 TAB PO (08:20)
[2021-01-30 11:28] VITALS: BP 133/72; PULSE 90; RESP 17; TEMP 36.2; O2SAT 99
--- NOTE | 2021-01-30 11:56 | MHC.CM.PN ---
PT READY FOR D/C TODAY, [facility] OFFER[facility] BED AND CM CONTACTED [facility] AND THEY HAVE NO DEMENTIA BEDS AT THIS TIME. CM TO CONTACT DTR TO SEE IF THEY WILL ACCEPT BED.
[2021-01-30] MEDS: traZODone HCL 25 MG HALFTAB 12.5 MG PO (12:33)
--- NOTE | 2021-01-30 13:19 | MHC.CM.PN ---
Addendum entered by Krisat Mcdonald RN 01/30/21 14:30: CM RECEIVIED MESSAGE FROM ADMISSIONS LIAISON AT [facility] AND THEY ARE AGREEABLE TO TAKE PT ON A 2 WK RESPITE AND CAN RENEW TWO WK INTERVAL OR TRANSITION TO LTC, CM PROVIDED DTR/HCP [facility]'S CONTACT INFO AND DELFINA HAS CALLED [facility] AT 2:25PM [phone], NO ANSWER AND MESSAGE LEFT DETAILS AND PLAN FOR D/C TOMORROW 01/31/21. CM HAD MET W/HAND TILE MAKER WHO REPORTED PT IS RESTARTING DEPAKOTE AT [facility] AND WILL PUT IN A DEPAKOTE LEVEL FOR TOMORROW MORNING. CM WILL CONT TO FOLLOW. Original Note: CM CONTACTED PT'S DTR TO REVIEW BED OFFERS AT 12:05PM, PT'S DTR RESISTANT TO PLACE PT DIRECTLY INTO LTC DUE TO RECENT MED CHANGES RECOMMENDED BY PSYCH AND POSSIBILITY TO RETURN TO ASSISTED LIVING, PTS STR IS INTERESTED IN FINDING PT A 2WK RESPITE BE TO SEE IF MED CHANGES HELP AND IS NOT WILL TRANSITION TO LTC, CM HAS LEFT [facility] DIESEL ENGINE ASSEMBLER A MESSAGE REGARDING POSSIBILITY OF RESPITE BED AND IS AWAITING A CALL BACK.
[2021-01-30 15:18] VITALS: BP 124/66; PULSE 105; RESP 17; TEMP 36.4; O2SAT 96
[2021-01-30] MEDS: OLANZapine 2.5 MG TABLET PO (16:49)
[2021-01-30] MEDS: OLANZapine 5 MG TABLET PO (20:49)
[2021-01-30] MEDS: Enoxaparin Sodium 40 MG/0.4 ML SYRINGE SUBCUT (20:49)
[2021-01-30] MEDS: Acetaminophen 325 MG TABLET 650 MG PO (20:54)
[2021-01-31] VITALS: BP 105/52; PULSE 87; RESP 20; TEMP 36.1; O2SAT 97
[2021-01-31] MEDS: 0.9 % Sodium Chloride Flush 3 ML SYRINGE IVFLUSH ×2 (00:31→09:49)
[2021-01-31 08:00] VITALS: BP 121/55; PULSE 103; RESP 16; TEMP 36.5; O2SAT 98
[2021-01-31] MEDS: Docusate Sodium 100 MG CAPSULE PO (09:49)
[2021-01-31] MEDS: Multivitamin TABLET 1 TAB PO (09:49)
[2021-01-31] MEDS: Divalproex Sodium Sprinkles 125 MG CAP.DR.SPR PO ×2 (09:49→12:33)
[2021-01-31] MEDS: polyethylene glycoL 3350 17 GM POWD.PACK PO (11:35)
[2021-01-31] MEDS: Acetaminophen 325 MG TABLET 650 MG PO (11:35)
[2021-01-31 12:07] LABS: Valproate 38.7 mcg/mL (50.0-100.0)
[2021-01-31] MEDS: traZODone HCL 25 MG HALFTAB 12.5 MG PO (12:33)
--- NOTE | 2021-01-31 13:17 | MHC.INPTTRAN ---
Gets very confused, restless. Needs assist with all ADL'S Ambulates with min assist. Weak, steady on feet. Encourage fluids. voids freqs mall amt PVR 0 Takes meds crushed in applesauce. . tyl given today at 1200 for c/o back pain. VSS.
--- NOTE | 2021-01-31 13:40 | MHC.CLN ---
FOLLOW UP VARIABLE INTAKE, 0-75%. STAFF REPORTS THAT PATIENT EATS SMALL AMOUNTS. CONTINUE REGULAR DIET WITH ENSURE SUPPLEMENT 240 ML BID.
[2021-01-31 14:12] LABS: COVID-19 Test Negative (Negative)
--- NOTE | 2021-01-31 14:21 | P.DS_ITS ---
DS: Providers Provider Date of Service: 01/31/21 Date of admission: 01/28/21 17:37 Date of discharge: 01/31/21 Primary care physician: Johanna Wheeler MD Admitting clinician: Jimena Farrell Attending physician on admission: Polo Alberto Consults: 01/29/21 11:35 Consult to Psychiatry Routine Consulting Provider: Jeronimo Johnson Reason for consultation: dementia, increaased anxiety, agitated behaviors, recent radha-psych admit Has provider been notified: No Attending physician on discharge: Christ Hopper DS: Diagnosis Discharge Diagnosis (1) Altered mental status: Status: Acute (2) Dementia with behavioral disturbance: Status: Acute (3) Lactic acid acidosis: Status: Acute DS: Medications Discharge Medications Home Medications: Home Medications Medication Instructions Recorded Confirmed cholecalciferol (vitamin D3) 25 25 mcg PO DAILY 01/17/21 01/28/21 mcg (1,000 unit) capsule (Vitamin D3) methenamine hippurate 1 gram tablet 1 g PO BID 01/17/21 01/28/21 olanzapine 2.5 mg tablet 2.5 mg PO DAILY@1700 01/17/21 01/28/21 trazodone 50 mg tablet 25 mg PO DAILY@1300 01/17/21 01/28/21 vitamin E (dl, acetate) 450 mg 450 mg PO DAILY 01/17/21 01/28/21 (1,000 unit) capsule olanzapine 5 mg tablet 1 tab PO BEDTIME 01/28/21 01/28/21 polyethylene glycol 3350 17 17 g PO DAILY PRN 01/28/21 01/28/21 gram/dose oral powder (Miralax) Previous Rx's Medication Instructions Recorded aspirin 81 mg tablet,delayed 81 mg PO DAILY@0800 30 Days #30 tab 01/08/21 release docusate sodium 100 mg capsule 100 mg PO BID 30 Days #60 cap 01/08/21 multivitamin 1 tab PO DAILY@0800 30 Days #30 tab 01/08/21 divalproex 125 mg capsule,delayed 125 mg PO QID #120 cap 01/31/21 release sprinkle polyethylene glycol 3350 17 gram 17 g PO DAILY PRN #30 ea 01/31/21 oral powder packet DS: Summary Hospital Course Hospital Course: from admission history and physical by FINAL ASSEMBLY INSPECTOR Jimena Farrell, 01/28/21: 80 year old women with a history of dementia presenting from assisted living facility with increased confusion. She is currently being treated for UTI with ceftin. She has a hx of Chronic UTI. She was recently admitted on 01/16/21 after a fall. She grew Gram-negative bacteria, Citrobacter in 1 set of blood cultures and was treated with rocephin while inpatient.? in the ER she is quite confused combative and every several minutes saying that she needs to use the bathroom.? When a bed pannus placed under her she is able to produce a small amount a urine each time.? It was decided that placing a Moody catheter would likely be better for the patient as she does have confusion and she continues to attempt to get up and? may be at higher risk for a fall in the ER she does have a sitter with her.? She is not noted to have any fever or leukocytosis.? Lactic acid is 2.1.? Urinalysis is not impressive however she has been treated with antibiotics recently.? she was given IV fluids and ceftriaxone in the ER.? She will be admitted for further management treatment of acute encephalopathy possibly related to failed outpatient treatment of urinary tract infection. The patient was admitted to the medical-surgical floor and treated with IV ceftriaxone initially; urine culture was negative, so antibiotic was discontinued. Lactic acidosis resolved with IV hydration. Ultimately, her mental status changes were attributed to behavioral disturbance from the dementia. Psychiatry was consulted, and the labor relations consultant contacted the patient's outpatient prescriber as well as the patient's daughter. Rivastigmine had previously been discontinued. The rest of the medications were adjusted to: Trazodone 12.5 mg at 13:00. Olanzapine 2.5 mg at 17:00, along with olanzapine 5 mg at bedtime. Depakote Sprinkles 125 mg 4 times daily has been added. A Depakote [valproate] level should be rechecked in 2 days, as her level on the day of discharge was subtherapeutic. She was discharged to SNF for respite care with plan for transition to eventual long-term care. Time Spent with Patient Time attestation: Total time spent providing and/or coordinating discharge services: Discharge coordination time: Greater than 30 minutes Quality: Stroke Does the patient have a stroke diagnosis?: No Physical Exam Vital Signs: Vital Signs: Last Vital Signs Temp 97.7 F 01/31/21 08:00 Pulse 103 H 01/31/21 08:00 Resp 16 01/31/21 08:00 BP 121/55 L 01/31/21 08:00 Pulse Ox 98 01/31/21 08:00 Body Mass Index 17.9 Gen: in no acute distress HEENT: sclera anicteric, moist mucus membranes Neck: supple Lungs: clear to auscultation bilaterally Heart: regular rate and rhythm, no murmurs Abd: soft, non-tender, non-distended Ext: no edema Skin: warm/well-perfused Neuro: disoriented Psych: impaired insight DS: Data Data Completed and Pending Completed studies during hospitalization [Text1]: Laboratory Results WBC 10.7 X10*3/uL (4.8-10.8) 01/29/21 06:10 RBC 4.30 X10*6/uL (4.20-5.50) 01/29/21 06:10 Hgb 12.9 g/dl (12.0-16.0) 01/29/21 06:10 Hct 39.8 % (37-47) 01/29/21 06:10 MCV 92.6 fL (80-98) 01/29/21 06:10 MCH 30.0 pg (27.0-33.0) 01/29/21 06:10 MCHC 32.4 g/dl (31.0-35.0) 01/29/21 06:10 RDW 12.4 % (11.0-16.0) 01/29/21 06:10 Plt Count 513 X10*3/uL (160-400) H 01/29/21 06:10 MPV 9.6 fL (9.4-12.3) 01/29/21 06:10 Immature Gran % (Auto) 0.5 % (0.0-0.4) H 01/29/21 06:10 Neut % (Auto) 73.1 % (45-73) H 01/29/21 06:10 Lymph % (Auto) 15.7 % (20-40) L 01/29/21 06:10 [place] % (Auto) 7.2 % (2-11) 01/29/21 06:10 Eos % (Auto) 2.8 % (0-4) 01/29/21 06:10 Baso % (Auto) 0.7 % (0-2) 01/29/21 06:10 Lymph # (Auto) 1.7 X10*3/uL (1.2-4.9) 01/29/21 06:10 [place] # (Auto) 0.8 X10*3/uL (0.1-1.2) 01/29/21 06:10 Eos # (Auto) 0.3 X10*3/uL (0.0-0.4) 01/29/21 06:10 Baso # (Auto) 0.1 X10*3/uL (0.0-0.2) 01/29/21 06:10 Abs Immat Gran (auto) 0.05 X10*3/uL (0.00-0.03) H 01/29/21 06:10 Absolute Neuts (auto) 7.8 X10*3/uL (2.0-8.3) 01/29/21 06:10 Absolute Nucleated RBC 0.000 X10*3/uL (0.0-0.012) 01/29/21 06:10 Nucleated RBC % (auto) 0.0 /100WBC (0.0-0.2) 01/29/21 06:10 Sodium 140 mmol/L (135-145) 01/29/21 06:10 Potassium 3.9 mmol/L (3.3-5.1) 01/29/21 06:10 Chloride 106 mmol/L (96-108) 01/29/21 06:10 Carbon Dioxide 24 mmol/L (22-29) 01/29/21 06:10 Anion Gap 14 (12-20) 01/29/21 06:10 BUN 11 mg/dL (9-16) 01/29/21 06:10 Creatinine 0.75 mg/dL (0.5-1.4) 01/29/21 06:10 Estim Creat Clear Calc 47.0 01/29/21 06:10 Estimated GFR > 60 01/29/21 06:10 Random Glucose 115 mg/dL (60-115) 01/29/21 06:10 Lactic Acid 2.1 mmol/L (0.5-2.0) H* 01/28/21 12:59 Lactic Acid Fup @ 2Hr 1.0 mmol/L (0.5-2.0) 01/28/21 15:28 Calcium 9.2 mg/dL (8.4-10.2) 01/29/21 06:10 Total Bilirubin < 0.2 mg/dL (0.0-1.0) 01/28/21 12:59 AST 14 U/L (5-31) 01/28/21 12:59 ALT 12 U/L (0-31) 01/28/21 12:59 Alkaline Phosphatase 80 U/L (39-117) 01/28/21 12:59 Troponin I High Sens 3.6 ng/L (<3.5-17.0) 01/28/21 13:58 Total Protein 6.9 g/dL (6.5-8.0) 01/28/21 12:59 Albumin 4.0 g/dL (3.5-5.0) 01/28/21 12:59 Lipase 26 U/L (8-78) 01/28/21 12:59 Lipase Cancelled 01/28/21 12:59 Urine Color YELLOW 01/28/21 14:41 Urine Appearance CLEAR 01/28/21 14:41 Urine pH 6.0 (5.0-8.0) 01/28/21 14:41 Ur Specific [place] 1.015 (1.005-1.025) 01/28/21 14:41 Urine Protein NEG MG/DL (NEG-TRACE) 01/28/21 14:41 Urine Glucose (UA) NEG MG/DL (NEG) 01/28/21 14:41 Urine Ketones NEG MG/DL (NEG) 01/28/21 14:41 Urine Blood 2+ (NEG) H 01/28/21 14:41 Urine Nitrite NEG (NEG) 01/28/21 14:41 Ur Leukocyte Esterase NEG (NEG) 01/28/21 14:41 Urine RBC 15-29 /HPF (0) H 01/28/21 14:41 Urine WBC 15-29 /HPF (0-4) H 01/28/21 14:41 Ur Squamous Epith Cells NONE /LPF 01/28/21 14:41 Urine Bacteria NONE /LPF 01/28/21 14:41 Urine Opiates Screen Not Detected (Not Detect) 01/28/21 14:41 Ur Barbiturates Screen Not Detected (Not Detect) 01/28/21 14:41 Valproic Acid 38.7 mcg/mL (50.0-100.0) L 01/31/21 06:32 Ur Phencyclidine Scrn Not Detected (Not Detect) 01/28/21 14:41 Ur Amphetamines Screen Not Detected (Not Detect) 01/28/21 14:41 U Benzodiazepines Scrn Not Detected (Not Detect) 01/28/21 14:41 Urine Cocaine Screen Not Detected (Not Detect) 01/28/21 14:41 U Marijuana (THC) Screen Not Detected (Not Detect) 01/28/21 14:41 Coronavirus (PCR) NEGATIVE (Negative) 01/28/21 17:06 COVID-19 (NARINDER) Negative (Negative) 01/31/21 13:35 COVID-19 Clin Com See Note 01/31/21 13:35 Influenza Type A (PCR) NEGATIVE (Negative) 01/28/21 17:06 Influenza Type B (PCR) NEGATIVE (Negative) 01/28/21 17:06 RSV RNA Qual (PCR) NEGATIVE (Negative) 01/28/21 17:[address] 01/28/21 13:08 IMPRESSION: No acute intracranial pathology. Generalized atrophy with microangiopathy. Abdomen/Pelvis CT 01/28/21 18:22 IMPRESSION: Chronic appearing changes similar to the prior study. I do not appreciate any acute superimposed process.. Labs on day of discharge: Laboratory Results - last 24 hr 01/31/21 01/31/21 06:32 13:35 Valproic Acid 38.7 L COVID-19 (NARINDER) Negative COVID-19 Clin Com See Note Preliminary micro results at discharge 01/28/21 13:58 Blood Culture - Preliminary Blood - Venous No growth after 48 hours. 01/28/21 14:11 Blood Culture - Preliminary Blood - Venous No growth after 48 hours. Discharge Plan Discharge Patient Disposition: [facility]F Discharge Diagnosis: dementia with behavioral disturbance Referrals: Johanna Wheeler MD [Primary Care Provider] - 1 Week Discharge Medications: New polyethylene glycol 3350 17 gram Powder In Packet 17 g PO DAILY PRN (Reason: Constipation) Qty: 30 RF: 0 divalproex 125 mg Capsule, Delayed Rel Sprinkle 125 mg PO QID Qty: 120 RF: 0 trazodone 50 mg tablet 12.5 mg PO DAILY Qty: 8 RF: 0 Continued docusate sodium 100 mg Capsule 100 mg PO BID 30 Days Qty: 60 RF: 0 multivitamin Tablet 1 tab PO DAILY@0800 30 Days Qty: 30 RF: 0 aspirin 81 mg Tablet,Delayed Release (Dr/Ec) 81 mg PO DAILY@0800 30 Days Qty: 30 RF: 0 olanzapine 2.5 mg tablet 2.5 mg PO DAILY@1700 RF: 0 cholecalciferol (vitamin D3) [Vitamin D3] 25 mcg (1,000 unit) Capsule 25 mcg PO DAILY RF: 0 vitamin E (dl, acetate) 450 mg (1,000 unit) Capsule 450 mg PO DAILY RF: 0 methenamine hippurate 1 gram Tablet 1 g PO BID RF: 0 olanzapine 5 mg tablet 1 tab PO BEDTIME RF: 0 polyethylene glycol 3350 [Miralax] 17 gram/dose Powder 17 g PO DAILY PRN (Reason: Constipation) RF: 0 Discontinued divalproex 125 mg Capsule, Delayed Rel Sprinkle 125 mg PO TID 30 Days Qty: 90 RF: 0 trazodone 50 mg tablet 25 mg PO DAILY@1300 RF: 0 cefuroxime axetil 250 mg tablet 1 tab PO BID RF: 0 Discharge Orders: Discharge Order (Routine); Ordered 01/31/21 Ordered By: Christ Hopper Activity on Discharge: As tolerated Stand Alone Forms: Patient Portal Discharge page Other Ambulatory Orders: Valproate (Routine) Timeframe: 2 Days Facility: [facility] - Location: Laboratory Ordered By: Christ Hopper Care Plan Goals: control of behavioral disturbances from dementia Health Concerns: dementia with behavioral disturbance Plan of Treatment: Olanzapine 2.5mg daily at 1700, 5mg at bedtime Increase divalproex 125mg capsule, delayed release?sprinkles to 4 times daily; recheck a level in 2 Trazodone 25mg at 1300. Assessment: as above
--- NOTE | 2021-02-03 11:31 | MHC.CDI.RETR ---
Retrospective Query Please clarify if you have treated a probable/suspected/likely or confirmed: Underweight Malnutrition, mild, moderate or severe Please specify if known or other PLEASE DO NOT DELETE/MODIFY EXISTING CONTENT Additional information is needed in order to code to the highest accuracy and appropriate Severity of Illness (SOI). Please clarify the information noted below in your progress notes and discharge summary. Risk Factors/Clinical Indicators/Treatments Nutrition assessment notes underweight with last diagnosis of moderate malnutrition with improvement in nutritional status. BMI 17.9 Adding Ensure CDS: Balbina Wilson CCS, CDIS Contact Number: [phone] Please Review the information above and exercise your independent professional judgment in responding to the query. If you concur, pleas document in the PROGRESS NOTES and DISCHARGE SUMMARY. If you do not agree with the query, please document in the query above. THIS QUERY IS PART OF THE PERMANENT MEDICAL RECORD
== END 2021-01-31 18:26 | disposition skilled nursing facility (03) | DRG 641 ==
LOC: HO.ED 16:15 → HO.EDOVER 17:50 → HO.S3 19:02
PROVIDERS: Admitting Provider Nurse Practitioner Acute Care; Emergency Provider Emergency Medicine Emergency Medical Services; PCP Internal Medicine; Visit Provider Family Medicine
DX: E87.2 Acidosis (principal); F03.91 Unspecified dementia, unspecified severity, with behavioral disturbance; F41.9 Anxiety disorder, unspecified; Z20.822 Contact with and (suspected) exposure to COVID-19; Z87.440 Personal history of urinary (tract) infections; Z87.891 Personal history of nicotine dependence; Z88.2 Allergy status to sulfonamides; Z79.82 Long term (current) use of aspirin; Z79.899 Other long term (current) drug therapy
CPT/HCPCS: 0241U; 36415; 70450; 74176; 80048; 80053; 80164; 80307; 81001; 83605; 83690; 84484; 85025; 87040; 87086; 87635; 93005; 99285; C1758; J0696; J1650